=== PATIENT | male | born 1940 | race Caucasian/White ===

== ENCOUNTER 2018-06-21 14:30 | Emergency (ER) | payer MEDICARE, BC ==
[2018-06-21 14:39] VITALS: RESP 18; TEMP 97.9
[2018-06-21] MEDS ORDERED: SODIUM CHLORIDE 0.9% 500 ML 500 ML IV STA (15:27)
[2018-06-21 16:20] LABS: Basophils # (A) 0.1 k/uL (0-0.2); Basophils % (A) 1 %; Eosinophils # (A) 0.2 k/uL (0-0.7); Eosinophils % (A) 3 %; HCT 44.1 % (39.0-53.0); HGB 14.2 gm/dL (13.0-17.5); Lymphocytes # (A) 1.6 k/uL (1.0-4.8); Lymphocytes % (A) 22 %; MCHC 32.1 g/dL (31.0-37.0); MCV 96.6 fL (80.0-100.0); Mean Platelet Volume 7.8; Monocytes # (A) 0.5 k/uL (0-1.0); Monocytes % (A) 7 %; Neutrophils # (A) 4.8 k/uL (1.3-7.7); Neutrophils % (A) 66 %; Platelet Count 182 k/uL (150-450); RBC 4.57 m/uL (4.30-5.90); RDW 13.3 % (11.5-15.5); WBC 7.3 k/uL (3.8-10.6)
[2018-06-21 16:30] LABS: INR 2.1 (<1.2); Partial Thromboplastin Time 27.5 sec (22.0-30.0); Prothrombin Time 18.9 sec (9.0-12.0)
[2018-06-21 16:31] LABS: ALT 22 U/L (21-72); AST 28 U/L (17-59); Albumin 3.7 g/dL (3.5-5.0); Alkaline Phosphatase 66 U/L (38-126); Amylase 41 U/L (30-110); Anion Gap 10 mmol/L; Blood Urea Nitrogen 16 mg/dL (9-20); Calcium 9.1 mg/dL (8.4-10.2); Carbon Dioxide 26 mmol/L (22-30); Chloride 104 mmol/L (98-107); Glucose 130 mg/dL (74-99); Lipase 45 U/L (23-300); Potassium 4.6 mmol/L (3.5-5.1); Sodium 140 mmol/L (137-145); Total Bilirubin 0.7 mg/dL (0.2-1.3); Total Protein 6.2 g/dL (6.3-8.2)
--- NOTE | 2018-06-21 16:35 | ED ---
General Adult HPI - General Chief complaint: Urogenital Stated complaint: Hematuria Time Seen by Provider: 06/21/18 15:08 Source: patient, RN notes reviewed Mode of arrival: ambulatory Limitations: no limitations - History of Present Illness Initial comments: This an 78-year-old male presents emergency Department chief complaint of hematuria. Patient states started last night and continues today. Patient states is painless. Patient denies any abdominal pain, flank pain. Patient does admit that he does take Coumadin for A. fib. Patient states he Had hematuria in the past. Patient has had prior TURP procedure. Patient states she's also had colon resection secondary to colon cancer, cholecystectomy. Patient denies any history of C a. Patient states he was a former smoker. - Related Data Home Medications Medication Instructions Recorded Confirmed Acetaminophen-Codeine 300-30mg 1 tab PO Q6H PRN 06/21/18 06/21/18 [Tylenol w/codeine #3] Atenolol [Tenormin] 25 mg PO BID 06/21/18 06/21/18 Cephalexin [Keflex] 500 mg PO TID 06/21/18 06/21/18 Enalapril [Vasotec] 5 mg PO BID 06/21/18 06/21/18 Fluticasone Nasal Felt [Flonase 1 spray EA NOSTRIL DAILY PRN 06/21/18 06/21/18 Nasal Felt] Furosemide [Lasix] 20 mg PO DAILY 06/21/18 06/21/18 Montelukast [Singulair] 10 mg PO HS 06/21/18 06/21/18 Potassium Chloride ER [K-Dur 20] 20 meq PO DAILY 06/21/18 06/21/18 Simvastatin [Zocor] 20 mg PO HS 06/21/18 06/21/18 Tamsulosin HCl [Flomax] 0.4 mg PO BID 06/21/18 06/21/18 Warfarin [Coumadin] 5 mg PO HS 06/21/18 06/21/18 Allergies Allergy/AdvReac Type Severity Reaction Status Date / Time morphine AdvReac Nausea & Verified 06/21/18 15:16 Vomiting Review of Systems ROS Statement: Those systems with pertinent positive or pertinent negative responses have been documented in the HPI. ROS Other: All systems not noted in ROS Statement are negative. Past Medical History Past Medical History: Atrial Fibrillation, Asthma, CVA/TIA, Hyperlipidemia, Hypertension, Prostate Disorder Additional Past Medical History / Comment(s): Colon Cancer History of Any Multi-Drug Resistant Organisms: None Reported Past Surgical History: Cholecystectomy, Hernia Repair, Pacemaker Additional Past Surgical History / Comment(s): 8" of colon removed 2004, sinus operation, Cardiac Ablation x 2 Past Psychological History: No Psychological Hx Reported Smoking Status: Never smoker Past Alcohol Use History: None Reported Past Drug Use History: None Reported General Exam Limitations: no limitations General appearance: alert, in no apparent distress Neck exam: Present: normal inspection, full ROM. Absent: tenderness, meningismus, lymphadenopathy Respiratory exam: Present: normal lung sounds bilaterally. Absent: respiratory distress, wheezes, rales, rhonchi, stridor Cardiovascular Exam: Present: regular rate, normal rhythm, normal heart sounds. Absent: systolic murmur, diastolic murmur, rubs, gallop, clicks GI/Abdominal exam: Present: soft, normal bowel sounds. Absent: distended, tenderness, guarding, rebound, rigid Back exam: Absent: CVA tenderness (R), CVA tenderness (L) Skin exam: Present: warm, dry, intact, normal color. Absent: rash Course Vital Signs 06/21/18 14:34 Temperature 97.9 F Pulse Rate 66 Respiratory 18 Rate Blood Pressure 132/51 O2 Sat by Pulse 97 Oximetry Medical Decision Making - Medical Decision Making 78-year-old male present emergency Department for hematuria. Patient had lab work, ultrasound and urinalysis. Patient does have gross hematuria though he's had no difficulty urinating no retention. Ultram obtained no abnormal findings no mass. Patient's hemoglobin is stable at 14.2. We discussed that he is on Coumadin he is to hold his Coumadin for 2 nights, and is follow-up urologist on Saturday and return for any worsening symptoms. We discussed return parameters. - Lab Data Result diagrams: 06/21/18 16:08 06/21/18 16:08 Lab Results 06/21/18 06/21/18 06/21/18 Range/Units 16:08 16:08 16:08 WBC 7.3 (3.8-10.6) k/uL RBC 4.57 (4.30-5.90) m/uL Hgb 14.2 (13.0-17.5) gm/dL Hct 44.1 (39.0-53.0) % MCV 96.6 (80.0-100.0) fL MCH 31.0 (25.0-35.0) pg MCHC 32.1 (31.0-37.0) g/dL RDW 13.3 (11.5-15.5) % Plt Count 182 (150-450) k/uL Neutrophils % 66 % Lymphocytes % 22 % Monocytes % 7 % Eosinophils % 3 % Basophils % 1 % Neutrophils # 4.8 (1.3-7.7) k/uL Lymphocytes # 1.6 (1.0-4.8) k/uL Monocytes # 0.5 (0-1.0) k/uL Eosinophils # 0.2 (0-0.7) k/uL Basophils # 0.1 (0-0.2) k/uL PT 18.9 H (9.0-12.0) sec INR 2.1 H (<1.2) APTT 27.5 (22.0-30.0) sec Sodium 140 (137-145) mmol/L Potassium 4.6 (3.5-5.1) mmol/L Chloride 104 (98-107) mmol/L Carbon Dioxide 26 (22-30) mmol/L Anion Gap 10 mmol/L BUN 16 (9-20) mg/dL Creatinine 0.76 (0.66-1.25) mg/dL Est GFR (CKD-EPI)AfAm >90 (>60 ml/min/1.73 sqM) Est GFR (CKD-EPI)NonAf 86 (>60 ml/min/1.73 sqM) Glucose 130 H (74-99) mg/dL Calcium 9.1 (8.4-10.2) mg/dL Total Bilirubin 0.7 (0.2-1.3) mg/dL AST 28 (17-59) U/L ALT 22 (21-72) U/L Alkaline Phosphatase 66 (38-126) U/L Total Protein 6.2 L (6.3-8.2) g/dL Albumin 3.7 (3.5-5.0) g/dL Amylase 41 (30-110) U/L Lipase 45 (23-300) U/L Urine Color Urine Appearance (Clear) Urine pH (5.0-8.0) Ur Specific Trinity (1.001-1.035) Urine Protein (Negative) Urine Glucose (UA) (Negative) Urine Ketones (Negative) Urine Blood (Negative) Urine Nitrite (Negative) Urine Bilirubin (Negative) Urine Urobilinogen (<2.0) mg/dL Ur Leukocyte Esterase (Negative) Urine RBC (0-5) /hpf Urine WBC (0-5) /hpf Ur Squamous Epith Cells (0-4) /hpf Amorphous Sediment (None) /hpf Urine Mucus (None) /hpf 06/21/18 Range/Units 16:18 WBC (3.8-10.6) k/uL RBC (4.30-5.90) m/uL Hgb (13.0-17.5) gm/dL Hct (39.0-53.0) % MCV (80.0-100.0) fL MCH (25.0-35.0) pg MCHC (31.0-37.0) g/dL RDW (11.5-15.5) % Plt Count (150-450) k/uL Neutrophils % % Lymphocytes % % Monocytes % % Eosinophils % % Basophils % % Neutrophils # (1.3-7.7) k/uL Lymphocytes # (1.0-4.8) k/uL Monocytes # (0-1.0) k/uL Eosinophils # (0-0.7) k/uL Basophils # (0-0.2) k/uL PT (9.0-12.0) sec INR (<1.2) APTT (22.0-30.0) sec Sodium (137-145) mmol/L Potassium (3.5-5.1) mmol/L Chloride (98-107) mmol/L Carbon Dioxide (22-30) mmol/L Anion Gap mmol/L BUN (9-20) mg/dL Creatinine (0.66-1.25) mg/dL Est GFR (CKD-EPI)AfAm (>60 ml/min/1.73 sqM) Est GFR (CKD-EPI)NonAf (>60 ml/min/1.73 sqM) Glucose (74-99) mg/dL Calcium (8.4-10.2) mg/dL Total Bilirubin (0.2-1.3) mg/dL AST (17-59) U/L ALT (21-72) U/L Alkaline Phosphatase (38-126) U/L Total Protein (6.3-8.2) g/dL Albumin (3.5-5.0) g/dL Amylase (30-110) U/L Lipase (23-300) U/L Urine Color Red Urine Appearance Turbid (Clear) Urine pH 6.0 (5.0-8.0) Ur Specific Trinity 1.010 (1.001-1.035) Urine Protein 2+ H (Negative) Urine Glucose (UA) Negative (Negative) Urine Ketones Negative (Negative) Urine Blood Large H (Negative) Urine Nitrite Negative (Negative) Urine Bilirubin Negative (Negative) Urine Urobilinogen <2.0 (<2.0) mg/dL Ur Leukocyte Esterase Trace H (Negative) Urine RBC >182 H (0-5) /hpf Urine WBC 35 H (0-5) /hpf Ur Squamous Epith Cells 2 (0-4) /hpf Amorphous Sediment Rare H (None) /hpf Urine Mucus Occasional H (None) /hpf Disposition Clinical Impression: Hematuria Disposition: HOME SELF-CARE Condition: Stable Instructions: Hematuria (ED) Additional Instructions: Please return to the Emergency Department if symptoms worsen or any other concerns. Is patient prescribed a controlled substance at d/c from ED?: No Referrals: Jean Carlos Ferreira DO [Primary Care Provider] - 1-2 days Jameson Bejarano MD [STAFF PHYSICIAN] - 1-2 days Time of Disposition: 18:13
[2018-06-21 16:50] LABS: Amorphous Sediment,Urine Rare /hpf; Appearance,Urine Turbid (Clear); Bilirubin,Urine Negative (Negative); Blood,Urine Large (Negative); Color,Urine Red; Glucose,Urine (UA) Negative (Negative); Ketones,Urine Negative (Negative); Leukocyte Esterase,Urine Trace (Negative); Mucus,Urine Occasional /hpf; Nitrite,Urine Negative (Negative); Protein,Urine 2+ (Negative); RBC,Urine >182 /hpf (0-5); Squamous Epithelial Cell,Urine 2 /hpf (0-4); Urobilinogen,Urine <2.0 mg/dL (<2.0); WBC,Urine 35 /hpf (0-5)
--- NOTE | 2018-06-21 17:57 | US ---
EXAMINATION TYPE: US kidneys/renal and bladder DATE OF EXAM: 06/21/2018 COMPARISON: CT from 2011. CLINICAL HISTORY: Hematuria. Pain over bladder. Hx multiple UTI's. EXAM MEASUREMENTS: Right Kidney: 12.6 x 6.1 x 5.1 cm Left Kidney: 12.4 x 4.8 x 5.0 cm Limited due to bowel gas, SOB, and body habitus. Right Kidney: Hypoechoic area medially measuring 9.8 x 6.3 x 8.4 cm likely a simple renal cyst Left Kidney: Appears wnl Bladder: Limited, parts visualized wnl Bilateral Jets seen: No Exam noted suboptimal due to patient's large body habitus and overlying bowel gas with inability to h old breath per patient. There is exophytic hypoechoic anechoic lesion right kidney redemonstrated low er pole level corresponds to large but simple appearing cyst on [address] CT. Cortical thinning is present in right kidney. Visualized portion of bladder shows no suspicious wall thickening or intraluminal mass. There is prom inent in contour making it difficult to assess in entirety. Some cortical thinning left kidney is seen. No hydronephrosis evident bilaterally. IMPRESSION: No significant findings seen to account for patient's symptoms of hematuria. Large exophytic but simp le appearing cyst lower pole level right kidney is redemonstrated. Suboptimal study noted.
[2018-06-21 18:37] VITALS: BP 126/54; PULSE 61
== END 2018-06-21 18:36 | disposition home or self-care (01) ==
LOC: EC 14:30
DX: R31.9 Hematuria, unspecified (principal); I48.91 Unspecified atrial fibrillation; J45.909 Unspecified asthma, uncomplicated; E78.5 Hyperlipidemia, unspecified; I10 Essential (primary) hypertension; N42.9 Disorder of prostate, unspecified; Z85.038 Personal history of other malignant neoplasm of large intestine; Z86.73 Personal history of transient ischemic attack (TIA), and cerebral infarction without residual deficits; Z87.891 Personal history of nicotine dependence; Z79.01 Long term (current) use of anticoagulants; Z79.899 Other long term (current) drug therapy; Z88.5 Allergy status to narcotic agent; Z95.0 Presence of cardiac pacemaker; Z90.49 Acquired absence of other specified parts of digestive tract
CPT/HCPCS: 36415; 76770; 80053; 81001; 82150; 83690; 85025; 85610; 85730; 87086; 96360; 96361; 99284

== ENCOUNTER → 2020-05-23 | Outpatient (CLI) | payer MEDICARE, BC ==
--- NOTE | 2020-05-23 14:41 | XR ---
EXAMINATION TYPE: XR Hip Complete LT DATE OF EXAM: 05/23/2020 CLINICAL HISTORY: Left hip pain. Frequent falls. TECHNIQUE: AP and frogleg views of the left hip are obtained. COMPARISON: None. FINDINGS: There is no acute fracture or dislocation of the left hip. The hip joint space appears mi ldly narrowed superiorly. The overlying soft tissue demonstrate dystrophic calcification off of the left inferior pubic ramus. IMPRESSION: There is no acute fracture or dislocation of the left hip.
== END | disposition home or self-care (01) ==
LOC: RADXRMAIN 11:46
PROVIDERS: ATTEND Family Medicine
DX: M16.12 Unilateral primary osteoarthritis, left hip (principal)
CPT/HCPCS: 73502

== ENCOUNTER → 2022-12-07 | Outpatient (CLI) | payer MEDICARE ==
[2022-12-07 18:52] LABS: HCT 45.5 % (39.6-50.0); HGB 14.1 g/dL (13.0-17.0); MCH 30.8 pg (27.0-32.0); MCV 99.3 fL (80.0-97.0); Mean Platelet Volume 12.4 fL (9.5-12.2); NRBC Per 100 WBC 0 /100 WBCS (0.0-0.0); Platelet Count 195 X 10*3/uL (140-440); RBC 4.58 X 10*6/uL (4.40-5.60); WBC 8.98 X 10*3/uL (4.50-10.00)
[2022-12-07 20:01] LABS: African American GFR (CKD) 88.9 (60.0-200.0); Anion Gap 9.7 mmol/L (10.00-18.00); Blood Urea Nitrogen 16.6 mg/dL (9.0-27.0); Carbon Dioxide 27.5 mmol/L (20.0-27.5); Non-African American GFR(CKD) 76.7 (60.0-200.0); Potassium 5.2 mmol/L (3.5-5.5)
== END | disposition home or self-care (01) ==
LOC: LABWHC1 10:52
PROVIDERS: ATTEND Internal Medicine
DX: Z01.812 Encounter for preprocedural laboratory examination (principal); T82.111A Breakdown (mechanical) of cardiac pulse generator (battery), initial encounter; Y82.9 Unspecified medical devices associated with adverse incidents
CPT/HCPCS: 36415; 80051; 82565; 84520; 85027

== ENCOUNTER 2022-12-11 05:57 | Day surgery (SDC) | payer MEDICARE ==
[2022-12-11] MEDS ORDERED: SODIUM CHLORIDE 0.9% 1,000 ML IV SCH (05:58)
[2022-12-11] MEDS ORDERED: ceFAZolin 1 GM in SODIUM CHLORIDE 0.9% IRRIG BTL 250 ML IRRIGATION PRN (06:00)
[2022-12-11] MEDS ORDERED: SODIUM CHLORIDE 0.9% 1,000 ML IV ONE (06:07)
[2022-12-11 06:49] VITALS: RESP 16; TEMP 97.8
[2022-12-11 07:08] LABS: Basophils % (A) 0 %; Eosinophils # (A) 0.2 k/uL (0-0.7); Eosinophils % (A) 3 %; HCT 41.8 % (39.0-53.0); HGB 14.1 gm/dL (13.0-17.5); Lymphocytes # (A) 1.3 k/uL (1.0-4.8); Lymphocytes % (A) 16 %; MCH 31.8 pg (25.0-35.0); MCHC 33.6 g/dL (31.0-37.0); MCV 94.5 fL (80.0-100.0); Mean Platelet Volume 9.9; Monocytes # (A) 0.6 k/uL (0-1.0); Monocytes % (A) 8 %; Neutrophils # (A) 5.9 k/uL (1.3-7.7); Neutrophils % (A) 72 %; Platelet Count 179 k/uL (150-450); RBC 4.42 m/uL (4.30-5.90); RDW 13.9 % (11.5-15.5); WBC 8.2 k/uL (3.8-10.6)
[2022-12-11 07:17] LABS: INR 1.2 (<1.2); Prothrombin Time 12.2 sec (9.0-12.0)
[2022-12-11 07:20] LABS: African American GFR (CKD) >90 (>60 ml/min/1.73 sqM); Anion Gap 6 mmol/L; Blood Urea Nitrogen 21 mg/dL (9-20); Calcium 8.6 mg/dL (8.4-10.2); Carbon Dioxide 26 mmol/L (22-30); Chloride 106 mmol/L (98-107); Glucose 119 mg/dL (74-99); Non-African American GFR(CKD) 84 (>60 ml/min/1.73 sqM); Sodium 138 mmol/L (137-145)
[2022-12-11 07:30] LABS: Potassium 5.3 mmol/L (3.5-5.1)
[2022-12-11] MEDS ORDERED: fentaNYL (PF) 50 MCG/ML 2 ML AMP ONE (07:38)
[2022-12-11] MEDS ORDERED: LIDOCAINE 1% INJ 10MG/ML (20 ML MDV) ONE (07:38)
[2022-12-11] MEDS ORDERED: fentaNYL (PF) 50 MCG/ML 2 ML AMP IV ONE (07:45)
[2022-12-11] MEDS ORDERED: MIDAZOLAM 2 MG/2 ML VIAL IV ONE (07:49)
[2022-12-11] MEDS ORDERED: LIDOCAINE 1% INJ 10MG/ML (20 ML MDV) SQ ONE ×2 (07:54→08:04)
--- NOTE | 2022-12-11 08:42 | P.PCN ---
Description of Procedure: CARDIOLOGY PROCEDURE NOTE Maintenance Worker Swimming Pool: Dr. Adam Bourgeois Procedure performed: Dual chamber permanent pacemaker generator change Site: Left subclavian Indications: Sick Sinus Syndrome Complications: None Blood Loss: Minimal Description of Procedure: After the risks, benefits, and alternatives of the above-mentioned procedure was explained in detail with the patient, informed consent was obtained. The patient was taken to the cardiac catheterization suite where the left subclavian area was sterily prepped and draped in the usual fashion. Patient was given IV Versed and fentanyl for sedation. The skin over the existing pulse generator was infiltrated with lidocaine. An incision was made in the skin and was deepe shirley until the pectoral fascia was exposed. Hemostasis was obtained. The existing pulse generator was pulled out of the pocket. The leads were disconnected and were checked for thresholds. The existing leads were then inserted into the appropriate position into the new generator. They were then secured with the setscrew provided. The leads and generator were inserted into the pocket with the leads posterior. The subcutaneous tissue was approximated utilizing #2.0 and 3.0 vicryl in an interrupted stitch fashion. The dermal layer was approximated utilizing #4.0 vicryl. The area was cleansed with sterile saline and dried. A sterile 4x4 dressing was applied and the patient was transferred to the post catheterization holding area in stable and satisfactory condition. The patient tolerated the procedure well. Generator Data Hydrogen Plant Operations Manager: [employer] Brand: [id number] Holley ANDINO Model #: [id number] Serial#: [id number] Right Atrial Bipolar Lead Data: Type: Active fixation lead Hydrogen Plant Operations Manager: [employer] Model#: 5076-45 Serial Number: [id number] Right Ventricular Bipolar Lead Data: Type: Active fixation lead Hydrogen Plant Operations Manager: [employer] Model #: 5076-58 Serial #: [id number] Stimulation Thresholds: Right atrial bipolar lead pacing and sensing thresholds Voltage: 0.5 Impedance: 361 ohms P-wave sensin.9 mV Right Ventricular bipolar lead pacing and sensing thresholds Pulse Width: 0.4ms Voltage: 0.75 volts Impedance: 456 ohms R-wave sensin.8 mV Parameter Setting: Pacing mode is AAIR<=>DDDR Lower rate 60 bpm Upper rate 130 bpm Impressions: 1. Successful generator change of a dual chamber permanent pacemaker in the left pectoral site. Plan: 1. Routine post procedure care will be instituted as well as outpatient follow- up surveillance.
[2022-12-11] MEDS ORDERED: ACETAMINOPHEN TAB 325 MG TAB PO PRN (10:54)
[2022-12-11 16:00] VITALS: BP 118/70; PULSE 68
== END 2022-12-11 12:37 | disposition home or self-care (01) ==
LOC: CATHEP 05:57
PROVIDERS: ATTEND Internal Medicine
DX: I49.5 Sick sinus syndrome (principal); E78.5 Hyperlipidemia, unspecified; I10 Essential (primary) hypertension; Z82.49 Family history of ischemic heart disease and other diseases of the circulatory system; Z45.010 Encounter for checking and testing of cardiac pacemaker pulse generator [battery]; Z79.899 Other long term (current) drug therapy
CPT/HCPCS: 33228; 80048; 85025; 85610; C1785; J2250; J0690; J2001; J3010

== ENCOUNTER 2023-04-17 12:14 | Inpatient (IN) | payer MEDICARE ==
--- NOTE | 2023-04-17 12:52 | ED ---
General Adult HPI - General Chief complaint: GI Bleed Stated complaint: poss GI bleed Time Seen by Provider: 04/17/23 12:20 Source: patient, family, RN notes reviewed, old records reviewed Mode of arrival: wheelchair Limitations: no limitations - History of Present Illness Initial comments: Is an 83-year-old male who presents emergency Department with a past medical history of having a pacemaker and on Coumadin. Patient states the last couple of weeks he's had some diarrhea and the last 2 days he's having bright red blood per rectum. Patient states she's been a little more tired low but short of breath. Patient denies any chest pain or palpitations. Patient denies any fever chills or cough. Patient states about 3 weeks ago he had a urinary tract infection with some blood in the urine and he was treated with an antibiotic for one week he believes it was Bactrim. Patient denies lightheadedness dizziness or near syncopal episode - Related Data Home Medications Medication Instructions Recorded Confirmed Enalapril [Vasotec] 5 mg PO BID 06/21/18 04/17/23 Furosemide [Lasix] 20 mg PO DAILY PRN 06/21/18 04/17/23 Montelukast [Singulair] 10 mg PO HS 06/21/18 04/17/23 Simvastatin [Zocor] 20 mg PO HS 06/21/18 04/17/23 Tamsulosin HCl [Flomax] 0.4 mg PO BID 06/21/18 04/17/23 Warfarin [Coumadin] 5 mg PO HS 06/21/18 04/17/23 Triamcinolone Acetonide [Nasacort] 1 spray EA NOSTRIL DAILY PRN 12/10/22 04/17/23 atenoloL [Tenormin] 25 mg PO BID 04/17/23 04/17/23 Allergies Allergy/AdvReac Type Severity Reaction Status Date / Time morphine AdvReac Nausea & Verified 04/17/23 12:48 Vomiting Review of Systems ROS Statement: Those systems with pertinent positive or pertinent negative responses have been documented in the HPI. ROS Other: All systems not noted in ROS Statement are negative. Past Medical History Past Medical History: Atrial Fibrillation, Asthma, CVA/TIA, Hyperlipidemia, Hypertension, Prostate Disorder Additional Past Medical History / Comment(s): Colon Cancer History of Any Multi-Drug Resistant Organisms: None Reported Past Surgical History: Cholecystectomy, Hernia Repair, Pacemaker Additional Past Surgical History / Comment(s): 8" of colon removed 2004, sinus operation, Cardiac Ablation x 2 Past Psychological History: No Psychological Hx Reported Smoking Status: Former smoker Past Alcohol Use History: None Reported Past Drug Use History: None Reported General Exam - General Exam Comments Initial Comments: GENERAL: Patient is well-developed and well-nourished. Patient is nontoxic and well- hydrated and is in mild distress. ENT: Neck is soft and supple. No significant lymphadenopathy is noted. Oropharynx is clear. Moist mucous membranes. Neck has full range of motion without eliciting any pain. EYES: The sclera were anicteric and conjunctiva were pink and moist. Extraocular movements were intact and pupils were equal round and reactive to light. Eyelids were unremarkable. PULMONARY: Unlabored respirations. Good breath sounds bilaterally. No audible rales rhonchi or wheezing was noted. CARDIOVASCULAR: There is a regular rate and rhythm without any murmurs gallops or rubs. ABDOMEN: Soft and nontender with normal bowel sounds. SKIN: Skin is clear with no lesions or rashes and otherwise unremarkable. NEUROLOGIC: Patient is alert and oriented x3. Cranial nerves II through XII are grossly intact. Motor and sensory are also intact. Normal speech, volume and content. Symmetrical smile. MUSCULOSKELETAL: Normal extremities with adequate strength and full range of motion. 2+ edema LYMPHATICS: No significant lymphadenopathy is noted PSYCHIATRIC: Normal psychiatric evaluation. Limitations: no limitations Course Vital Signs 04/17/23 04/17/23 04/17/23 12:20 12:59 14:15 Temperature 99 F 97.7 F 97.6 F Pulse Rate 80 68 64 Respiratory 18 18 18 Rate Blood Pressure 113/70 118/54 98/47 O2 Sat by Pulse 96 98 Oximetry Medical Decision Making - Medical Decision Making Was pt. sent in by a medical professional or institution (, PA, ADVERTISING MANAGER, urgent care, hospital, or [facility]...) When possible be specific @ -[No] Did you speak to anyone other than the patient for history (EMS, parent, family, police, friend...)? What history was obtained from this source @ -[No] Did you review nursing and triage notes (agree or disagree)? Why? @ -[I reviewed and agree with nursing and triage notes] Were old charts reviewed (outside hosp., previous admission, EMS record, old EKG, old radiological studies, urgent care reports/EKG's, [facility] records)? Report findings @ -[place] prior charts prior lab work on this patient Differential Diagnosis (chest pain, altered mental status, abdominal pain women, abdominal pain men, vaginal bleeding, weakness, fever, dyspnea, syncope, headache, dizziness, GI bleed, back pain, seizure, CVA, palpatations, mental health, musculoskeletal)? @ -Differential GI Bleed: Esophageal varices, aortoenteric fistula, Maria Esther-Gamble, gastritis, peptic ulcer disease, diverticulosis, inflammatory bowel disease, hemorrhoids, fissure, colitis, malignancy, Meckels diverticulum, this is not meant to be an all- inclusive list. EKG interpreted by me (3pts min.). @ -[As above] X-rays interpreted by me (1pt min.). @ -[None done] CT interpreted by me (1pt min.). @ -[None done] U/S interpreted by me (1pt. min.). @ -[None done] What testing was considered but not performed or refused? (CT, X-rays, U/S, labs)? Why? @ -[None] What meds were considered but not given or refused? Why? @ -[None] Did you discuss the management of the patient with other professionals (professionals i.e. , PA, ADVERTISING MANAGER, lab, RT, psych nurse, hospice social worker, systems lead, teacher, reserve officer, nurse case management)? Give summary @ -Discussed the case with Dr. Ferreira Was smoking cessation discussed for >3mins.? @ -[No] Was critical care preformed (if so, how long)? @ -[No] Were there social determinants of health that impacted care today? How? (Homelessness, low income, unemployed, alcoholism, drug addiction, transportati on, low edu. Level, literacy, decrease access to med. care, fci, rehab)? @ -[No] Was there de-escalation of care discussed even if they declined (Discuss DNR or withdrawal of care, Hospice)? DNR status @ -[No] What co-morbidities impacted this encounter? (DM, HTN, Smoking, COPD, CAD, Cancer, CVA, ARF, Chemo, Hep., AIDS, mental health diagnosis, sleep apnea, morbid obesity)? @ -[None] Was patient admitted / discharged? Hospital course, mention meds given and route, prescriptions, significant lab abnormalities, going to OR and other pertinent info. @ -Patient's lab work came back and I discussed the case with Dr. Ferreira he agreed to admit the patient admitted the patient I consulted Dr. Carlisle and I held the Coumadin Undiagnosed new problem with uncertain prognosis? @ -[No] Drug Therapy requiring intensive monitoring for toxicity (Heparin, Nitro, Insulin, Cardizem)? @ -[No] Were any procedures done? @ -[No] Diagnosis/symptom? @ -GI bleed Acute, or Chronic, or Acute on Chronic? @ -Acute Uncomplicated (without systemic symptoms) or Complicated (systemic symptoms)? @ -Complicated Side effects of treatment? @ -[No] Exacerbation, Progression, or Severe Exacerbation? @ -[No] Poses a threat to life or bodily function? How? (Chest pain, USA, VT, pneumonia, PE, COPD, DKA, ARF, appy, cholecystitis, CVA, Diverticulitis, Homicidal, S uicidal, threat to staff... and all critical care pts) @ -Yes this could lead to anemia and hypoxia and end organ dysfunction - Lab Data Result diagrams: 04/17/23 12:51 04/17/23 12:51 Lab Results 04/17/23 04/17/23 04/17/23 Range/Units 12:51 12:51 12:51 WBC 11.1 H (3.8-10.6) k/uL RBC 3.52 L (4.30-5.90) m/uL Hgb 10.9 L (13.0-17.5) gm/dL Hct 32.8 L (39.0-53.0) % MCV 93.2 (80.0-100.0) fL MCH 30.9 (25.0-35.0) pg MCHC 33.2 (31.0-37.0) g/dL RDW 13.4 (11.5-15.5) % Plt Count 277 (150-450) k/uL MPV 9.0 Neutrophils % 79 % Lymphocytes % 13 % Monocytes % 5 % Eosinophils % 2 % Basophils % 0 % Neutrophils # 8.7 H (1.3-7.7) k/uL Lymphocytes # 1.4 (1.0-4.8) k/uL Monocytes # 0.6 (0-1.0) k/uL Eosinophils # 0.3 (0-0.7) k/uL Basophils # 0.0 (0-0.2) k/uL PT 22.9 H (9.0-12.0) sec INR 2.3 H (<1.2) APTT 32.8 H (22.0-30.0) sec Sodium 135 L (137-145) mmol/L Potassium 4.5 (3.5-5.1) mmol/L Chloride 101 (98-107) mmol/L Carbon Dioxide 26 (22-30) mmol/L Anion Gap 8 mmol/L BUN 24 H (9-20) mg/dL Creatinine 0.85 (0.66-1.25) mg/dL Est GFR (CKD-EPI)AfAm >90 (>60 ml/min/1.73 sqM) Est GFR (CKD-EPI)NonAf 80 (>60 ml/min/1.73 sqM) Glucose 102 H (74-99) mg/dL Calcium 8.7 (8.4-10.2) mg/dL Magnesium 2.0 (1.6-2.3) mg/dL Total Bilirubin 0.9 (0.2-1.3) mg/dL AST 37 (17-59) U/L ALT 24 (4-49) U/L Alkaline Phosphatase 73 (38-126) U/L Troponin I (0.000-0.034) ng/mL Total Protein 5.8 L (6.3-8.2) g/dL Albumin 3.3 L (3.5-5.0) g/dL Blood Type Blood Type Recheck Bld Type Recheck Status Antibody Screen Spec Expiration Date 04/17/23 04/17/23 Range/Units 12:51 12:51 WBC (3.8-10.6) k/uL RBC (4.30-5.90) m/uL Hgb (13.0-17.5) gm/dL Hct (39.0-53.0) % MCV (80.0-100.0) fL MCH (25.0-35.0) pg MCHC (31.0-37.0) g/dL RDW (11.5-15.5) % Plt Count (150-450) k/uL MPV Neutrophils % % Lymphocytes % % Monocytes % % Eosinophils % % Basophils % % Neutrophils # (1.3-7.7) k/uL Lymphocytes # (1.0-4.8) k/uL Monocytes # (0-1.0) k/uL Eosinophils # (0-0.7) k/uL Basophils # (0-0.2) k/uL PT (9.0-12.0) sec INR (<1.2) APTT (22.0-30.0) sec Sodium (137-145) mmol/L Potassium (3.5-5.1) mmol/L Chloride (98-107) mmol/L Carbon Dioxide (22-30) mmol/L Anion Gap mmol/L BUN (9-20) mg/dL Creatinine (0.66-1.25) mg/dL Est GFR (CKD-EPI)AfAm (>60 ml/min/1.73 sqM) Est GFR (CKD-EPI)NonAf (>60 ml/min/1.73 sqM) Glucose (74-99) mg/dL Calcium (8.4-10.2) mg/dL Magnesium (1.6-2.3) mg/dL Total Bilirubin (0.2-1.3) mg/dL AST (17-59) U/L ALT (4-49) U/L Alkaline Phosphatase (38-126) U/L Troponin I <0.012 (0.000-0.034) ng/mL Total Protein (6.3-8.2) g/dL Albumin (3.5-5.0) g/dL Blood Type AB Positive Blood Type Recheck AB Pos Bld Type Recheck Status No Antibody Screen NEGATIVE Spec Expiration Date 04/20/20232350 Disposition Clinical Impression: Gastrointestinal bleeding Disposition: ADMITTED IP TO THIS [facility] Referrals: Jean Carlos Ferreira DO [Primary Care Provider] - 1-2 days Time of Disposition: 15:04
[2023-04-17 13:13] LABS: Basophils % (A) 0 %; Eosinophils # (A) 0.3 k/uL (0-0.7); Eosinophils % (A) 2 %; HCT 32.8 % (39.0-53.0); HGB 10.9 gm/dL (13.0-17.5); Lymphocytes # (A) 1.4 k/uL (1.0-4.8); Lymphocytes % (A) 13 %; MCH 30.9 pg (25.0-35.0); MCHC 33.2 g/dL (31.0-37.0); MCV 93.2 fL (80.0-100.0); Monocytes # (A) 0.6 k/uL (0-1.0); Monocytes % (A) 5 %; Neutrophils # (A) 8.7 k/uL (1.3-7.7); Neutrophils % (A) 79 %; Platelet Count 277 k/uL (150-450); RBC 3.52 m/uL (4.30-5.90); RDW 13.4 % (11.5-15.5); WBC 11.1 k/uL (3.8-10.6)
[2023-04-17 13:18] LABS: INR 2.3 (<1.2); Partial Thromboplastin Time 32.8 sec (22.0-30.0); Prothrombin Time 22.9 sec (9.0-12.0)
[2023-04-17 13:25] LABS: ALT 24 U/L (4-49); AST 37 U/L (17-59); African American GFR (CKD) >90 (>60 ml/min/1.73 sqM); Albumin 3.3 g/dL (3.5-5.0); Alkaline Phosphatase 73 U/L (38-126); Anion Gap 8 mmol/L; Blood Urea Nitrogen 24 mg/dL (9-20); Calcium 8.7 mg/dL (8.4-10.2); Carbon Dioxide 26 mmol/L (22-30); Chloride 101 mmol/L (98-107); Glucose 102 mg/dL (74-99); Non-African American GFR(CKD) 80 (>60 ml/min/1.73 sqM); Potassium 4.5 mmol/L (3.5-5.1); Sodium 135 mmol/L (137-145); Total Bilirubin 0.9 mg/dL (0.2-1.3); Total Protein 5.8 g/dL (6.3-8.2)
[2023-04-17] MEDS ORDERED: SODIUM CHLORIDE 0.9% 500 ML 500 ML IV ONE (14:58)
[2023-04-17] MEDS ORDERED: SODIUM CHLORIDE 0.9% 1,000 ML IV ONE (15:16)
[2023-04-17 15:51] LABS: Basophils % (A) 0 %; Eosinophils # (A) 0.1 k/uL (0-0.7); Eosinophils % (A) 1 %; HCT 29.2 % (39.0-53.0); HGB 9.6 gm/dL (13.0-17.5); Lymphocytes # (A) 0.8 k/uL (1.0-4.8); Lymphocytes % (A) 7 %; MCH 30.7 pg (25.0-35.0); Monocytes # (A) 0.5 k/uL (0-1.0); Monocytes % (A) 5 %; Neutrophils # (A) 9.5 k/uL (1.3-7.7); Neutrophils % (A) 87 %; Platelet Count 244 k/uL (150-450); RBC 3.14 m/uL (4.30-5.90); RDW 13.6 % (11.5-15.5); WBC 10.9 k/uL (3.8-10.6)
[2023-04-17] MEDS: ATORVASTATIN 10 MG TAB PO SCH (21:11)
[2023-04-17] MEDS: MONTELUKAST 10 MG TAB PO SCH (21:11)
[2023-04-17] MEDS: atenoloL 25 MG TAB PO SCH (21:11)
[2023-04-17] MEDS: TAMSULOSIN 0.4 MG CAP.ER.24H PO SCH (21:11)
[2023-04-17 21:40] LABS: Basophils % (A) 0 %; Eosinophils # (A) 0.2 k/uL (0-0.7); Eosinophils % (A) 2 %; HGB 9.3 gm/dL (13.0-17.5); Hypochromasia Slight; Lymphocytes # (A) 1.5 k/uL (1.0-4.8); Lymphocytes % (A) 15 %; MCH 31.1 pg (25.0-35.0); MCHC 33.3 g/dL (31.0-37.0); MCV 93.4 fL (80.0-100.0); Mean Platelet Volume 8.6; Monocytes # (A) 0.6 k/uL (0-1.0); Monocytes % (A) 6 %; Neutrophils # (A) 7.7 k/uL (1.3-7.7); Neutrophils % (A) 77 %; Platelet Count 236 k/uL (150-450); RDW 13.5 % (11.5-15.5)
[2023-04-18] MEDS: TAMSULOSIN 0.4 MG CAP.ER.24H PO SCH ×2 (08:14→20:21)
[2023-04-18] MEDS: atenoloL 25 MG TAB PO SCH ×2 (08:14→20:21)
[2023-04-18] MEDS: lisinopriL 20 MG TAB PO SCH (08:14)
[2023-04-18 08:34] LABS: Basophils % (A) 0 %; Eosinophils # (A) 0.3 k/uL (0-0.7); Eosinophils % (A) 3 %; HCT 29.1 % (39.0-53.0); HGB 9.4 gm/dL (13.0-17.5); Hypochromasia Slight; Lymphocytes % (A) 11 %; MCH 30.7 pg (25.0-35.0); MCHC 32.3 g/dL (31.0-37.0); Mean Platelet Volume 8.3; Monocytes # (A) 0.6 k/uL (0-1.0); Monocytes % (A) 6 %; Neutrophils # (A) 7.5 k/uL (1.3-7.7); Neutrophils % (A) 78 %; Platelet Count 238 k/uL (150-450); RBC 3.07 m/uL (4.30-5.90); RDW 13.6 % (11.5-15.5); WBC 9.6 k/uL (3.8-10.6)
[2023-04-18] MEDS ORDERED: LACTULOSE 20 GM/30 ML CUP PO ONE (10:20)
[2023-04-18] MEDS ORDERED: PEG 3350 (420 GM/BTL) + LYTES 4,000 ML BOTTLE PO ONE (10:20)
[2023-04-18] MEDS ORDERED: MAGNESIUM HYDROXIDE 2,400 MG/30 ML CUP PO SCH (10:30)
[2023-04-18] MEDS: IOPAMIDOL CONTRAST (ORAL USE) VIAL PO PRN ×2 (10:56→11:45)
--- NOTE | 2023-04-18 11:03 | P.GSCN ---
History of Present Illness Consult date: 04/18/23 History of present illness: CHIEF COMPLAINT: GI bleed HISTORY OF PRESENT ILLNESS: This is a 83-year-old male who presented to the hospital with complaints of GI bleed. He has had bright red blood per rectum for about 2 days. He reports the diarrhea started on Saturday and then over the last 2 days the stool now has blood present. He reports since being up on the floor he's had no further bleeding except when he wipes. He does report some right-sided discomfort in the abdomen. Denies any nausea or vomiting. Patient does have a known history of colon cancer and had bowel resection in 2004. Last colonoscopy was about 10 years ago and reports that as negative. Patient is on Coumadin for atrial fibrillation. Patient had a hemoglobin of 14 and December on on admission hemoglobin was 10.9 and has dropped to 9.3. Patient denies any prior history of GI bleed. Patient has been on antibiotics recently for a UTI. PAST MEDICAL HISTORY: See list. PAST SURGICAL HISTORY: See list. Pacemaker, cholecystectomy, hernia repair, colon resection 2004, cardiac ablation MEDICATIONS: See list. ALLERGIES: See list. SOCIAL HISTORY: No illicit drug use. REVIEW OF SYSTEMS: CONSTITUTIONAL: Denies fever or chills. HEENT: Denies blurred vision, vision changes, or eye pain. Denies hemoptysis ENDOCRINE: Denies heat or cold intolerance. CARDIOVASCULAR: Denies chest pain or pressure. RESPIRATORY: No shortness of breath. GASTROINTESTINAL: Please refer to HPI NEURO: Denies history of seizures. PSYCH: No depression or suicidal ideation HEMATOLOGIC: Denies bleeding disorders. LYMPHATIC: The patient denies any lumps and bumps around the neck. GENITOURINARY: Denies any blood in urine or increased urinary frequency. MUSCULOSKELETAL: Denies myalgias. Denies joint swelling. Denies decreased range of motion beyond patients baseline. SKIN: Denies pruitis. Denies rash. PHYSICAL EXAM: VITAL SIGNS: Reviewed GENERAL: Well-developed in no acute distress. HEENT: No sclera icterus. Extraocular movements grossly intact. Moist buccal mucosa. Head is atraumatic, normocephalic. Hears conversational speech. No nasal drainage. NECK: Supple without lymphadenopathy. CHEST: Non-labored respirations and equal bilateral excursions. CARDIOVASCULAR: Palpable 2+ radial pulses. ABDOMEN: Soft. Nondistended. mild right sided tenderness with palpation MUSCULOSKELETAL: No clubbing or cyanosis. NEUROLOGIC: No focal or lateralizing signs. Cranial nerves II through XII grossly intact. PSYCH: Appropriate affect. Alert and oriented to person, place and time. SKIN: Well perfused. Good skin turgor. LABORATORY DATA: WBC 11.1 down to 9.6 Hgb 10.9 down to 9.4 platelets 238 INR 2.3 Sodium 135 potassium 4.5 creatinine 0.85 Glucose 102 magnesium 2.0 IMAGING: ASSESSMENT: 1. Acute GI bleed with bright red blood per rectum 2. Anemia 3. History of colon cancer requiring bowel resection in 2004 5. History of atrial fibrillation on Coumadin at home 6. History of pacemaker PLAN: -Patient scheduled for EGD and colonoscopy tomorrow, 04/19/[address] Carlisle -Check computed tomography scan abdomen and pelvis with oral and IV contrast due to history of colon cancer and abdominal pain -Clear liquid diet today -Start bowel prep with lactulose and milk of magnesia -NPO after midnight -Continue to monitor hemoglobin -Continue to monitor for any signs or symptoms of bleeding -Hold Coumadin Physician Senior Process Engineer note has been reviewed by physician. Signing provider agrees with the documented findings, assessment, and plan of care. Past Medical History Past Medical History: Atrial Fibrillation, Asthma, Hyperlipidemia, Hypertension, Prostate Disorder Additional Past Medical History / Comment(s): colon cancer History of Any Multi-Drug Resistant Organisms: None Reported Past Surgical History: Cholecystectomy, Hernia Repair, Pacemaker Additional Past Surgical History / Comment(s): 8" of colon removed 2004, sinus operation, cardiac ablation x 2 Past Anesthesia/Blood Transfusion Reactions: No Reported Reaction Type of Cardiac Device: Permanent Pacemaker Device Placement Date:: Unknown Past Psychological History: No Psychological Hx Reported Smoking Status: Former smoker Past Alcohol Use History: None Reported Past Drug Use History: None Reported Medications and Allergies Home Medications Medication Instructions Recorded Confirmed Type Enalapril [Vasotec] 5 mg PO BID 06/21/18 04/17/23 History Furosemide [Lasix] 20 mg PO DAILY PRN 06/21/18 04/17/23 History Montelukast [Singulair] 10 mg PO HS 06/21/18 04/17/23 History Simvastatin [Zocor] 20 mg PO HS 06/21/18 04/17/23 History Tamsulosin HCl [Flomax] 0.4 mg PO BID 06/21/18 04/17/23 History Warfarin [Coumadin] 5 mg PO HS 06/21/18 04/17/23 History Triamcinolone Acetonide [Nasacort] 1 spray EA NOSTRIL DAILY PRN 12/10/22 04/17/23 History atenoloL [Tenormin] 25 mg PO BID 04/17/23 04/17/23 History Allergies Allergy/AdvReac Type Severity Reaction Status Date / Time morphine AdvReac Nausea & Verified 04/17/23 12:48 Vomiting Surgical - Exam Vital Signs Temp Pulse Resp BP Pulse Ox 99 F 80 18 113/70 96 04/17/23 12:20 04/17/23 12:20 04/17/23 12:20 04/17/23 12:20 04/17/23 12:20 Results - Labs 04/18/23 07:48 04/17/23 12:51 Abnormal Lab Results - Last 24 Hours (Table) 04/17/23 04/17/23 04/17/23 Range/Units 12:51 12:51 12:51 WBC 11.1 H (3.8-10.6) k/uL RBC 3.52 L (4.30-5.90) m/uL Hgb 10.9 L (13.0-17.5) gm/dL Hct 32.8 L (39.0-53.0) % Neutrophils # 8.7 H (1.3-7.7) k/uL Lymphocytes # (1.0-4.8) k/uL PT 22.9 H (9.0-12.0) sec INR 2.3 H (<1.2) APTT 32.8 H (22.0-30.0) sec Sodium 135 L (137-145) mmol/L BUN 24 H (9-20) mg/dL Glucose 102 H (74-99) mg/dL Total Protein 5.8 L (6.3-8.2) g/dL Albumin 3.3 L (3.5-5.0) g/dL 04/17/23 04/17/23 04/18/23 Range/Units 15:34 21:18 07:48 WBC 10.9 H (3.8-10.6) k/uL RBC 3.14 L 3.00 L 3.07 L (4.30-5.90) m/uL Hgb 9.6 L 9.3 L 9.4 L (13.0-17.5) gm/dL Hct 29.2 L 28.0 L 29.1 L (39.0-53.0) % Neutrophils # 9.5 H (1.3-7.7) k/uL Lymphocytes # 0.8 L (1.0-4.8) k/uL PT (9.0-12.0) sec INR (<1.2) APTT (22.0-30.0) sec Sodium (137-145) mmol/L BUN (9-20) mg/dL Glucose (74-99) mg/dL Total Protein (6.3-8.2) g/dL Albumin (3.5-5.0) g/dL Diabetes panel 04/17/23 Range/Units 12:51 Sodium 135 L (137-145) mmol/L Potassium 4.5 (3.5-5.1) mmol/L Chloride 101 (98-107) mmol/L Carbon Dioxide 26 (22-30) mmol/L BUN 24 H (9-20) mg/dL Creatinine 0.85 (0.66-1.25) mg/dL Glucose 102 H (74-99) mg/dL Calcium 8.7 (8.4-10.2) mg/dL AST 37 (17-59) U/L ALT 24 (4-49) U/L Alkaline Phosphatase 73 (38-126) U/L Total Protein 5.8 L (6.3-8.2) g/dL Albumin 3.3 L (3.5-5.0) g/dL Calcium panel 04/17/23 Range/Units 12:51 Calcium 8.7 (8.4-10.2) mg/dL Albumin 3.3 L (3.5-5.0) g/dL Pituitary panel 04/17/23 Range/Units 12:51 Sodium 135 L (137-145) mmol/L Potassium 4.5 (3.5-5.1) mmol/L Chloride 101 (98-107) mmol/L Carbon Dioxide 26 (22-30) mmol/L BUN 24 H (9-20) mg/dL Creatinine 0.85 (0.66-1.25) mg/dL Glucose 102 H (74-99) mg/dL Calcium 8.7 (8.4-10.2) mg/dL Adrenal panel 04/17/23 Range/Units 12:51 Sodium 135 L (137-145) mmol/L Potassium 4.5 (3.5-5.1) mmol/L Chloride 101 (98-107) mmol/L Carbon Dioxide 26 (22-30) mmol/L BUN 24 H (9-20) mg/dL Creatinine 0.85 (0.66-1.25) mg/dL Glucose 102 H (74-99) mg/dL Calcium 8.7 (8.4-10.2) mg/dL Total Bilirubin 0.9 (0.2-1.3) mg/dL AST 37 (17-59) U/L ALT 24 (4-49) U/L Alkaline Phosphatase 73 (38-126) U/L Total Protein 5.8 L (6.3-8.2) g/dL Albumin 3.3 L (3.5-5.0) g/dL
--- NOTE | 2023-04-18 12:52 | CT ---
EXAMINATION TYPE: CT abdomen pelvis w con DATE OF EXAM: 04/18/2023 COMPARISON: 01/19/2011 INDICATION: abdominal pain, r/o GI bleed, history of colon cancer DLP: 2523.4 mGycm, Automated exposure control for dose reduction was used. CONTRAST: 100 mL of Isovue 300. Study performed with Oral Contrast TECHNIQUE: Axial images were obtained from above the diaphragm to the pubic rami in the axial plane a t 5 mm thick sections. Reconstructed images are reviewed on the computer in the coronal plane. FINDINGS: Limited CT sections are obtained the lung bases. The lung bases are clear. CT ABDOMEN: Liver: Hepatic cysts are scattered within the liver. Spleen: Normal Pancreas: There is diffuse fatty infiltration to the liver. Adrenal glands: The adrenal glands are normal. Gallbladder: Normal Kidneys: No masses are evident. No hydronephrosis is present. There is a 7 cm cyst on the inferior pole right kidney. Small cortical renal cysts are on the left kidney. Delayed images were obtained t hrough the kidneys, which remain unremarkable. Aorta: Vascular calcification is within the aorta. Inferior vena cava: Normal. CT PELVIS: There is a large mass within the cecum. A small amount of contrast passes through this area into the more normal-appearing hepatic flexure. Findings are very suggestive for underlying neoplasm. Addition al workup is recommended. Small bowel loops are nondilated. Contrast filled loops of bowel appear unr emarkable. Terminal ileum appears normal. Appendix: Normal as visualized. Urinary bladder: Normal. Genitourinary structures: Prostate appears somewhat prominent. Correlate for prior TURP. Osseous structures: Degenerative disc changes are present L5-S1. Some degenerative disc changes are a lso present within the thoracolumbar spine. A lytic lesion may be within the posterior superior T10 l evel. IMPRESSIONS: 1. 14.2 x 12.1 x 12.1 cm mass centered at the level of the cecum. Workup for neoplasm is recommended . Report was called to the patient's nurse by Dr. Mckeon by telephone at the time of interpretation. 2. 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
--- NOTE | 2023-04-18 14:15 | P.HPIM ---
History of Present Illness H&P Date: 04/18/23 Chief Complaint: Rectal bleeding This is a pleasant 83-year-old gentleman with past medical history of atrial fibrillation anticoagulated on Coumadin, cardiac ablations X 2 ,asthma, hypertension, hyperlipidemia, prostate disorder, colon cancer-bowel resection 2004, sick sinus syndrome with permanent pacemaker implantation, former nicotine dependence, last colonoscopy approximately [address] Astorga,which patient reports as negative presented to the ER with complaints of rectal bleeding. Approximately 2 weeks ago, evaluated by PCP, discovered UTI, placed on antibiotics of Cipro. Completed antibiotic therapy. Developed diarrhea- reports subsided approximately 4 days ago. Over the last 2 days, developed dizziness accompanied by rectal bleeding, bright red and black loose stool in mild right sided abdominal discomfort. Denies nausea or vomiting. Denies chest pain, palpitations or shortness of breath. Patient's hemoglobin normally around 14, on admission 10.9, currently down to 9.4. No further rectal bleeding. INR 2.3. Sodium 135, potassium 4.5, bicarb 26, BUN 24, creatinine 0.85, magnesium 2. Albumin 2.3, total protein 5.8. Review of Systems ROS Statement: Those systems with pertinent positive or pertinent negative responses have been documented in the HPI. ROS Other: All systems not noted in ROS Statement are negative. Past Medical History Past Medical History: Atrial Fibrillation, Asthma, Hyperlipidemia, Hypertension, Prostate Disorder Additional Past Medical History / Comment(s): colon cancer History of Any Multi-Drug Resistant Organisms: None Reported Past Surgical History: Cholecystectomy, Hernia Repair, Pacemaker Additional Past Surgical History / Comment(s): 8" of colon removed 2004, sinus operation, cardiac ablation x 2 Past Anesthesia/Blood Transfusion Reactions: No Reported Reaction Type of Cardiac Device: Permanent Pacemaker Device Placement Date:: Unknown Past Psychological History: No Psychological Hx Reported Smoking Status: Former smoker Past Alcohol Use History: None Reported Past Drug Use History: None Reported Medications and Allergies Home Medications Medication Instructions Recorded Confirmed Type Enalapril [Vasotec] 5 mg PO BID 06/21/18 04/17/23 History Furosemide [Lasix] 20 mg PO DAILY PRN 06/21/18 04/17/23 History Montelukast [Singulair] 10 mg PO HS 06/21/18 04/17/23 History Simvastatin [Zocor] 20 mg PO HS 06/21/18 04/17/23 History Tamsulosin HCl [Flomax] 0.4 mg PO BID 06/21/18 04/17/23 History Warfarin [Coumadin] 5 mg PO HS 06/21/18 04/17/23 History Triamcinolone Acetonide [Nasacort] 1 spray EA NOSTRIL DAILY PRN 12/10/22 04/17/23 History atenoloL [Tenormin] 25 mg PO BID 04/17/23 04/17/23 History Allergies Allergy/AdvReac Type Severity Reaction Status Date / Time morphine AdvReac Nausea & Verified 04/17/23 12:48 Vomiting Physical Exam Vitals: Vital Signs Temp Pulse Pulse Pulse Resp BP BP 04/18/23 08:00 98.5 F 61 16 129/61 04/18/23 04:00 97.8 F 87 18 137/67 04/17/23 23:38 97.7 F 83 16 160/79 04/17/23 20:00 97.9 F 60 16 121/61 04/17/23 18:57 78 14 04/17/23 18:45 98.0 F 04/17/23 17:53 64 18 108/55 04/17/23 16:37 98.3 F 60 18 126/71 04/17/23 15:31 97.9 F 69 18 106/60 04/17/23 14:15 97.6 F 64 18 98/47 04/17/23 12:59 97.7 F 68 18 118/54 04/17/23 12:20 99 F 80 18 113/70 BP Pulse Ox 04/18/23 08:00 95 04/18/23 04:00 96 04/17/23 23:38 96 04/17/23 20:00 96 04/17/23 18:57 159/62 98 04/17/23 18:45 04/17/23 17:53 96 04/17/23 16:37 96 04/17/23 15:31 96 04/17/23 14:15 98 04/17/23 12:59 04/17/23 12:20 96 Intake and Output 04/17/23 04/18/23 04/18/23 22:59 06:59 14:59 Intake Total 10 Balance 10 Intake: IV 10 Invasive Line 1 10 Other: Voiding Method Toilet Toilet Bedside Commode Bedside Commode # Voids 1 Weight 108.862 kg PHYSICAL EXAM: VITAL SIGNS: [As above] GENERAL: Sitting up in a chair, no acute distress HEENT: Normocephalic, Conjunctivae normal. eyes normal. NECK: Supple, No JVD. No thyroid enlargement. No LNs CARDIOVASCULAR: S1, S2 regular.. No murmur RESPIRATION: Unlabored, Breath sounds diminished in the bases. No rhonchi or crackles. No bronchial breathing. ABDOMEN: Soft, nondistended, minimal right-sided tenderness. No guarding. no masses palpable. No ascites, No hepatosplenomegaly.Bowel sounds heard. LEGS: No edema. no swelling PSYCHIATRY: Alert and oriented X3, mood and affect normal. NERVOUS SYSTEM: Cranial N 2-12 grossly normal. Moves all 4 limbs. Diffuse weakness No focal deficits. Strength and sensation grossly intact. Skin: Warm and dry, no rash Results CBC & Chem 7: 04/18/23 07:48 04/17/23 12:51 Labs: Abnormal Lab Results - Last 24 Hours (Table) 04/17/23 04/17/23 04/17/23 Range/Units 12:51 12:51 12:51 WBC 11.1 H (3.8-10.6) k/uL RBC 3.52 L (4.30-5.90) m/uL Hgb 10.9 L (13.0-17.5) gm/dL Hct 32.8 L (39.0-53.0) % Neutrophils # 8.7 H (1.3-7.7) k/uL Lymphocytes # (1.0-4.8) k/uL PT 22.9 H (9.0-12.0) sec INR 2.3 H (<1.2) APTT 32.8 H (22.0-30.0) sec Sodium 135 L (137-145) mmol/L BUN 24 H (9-20) mg/dL Glucose 102 H (74-99) mg/dL Total Protein 5.8 L (6.3-8.2) g/dL Albumin 3.3 L (3.5-5.0) g/dL 04/17/23 04/17/23 04/18/23 Range/Units 15:34 21:18 07:48 WBC 10.9 H (3.8-10.6) k/uL RBC 3.14 L 3.00 L 3.07 L (4.30-5.90) m/uL Hgb 9.6 L 9.3 L 9.4 L (13.0-17.5) gm/dL Hct 29.2 L 28.0 L 29.1 L (39.0-53.0) % Neutrophils # 9.5 H (1.3-7.7) k/uL Lymphocytes # 0.8 L (1.0-4.8) k/uL PT (9.0-12.0) sec INR (<1.2) APTT (22.0-30.0) sec Sodium (137-145) mmol/L BUN (9-20) mg/dL Glucose (74-99) mg/dL Total Protein (6.3-8.2) g/dL Albumin (3.5-5.0) g/dL Thrombosis Risk Factor Assmnt - Choose All That Apply Any of the Below Risk Factors Present?: Yes Each Factor Represents 1 point: Obesity (BMI >25), Swollen legs (current) Other Risk Factors: Yes Each Risk Factor Represents 3 Points: Age 75 years or older Other congenital or acquired thrombophilia - If yes, enter type in comment: No Thrombosis Risk Factor Assessment Total Risk Factor Score: 5 Thrombosis Risk Factor Assessment Level: High Risk Assessment and Plan Assessment: Acute GI bleed with acute blood loss anemia, workup in progress Chronic atrial fibrillation, anticoagulated on Coumadin- currently on hold Recently completed antibiotic therapy for UTI History of colon cancer status post bowel resection in 2004 History of sick sinus syndrome, recent dual chamber permanent pacemaker generator change Former nicotine dependence Plan: Continue on current medication regime ,monitoring and symptomatic treatment. Maintain anticoagulation on hold. Evaluated by general surgery, abdomen/pelvis CT ordered, scheduled for EGD/colonoscopy tomorrow. Maintained ventilated fluid hydration. Close monitoring of hemoglobin with repeat labs ordered for a.m. Continue monitoring for bleeding. PPI for GI prophylaxis. The impression and plan of care has been dictated as directed. : I performed a history and examination of this patient, discussed the same with the dictator. I agree with the dictator's note ,documented as a scribe. Any additional findings or plans will be noted.
[2023-04-18] MEDS: PANTOPRAZOLE 40 MG/10 ML VIAL IVP SCH (15:09)
[2023-04-18 17:00] LABS: Glucose,Whole Blood 117 mg/dL (70-110)
[2023-04-18] MEDS: ATORVASTATIN 10 MG TAB PO SCH (20:21)
[2023-04-18] MEDS: MONTELUKAST 10 MG TAB PO SCH (20:21)
[2023-04-18 21:23] LABS: % Iron Saturation 20.25 (15.00-50.00)
--- NOTE | 2023-04-18 21:47 | XR ---
EXAMINATION: XR chest 2V: 04/18/2023 5:22 PM CLINICAL INDICATION: pre-op clearance TECHNIQUE: AP and lateral views COMPARISON: 02/18/2013 FINDINGS: EKG leads and cardiac pacemaker noted. The lungs are clear. The pleural spaces are negative. The cardiac silhouette appears mildly enlarged, stable. The remainder of the mediastinal silhouette i s unremarkable. The skeletal structures and soft tissues are negative for acute findings. IMPRESSION: No acute radiographic process.
[2023-04-19 06:17] LABS: African American GFR (CKD) >90 (>60 ml/min/1.73 sqM); Anion Gap 6 mmol/L; Blood Urea Nitrogen 15 mg/dL (9-20); Calcium 8.2 mg/dL (8.4-10.2); Carbon Dioxide 26 mmol/L (22-30); Chloride 105 mmol/L (98-107); Glucose 102 mg/dL (74-99); HCT 28.7 % (39.0-53.0); HGB 9.3 gm/dL (13.0-17.5); Hypochromasia Slight; MCH 30.3 pg (25.0-35.0); MCHC 32.3 g/dL (31.0-37.0); Non-African American GFR(CKD) 84 (>60 ml/min/1.73 sqM); Platelet Count 245 k/uL (150-450); Potassium 4.3 mmol/L (3.5-5.1); RBC 3.05 m/uL (4.30-5.90); RDW 13.5 % (11.5-15.5); Sodium 137 mmol/L (137-145)
[2023-04-19 06:22] LABS: INR 3.3 (<1.2); Prothrombin Time 32.5 sec (9.0-12.0)
[2023-04-19] MEDS: atenoloL 25 MG TAB PO SCH ×2 (08:50→19:50)
[2023-04-19] MEDS: TAMSULOSIN 0.4 MG CAP.ER.24H PO SCH ×2 (08:50→22:43)
[2023-04-19] MEDS: SODIUM FERRIC GLUCONAT-SUCROSE 125 MG in SODIUM CHLORIDE 0.9% 100 ML IVPB SCH (08:50)
[2023-04-19] MEDS: PANTOPRAZOLE 40 MG/10 ML VIAL IVP SCH (08:51)
[2023-04-19] MEDS: lisinopriL 20 MG TAB PO SCH (08:51)
--- NOTE | 2023-04-19 09:05 | P.CRDCN ---
History of Present Illness History of present illness: HISTORY OF PRESENT ILLNESS: This is a 83-year-old female with a past medical history significant for paroxysmal atrial fibrillation, valvular heart disease, permanent pacemaker implantation, hypertension, and hyperlipidemia. Patient follows in the office with Dr. Velasquez. We have been asked to see the patient in consultation for cardiac risk assessment. Patient examined at the bedside. Patient presented to the hospital with a chief complaint of bright red blood per rectum. Patient is scheduled to undergo EGD today with general surgery. Patient was also found to have a 14.2 12.112.1 cm mass centered at the level of the cecum. Patient is prescribed Coumadin on an outpatient basis secondary to atrial fibrillation. His Coumadin is currently on hold. INR today is 3.3. The patient currently denies chest pain or pressure. He denies shortness of breath. Vital signs are stable. It is noted that the patient underwent chamber permanent pacemaker generator change on 12/11/[address] Bourgeois. * Telemetry reveals sinus mechanism * Chest xray negative for acute process * Laboratory data: WBC 9.0. Hemoglobin 9.3. Platelet count 245. Sodium 137. Potassium 4.3. BUN 15. Creatinine 0.75. * Current home cardiac medications include Coumadin 5 mg at night, atenolol 25 mg twice a day, simvastatin 20 mg at night, Lasix 20 mg daily as needed, and enalapril 5 mg twice a day * Most recent echocardiogram obtained in October 2022 in the office revealed n ormal EF, mild to moderate MR, mild TR * Patient underwent Lexiscan stress test in February 2018 which was negative for ischemia REVIEW OF SYSTEMS: At the time of my exam: CONSTITUTIONAL: Denies fever or chills. HEENT: Denies blurred vision, vision changes, or eye pain. Denies hemoptysis CARDIOVASCULAR: Denies chest pain. Denies orthopnea. Denies PND. Denies palpitations RESPIRATORY: Denies shortness of breath. GASTROINTESTINAL: Denies abdominal pain. Denies nausea or vomiting. HEMATOLOGIC: Denies bleeding disorders. GENITOURINARY: Denies any blood in urine. SKIN: Denies pruitis. Denies rash. PHYSICAL EXAM: VITAL SIGNS: Reviewed. GENERAL: Well-developed in no acute distress. HEENT: Head is normocephalic. Pupils are equal, round. Sclerae anicteric. Mucous membranes of the mouth are moist. Neck supple. No JVD or thyromegaly LUNGS: Respirations even and unlabored. Lungs essentially clear to auscultation bilaterally. HEART: Regular rate and rhythm. S1 and S2 heard. Systolic murmur noted. ABDOMEN: Soft. Nondistended. Nontender. EXTREMITIES: Normal range of motion. No clubbing or cyanosis. Peripheral pulses intact. No lower extremity edema NEUROLOGIC: Awake and alert. Oriented x 3. ASSESSMENT: Bright red blood per rectum 14.2 12.112.1 cm mass centered at the level of the cecum Possible metastatic lesion posterior T10 Supratherapeutic INR Paroxysmal atrial fibrillation Permanent pacemaker implantation with generator change, December 2022 Hypertension Hyperlipidemia Valvular heart disease PLAN: No need to repeat echocardiogram as this was performed in October 2022 Continue to hold Coumadin. Monitor INR. May give Vitamin K from a cardiac standpoint. Will defer decision to general surgery pending timing of endoscopy. Continue additional cardiac medications Obtain EKG No absolute contraindications for patient to undergo endoscopy from a cardiac standpoint Further recommendations pending patient's course Nurse practitioner note has been reviewed by physician. Signing provider agrees with the documented findings, assessment, and plan of care. Past Medical History Past Medical History: Atrial Fibrillation, Asthma, Hyperlipidemia, Hypertension, Prostate Disorder Additional Past Medical History / Comment(s): colon cancer History of Any Multi-Drug Resistant Organisms: None Reported Past Surgical History: Cholecystectomy, Hernia Repair, Pacemaker Additional Past Surgical History / Comment(s): 8" of colon removed 2004, sinus operation, cardiac ablation x 2 Past Anesthesia/Blood Transfusion Reactions: No Reported Reaction Type of Cardiac Device: Permanent Pacemaker Device Placement Date:: Unknown Past Psychological History: No Psychological Hx Reported Smoking Status: Former smoker Past Alcohol Use History: None Reported Past Drug Use History: None Reported Medications and Allergies Home Medications Medication Instructions Recorded Confirmed Type Enalapril [Vasotec] 5 mg PO BID 06/21/18 04/17/23 History Furosemide [Lasix] 20 mg PO DAILY PRN 06/21/18 04/17/23 History Montelukast [Singulair] 10 mg PO HS 06/21/18 04/17/23 History Simvastatin [Zocor] 20 mg PO HS 06/21/18 04/17/23 History Tamsulosin HCl [Flomax] 0.4 mg PO BID 06/21/18 04/17/23 History Warfarin [Coumadin] 5 mg PO HS 06/21/18 04/17/23 History Triamcinolone Acetonide [Nasacort] 1 spray EA NOSTRIL DAILY PRN 12/10/22 04/17/23 History atenoloL [Tenormin] 25 mg PO BID 04/17/23 04/17/23 History Allergies Allergy/AdvReac Type Severity Reaction Status Date / Time morphine AdvReac Nausea & Verified 04/17/23 12:48 Vomiting Physical Exam Vitals: Vital Signs Temp Pulse Resp BP Pulse Ox 04/19/23 04:00 61 16 102/59 95 04/19/23 00:00 66 16 105/54 98 04/18/23 20:00 98.1 F 70 16 120/68 98 04/18/23 15:14 98.0 F 61 14 129/64 96 04/18/23 10:57 98.1 F 64 16 130/70 95 Intake and Output 04/18/23 04/19/23 04/19/23 22:59 06:59 14:59 Intake Total 540 Balance 540 Intake: Oral 540 Other: Voiding Method Toilet Toilet Bedside Commode Bedside Commode # Bowel Movements 1 2 2 Results 04/19/23 06:00 04/19/23 06:00 Coagulation 04/19/23 Range/Units 06:00 PT 32.5 H (9.0-12.0) sec CBC 04/19/23 Range/Units 06:00 WBC 9.0 (3.8-10.6) k/uL RBC 3.05 L (4.30-5.90) m/uL Hgb 9.3 L (13.0-17.5) gm/dL Hct 28.7 L (39.0-53.0) % Plt Count 245 (150-450) k/uL Comprehensive Metabolic Panel 04/19/23 Range/Units 06:00 Sodium 137 (137-145) mmol/L Potassium 4.3 (3.5-5.1) mmol/L Chloride 105 (98-107) mmol/L Carbon Dioxide 26 (22-30) mmol/L BUN 15 (9-20) mg/dL Creatinine 0.75 (0.66-1.25) mg/dL Glucose 102 H (74-99) mg/dL Calcium 8.2 L (8.4-10.2) mg/dL Current Medications Generic Name Dose Route Start Last Admin Trade Name Manoj PRN Reason Stop Dose Admin Atenolol 25 mg 04/17/23 21:00 04/19/23 08:50 Atenolol 25 Mg Tab PO 25 mg BID RODGER Administration Atorvastatin Calcium 10 mg 04/17/23 21:00 04/18/23 20:21 Atorvastatin 10 Mg Tab PO 10 mg HS RODGER Administration Ferric Sodium Gluconate 125 mg 110 mls @ 100 mls/hr 04/19/23 09:00 04/19/23 08:50 / Sodium Chloride IVPB 04/21/23 10:05 100 mls/hr DAILY RODGER Administration Lisinopril 20 mg 04/18/23 09:00 04/19/23 08:51 Lisinopril 20 Mg Tab PO 20 mg DAILY RODGER Administration Montelukast Sodium 10 mg 04/17/23 21:00 04/18/23 20:21 Montelukast 10 Mg Tab PO 10 mg HS RODGER Administration Pantoprazole Sodium 40 mg 04/18/23 10:30 04/19/23 08:51 Pantoprazole 40 Mg/10 Ml Vial IVP 40 mg DAILY RODGER Administration Tamsulosin HCl 0.4 mg 04/17/23 21:00 04/19/23 08:50 Tamsulosin 0.4 Mg Cap.Er.24h PO 0.4 mg BID RODGER Administration Intake and Output 04/18/23 04/19/23 04/19/23 22:59 06:59 14:59 Intake Total 540 Balance 540 Intake: Oral 540 Other: Voiding Method Toilet Toilet Bedside Commode Bedside Commode # Bowel Movements 1 2 2 04/19/23 06:00 04/19/23 06:00
[2023-04-19 11:15] LABS: INR 3.9 (<1.2); Prothrombin Time 38.3 sec (9.0-12.0)
[2023-04-19] MEDS ORDERED: PHYTONADIONE ORAL 5 MG/5 ML ORAL.SYRG PO STA (11:59)
[2023-04-19 13:03] LABS: HCT 28.1 % (39.0-53.0); HGB 8.9 gm/dL (13.0-17.5); Hypochromasia Moderate; MCH 30.3 pg (25.0-35.0); MCHC 31.7 g/dL (31.0-37.0); MCV 95.8 fL (80.0-100.0); Mean Platelet Volume 8.1; Platelet Count 251 k/uL (150-450); RBC 2.94 m/uL (4.30-5.90); RDW 13.6 % (11.5-15.5); WBC 9.4 k/uL (3.8-10.6)
[2023-04-19] MEDS ORDERED: LIDOCAINE 1% (10MG/ML) FOR IV START INTRADERMA PRN (13:09)
--- NOTE | 2023-04-19 13:32 | P.PN ---
Subjective Progress Note Date: 04/19/23 CHIEF COMPLAINT: Cecum mass HISTORY OF PRESENT ILLNESS: Patient presented with bright red blood per rectum. History of colon cancer with prior bowel resection in 2004. Patient's computed tomography scan that showed evidence of a large mass in the cecum. Patient was initially scheduled for EGD and colonoscopy today. However he did not complete the bowel prep. Plus of the INR was elevated at 3.3 and continued to increase to 3.9. Medicine service has ordered vitamin K and FFP. Patient continues to have bleeding. We'll then has dropped to 8.9. Patient iron level is low and he is being started on IV iron. And consults for oncology service has been placed. Patient reports no abdominal pain at this time. He denies any nausea or vomiting. Afebrile. BP 90/43. Patient seen by cardiology for cardiac risk assessment. PHYSICAL EXAM: VITAL SIGNS: Reviewed GENERAL: Well-developed in no acute distress. HEENT: No sclera icterus. Extraocular movements grossly intact. Moist buccal mucosa. Head is atraumatic, normocephalic. Hears conversational speech. No nasal drainage. NECK: Supple without lymphadenopathy. CHEST: Non-labored respirations and equal bilateral excursions. CARDIOVASCULAR: Palpable 2+ radial pulses. ABDOMEN: Soft. Nondistended. Nontender. MUSCULOSKELETAL: No clubbing or cyanosis. NEUROLOGIC: No focal or lateralizing signs. Cranial nerves II through XII grossly intact. PSYCH: Appropriate affect. Alert and oriented to person, place and time. SKIN: Well perfused. Good skin turgor. ASSESSMENT: 1. Large Cecum mass 2. Acute GI bleed with bright red blood per rectum 3. Acute anemia 4. Iron deficiency anemia 5. History of colon cancer with bowel resection 6. History of atrial fibrillation on Coumadin 7. History of pacemaker 8. Coagulopathy 9. 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 Carlisle -Patient can have a high-protein diet for dinner and then clear liquid diet for Saturday and Saturday -Start lactulose tomorrow as part of the bowel preparation for colonoscopy -Start GoLYTELY bowel prep on Saturday morning -IV iron added daily 3 doses for iron deficiency -Continue to hold Coumadin -INR reversal per medicine service -Continue to monitor hemoglobin -Continue to monitor for any signs or symptoms of bleeding Physician Director Of [facility] Systems note has been reviewed by physician. Signing provider agrees with the documented findings, assessment, and plan of care. Objective - Vital Signs Vital signs: Vital Signs Temp 98.3 F 04/19/23 11:14 Pulse 61 04/19/23 11:14 Resp 16 04/19/23 11:14 BP 90/43 04/19/23 11:14 Pulse Ox 96 04/19/23 11:14 FiO2 Intake & Output 04/18/23 04/19/23 04/19/23 18:59 06:59 18:59 Intake Total 1860 540 120 Output Total 400 Balance 1460 540 120 Intake: Oral 1860 540 120 Output: Stool 400 Other: Voiding Method Toilet Toilet Toilet Bedside Commode Bedside Commode Bedside Commode # Bowel Movements 2 2 1 - Labs CBC & Chem 7: 04/19/23 12:46 04/19/23 06:00 Labs: Abnormal Lab Results - Last 24 Hours (Table) 04/18/23 04/18/23 04/19/23 Range/Units 07:48 16:54 06:00 RBC 3.05 L (4.30-5.90) m/uL Hgb 9.3 L (13.0-17.5) gm/dL Hct 28.7 L (39.0-53.0) % PT (9.0-12.0) sec INR (<1.2) Glucose (74-99) mg/dL POC Glucose (mg/dL) 117 H (70-110) mg/dL Calcium (8.4-10.2) mg/dL Iron 48 L (65-175) UG/DL Transferrin 169.0 L (204.0-354.0) mg/dL 04/19/23 04/19/23 04/19/23 Range/Units 06:00 06:00 10:41 RBC (4.30-5.90) m/uL Hgb (13.0-17.5) gm/dL Hct (39.0-53.0) % PT 32.5 H 38.3 H (9.0-12.0) sec INR 3.3 H 3.9 H (<1.2) Glucose 102 H (74-99) mg/dL POC Glucose (mg/dL) (70-110) mg/dL Calcium 8.2 L (8.4-10.2) mg/dL Iron (65-175) UG/DL Transferrin (204.0-354.0) mg/dL 04/19/23 Range/Units 12:46 RBC 2.94 L (4.30-5.90) m/uL Hgb 8.9 L (13.0-17.5) gm/dL Hct 28.1 L (39.0-53.0) % PT (9.0-12.0) sec INR (<1.2) Glucose (74-99) mg/dL POC Glucose (mg/dL) (70-110) mg/dL Calcium (8.4-10.2) mg/dL Iron (65-175) UG/DL Transferrin (204.0-354.0) mg/dL
[2023-04-19] MEDS ORDERED: RX INFO: IV CONTRAST WAS GIVEN 1 EACH MISC MISCELLANE PRN (13:57)
--- NOTE | 2023-04-19 15:16 | P.PN ---
Subjective Progress Note Date: 04/19/23 This is a pleasant 83-year-old gentleman with past medical history of atrial fibrillation anticoagulated on Coumadin, cardiac ablations X 2 ,asthma, hypertension, hyperlipidemia, prostate disorder, colon cancer-bowel resection 2004, sick sinus syndrome with permanent pacemaker implantation, former nicotine dependence, last colonoscopy approximately [address] Astorga,which patient reports as negative presented to the ER with complaints of rectal bleeding. Approximately 2 weeks ago, evaluated by PCP, discovered UTI, placed on antibiotics of Cipro. Completed antibiotic therapy. Developed diarrhea- reports subsided approximately 4 days ago. Over the last 2 days, developed dizziness accompanied by rectal bleeding, bright red and black loose stool in mild right sided abdominal discomfort. Denies nausea or vomiting. Denies chest pain, palpitations or shortness of breath. Patient's hemoglobin normally around 14, on admission 10.9, currently down to 9.4. No further rectal bleeding. INR 2.3. Sodium 135, potassium 4.5, bicarb 26, BUN 24, creatinine 0.85, magnesium 2. Albumin 2.3, total protein 5.8. 04/19. Patient seen and examined. CT abdominal and pelvis done showed 14.2 x 12.1 x 12.1 cm mass level of cecum. Hemoglobin this morning is 9.3. Patient still having blood in the stools. INR was elevated at 3.9, will give vitamin K and 2 units of FFP's REVIEW OF SYSTEMS: CONSTITUTIONAL: No fever, no malaise,. CARDIOVASCULAR: No chest pain, no palpitations, no syncope. PULMONARY: No shortness of breath, no cough, GASTROINTESTINAL: No diarrhea, no nausea, NEUROLOGICAL: No headaches, no weakness, PHYSICAL EXAMINATION: GENERAL: The patient is alert and oriented x3, not in any acute distress. Well developed, well nourished. HEENT: Pupils are round and equally reacting to light. EOMI. No scleral icterus. No conjunctival pallor. Normocephalic, atraumatic. No pharyngeal erythema. No thyromegaly. CARDIOVASCULAR: S1 and S2 present. No murmurs, rubs, or gallops. PULMONARY: Chest is clear to auscultation, no wheezing or crackles. ABDOMEN: Soft, nontender, nondistended, normoactive bowel sounds. No palpable organomegaly. MUSCULOSKELETAL: No joint swelling or deformity. EXTREMITIES: No cyanosis, clubbing, or pedal edema. NEUROLOGICAL: Gross neurological examination did not reveal any focal deficits. SKIN: No rashes. Assessment and plan Acute GI bleed with acute blood loss anemia Cecal mass Chronic atrial fibrillation, anticoagulated on Coumadin- currently on hold Recently completed antibiotic therapy for UTI History of colon cancer status post bowel resection in 2004 History of sick sinus syndrome, recent dual chamber permanent pacemaker generator change Former nicotine dependence Monitor vital signs Monitor CBC Monitor CMP Monitor H&H Hold Coumadin INR was elevated at 3.9, will give vitamin K and 2 units of FFP's EGD and colonoscopy per surgery on Saturday. Follow-up on surgery recommendations follow-up on cardiology recommendations Labs and medication were reviewed.. Continue same treatment. Continue with symptomatic treatment. Resume home medication. Monitor labs and vitals. DVT and GI prophylaxis. Further recommendations as per clinical course of the patient Dictation was produced using [employer] dictation software. please excuse any grammatical, word or spelling errors. Objective - Vital Signs Vital signs: Vital Signs Temp 98.1 F 04/19/23 08:00 Pulse 60 04/19/23 08:00 Resp 18 04/19/23 08:00 BP 108/58 04/19/23 08:00 Pulse Ox 96 04/19/23 08:00 FiO2 Intake & Output 04/18/23 04/19/23 04/19/23 18:59 06:59 18:59 Intake Total 1860 540 Output Total 400 Balance 1460 540 Intake: Oral 1860 540 Output: Stool 400 Other: Voiding Method Toilet Toilet Toilet Bedside Commode Bedside Commode Bedside Commode # Bowel Movements 2 2 2 - Labs CBC & Chem 7: 04/19/23 12:46 04/19/23 06:00 Labs: Abnormal Lab Results - Last 24 Hours (Table) 04/18/23 04/18/23 04/19/23 Range/Units 07:48 16:54 06:00 RBC 3.05 L (4.30-5.90) m/uL Hgb 9.3 L (13.0-17.5) gm/dL Hct 28.7 L (39.0-53.0) % PT (9.0-12.0) sec INR (<1.2) Glucose (74-99) mg/dL POC Glucose (mg/dL) 117 H (70-110) mg/dL Calcium (8.4-10.2) mg/dL Iron 48 L (65-175) UG/DL Transferrin 169.0 L (204.0-354.0) mg/dL 04/19/23 04/19/23 Range/Units 06:00 06:00 RBC (4.30-5.90) m/uL Hgb (13.0-17.5) gm/dL Hct (39.0-53.0) % PT 32.5 H (9.0-12.0) sec INR 3.3 H (<1.2) Glucose 102 H (74-99) mg/dL POC Glucose (mg/dL) (70-110) mg/dL Calcium 8.2 L (8.4-10.2) mg/dL Iron (65-175) UG/DL Transferrin (204.0-354.0) mg/dL
[2023-04-19 16:10] LABS: Basophils % (A) 0 %; Eosinophils # (A) 0.2 k/uL (0-0.7); Eosinophils % (A) 2 %; HCT 23.8 % (39.0-53.0); HGB 7.8 gm/dL (13.0-17.5); Hypochromasia Slight; Lymphocytes # (A) 0.7 k/uL (1.0-4.8); Lymphocytes % (A) 8 %; MCH 30.8 pg (25.0-35.0); MCHC 32.6 g/dL (31.0-37.0); MCV 94.7 fL (80.0-100.0); Monocytes # (A) 0.6 k/uL (0-1.0); Monocytes % (A) 6 %; Neutrophils # (A) 7.3 k/uL (1.3-7.7); Neutrophils % (A) 83 %; Platelet Count 230 k/uL (150-450); RBC 2.52 m/uL (4.30-5.90); RDW 13.6 % (11.5-15.5); WBC 8.8 k/uL (3.8-10.6)
[2023-04-19 16:18] LABS: INR 2.3 (<1.2); Prothrombin Time 22.8 sec (9.0-12.0)
--- NOTE | 2023-04-19 16:23 | P.CONS ---
History of Present Illness - Reason for Consult Consult date: 04/19/23 cecum mass Requesting physician: Aby Contreras - Chief Complaint rectal bleeding - History of Present Illness Patient is an 83-year-old male with a significant history of colon cancer and atrial fibrillation anticoagulated with Coumadin. We were consulted for cecum mass noted on CT scan. Patient reports a history of colon cancer approx 10-20 years ago but is unable to recall when he was treated for it. Patient presented to the emergency room for rectal bleeding over the last 1 week. He also reports diarrhea and loose stools over the last 2 weeks. He denies abdominal pain and nausea and vomiting. Denies weight loss and night sweats. upon admission CT abdomen and pelvis revealed 14.2 x 12.1 x 12.1 cm mass centered at the level of the cecum. And probable metastatic lesion to posterior T10. General surgery was consulted with plan for EDG/colonoscopy today however it has been postponed to Saturday as patient still having bowel movements. CBC revealed WBC 9.0, hemoglobin 9.3, platelets 245,000. Iron studies revealed iron 48 and iron saturation 20%. IV iron ordered. INR elevated at 3.9. Vitamin K and 2 units of FFP have been ordered. Review of Systems 10 point ROS is negative except as stated in the HPI Past Medical History Past Medical History: Atrial Fibrillation, Asthma, Hyperlipidemia, Hypertension, Prostate Disorder Additional Past Medical History / Comment(s): colon cancer History of Any Multi-Drug Resistant Organisms: None Reported Past Surgical History: Cholecystectomy, Hernia Repair, Pacemaker Additional Past Surgical History / Comment(s): 8" of colon removed 2004, sinus operation, cardiac ablation x 2 Past Anesthesia/Blood Transfusion Reactions: No Reported Reaction Type of Cardiac Device: Permanent Pacemaker Device Placement Date:: Unknown Past Psychological History: No Psychological Hx Reported Smoking Status: Former smoker Past Alcohol Use History: None Reported Past Drug Use History: None Reported Medications and Allergies Home Medications Medication Instructions Recorded Confirmed Type Enalapril [Vasotec] 5 mg PO BID 06/21/18 04/17/23 History Furosemide [Lasix] 20 mg PO DAILY PRN 06/21/18 04/17/23 History Montelukast [Singulair] 10 mg PO HS 06/21/18 04/17/23 History Simvastatin [Zocor] 20 mg PO HS 06/21/18 04/17/23 History Tamsulosin HCl [Flomax] 0.4 mg PO BID 06/21/18 04/17/23 History Warfarin [Coumadin] 5 mg PO HS 06/21/18 04/17/23 History Triamcinolone Acetonide [Nasacort] 1 spray EA NOSTRIL DAILY PRN 12/10/22 04/17/23 History atenoloL [Tenormin] 25 mg PO BID 04/17/23 04/17/23 History Allergies Allergy/AdvReac Type Severity Reaction Status Date / Time morphine AdvReac Nausea & Verified 04/17/23 12:48 Vomiting Physical Exam Vitals: Vital Signs Temp Pulse Pulse Pulse Pulse Resp BP 04/19/23 14:47 97.9 F 65 16 103/56 04/19/23 14:42 97.7 F 67 16 115/52 04/19/23 14:20 97.7 F 16 119/65 04/19/23 13:50 97.5 F L 63 16 119/71 04/19/23 13:30 98.2 F 63 16 86/45 04/19/23 11:14 98.3 F 61 16 04/19/23 11:12 98.3 F 61 16 04/19/23 08:00 98.1 F 60 18 04/19/23 04:00 61 16 04/19/23 00:00 66 16 04/18/23 20:00 98.1 F 70 16 BP Pulse Ox 04/19/23 14:47 95 04/19/23 14:42 04/19/23 14:20 97 04/19/23 13:50 97 04/19/23 13:30 94 L 04/19/23 11:14 90/43 96 04/19/23 11:12 85/46 96 04/19/23 08:00 108/58 96 04/19/23 04:00 102/59 95 04/19/23 00:00 105/54 98 04/18/23 20:00 120/68 98 Intake and Output 04/19/23 04/19/23 04/19/23 06:59 14:59 22:59 Intake Total 540 337 Balance 540 337 Intake: Oral 540 120 Blood Product 217 Ffp 24 Pher Acda Cnt1 217 Unit [id number] Ffp 24 Pher Acda Cnt1 0 Unit [id number] Other: Voiding Method Toilet Toilet Bedside Commode Bedside Commode # Bowel Movements 2 1 - Constitutional General appearance: no acute distress, obese - EENT Eyes: anicteric sclerae, EOMI ENT: hearing grossly normal - Respiratory breathing even and unlabored - Cardiovascular skin warm and dry - Gastrointestinal General gastrointestinal: soft, no tenderness - Integumentary Integumentary: no cyanotic, no jaundiced - Neurologic Neurologic: CNII-XII intact - Musculoskeletal Musculoskeletal: strength equal bilaterally - Psychiatric Psychiatric: A&O x's 3, appropriate affect, intact judgment & insight Results CBC & Chem 7: 04/19/23 12:46 04/19/23 06:00 Labs: Abnormal Lab Results - Last 24 Hours (Table) 04/18/23 04/18/23 04/19/23 Range/Units 07:48 16:54 06:00 RBC 3.05 L (4.30-5.90) m/uL Hgb 9.3 L (13.0-17.5) gm/dL Hct 28.7 L (39.0-53.0) % PT (9.0-12.0) sec INR (<1.2) Glucose (74-99) mg/dL POC Glucose (mg/dL) 117 H (70-110) mg/dL Calcium (8.4-10.2) mg/dL Iron 48 L (65-175) UG/DL Transferrin 169.0 L (204.0-354.0) mg/dL 04/19/23 04/19/23 04/19/23 Range/Units 06:00 06:00 10:41 RBC (4.30-5.90) m/uL Hgb (13.0-17.5) gm/dL Hct (39.0-53.0) % PT 32.5 H 38.3 H (9.0-12.0) sec INR 3.3 H 3.9 H (<1.2) Glucose 102 H (74-99) mg/dL POC Glucose (mg/dL) (70-110) mg/dL Calcium 8.2 L (8.4-10.2) mg/dL Iron (65-175) UG/DL Transferrin (204.0-354.0) mg/dL 04/19/23 Range/Units 12:46 RBC 2.94 L (4.30-5.90) m/uL Hgb 8.9 L (13.0-17.5) gm/dL Hct 28.1 L (39.0-53.0) % PT (9.0-12.0) sec INR (<1.2) Glucose (74-99) mg/dL POC Glucose (mg/dL) (70-110) mg/dL Calcium (8.4-10.2) mg/dL Iron (65-175) UG/DL Transferrin (204.0-354.0) mg/dL CT scan - abdomen: report reviewed CT scan - pelvis: report reviewed Assessment and Plan (1) Mass of cecum Current Visit: Yes Status: Acute Priority: High Code(s): K63.89 - OTHER SPECIFIED DISEASES OF INTESTINE SNOMED Code(s): 7622514531 (2) Anemia Current Visit: Yes Status: Acute Priority: High Code(s): D64.9 - ANEMIA, UNSPECIFIED SNOMED Code(s): 922308030 (3) Gastrointestinal bleeding Current Visit: Yes Status: Acute Priority: High Code(s): K92.2 - GASTROINTESTINAL HEMORRHAGE, UNSPECIFIED SNOMED Code(s): 90622141 Plan: Cecum mass/GI bleed: -Hx of colon cancer. Rectal bleeding x [address] abdomen and pelvis revealed 14.2 x 12.1 x 12.1 cm mass centered at the level of the cecum. And probable metastatic lesion to posterior T10. -INR elevated at 3.9. Vitamin K and 2 units of FFP ordered. Coumadin has been held -General Surgery consulted. Plan for egd/colonscopy Saturday -Will obtain CT chest and bone scan for staging -Tumor markers ordered Anemia: -normocytic normochromic anemia noted. Hemoglobin 9.3. R/t GI bleed secondary to cecum mass Iron panel revealed iron 48 and iron saturation 20%. IV iron has been ordered. Will order remainder of anemia workup. -Will continue to monitor. Please transfuse for hemoglobin less than 7
[2023-04-19] MEDS: LACTATED RINGERS 1,000 ML IV SCH (16:45)
[2023-04-19 20:22] LABS: Cancer Antigen 19-9 4.1 U/mL (0.0-34.9)
[2023-04-19 20:28] LABS: Carcinoembryonic Antigen <2.0 ng/mL (0.0-4.9)
[2023-04-19] MEDS: MONTELUKAST 10 MG TAB PO SCH (22:43)
[2023-04-19] MEDS: ATORVASTATIN 10 MG TAB PO SCH (22:44)
--- NOTE | 2023-04-19 23:21 | CT ---
EXAMINATION TYPE: CT chest w con DATE OF EXAM: 04/19/2023 COMPARISON: 01/19/2011 HISTORY: 83-year-old male colon mass staging TECHNIQUE: Contiguous axial scanning of the chest after the administration of 100 mL of Isovue 300. Coronal/sagittal reconstructions performed. CT DLP: 581.5mGycm. Automatic exposure control utilized for a dose reduction. FINDINGS: There is a left anterior chest wall pacemaker generator with right atrial right ventricular leads. Heart is borderline enlarged without pericardial effusion. 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 Bovine configuration to the aortic arch. Large caliber to the main right and left pulmonary arteries measuring up to 3.3 cm suggesting underly ing pulmonary hypertension. No thoracic lymphadenopathy by CT size criteria. Scattered hepatic cysts measuring up to 2.4 cm. Trace right pleural effusion noted. Some dependent atelectasis in the lower lungs. Mild septal lines upper lungs. There is breathing motion artifact. No consolidation or pleural effusion. No suspicious pulmonary nodule is seen. Bones: DISH throughout the visualized spine. There is a focal round 1.2 cm area of erosion extending into the posterior superior T10 vertebral body. This appears to have been present but much smaller 8 mm on 01/19/2011 arguing against osseous metastasis. Possibly some type of atypical Schmorl's node or dural ectasia. Consider further MRI evaluation. IMPRESSION: 1. Focal round 1.2 cm area of erosion extending into the posterior superior T10 vertebral body. This appears to have been present but much smaller at 8 mm on 01/19/2011 arguing against osseous metastasis . Possibly some type of atypical Schmorl's node or dural ectasia. Consider further MRI evaluation wit hout and with contrast. 2. Borderline cardiomegaly with pulmonary arterial hypertension. There is a trace right pleural effus ion. Correlate with patient's fluid status. There may be early septal lines/pulmonary vascular conges tion developing. 3. 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
[2023-04-20 01:00] LABS: Anisocytosis Slight; Hypochromasia Slight; MCH 29.7 pg (25.0-35.0); MCHC 32.2 g/dL (31.0-37.0); MCV 92.1 fL (80.0-100.0); Mean Platelet Volume 9.8; Platelet Count 223 k/uL (150-450); RBC 3.04 m/uL (4.30-5.90); RDW 16.2 % (11.5-15.5); WBC 10.9 k/uL (3.8-10.6)
[2023-04-20] MEDS: PANTOPRAZOLE 40 MG/10 ML VIAL IVP SCH (08:12)
[2023-04-20] MEDS: SODIUM FERRIC GLUCONAT-SUCROSE 125 MG in SODIUM CHLORIDE 0.9% 100 ML IVPB SCH (08:12)
[2023-04-20] MEDS: TAMSULOSIN 0.4 MG CAP.ER.24H PO SCH ×2 (08:12→21:27)
[2023-04-20] MEDS: atenoloL 25 MG TAB PO SCH ×2 (08:12→21:28)
[2023-04-20] MEDS ORDERED: lisinopriL 10 MG TAB PO SCH (09:00)
[2023-04-20] MEDS: LACTATED RINGERS 1,000 ML IV SCH (09:14)
[2023-04-20] MEDS: LACTULOSE 20 GM/30 ML CUP PO SCH ×2 (09:14→21:26)
--- NOTE | 2023-04-20 09:37 | P.PN ---
Subjective Progress Note Date: 04/20/23 Principal diagnosis: Rectal bleeding Patient has done well overnight. Apparently up until late last night he was having bloody stools however. Systolic blood pressure in the 100s. Morning labs are pending. Patient was given 2 units of FFP and 2 units of PRBC yesterday. Denies abdominal pain. Objective - Vital Signs Vital signs: Vital Signs Temp 98.3 F 04/20/23 08:08 Pulse 73 04/20/23 08:08 Resp 18 04/20/23 08:08 BP 143/66 04/20/23 08:08 Pulse Ox 93 L 04/20/23 08:08 FiO2 Intake & Output 04/19/23 04/20/23 04/20/23 18:59 06:59 18:59 Intake Total 559 620 Balance 559 620 Intake: Oral 120 Blood Product 439 620 Ffp 24 Pher Acda Cnt1 217 Unit [id number] Ffp 24 Pher Acda Cnt1 222 Unit [id number] Rc As-1 Unit 0 310 [id number] Rc As-1 Unit 310 [id number] Other: Voiding Method Toilet Bedside Commode Bedside Commode Bedside Commode # Voids 1 # Bowel Movements 1 1 - Exam Abdomen: Soft, nontender, nondistended - Labs CBC & Chem 7: 04/19/23 23:44 04/19/23 06:00 Labs: Abnormal Lab Results - Last 24 Hours (Table) 04/17/23 04/19/23 04/19/23 Range/Units 12:51 10:41 12:46 WBC (3.8-10.6) k/uL RBC 2.94 L (4.30-5.90) m/uL Hgb 8.9 L (13.0-17.5) gm/dL Hct 28.1 L (39.0-53.0) % RDW (11.5-15.5) % Lymphocytes # (1.0-4.8) k/uL PT 38.3 H (9.0-12.0) sec INR 3.9 H (<1.2) Crossmatch See Detail 04/19/23 04/19/23 04/19/23 Range/Units 15:58 15:58 23:44 WBC 10.9 H (3.8-10.6) k/uL RBC 2.52 L 3.04 L (4.30-5.90) m/uL Hgb 7.8 L 9.0 L (13.0-17.5) gm/dL Hct 23.8 L 28.0 L (39.0-53.0) % RDW 16.2 H (11.5-15.5) % Lymphocytes # 0.7 L (1.0-4.8) k/uL PT 22.8 H (9.0-12.0) sec INR 2.3 H (<1.2) Crossmatch Assessment and Plan (1) Gastrointestinal bleeding Narrative/Plan: 83-year-old male with rectal bleeding and recent findings of colon mass on CAT scan. Continue to correct coags. Continue clear liquids. Colonoscopy on Saturday. Current Visit: Yes Status: Acute Priority: High Code(s): K92.2 - GASTROINTESTINAL HEMORRHAGE, UNSPECIFIED SNOMED Code(s): 00599824
[2023-04-20 09:48] LABS: Anisocytosis Slight; Basophils % (A) 0 %; Eosinophils # (A) 0.2 k/uL (0-0.7); Eosinophils % (A) 2 %; HCT 26.7 % (39.0-53.0); HGB 8.8 gm/dL (13.0-17.5); Hypochromasia Slight; Lymphocytes % (A) 10 %; MCH 29.9 pg (25.0-35.0); MCV 90.5 fL (80.0-100.0); Mean Platelet Volume 9.2; Monocytes # (A) 0.7 k/uL (0-1.0); Monocytes % (A) 7 %; Neutrophils # (A) 8.5 k/uL (1.3-7.7); Neutrophils % (A) 81 %; Platelet Count 197 k/uL (150-450); RBC 2.95 m/uL (4.30-5.90); RDW 16.5 % (11.5-15.5); WBC 10.5 k/uL (3.8-10.6)
[2023-04-20 09:56] LABS: African American GFR (CKD) >90 (>60 ml/min/1.73 sqM); Anion Gap 4 mmol/L; Blood Urea Nitrogen 20 mg/dL (9-20); Calcium 7.8 mg/dL (8.4-10.2); Carbon Dioxide 24 mmol/L (22-30); Chloride 107 mmol/L (98-107); Glucose 111 mg/dL (74-99); Non-African American GFR(CKD) 85 (>60 ml/min/1.73 sqM); Potassium 4.3 mmol/L (3.5-5.1); Sodium 135 mmol/L (137-145)
[2023-04-20 10:02] LABS: INR 1.1 (<1.2); Prothrombin Time 11.5 sec (9.0-12.0)
--- NOTE | 2023-04-20 11:18 | P.PN ---
Subjective Progress Note Date: 04/20/23 This is Braulio Quinn NP, I'm dictating on behalf of Dr. Molina's H&P and A&P. Patient was interviewed and examined. Patient is a pleasant 83-year-old male who was admitted to the hospital with complaints of bright red blood being passed during stooling. Patient was subsequent found to have a large mass centered at the level of the cecum. Patient had previously been on Coumadin therapy, and was supratherapeutic at admission. Since been held. Patient is awaiting to undergo an EGD and colonoscopy, however his INR will need to come down. Patient reports that he is feeling fine today. He is denying chest pain, shortness of breath, heart palpitations. INR is subtherapeutic at this time at 1.1. Nursing reports he continues to have taran bleeding from his rectum. GENERAL: Well-appearing, well-nourished and in no acute distress. NECK: Supple without JVD or thyromegaly. LUNGS: Breath sounds demonstrate mild crackles to auscultation bilaterally. Respiration equal and unlabored. No wheezes, rales or rhonchi. HEART: Regular rate and rhythm without murmurs, rubs or gallops. S1 and S2 hea rd. EXTREMITIES: Normal range of motion, no edema. No clubbing or cyanosis. Peripheral pulses intact and strong. VITALS: Temp 98.3, pulse 73, respirations 18, blood pressure 143/66, O2 saturation 93% on room air TELEMETRY: Normal sinus rhythm LABS: White count 10.5, hemoglobin 8.8, platelets 197, INR 1.1, sodium 135, potassium 4.3, B1 20, creatinine 0.7 to, calcium 7.8 IMPRESSION: 1. Acute GI bleed 2. 14.2 x 12.1 x 12.1 cm mass centered at the level of the cecum. 3. Paroxysmal atrial fibrillation 4. Permanent pacemaker implantation with generator change, December 2022 5. Hypertension 6. Hyperlipidemia 7. Valvular heart disease 8. Supratherapeutic INR PLAN: Discontinue lisinopril. Patient is still clear for EGD and colonoscopy from a cardiology standpoint. Continue to hold Coumadin. Further recommendations based on patient's clinical course. Objective - Vital Signs Vital signs: Vital Signs Temp 98.3 F 04/20/23 08:08 Pulse 73 08/12/23 08:08 Resp 18 04/20/23 08:08 BP 143/66 04/20/23 08:08 Pulse Ox 93 L 04/20/23 08:08 FiO2 Intake & Output 04/19/23 04/20/23 04/20/23 18:59 06:59 18:59 Intake Total 559 620 Balance 559 620 Intake: Oral 120 Blood Product 439 620 Ffp 24 Pher Acda Cnt1 217 Unit [id number] Ffp 24 Pher Acda Cnt1 222 Unit [id number] Rc As-1 Unit 0 310 [id number] Rc As-1 Unit 310 [id number] Other: Voiding Method Toilet Bedside Commode Bedside Commode Bedside Commode # Voids 1 # Bowel Movements 1 1 - Labs CBC & Chem 7: 04/20/23 08:56 04/20/23 08:56 Labs: Abnormal Lab Results - Last 24 Hours (Table) 04/17/23 04/19/23 04/19/23 Range/Units 12:51 10:41 12:46 WBC (3.8-10.6) k/uL RBC 2.94 L (4.30-5.90) m/uL Hgb 8.9 L (13.0-17.5) gm/dL Hct 28.1 L (39.0-53.0) % RDW (11.5-15.5) % Neutrophils # (1.3-7.7) k/uL Lymphocytes # (1.0-4.8) k/uL PT 38.3 H (9.0-12.0) sec INR 3.9 H (<1.2) Sodium (137-145) mmol/L Glucose (74-99) mg/dL Calcium (8.4-10.2) mg/dL Crossmatch See Detail 04/19/23 04/19/23 04/19/23 Range/Units 15:58 15:58 23:44 WBC 10.9 H (3.8-10.6) k/uL RBC 2.52 L 3.04 L (4.30-5.90) m/uL Hgb 7.8 L 9.0 L (13.0-17.5) gm/dL Hct 23.8 L 28.0 L (39.0-53.0) % RDW 16.2 H (11.5-15.5) % Neutrophils # (1.3-7.7) k/uL Lymphocytes # 0.7 L (1.0-4.8) k/uL PT 22.8 H (9.0-12.0) sec INR 2.3 H (<1.2) Sodium (137-145) mmol/L Glucose (74-99) mg/dL Calcium (8.4-10.2) mg/dL Crossmatch 04/20/23 04/20/23 Range/Units 08:56 08:56 WBC (3.8-10.6) k/uL RBC 2.95 L (4.30-5.90) m/uL Hgb 8.8 L (13.0-17.5) gm/dL Hct 26.7 L (39.0-53.0) % RDW 16.5 H (11.5-15.5) % Neutrophils # 8.5 H (1.3-7.7) k/uL Lymphocytes # (1.0-4.8) k/uL PT (9.0-12.0) sec INR (<1.2) Sodium 135 L (137-145) mmol/L Glucose 111 H (74-99) mg/dL Calcium 7.8 L (8.4-10.2) mg/dL Crossmatch
--- NOTE | 2023-04-20 13:31 | P.PN ---
Subjective Progress Note Date: 04/20/23 This is a pleasant 83-year-old gentleman with past medical history of atrial fibrillation anticoagulated on Coumadin, cardiac ablations X 2 ,asthma, hypertension, hyperlipidemia, prostate disorder, colon cancer-bowel resection 2004, sick sinus syndrome with permanent pacemaker implantation, former nicotine dependence, last colonoscopy approximately [address] Astorga,which patient reports as negative presented to the ER with complaints of rectal bleeding. Approximately 2 weeks ago, evaluated by PCP, discovered UTI, placed on antibiotics of Cipro. Completed antibiotic therapy. Developed diarrhea- reports subsided approximately 4 days ago. Over the last 2 days, developed dizziness accompanied by rectal bleeding, bright red and black loose stool in mild right sided abdominal discomfort. Denies nausea or vomiting. Denies chest pain, palpitations or shortness of breath. Patient's hemoglobin normally around 14, on admission 10.9, currently down to 9.4. No further rectal bleeding. INR 2.3. Sodium 135, potassium 4.5, bicarb 26, BUN 24, creatinine 0.85, magnesium 2. Albumin 2.3, total protein 5.8. 04/19. Patient seen and examined. CT abdominal and pelvis done showed 14.2 x 12.1 x 12.1 cm mass level of cecum. Hemoglobin this morning is 9.3. Patient still having blood in the stools. INR was elevated at 3.9, will give vitamin K and 2 units of FFP's 04/20. Patient seen and examined. Patient received 2 units of plasma and 2 units of packed red blood cells yesterday. INR this morning is 1.1, hemoglobin is 8.8 REVIEW OF SYSTEMS: CONSTITUTIONAL: No fever, no malaise,. CARDIOVASCULAR: No chest pain, no palpitations, no syncope. PULMONARY: No shortness of breath, no cough, GASTROINTESTINAL: No diarrhea, no nausea, NEUROLOGICAL: No headaches, no weakness, PHYSICAL EXAMINATION: GENERAL: The patient is alert and oriented x3, not in any acute distress. Well developed, well nourished. HEENT: Pupils are round and equally reacting to light. EOMI. No scleral icterus. No conjunctival pallor. Normocephalic, atraumatic. No pharyngeal erythema. No thyromegaly. CARDIOVASCULAR: S1 and S2 present. No murmurs, rubs, or gallops. PULMONARY: Chest is clear to auscultation, no wheezing or crackles. ABDOMEN: Soft, nontender, nondistended, normoactive bowel sounds. No palpable organomegaly. MUSCULOSKELETAL: No joint swelling or deformity. EXTREMITIES: No cyanosis, clubbing, or pedal edema. NEUROLOGICAL: Gross neurological examination did not reveal any focal deficits. SKIN: No rashes. Assessment and plan Acute GI bleed with acute blood loss anemia Cecal mass Chronic atrial fibrillation, anticoagulated on Coumadin- currently on hold Recently completed antibiotic therapy for UTI History of colon cancer status post bowel resection in 2004 History of sick sinus syndrome, recent dual chamber permanent pacemaker generator change Former nicotine dependence Monitor vital signs Monitor CBC Monitor CMP Monitor H&H Hold Coumadin DC lisinopril Patient received 2 units of plasma and 2 units of packed red blood cells on 04/19. EGD and colonoscopy per surgery on Saturday. Follow-up on surgery recommendations follow-up on cardiology recommendations Labs and medication were reviewed.. Continue same treatment. Continue with symptomatic treatment. Resume home medication. Monitor labs and vitals. DVT and GI prophylaxis. Further recommendations as per clinical course of the patient Dictation was produced using [employer] dictation software. please excuse any gram matical, word or spelling errors. Objective - Vital Signs Vital signs: Vital Signs Temp 98.3 F 04/20/23 08:08 Pulse 73 04/20/23 08:08 Resp 18 04/20/23 08:08 BP 143/66 04/20/23 08:08 Pulse Ox 93 L 04/20/23 08:08 FiO2 Intake & Output 04/19/23 04/20/23 04/20/23 18:59 06:59 18:59 Intake Total 559 620 Balance 559 620 Intake: Oral 120 Blood Product 439 620 Ffp 24 Pher Acda Cnt1 217 Unit [id number] Ffp 24 Pher Acda Cnt1 222 Unit [id number] Rc As-1 Unit 0 310 [id number] Rc As-1 Unit 310 [id number] Other: Voiding Method Toilet Bedside Commode Bedside Commode Bedside Commode # Voids 1 # Bowel Movements 1 1 - Labs CBC & Chem 7: 04/20/23 08:56 04/20/23 08:56 Labs: Abnormal Lab Results - Last 24 Hours (Table) 04/17/23 04/19/23 04/19/23 Range/Units 12:51 10:41 12:46 WBC (3.8-10.6) k/uL RBC 2.94 L (4.30-5.90) m/uL Hgb 8.9 L (13.0-17.5) gm/dL Hct 28.1 L (39.0-53.0) % RDW (11.5-15.5) % Neutrophils # (1.3-7.7) k/uL Lymphocytes # (1.0-4.8) k/uL PT 38.3 H (9.0-12.0) sec INR 3.9 H (<1.2) Sodium (137-145) mmol/L Glucose (74-99) mg/dL Calcium (8.4-10.2) mg/dL Crossmatch See Detail 04/19/23 04/19/23 04/19/23 Range/Units 15:58 15:58 23:44 WBC 10.9 H (3.8-10.6) k/uL RBC 2.52 L 3.04 L (4.30-5.90) m/uL Hgb 7.8 L 9.0 L (13.0-17.5) gm/dL Hct 23.8 L 28.0 L (39.0-53.0) % RDW 16.2 H (11.5-15.5) % Neutrophils # (1.3-7.7) k/uL Lymphocytes # 0.7 L (1.0-4.8) k/uL PT 22.8 H (9.0-12.0) sec INR 2.3 H (<1.2) Sodium (137-145) mmol/L Glucose (74-99) mg/dL Calcium (8.4-10.2) mg/dL Crossmatch 04/20/23 04/20/23 Range/Units 08:56 08:56 WBC (3.8-10.6) k/uL RBC 2.95 L (4.30-5.90) m/uL Hgb 8.8 L (13.0-17.5) gm/dL Hct 26.7 L (39.0-53.0) % RDW 16.5 H (11.5-15.5) % Neutrophils # 8.5 H (1.3-7.7) k/uL Lymphocytes # (1.0-4.8) k/uL PT (9.0-12.0) sec INR (<1.2) Sodium 135 L (137-145) mmol/L Glucose 111 H (74-99) mg/dL Calcium 7.8 L (8.4-10.2) mg/dL Crossmatch
[2023-04-20 15:59] LABS: Anisocytosis Slight; HCT 30.1 % (39.0-53.0); HGB 9.7 gm/dL (13.0-17.5); Hypochromasia Slight; MCH 29.5 pg (25.0-35.0); MCHC 32.2 g/dL (31.0-37.0); MCV 91.6 fL (80.0-100.0); Mean Platelet Volume 8.1; Platelet Count 227 k/uL (150-450); RBC 3.28 m/uL (4.30-5.90); RDW 16.8 % (11.5-15.5); WBC 12.4 k/uL (3.8-10.6)
[2023-04-20] MEDS: MONTELUKAST 10 MG TAB PO SCH (21:27)
[2023-04-20] MEDS: ATORVASTATIN 10 MG TAB PO SCH (21:28)
[2023-04-21 00:07] LABS: Anisocytosis Slight; HCT 23.7 % (39.0-53.0); Hypochromasia Slight; MCH 30.4 pg (25.0-35.0); MCHC 33.9 g/dL (31.0-37.0); MCV 89.9 fL (80.0-100.0); Mean Platelet Volume 8.1; Platelet Count 201 k/uL (150-450); RBC 2.64 m/uL (4.30-5.90); RDW 16.6 % (11.5-15.5); WBC 10.4 k/uL (3.8-10.6)
[2023-04-21 07:59] LABS: Anisocytosis Slight; HCT 24.5 % (39.0-53.0); HGB 7.9 gm/dL (13.0-17.5); Hypochromasia Slight; MCH 29.7 pg (25.0-35.0); MCHC 32.4 g/dL (31.0-37.0); MCV 91.5 fL (80.0-100.0); Mean Platelet Volume 8.6; Platelet Count 205 k/uL (150-450); RBC 2.68 m/uL (4.30-5.90); RDW 16.7 % (11.5-15.5); WBC 9.3 k/uL (3.8-10.6)
[2023-04-21] MEDS ORDERED: PEG 3350 (236 GM/BTL) + LYTES 4,000 ML BOTTLE PO ONE (08:00)
[2023-04-21] MEDS: TAMSULOSIN 0.4 MG CAP.ER.24H PO SCH ×2 (09:03→20:45)
[2023-04-21] MEDS: atenoloL 25 MG TAB PO SCH ×2 (09:03→20:45)
[2023-04-21] MEDS: PANTOPRAZOLE 40 MG/10 ML VIAL IVP SCH (09:03)
[2023-04-21] MEDS: SODIUM FERRIC GLUCONAT-SUCROSE 125 MG in SODIUM CHLORIDE 0.9% 100 ML IVPB SCH (09:18)
--- NOTE | 2023-04-21 11:11 | P.PN ---
Subjective Progress Note Date: 04/21/23 This is Braulio Quinn NP, I'm dictating on behalf of Dr. Molina's H&P and A&P. Patient was interviewed and examined. Patient is a pleasant 83-year-old male presented to the hospital with a GI bleed. Patient reports that he is not feeling well today. His hemoglobin is noted to be lower than it was yesterday. Patient is scheduled for an EGD and colonoscopy for tomorrow. He continues to maintain adequate blood pressure and heart rate. He complains of no chest pain, shortness of breath, or heart pa lpitations. GENERAL: Well-appearing, well-nourished and in no acute distress. NECK: Supple without JVD or thyromegaly. LUNGS: Breath sounds clear to auscultation bilaterally. Respiration equal and unlabored. No wheezes, rales or rhonchi. HEART: Regular rate and rhythm without murmurs, rubs or gallops. S1 and S2 heard. EXTREMITIES: Normal range of motion, no edema. No clubbing or cyanosis. P eripheral pulses intact and strong. VITALS: Temp 99.1, pulse 76, respirations 16, blood pressure 133/73, O2 saturation 100% on room air TELEMETRY: Normal sinus rhythm LABS: White count 9.3, hemoglobin 7.9, platelets 205 IMPRESSION: 1. Acute GI bleed 2. 14.2 x 12.1 x 12.1 cm mass centered at the level of the cecum. 3. Paroxysmal atrial fibrillation 4. Permanent pacemaker implantation with generator change, December 2022 5. Hypertension 6. Hyperlipidemia 7. Valvular heart disease 8. Supratherapeutic INR PLAN: Patient remains cleared for EGD and colonoscopy, appears this will be done to eleuterio. May resume lisinopril if needed. No further recommendations from a cardiac standpoint. Continue to hold Coumadin, Gen. surgery to give recommendations as to when to restart. Objective - Vital Signs Vital signs: Vital Signs Temp 99.1 F 04/21/23 08:00 Pulse 76 04/21/23 08:00 Resp 16 04/21/23 08:00 BP 133/73 04/21/23 08:00 Pulse Ox 100 04/21/23 08:00 FiO2 Intake & Output 04/20/23 04/21/23 04/21/23 18:59 06:59 18:59 Intake Total 1046 Balance 1046 Intake: Oral 1046 Other: Voiding Method Bedside Commode Bedside Commode Bedside Commode # Voids 1 # Bowel Movements 1 1 - Labs CBC & Chem 7: 04/21/23 07:22 04/20/23 08:56 Labs: Abnormal Lab Results - Last 24 Hours (Table) 04/20/23 04/20/23 04/21/23 Range/Units 15:47 23:34 07:22 WBC 12.4 H (3.8-10.6) k/uL RBC 3.28 L 2.64 L 2.68 L (4.30-5.90) m/uL Hgb 9.7 L 8.0 L D 7.9 L (13.0-17.5) gm/dL Hct 30.1 L 23.7 L 24.5 L (39.0-53.0) % RDW 16.8 H 16.6 H 16.7 H (11.5-15.5) %
--- NOTE | 2023-04-21 11:24 | P.PN ---
Subjective Progress Note Date: 04/21/23 Principal diagnosis: Rectal bleeding Patient had 3 bloody stools since yesterday. Hemoglobin today 7.9. No lightheadedness. Vital signs are stable. INR is now normalized at 1.1. Objective - Vital Signs Vital signs: Vital Signs Temp 99.1 F 04/21/23 08:00 Pulse 76 04/21/23 08:00 Resp 16 04/21/23 08:00 BP 133/73 04/21/23 08:00 Pulse Ox 100 04/21/23 08:00 FiO2 Intake & Output 04/20/23 04/21/23 04/21/23 18:59 06:59 18:59 Intake Total 1046 Balance 1046 Intake: Oral 1046 Other: Voiding Method Bedside Commode Bedside Commode Bedside Commode # Voids 1 # Bowel Movements 1 1 - Exam Abdomen: Soft, nontender, nondistended - Labs CBC & Chem 7: 04/21/23 07:22 04/20/23 08:56 Labs: Abnormal Lab Results - Last 24 Hours (Table) 04/20/23 04/20/23 04/21/23 Range/Units 15:47 23:34 07:22 WBC 12.4 H (3.8-10.6) k/uL RBC 3.28 L 2.64 L 2.68 L (4.30-5.90) m/uL Hgb 9.7 L 8.0 L D 7.9 L (13.0-17.5) gm/dL Hct 30.1 L 23.7 L 24.5 L (39.0-53.0) % RDW 16.8 H 16.6 H 16.7 H (11.5-15.5) % Assessment and Plan (1) Gastrointestinal bleeding Narrative/Plan: Patient with ongoing oozing from suspected cecal mass. Transfuse 1 unit today. Plan endoscopy tomorrow. Current Visit: Yes Status: Acute Priority: High Code(s): K92.2 - GASTROINTESTINAL HEMORRHAGE, UNSPECIFIED SNOMED Code(s): 47822545
--- NOTE | 2023-04-21 12:35 | P.PN ---
Subjective Progress Note Date: 04/21/23 This is a pleasant 83-year-old gentleman with past medical history of atrial fibrillation anticoagulated on Coumadin, cardiac ablations X 2 ,asthma, hypertension, hyperlipidemia, prostate disorder, colon cancer-bowel resection 2004, sick sinus syndrome with permanent pacemaker implantation, former nicotine dependence, last colonoscopy approximately [address] Astorga,which patient reports as negative presented to the ER with complaints of rectal bleeding. Approximately 2 weeks ago, evaluated by PCP, discovered UTI, placed on antibiotics of Cipro. Completed antibiotic therapy. Developed diarrhea- reports subsided approximately 4 days ago. Over the last 2 days, developed dizziness accompanied by rectal bleeding, bright red and black loose stool in mild right sided abdominal discomfort. Denies nausea or vomiting. Denies chest pain, palpitations or shortness of breath. Patient's hemoglobin normally around 14, on admission 10.9, currently down to 9.4. No further rectal bleeding. INR 2.3. Sodium 135, potassium 4.5, bicarb 26, BUN 24, creatinine 0.85, magnesium 2. Albumin 2.3, total protein 5.8. 04/19. Patient seen and examined. CT abdominal and pelvis done showed 14.2 x 12.1 x 12.1 cm mass level of cecum. Hemoglobin this morning is 9.3. Patient still having blood in the stools. INR was elevated at 3.9, will give vitamin K and 2 units of FFP's 04/20. Patient seen and examined. Patient received 2 units of plasma and 2 units of packed red blood cells yesterday. INR this morning is 1.1, hemoglobin is 8.8 04/21. Patient seen and examined . hemoglobin this morning is 7.9. Patient had 2 bowel movements overnight which were bloody. Surgery recommended doing one mo re unit of packed red blood cells today. Patient to start bowel prep today REVIEW OF SYSTEMS: CONSTITUTIONAL: No fever, no malaise,. CARDIOVASCULAR: No chest pain, no palpitations, no syncope. PULMONARY: No shortness of breath, no cough, GASTROINTESTINAL: No diarrhea, no nausea, NEUROLOGICAL: No headaches, no weakness, PHYSICAL EXAMINATION: GENERAL: The patient is alert and oriented x3, not in any acute distress. Well developed, well nourished. HEENT: Pupils are round and equally reacting to light. EOMI. No scleral icterus. No conjunctival pallor. Normocephalic, atraumatic. No pharyngeal erythema. No thyromegaly. CARDIOVASCULAR: S1 and S2 present. No murmurs, rubs, or gallops. PULMONARY: Chest is clear to auscultation, no wheezing or crackles. ABDOMEN: Soft, nontender, nondistended, normoactive bowel sounds. No palpable organomegaly. MUSCULOSKELETAL: No joint swelling or deformity. EXTREMITIES: No cyanosis, clubbing, or pedal edema. NEUROLOGICAL: Gross neurological examination did not reveal any focal deficits. SKIN: No rashes. Assessment and plan Acute GI bleed with acute blood loss anemia Cecal mass Chronic atrial fibrillation, anticoagulated on Coumadin- currently on hold Recently completed antibiotic therapy for UTI History of colon cancer status post bowel resection in 2004 History of sick sinus syndrome, recent dual chamber permanent pacemaker generator change Former nicotine dependence Monitor vital signs Monitor CBC Monitor CMP Monitor H&H Hold Coumadin Patient received 2 units of plasma and 2 units of packed red blood cells on 04/19. One unit of packed red blood cells on 04/21 EGD and colonoscopy per surgery on Saturday. Follow-up on surgery recommendations follow-up on cardiology recommendations Labs and medication were reviewed.. Continue same treatment. Continue with symptomatic treatment. Resume home medication. Monitor labs and vitals. DVT and GI prophylaxis. Further recommendations as per clinical course of the patient Dictation was produced using [employer] dictation software. please excuse any grammatical, word or spelling errors. Objective - Vital Signs Vital signs: Vital Signs Temp 98.7 F 04/21/23 03:37 Pulse 79 04/21/23 03:37 Resp 16 04/21/23 03:37 BP 108/58 04/21/23 03:37 Pulse Ox 97 04/21/23 03:37 FiO2 Intake & Output 04/20/23 04/21/23 04/21/23 18:59 06:59 18:59 Intake Total 1046 Balance 1046 Intake: Oral 1046 Other: Voiding Method Bedside Commode Bedside Commode # Voids 1 # Bowel Movements 1 1 - Labs CBC & Chem 7: 04/21/23 07:22 04/20/23 08:56 Labs: Abnormal Lab Results - Last 24 Hours (Table) 04/20/23 04/20/23 04/20/23 Range/Units 08:56 08:56 15:47 WBC 12.4 H (3.8-10.6) k/uL RBC 2.95 L 3.28 L (4.30-5.90) m/uL Hgb 8.8 L 9.7 L (13.0-17.5) gm/dL Hct 26.7 L 30.1 L (39.0-53.0) % RDW 16.5 H 16.8 H (11.5-15.5) % Neutrophils # 8.5 H (1.3-7.7) k/uL Sodium 135 L (137-145) mmol/L Glucose 111 H (74-99) mg/dL Calcium 7.8 L (8.4-10.2) mg/dL 04/20/23 04/21/23 Range/Units 23:34 07:22 WBC (3.8-10.6) k/uL RBC 2.64 L 2.68 L (4.30-5.90) m/uL Hgb 8.0 L D 7.9 L (13.0-17.5) gm/dL Hct 23.7 L 24.5 L (39.0-53.0) % RDW 16.6 H 16.7 H (11.5-15.5) % Neutrophils # (1.3-7.7) k/uL Sodium (137-145) mmol/L Glucose (74-99) mg/dL Calcium (8.4-10.2) mg/dL
[2023-04-21] MEDS: LACTULOSE 20 GM/30 ML CUP PO SCH (19:01)
[2023-04-21] MEDS: LACTATED RINGERS 1,000 ML IV SCH (20:44)
[2023-04-21] MEDS: MONTELUKAST 10 MG TAB PO SCH (20:45)
[2023-04-21] MEDS: ATORVASTATIN 10 MG TAB PO SCH (20:46)
[2023-04-21 21:39] LABS: Anisocytosis Slight; HCT 29.3 % (39.0-53.0); MCH 30.3 pg (25.0-35.0); MCHC 33.2 g/dL (31.0-37.0); MCV 91.4 fL (80.0-100.0); Mean Platelet Volume 9.1; Platelet Count 250 k/uL (150-450); RBC 3.21 m/uL (4.30-5.90); RDW 16.5 % (11.5-15.5); WBC 12.2 k/uL (3.8-10.6)
[2023-04-21 21:59] LABS: HGB 9.7 gm/dL (13.0-17.5)
[2023-04-22 04:40] LABS: Anisocytosis Slight; Basophils % (A) 1 %; Eosinophils # (A) 0.2 k/uL (0-0.7); Eosinophils % (A) 3 %; HCT 27.3 % (39.0-53.0); HGB 8.7 gm/dL (13.0-17.5); Hypochromasia Slight; Lymphocytes # (A) 1.4 k/uL (1.0-4.8); Lymphocytes % (A) 16 %; MCH 29.6 pg (25.0-35.0); MCV 92.5 fL (80.0-100.0); Mean Platelet Volume 8.7; Monocytes # (A) 0.7 k/uL (0-1.0); Monocytes % (A) 8 %; Neutrophils # (A) 5.8 k/uL (1.3-7.7); Neutrophils % (A) 71 %; Platelet Count 201 k/uL (150-450); RBC 2.95 m/uL (4.30-5.90); RDW 16.6 % (11.5-15.5); WBC 8.3 k/uL (3.8-10.6)
[2023-04-22 05:01] LABS: ALT 20 U/L (4-49); AST 34 U/L (17-59); African American GFR (CKD) >90 (>60 ml/min/1.73 sqM); Albumin 2.3 g/dL (3.5-5.0); Alkaline Phosphatase 55 U/L (38-126); Anion Gap 6 mmol/L; Blood Urea Nitrogen 14 mg/dL (9-20); Calcium 7.8 mg/dL (8.4-10.2); Carbon Dioxide 25 mmol/L (22-30); Chloride 104 mmol/L (98-107); Glucose 99 mg/dL (74-99); Non-African American GFR(CKD) 85 (>60 ml/min/1.73 sqM); Potassium 3.9 mmol/L (3.5-5.1); Sodium 135 mmol/L (137-145); Total Bilirubin 0.9 mg/dL (0.2-1.3); Total Protein 4.3 g/dL (6.3-8.2)
[2023-04-22] MEDS: PANTOPRAZOLE 40 MG/10 ML VIAL IVP SCH (08:22)
[2023-04-22] MEDS: atenoloL 25 MG TAB PO SCH (08:22)
[2023-04-22] MEDS: TAMSULOSIN 0.4 MG CAP.ER.24H PO SCH (08:22)
[2023-04-22] MEDS: LACTATED RINGERS 1,000 ML IV SCH (08:23)
[2023-04-22] MEDS ORDERED: PHENYLEPHRINE-0.9% NACL SYG 1,000 MCG/10 ML SYRINGE ONE (11:25)
[2023-04-22] MEDS ORDERED: ePHEDrine 50 MG/ML 1 ML VIAL ONE ×2 (11:25→19:24)
[2023-04-22] MEDS ORDERED: LIDOCAINE 2% INJ 20 MG/ML (2 ML VIAL) ONE ×2 (11:25→19:24)
[2023-04-22] MEDS ORDERED: PROPOFOL 10 MG/ML 20 ML VIAL IV ONE ×2 (11:25→19:24)
[2023-04-22] MEDS ORDERED: IV FLUID CONTINUATION 900 ML IV ONE (11:31)
--- NOTE | 2023-04-22 12:07 | P.PN ---
Subjective Progress Note Date: 04/22/23 H&P Date: 04/18/23 Chief Complaint: Rectal bleeding This is a pleasant 83-year-old gentleman with past medical history of atrial fibrillation anticoagulated on Coumadin, cardiac ablations X 2 ,asthma, hypertension, hyperlipidemia, prostate disorder, colon cancer-bowel resection 2004, sick sinus syndrome with permanent pacemaker implantation, former nicotine dependence, last colonoscopy approximately [address] Astorga,which patient reports as negative presented to the ER with complaints of rectal bleeding. Approximately 2 weeks ago, evaluated by PCP, discovered UTI, placed on antibiotics of Cipro. Completed antibiotic therapy. Developed diarrhea- reports subsided approximately 4 days ago. Over the last 2 days, developed dizziness accompanied by rectal bleeding, bright red and black loose stool in mild right sided abdominal discomfort. Denies nausea or vomiting. Denies chest pain, palpitations or shortness of breath. Patient's hemoglobin normally around 14, on admission 10.9, currently down to 9.4. No further rectal bleeding. INR 2.3. Sodium 135, potassium 4.5, bicarb 26, BUN 24, creatinine 0.85, magnesium 2. Albumin 2.3, total protein 5.8. 04/22/2023 reports bloody stools yesterday. Denies abdominal pain. Completed colonoscopy prep. NPO, Coumadin remains on hold, scheduled for EGD,colonoscopy,biopsy today. Bone scan pending.Hemoglobin 8.7, platelets 201. Denies any chest pain, palpitations or shortness of breath. Objective - Vital Signs Vital signs: Vital Signs Temp 98.9 F 04/22/23 00:00 Pulse 69 04/22/23 04:00 Resp 16 04/22/23 04:00 BP 106/50 04/22/23 04:00 Pulse Ox 93 L 04/22/23 04:00 FiO2 Intake & Output 04/21/23 04/22/23 04/22/23 18:59 06:59 18:59 Intake Total 1360 600 Output Total 200 Balance 1360 400 Intake: Oral 1050 600 Blood Product 310 Rc As-1 Unit 310 [id number] Output: Stool 200 Other: Voiding Method Bedside Commode Bedside Commode # Voids 2 # Bowel Movements 3 5 - Exam PHYSICAL EXAM: VITAL SIGNS: [As above] GENERAL: Alert and oriented 3, Sitting up in bed, no acute distress HEENT: Normocephalic, Conjunctivae normal. eyes normal. NECK: Supple, No JVD. CARDIOVASCULAR: S1, S2 regular. No murmur RESPIRATION: Unlabored, bilateral air entry .Breath sounds diminished in the bases. ABDOMEN: Soft, nondistended, minimal right-sided tenderness. No guarding. +Bowel sounds. LEGS: Minimal edema. no clubbing, no cyanosis. Positive DP pulses. NERVOUS SYSTEM: Cranial N 2-12 grossly normal. No focal deficits. Strength and sensation grossly intact. Skin: Warm and dry, no rash. - Labs CBC & Chem 7: 04/22/23 04:04 04/22/23 04:04 Labs: Abnormal Lab Results - Last 24 Hours (Table) 04/21/23 04/21/23 04/22/23 Range/Units 11:07 20:50 04:04 WBC 12.2 H (3.8-10.6) k/uL RBC 3.21 L 2.95 L (4.30-5.90) m/uL Hgb 9.7 L D 8.7 L (13.0-17.5) gm/dL Hct 29.3 L 27.3 L (39.0-53.0) % RDW 16.5 H 16.6 H (11.5-15.5) % Sodium (137-145) mmol/L Calcium (8.4-10.2) mg/dL Total Protein (6.3-8.2) g/dL Albumin (3.5-5.0) g/dL Crossmatch See Detail 04/22/23 Range/Units 04:04 WBC (3.8-10.6) k/uL RBC (4.30-5.90) m/uL Hgb (13.0-17.5) gm/dL Hct (39.0-53.0) % RDW (11.5-15.5) % Sodium 135 L (137-145) mmol/L Calcium 7.8 L (8.4-10.2) mg/dL Total Protein 4.3 L (6.3-8.2) g/dL Albumin 2.3 L (3.5-5.0) g/dL Crossmatch Assessment and Plan Assessment: Acute GI bleed with acute blood loss anemia, workup in progress. CT reported 14.2 x 12.1 x 12.1 cm cecal mass, possible metastatic lesion to posterior superior T10 INR elevated on admission, status post 2 units of FFP. Chronic paroxysmal atrial fibrillation, anticoagulated on Coumadin- currently on hold. Recently completed antibiotic therapy for UTI History of colon cancer status post bowel resection in 2004 History of sick sinus syndrome, recent dual chamber permanent pacemaker generato r change Former nicotine dependence Plan: Continue on current medication regime ,monitoring and symptomatic treatment. Maintain anticoagulation on hold. EGD/colonoscopy/bone scan pending. Gentle fluid hydration, PPI. Close monitoring of hemoglobin with repeat labs ordered for a.m. patient and family updated at bedside on plan of care. Questions addressed. Support given. The impression and plan of care has been dictated as directed. : I performed a history and examination of this patient, discussed the same with the dictator. I agree with the dictator's note ,documented as a scribe. Any additional findings or plans will be noted.
--- NOTE | 2023-04-22 12:27 | P.PCN ---
Date of Procedure: 04/22/23 Description of Procedure: PREOPERATIVE DIAGNOSIS: Acute gastrointestinal bleeding Positive stool occult blood Status post blood transfusions Anticoagulant use POSTOPERATIVE DIAGNOSIS: Acute gastrointestinal bleeding Positive stool occult blood Status post blood transfusions Anticoagulant use Diaphragmatic hiatal hernia OPERATION: Esophagogastroduodenoscopy SURGEON: Cindy Carlisle MD ANESTHESIA: MAC. INDICATIONS: The patient is a 83-year-old male who presents with gastrointestinal bleeding. Benefits and risks of the procedure were described. Informed consent was obtained. DESCRIPTION: The patient was brought into the endoscopy suite and laid in the left lateral decubitus position. An Olympus gastroscope was passed along the posterior oropharynx down to the distal esophagus where the squamocolumnar junction was encountered at 38 cm from the incisors. The stomach was entered and no bile reflux was found. Additional findings are listed below. The first through third portion of the duodenum was examined and unremarkable. Retroflexion of the scope confirmed Hill grade 2 lower esophageal valve. The squamocolumnar junction demonstrated LA grade B erosive esophagitis. The stomach was desufflated. The patient tolerated the procedure well. FINDINGS: Squamocolumnar junction 38 cm from the incisors. Diaphragmatic hiatus at 40 cm. Hiatal hernia, 2 cm Hill grade 3 lower esophageal valve. LA grade B erosive esophagitis. No active duodenitis. No stigmata of bleeding RECOMMENDATIONS: Proceed with lower endoscopy Plan - Discharge Summary Discharge Rx Participant: No New Discharge Prescriptions: No Action Simvastatin [Zocor] 20 mg PO HS Montelukast [Singulair] 10 mg PO HS Tamsulosin HCl [Flomax] 0.4 mg PO BID Furosemide [Lasix] 20 mg PO DAILY PRN PRN Reason: Edema Enalapril [Vasotec] 5 mg PO BID Warfarin [Coumadin] 5 mg PO HS atenoloL [Tenormin] 25 mg PO BID Triamcinolone Acetonide [Nasacort] 1 spray EA NOSTRIL DAILY PRN PRN Reason: allergies Discharge Medication List Enalapril [Vasotec] 5 mg PO BID 06/21/18 [History] Furosemide [Lasix] 20 mg PO DAILY PRN 06/21/18 [History] Montelukast [Singulair] 10 mg PO HS 06/21/18 [History] Simvastatin [Zocor] 20 mg PO HS 06/21/18 [History] Tamsulosin HCl [Flomax] 0.4 mg PO BID 06/21/18 [History] Warfarin [Coumadin] 5 mg PO HS 06/21/18 [History] Triamcinolone Acetonide [Nasacort] 1 spray EA NOSTRIL DAILY PRN 12/10/22 [History] atenoloL [Tenormin] 25 mg PO BID 04/17/23 [History] Follow up Appointment(s)/Referral(s): Jean Carlos Ferreira DO [Primary Care Provider] - 1-2 days
[2023-04-22 12:30] LABS: Glucose,Whole Blood 112 mg/dL (70-110)
--- NOTE | 2023-04-22 12:31 | P.PCN ---
Date of Procedure: 04/22/23 Description of Procedure: PREOPERATIVE DIAGNOSIS: Acute blood loss anemia status post transfusion Positive occult stool Gastrointestinal bleeding with hematochezia Cecal mass POSTOPERATIVE DIAGNOSIS: Acute blood loss anemia status post transfusion Positive occult stool Gastrointestinal bleeding with melena Actively bleeding cecal mass OPERATION: Colonoscopy to the cecum, ileocecal valve and appendiceal orifice Colonoscopy with injection of Cherelle ink, 3 mL SURGEON: Cindy Carlisle MD. ANESTHESIA: MAC. INDICATIONS: The patient is a 83-year-old male who presents with gastrointestinal bleeding. Benefits and risks were described and informed consent was obtained. DESCRIPTION OF PROCEDURE: The patient had undergone attempted Golytely prep 4 L. The patient had been brought into the operating room and laid in the left lateral decubitus position. After adequate intravenous sedation, the rectum was examined with 2% lidocaine jelly. No external prolapsed hemorrhoids. The rectal tone was within normal with multiple blood clots. An Olympus colonoscope was gently advanced with moderate active bleeding throughout the colon and multiple clots. The prep was good. No severe sigmoid diverticulosis was encountered without active bleeding. Large intraluminal masses were identified within the cecum with moderate bleeding. Separate adenoma, 1 cm identified along the proximal transverse colon. No evidence of focal colitis was found. Retroflexion of the scope demonstrated grade 2 internal hemorrhoids with recent inflammation. The colon was desufflated. The patient had tolerated the procedure well. Withdrawal time was over 6 minutes. FINDINGS: Aronchick preparation quality scale 2 (1-5) Internal hemorrhoids, grade 2 No thrombosed hemorrhoid identified. No arteriovenous malformations. Large cecal mass with moderate active bleeding and multiple clots No focal colitis. RECOMMENDATIONS: 1. Immediate transfer to the intensive care unit due to moderate active bleeding or clot 2. Emergent colon resection advised due to moderate active bleeding from tumor
[2023-04-22 12:57] LABS: Anisocytosis Slight; HCT 26.8 % (39.0-53.0); HGB 8.5 gm/dL (13.0-17.5); Hypochromasia Moderate; MCHC 31.8 g/dL (31.0-37.0); MCV 94.1 fL (80.0-100.0); Mean Platelet Volume 8.1; Platelet Count 196 k/uL (150-450); RBC 2.85 m/uL (4.30-5.90); RDW 16.3 % (11.5-15.5); WBC 9.8 k/uL (3.8-10.6)
[2023-04-22] MEDS ORDERED: NALOXONE 0.4 MG/ML 1 ML VIAL IV PRN (13:11)
--- NOTE | 2023-04-22 13:11 | P.CNPUL ---
History of Present Illness Consult date: 04/22/23 Requesting physician: Jean Carlos Ferreira Reason for consult: other Chief complaint: GI bleed. History of present illness: Pulmonary consult dated 04/22/2023. 83-year-old male who was admitted back on April 17, through the emergency department, with a gastrointestinal bleed. We were finally consulted today, as the patient was having a colonoscopy, and EGD, the patient was found to have a large colonic mass, she was actively bleeding. I spoke to the surgeon, who would like to patient evaluated, and potentially housed in the intensive care unit. She is hoping to take the patient to surgery, although she did admit, that his overall prognosis is very guarded. He was seen in the endoscopy suite. He was on room air. He is getting lactated Ringer's, and had received about 400 mL. The patient was not having any distress. The patient will be transferred to the intensive care unit. The patient has a history of atrial fibrillation, asthma, CVA, hyperlipidemia, hypertension, and a history of colon cancer in the past. The patient also has had previous colonic surgery back in 2004, and was a smoker in the past. Currently labs include a white count of 9.8, hemoglobin 8.5, hematocrit 26.8, and a normal platelet count. Sodium 135, potassium 3.9, chlorides 104, CO2 25, BUN 14, with a creatinine of 0.73. Review of Systems REVIEW OF SYSTEMS: CONSTITUTIONAL: [Negative.] NEUROLOGIC: [ Negative.] HEENT: [ Negative.] CARDIAC: [Negative.] PULMONARY: [Negative.] GI: Lower gastrointestinal bleed, colonic mass. : [Negative.] RHEUMATOLOGIC: [ Negative.] IMMUNOLOGIC: [ Negative.] ENDOCRINE: [Negative. ] DERMATOLOGIC: [Negative.] Past Medical History Past Medical History: Atrial Fibrillation, Asthma, Hyperlipidemia, Hypertension, Prostate Disorder Additional Past Medical History / Comment(s): colon cancer History of Any Multi-Drug Resistant Organisms: None Reported Past Surgical History: Cholecystectomy, Hernia Repair, Pacemaker Additional Past Surgical History / Comment(s): 8" of colon removed 2004, sinus operation, cardiac ablation x 2 Past Anesthesia/Blood Transfusion Reactions: No Reported Reaction Type of Cardiac Device: Permanent Pacemaker Device Placement Date:: Unknown Past Psychological History: No Psychological Hx Reported Smoking Status: Former smoker Past Alcohol Use History: None Reported Past Drug Use History: None Reported Medications and Allergies Home Medications Medication Instructions Recorded Confirmed Type Enalapril [Vasotec] 5 mg PO BID 06/21/18 04/17/23 History Furosemide [Lasix] 20 mg PO DAILY PRN 06/21/18 04/17/23 History Montelukast [Singulair] 10 mg PO HS 06/21/18 04/17/23 History Simvastatin [Zocor] 20 mg PO HS 06/21/18 04/17/23 History Tamsulosin HCl [Flomax] 0.4 mg PO BID 06/21/18 04/17/23 History Warfarin [Coumadin] 5 mg PO HS 06/21/18 04/17/23 History Triamcinolone Acetonide [Nasacort] 1 spray EA NOSTRIL DAILY PRN 12/10/22 04/17/23 History atenoloL [Tenormin] 25 mg PO BID 04/17/23 04/17/23 History Allergies Allergy/AdvReac Type Severity Reaction Status Date / Time morphine AdvReac Nausea & Verified 04/17/23 12:48 Vomiting Physical Exam Osteopathic Statement: *. No significant issues noted on an osteopathic structural exam other than those noted in the History and Physical/Consult. Vitals: Vital Signs Temp Pulse Pulse Pulse Resp BP BP 04/22/23 08:20 98.5 F 65 16 127/69 04/22/23 04:00 69 16 106/50 04/22/23 02:00 64 16 04/22/23 00:00 98.9 F 64 16 92/55 04/21/23 20:00 99.0 F 63 16 122/63 04/21/23 18:00 98.3 F 60 18 108/58 04/21/23 16:00 98.7 F 60 16 112/54 04/21/23 14:04 98.8 F 66 18 107/56 04/21/23 13:44 98.6 F 60 16 116/56 04/21/23 13:34 97.3 F L 62 16 103/50 Pulse Ox 04/22/23 08:20 95 04/22/23 04:00 93 L 04/22/23 02:00 04/22/23 00:00 93 L 04/21/23 20:00 94 L 04/21/23 18:00 95 04/21/23 16:00 93 L 04/21/23 14:04 95 04/21/23 13:44 94 L 04/21/23 13:34 95 Intake and Output 04/21/23 04/22/23 04/22/23 22:59 06:59 14:59 Intake Total 1150 200 Output Total 200 Balance 1150 -200 200 Intake: IV 200 Oral 840 Blood Product 310 Rc As-1 Unit 310 [id number] Output: Stool 200 Other: Voiding Method Bedside Commode Bedside Commode Bedside Commode # Voids 2 2 # Bowel Movements 5 Weight 108.862 kg No acute distress, oriented 3. The patient is not on any supplemental oxygen. HEENT examination is grossly unremarkable. Mucous membranes are moist. No oral lesions. Neck supple. Full range of motion. No adenopathy thyromegaly or neck vein distention. Cardiovascular examination reveals regular rhythm rate. S1-S2 normal. No S3 or S4. No discernible murmur noted. Heart rate 65 bpm. Lungs reveal clear breath sounds. Breath sounds are equal bilaterally. No adventitious lung sounds including wheezes rhonchi or crackles. Room air saturation 95%. Abdomen soft, without bowel sounds. No masses or tenderness. Extremities are intact. No cyanosis clubbing or edema. Skin is without rash or lesion. Neurologic examination is brief but nonfocal. Results - Laboratory Findings CBC and BMP: 04/22/23 12:43 04/22/23 04:04 PT/INR, D-dimer PT 11.5 sec (9.0-12.0) 04/20/23 08:56 INR 1.1 (<1.2) 04/20/23 08:56 Abnormal lab findings: Abnormal Labs 04/17/23 04/17/23 04/17/23 12:51 12:51 12:51 WBC 11.1 H RBC 3.52 L Hgb 10.9 L Hct 32.8 L RDW Neutrophils # 8.7 H Lymphocytes # PT 22.9 H INR 2.3 H APTT 32.8 H Sodium 135 L BUN 24 H Glucose 102 H POC Glucose (mg/dL) Calcium Iron Transferrin Total Protein 5.8 L Albumin 3.3 L Crossmatch 04/17/23 04/17/23 04/17/23 12:51 15:34 21:18 WBC 10.9 H RBC 3.14 L 3.00 L Hgb 9.6 L 9.3 L Hct 29.2 L 28.0 L RDW Neutrophils # 9.5 H Lymphocytes # 0.8 L PT INR APTT Sodium BUN Glucose POC Glucose (mg/dL) Calcium Iron Transferrin Total Protein Albumin Crossmatch See Detail 04/18/23 04/18/23 04/18/23 07:48 07:48 16:54 WBC RBC 3.07 L Hgb 9.4 L Hct 29.1 L RDW Neutrophils # Lymphocytes # PT INR APTT Sodium BUN Glucose POC Glucose (mg/dL) 117 H Calcium Iron 48 L Transferrin 169.0 L Total Protein Albumin Crossmatch 04/19/23 04/19/23 04/19/23 06:00 06:00 06:00 WBC RBC 3.05 L Hgb 9.3 L Hct 28.7 L RDW Neutrophils # Lymphocytes # PT 32.5 H INR 3.3 H APTT Sodium BUN Glucose 102 H POC Glucose (mg/dL) Calcium 8.2 L Iron Transferrin Total Protein Albumin Crossmatch 04/19/23 04/19/23 04/19/23 10:41 12:46 15:58 WBC RBC 2.94 L 2.52 L Hgb 8.9 L 7.8 L Hct 28.1 L 23.8 L RDW Neutrophils # Lymphocytes # 0.7 L PT 38.3 H INR 3.9 H APTT Sodium BUN Glucose POC Glucose (mg/dL) Calcium Iron Transferrin Total Protein Albumin Crossmatch 04/19/23 04/19/23 04/20/23 15:58 23:44 08:56 WBC 10.9 H RBC 3.04 L 2.95 L Hgb 9.0 L 8.8 L Hct 28.0 L 26.7 L RDW 16.2 H 16.5 H Neutrophils # 8.5 H Lymphocytes # PT 22.8 H INR 2.3 H APTT Sodium BUN Glucose POC Glucose (mg/dL) Calcium Iron Transferrin Total Protein Albumin Crossmatch 04/20/23 04/20/23 04/20/23 08:56 15:47 23:34 WBC 12.4 H RBC 3.28 L 2.64 L Hgb 9.7 L 8.0 L D Hct 30.1 L 23.7 L RDW 16.8 H 16.6 H Neutrophils # Lymphocytes # PT INR APTT Sodium 135 L BUN Glucose 111 H POC Glucose (mg/dL) Calcium 7.8 L Iron Transferrin Total Protein Albumin Crossmatch 04/21/23 04/21/23 04/21/23 07:22 11:07 20:50 WBC 12.2 H RBC 2.68 L 3.21 L Hgb 7.9 L 9.7 L D Hct 24.5 L 29.3 L RDW 16.7 H 16.5 H Neutrophils # Lymphocytes # PT INR APTT Sodium BUN Glucose POC Glucose (mg/dL) Calcium Iron Transferrin Total Protein Albumin Crossmatch See Detail 04/22/23 04/22/23 04/22/23 04:04 04:04 12:28 WBC RBC 2.95 L Hgb 8.7 L Hct 27.3 L RDW 16.6 H Neutrophils # Lymphocytes # PT INR APTT Sodium 135 L BUN Glucose POC Glucose (mg/dL) 112 H Calcium 7.8 L Iron Transferrin Total Protein 4.3 L Albumin 2.3 L Crossmatch 04/22/23 12:43 WBC RBC 2.85 L Hgb 8.5 L Hct 26.8 L RDW 16.3 H Neutrophils # Lymphocytes # PT INR APTT Sodium BUN Glucose POC Glucose (mg/dL) Calcium Iron Transferrin Total Protein Albumin Crossmatch - Diagnostic Findings CT scan - chest: image reviewed Assessment and Plan Assessment: Acute lower gastrointestinal bleed, secondary to colonic mass. History of colon cancer, S/P colon resection, 2004. History of atrial fibrillation. History of asthma. History of CVA. History of dyslipidemia. History of hypertension. S/P pacemaker insertion. History of cardiac ablation 2. Plan: Plan dated 04/22/2023. The patient was seen in the endoscopy suite. The patient will probably need intensive care unit for further monitoring and management. The patient was actively bleeding. The patient's blood pressures were a little soft. The patient was getting lactated Ringer's, IV bolus. Labs, x-rays, medications will be reviewed. The patient may need to go to surgery. The surgeon was speaking to the patient's family. The overall prognosis remains very guarded. Additional recommendations and suggestions are forthcoming. Time with Patient: Greater than 30
--- NOTE | 2023-04-22 15:41 | P.PN ---
Subjective Progress Note Date: 04/22/23 Principal diagnosis: Anemia, GI bleed, diarrhea, cecal mass Patient seen this morning prior to endoscopy, he is received IV iron, no reported side effects, he has managed to consume most of the prep, all liquid stool, he reports it is clear, he denies seeing any taran blood. No fevers, no other complaints at this time. Objective - Vital Signs Vital signs: Vital Signs Temp 97.9 F 04/22/23 12:30 Pulse 61 04/22/23 13:15 Resp 20 04/22/23 13:15 BP 137/59 04/22/23 13:15 Pulse Ox 95 04/22/23 13:15 FiO2 Intake & Output 04/21/23 04/22/23 04/22/23 18:59 06:59 18:59 Intake Total 1360 600 300 Output Total 200 0 Balance 1360 400 300 Weight 109.3 kg Intake: IV 300 Lactated Ringers 1,000 ml 100 @ 20 mls/hr IV .Q24H RODGER Rx#:[id number] Oral 1050 600 Blood Product 310 Rc As-1 Unit 310 [id number] Output: Urine 0 Stool 200 Other: Voiding Method Bedside Commode Bedside Commode Bedside Commode # Voids 2 # Bowel Movements 3 5 - Constitutional General appearance: Present: cooperative, no acute distress, obese - EENT Eyes: Present: anicteric sclerae, EOMI ENT: Present: hearing grossly normal - Respiratory Details: Respirations even and unlabored at rest - Peripheral edema leg Peripheral Edema: bilateral: None - Integumentary Integumentary: Present: pale - Neurologic Neurologic: Present: CNII-XII intact - Musculoskeletal Musculoskeletal: Present: strength equal bilaterally - Psychiatric Psychiatric: Present: A&O x's 3, appropriate affect, intact judgment & insight - Labs CBC & Chem 7: 04/22/23 12:43 04/22/23 04:04 Labs: Abnormal Lab Results - Last 24 Hours (Table) 04/21/23 04/21/23 04/22/23 Range/Units 11:07 20:50 04:04 WBC 12.2 H (3.8-10.6) k/uL RBC 3.21 L 2.95 L (4.30-5.90) m/uL Hgb 9.7 L D 8.7 L (13.0-17.5) gm/dL Hct 29.3 L 27.3 L (39.0-53.0) % RDW 16.5 H 16.6 H (11.5-15.5) % Sodium (137-145) mmol/L POC Glucose (mg/dL) (70-110) mg/dL Calcium (8.4-10.2) mg/dL Total Protein (6.3-8.2) g/dL Albumin (3.5-5.0) g/dL Crossmatch See Detail 04/22/23 04/22/23 04/22/23 Range/Units 04:04 12:28 12:43 WBC (3.8-10.6) k/uL RBC 2.85 L (4.30-5.90) m/uL Hgb 8.5 L (13.0-17.5) gm/dL Hct 26.8 L (39.0-53.0) % RDW 16.3 H (11.5-15.5) % Sodium 135 L (137-145) mmol/L POC Glucose (mg/dL) 112 H (70-110) mg/dL Calcium 7.8 L (8.4-10.2) mg/dL Total Protein 4.3 L (6.3-8.2) g/dL Albumin 2.3 L (3.5-5.0) g/dL Crossmatch Assessment and Plan (1) Anemia Current Visit: Yes Status: Acute Priority: High Code(s): D64.9 - ANEMIA, UNSPECIFIED SNOMED Code(s): 043031374 (2) Gastrointestinal bleeding Current Visit: Yes Status: Acute Priority: High Code(s): K92.2 - GASTROINTESTINAL HEMORRHAGE, UNSPECIFIED SNOMED Code(s): 32227999 (3) Mass of cecum Current Visit: Yes Status: Acute Priority: High Code(s): K63.89 - OTHER SPECIFIED DISEASES OF INTESTINE SNOMED Code(s): 3858046297 Plan: Iron deficient anemia -Most likely secondary to cecal mass, GI blood losses -Status post parenteral iron -Pending endoscopy today, biopsies -Coumadin was held, INR is within normal limits 2 days ago GI bleed, cecal mass -Pending endoscopy today with biopsies Reported by Surgeon, active bleeding, recommendation was for emergent surgery. Patient was sent to the ICU postprocedure, pending more invasive surgery. Doctor attests: I performed a history and physical examination of this patient, developed impression and plan of care. Discussed with dictator. I agree with dictators note, documented as a scribe.
--- NOTE | 2023-04-22 16:31 | NM ---
EXAMINATION TYPE: NM bone scan whole body DATE OF EXAM: 04/22/2023 3:31 PM CLINICAL INDICATION:Male, 83 years old with history of T10 lesion, colon mass; COMPARISON: None TECHNIQUE: Intravenous administration 22.3 mCi Tc 99m MDP followed by multiple scintigraphic images o f the appendicular and axial skeleton. Small [id number] planar imaging of the thorax was performed . Images acquired 8 hours post injection. FINDINGS: No abnormal uptake is identified within the appendicular or axial skeleton to suggest metastatic dise ase. No definitive correlate for CT finding. There is increased uptake within the bilateral shoulder, sternoclavicular, and sacroiliac joints con sistent with degenerative changes. No other photopenic areas or areas of increased activity are ident ified. Abnormal uptake seen within the left medial left knee compatible with degeneration. Physiologic radiotracer activity is demonstrated in the kidneys and bladder. IMPRESSION: Nothing to suggest osteoblastic metastatic disease. No definitive correlate within the resolution of nuclear medicine scan. Finding on prior CT remains suspicious for metastatic disease.
--- NOTE | 2023-04-22 17:16 | P.PN ---
Subjective Progress Note Date: 04/22/23 CHIEF COMPLAINT: GI bleed HISTORY OF PRESENT ILLNESS: The patient is a 83-year-old male with past history of colon cancer who is status post upper and lower endoscopy. Patient has a bleeding cecal mass. He was transferred to the intensive care unit due to his active bleeding. Hemoglobin down 9.7-8.7. Patient has been seen by cardiology, oncology. He has had multiple blood transfusions, at least 3 units. ROS: No reports of nausea and vomiting. No fevers or chills. No new chest pain. No productive sputum PHYSICAL EXAM: VITAL SIGNS: Reviewed CONSTITUTIONAL: Well developed and in no acute distress. EYES: Conjuctivae without sclera icterus. Extraocular movements grossly intact. HEAD, EARS, NOSE, THROAT: Moist buccal mucosa. Head is atraumatic, normocephalic. Hears conversational speech. No nasal drainage. RESPIRATORY: Non-labored respirations and equal bilateral excursions. CARDIOVASCULAR: Palpable 2+ radial pulses. ABDOMEN: Soft, obese. Nontender. MUSCULOSKELETAL: No gross deformity of the lower extremities noted. No clubbing. No cyanosis. SKIN: Good skin turgor. Well perfused. NEUROLOGIC: Cranial nerves II through XII grossly intact. No focal or lateralizing signs. PSYCH: Appropriate affect. Alert and oriented to person, place and time. CLINICAL LABS: Reviewed. WBC normal 8.3. Hemoglobin 8.7. Tumor markers not elevated, CA-19-9, CEA. Iron low 48 REPORT: Cardiology consultation with report of ejection fraction over 50% from echo October 2022. Patient deemed acceptable risk for colectomy. ASSESSMENT: 1. Acute blood loss anemia 2. Large cecal mass, neoplasm 3. Acute gastrointestinal bleeding from cecal mass PLAN: 1. As his INR is normal 1.1 and with persistent bleeding with clots, urgent colectomy as described to patient and family. Patient has completed a bowel prep for colonoscopy from earlier. 2. Additional studies being performed for metastatic work up for colon cancer. Due to moderate bleeding, colectomy described. Objective - Vital Signs Vital signs: Vital Signs Temp 98.0 F 04/22/23 16:00 Pulse 61 04/22/23 16:00 Resp 24 04/22/23 16:00 BP 124/67 04/22/23 16:00 Pulse Ox 95 04/22/23 16:00 FiO2 Intake & Output 04/21/23 04/22/23 04/22/23 18:59 06:59 18:59 Intake Total 1360 600 400 Output Total 200 0 Balance 1360 400 400 Weight 109.3 kg Intake: IV 400 Lactated Ringers 1,000 ml 200 @ 20 mls/hr IV .Q24H [facility] Rx#:[id number] Oral 1050 600 Blood Product 310 Rc As-1 Unit 310 [id number] Output: Urine 0 Stool 200 Other: Voiding Method Bedside Commode Bedside Commode Bedside Commode # Voids 2 # Bowel Movements 3 5 - Labs CBC & Chem 7: 04/22/23 12:43 04/22/23 04:04 Labs: Abnormal Lab Results - Last 24 Hours (Table) 04/21/23 04/21/23 04/22/23 Range/Units 11:07 20:50 04:04 WBC 12.2 H (3.8-10.6) k/uL RBC 3.21 L 2.95 L (4.30-5.90) m/uL Hgb 9.7 L D 8.7 L (13.0-17.5) gm/dL Hct 29.3 L 27.3 L (39.0-53.0) % RDW 16.5 H 16.6 H (11.5-15.5) % Sodium (137-145) mmol/L POC Glucose (mg/dL) (70-110) mg/dL Calcium (8.4-10.2) mg/dL Total Protein (6.3-8.2) g/dL Albumin (3.5-5.0) g/dL Crossmatch See Detail 04/22/23 04/22/23 04/22/23 Range/Units 04:04 12:28 12:43 WBC (3.8-10.6) k/uL RBC 2.85 L (4.30-5.90) m/uL Hgb 8.5 L (13.0-17.5) gm/dL Hct 26.8 L (39.0-53.0) % RDW 16.3 H (11.5-15.5) % Sodium 135 L (137-145) mmol/L POC Glucose (mg/dL) 112 H (70-110) mg/dL Calcium 7.8 L (8.4-10.2) mg/dL Total Protein 4.3 L (6.3-8.2) g/dL Albumin 2.3 L (3.5-5.0) g/dL Crossmatch
[2023-04-22] MEDS ORDERED: HEPARIN SODIUM,PORCINE 5,000 UNIT/ML 1 ML VIAL ONE (19:24)
[2023-04-22] MEDS ORDERED: ROCURONIUM 10 MG/ML (5 ML VIAL) IV ONE (19:24)
[2023-04-22] MEDS ORDERED: DEXAMETHASONE SOD PHOSPHATE 4 MG/ML 1 ML VIAL ONE (19:24)
[2023-04-22] MEDS ORDERED: GLYCOPYRROLATE 0.2 MG/ML 2 ML VIAL ONE (19:24)
[2023-04-22] MEDS ORDERED: ONDANSETRON 4 MG/2 ML VIAL ONE (19:24)
[2023-04-22] MEDS ORDERED: fentaNYL (PF) 50 MCG/ML 2 ML AMP ONE (19:24)
[2023-04-22] MEDS ORDERED: ALBUMIN HUMAN 5% (25gm) 500 ML VIAL IVPB ONE (19:24)
[2023-04-22] MEDS ORDERED: FUROSEMIDE 10 MG/ML 2 ML VIAL ONE (19:24)
[2023-04-22] MEDS ORDERED: SUCCINYLCHOLINE CHLORIDE 200 MG/10 ML VIAL IV ONE (19:24)
[2023-04-22] MEDS ORDERED: NEOSTIGMINE 1 MG/ML 10 ML VIAL ONE (19:24)
[2023-04-22] MEDS ORDERED: ceFAZolin 1,000 MG VIAL IVPB ONE ×2 (19:29→23:54)
[2023-04-22] MEDS ORDERED: LACTATED RINGERS 1,000 ML IV ONE ×4 (19:29→23:12)
[2023-04-22] MEDS ORDERED: metroNIDAZOLE-NS PMX 500 MG in SALINE 1 100ML.BAG IVPB STA (19:50)
[2023-04-23] MEDS ORDERED: Magnesium Replacement Protocol 1 EACH MISC MISCELLANE PRN (01:33)
[2023-04-23] MEDS ORDERED: Phosphorus Replacement Protoco 1 EACH MISC MISCELLANE PRN (01:33)
[2023-04-23] MEDS ORDERED: LORazepam 2 MG/ML INJ IV PRN (01:33)
[2023-04-23] MEDS ORDERED: Potassium Replacement Protocol 1 EACH MISC MISCELLANE PRN (01:33)
[2023-04-23] MEDS: ATORVASTATIN 10 MG TAB PO SCH ×2 (01:48→20:54)
[2023-04-23] MEDS: MONTELUKAST 10 MG TAB PO SCH ×2 (01:48→20:54)
[2023-04-23] MEDS: TAMSULOSIN 0.4 MG CAP.ER.24H PO SCH ×3 (01:48→20:55)
[2023-04-23] MEDS: atenoloL 25 MG TAB PO SCH ×3 (01:48→20:55)
[2023-04-23 02:34] LABS: Anisocytosis Slight; Basophils % (A) 0 %; Eosinophils % (A) 0 %; HGB 8.1 gm/dL (13.0-17.5); Hypochromasia Slight; Lymphocytes # (A) 0.3 k/uL (1.0-4.8); Lymphocytes % (A) 2 %; MCH 30.5 pg (25.0-35.0); MCHC 32.5 g/dL (31.0-37.0); MCV 93.9 fL (80.0-100.0); Mean Platelet Volume 8.5; Monocytes # (A) 0.4 k/uL (0-1.0); Monocytes % (A) 3 %; Neutrophils # (A) 12.7 k/uL (1.3-7.7); Neutrophils % (A) 94 %; Platelet Count 189 k/uL (150-450); RBC 2.66 m/uL (4.30-5.90); RDW 16.6 % (11.5-15.5); WBC 13.5 k/uL (3.8-10.6)
[2023-04-23 02:41] LABS: ALT 19 U/L (4-49); AST 30 U/L (17-59); African American GFR (CKD) 87 (>60 ml/min/1.73 sqM); Albumin 2.6 g/dL (3.5-5.0); Alkaline Phosphatase 50 U/L (38-126); Anion Gap 11 mmol/L; Blood Urea Nitrogen 14 mg/dL (9-20); Calcium 7.6 mg/dL (8.4-10.2); Carbon Dioxide 22 mmol/L (22-30); Chloride 103 mmol/L (98-107); Glucose 149 mg/dL (74-99); Magnesium 1.7 mg/dL (1.6-2.3); Non-African American GFR(CKD) 75 (>60 ml/min/1.73 sqM); Potassium 4.1 mmol/L (3.5-5.1); Sodium 136 mmol/L (137-145); Total Bilirubin 0.9 mg/dL (0.2-1.3); Total Protein 4.4 g/dL (6.3-8.2)
[2023-04-23 02:47] LABS: INR 1.1 (<1.2); Prothrombin Time 11.2 sec (9.0-12.0)
[2023-04-23 04:19] LABS: Appearance,Urine Clear (Clear); Bilirubin,Urine Negative (Negative); Blood,Urine Small (Negative); Color,Urine Yellow; Glucose,Urine (UA) Negative (Negative); Hyaline Casts,Urine 13 /lpf (0-2); Ketones,Urine 2+ (Negative); Leukocyte Esterase,Urine Moderate (Negative); Mucus,Urine Rare /hpf; Nitrite,Urine Negative (Negative); Protein,Urine Trace (Negative); RBC,Urine 5 /hpf (0-5); Specific Gravity,Urine 1.017 (1.001-1.035); Squamous Epithelial Cell,Urine <1 /hpf (0-4); Urobilinogen,Urine <2.0 mg/dL (<2.0); WBC,Urine 8 /hpf (0-5)
[2023-04-23 04:25] LABS: Anisocytosis Slight; Basophils % (A) 0 %; Eosinophils % (A) 0 %; HGB 7.9 gm/dL (13.0-17.5); Hypochromasia Slight; Lymphocytes # (A) 0.3 k/uL (1.0-4.8); Lymphocytes % (A) 2 %; MCH 30.9 pg (25.0-35.0); MCV 93.8 fL (80.0-100.0); Monocytes # (A) 0.5 k/uL (0-1.0); Monocytes % (A) 3 %; Neutrophils # (A) 13.4 k/uL (1.3-7.7); Neutrophils % (A) 94 %; Platelet Count 187 k/uL (150-450); RBC 2.56 m/uL (4.30-5.90); RDW 16.8 % (11.5-15.5); WBC 14.3 k/uL (3.8-10.6)
--- NOTE | 2023-04-23 04:35 | P.OP ---
Date of Procedure: 04/23/23 Description of Procedure: PREOPERATIVE DIAGNOSES: 1. Acute GI bleed with hematochezia 2. Status post blood transfusion 3. 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 Morbid obesity due to excess calories, BMI 38.9 5. Personal history colon cancer status post resection 6. Personal history hematuria 7. Chronic anticoagulation 8. Atrial fibrillation 9. Pacemaker 10. History of cardiac ablation POSTOP DIAGNOSES: 1. Large over 20 cm cecal mass with active bleeding 2. Status post blood transfusion 3. 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 Morbid obesity due to excess calories, BMI 38.9 5. Personal history colon cancer status post resection 6. Personal history hematuria 7. Chronic anticoagulation 8. Atrial fibrillation 9. Pacemaker 10. History of cardiac ablation PROCEDURES PERFORMED: 1. Open lysis of adhesions over 4 hours 2. Abdominal lavage 2 L normal saline 3. Extended right hemicolectomy 4. Small bowel resection with primary anastomosis at ileum 5. Placement of incisional wound vac system, universal, 25 cm PREVENA SURGEON: Dr. Cindy Carlisle. ANESTHESIA: General ESTIMATED BLOOD LOSS: 500 mL. SPECIMENS: 1. Right hemicolectomy with small bowel in situ COMPLICATIONS: None. CONDITION: Guarded. FINDINGS: 1. Diffuse interloop and abdominal wall adhesions requiring over 4 hours extensive lysis of adhesions 2. Large over 20 cm mass incorporating small bowel, sigmoid colon, retroperitoneum with invasion. 3. Small bowel lysis of adhesions performed without enterotomy 4. Small bowel resection of distal ileum due to small bowel being engulfed by cecal mass 5. Highly redundant sigmoid colon with mid to proximal colon adherent to the cecal mass with desmoplastic reaction. 6. Bowel obstruction identified with small bowel adherent to the retroperitoneum and pelvis released 7. Case clean contaminated without enteric content spillage 8. Ileocolic anastomosis at proximal transverse colon 9. Bowel resection and anastomosis performed with powered Ethicon 60 mm staplers INDICATIONS: The patient is a 83-year-old gentleman with atrial fibrillation and on chronic anticoagulation presented to the hospital with GI bleed and anemia. He has personal history of colon cancer with prior colectomy. Diagnostic studies demonstrated a large cecal mass. Initial INR was supratherapeutic at 3.3. Patient underwent upper and lower endoscopy after INR normalized to 1.0. During endoscopy, moderate profuse bleeding from cecal mass was identified what multiple clots. Due to moderate bleeding, recent bowel prep and INR is acceptable, urgent surgical intervention was described. Patient had previous assessment from cardiology including oncology for further workup. He was taken to the ICU for optimization. After he had been optimized for surgery, surgical intervention were prepared. Benefits, risks of procedure including bleeding, infection, bowel resection and ostomy were described in detail. Informed consent was obtained. DESCRIPTION: The patient was brought to the operating room. The patient was brought on the operating table. After general induction, a Marroquin catheter was placed. The abdomen had been prepped and draped in standard sterile fashion including placement of Ioban draping. Prior to incision, a time-out protocol was confirmed with surgical team regarding the patient's name and procedures being performed. He was on scheduled IV antibiotics. Initial attention was brought to this previous cicatrix of the mid to lower abdomen. A #10 blade was used to enter the previous incision and deepened into the subcutaneous tissue. From and along the length of the incision, severe adhesions were found involving the small bowel. Carefully the abdomen was entered using a combination of blunt dissection with a Kitner as well as Metzenbaum scissors and a #10 blade. Extensive lysis of adhesions occurred well over an hour upon entry into the abdomen to avoid any enterotomies. Next once the abdomen was entered, the bowel was investigated from the ligament of Treitz distally. Multiple interloop adhesions were found involving the proximal mid and distal jejunum. Along the distal jejunum however, the small bowel was found to be tethered to the sacral promontory. He did have features of previous diverticulitis as intraabdominal nodules highly suspicious for fecal matter was found involving the left lower quadrant into the deep pelvis. Separately the cecum and ascending colon was completely decompressed. The entire ilium was also completely decompressed. Mesenteric adhesions were also similarly lysed using a combination of blunt dissection, including Metzenbaum scissors. At the left lower quadrant, the small bowel was also tethered and twisted very deep into the pelvis creating a 360 degree obstruction which is consistent with a complete bowel obstruction. Adhesiolysis was performed. The small bowel loop involved was narrowed and fibrotic consistent with chronic obstruction. The focal narrowing also created a functional obstruction despite removed the peritoneal adhesion. As a results of this finding a small bowel section was proposed. The point of resection was along the mid to distal jejunum. A 3-0 silk suture was placed along the antimesenteric border. Next the bowel was resected proximally and distally using a 60 mm Covidien matthews staple load. The small bowel loop was dissected along its mesenteric using LigaSure. Next enterotomies were made along the antimesenteric border and a stapler 60 mm matthews load was fired to create neolumen. The enterotomy was closed using similar stapler load. The mesenteric defect was oversewn and closed using 3-0 silk. This was also performed to prevent internal hernias along this mesenteric defect. Please note, prior to small bowel resection, the rest of the small bowel had been investigated for any other intramucosal obstruction. A soft spongy food bezoar was palpated. Per discussion with patient's , he had been eating steak which had brought him to the ER for a bowel obstruction. This food bezoar was then milked into the cecum. The decompressed distal small bowel had been resolved with enteric contents leading into the colon. Prior to irrigation of the abdomen, the nasogastric tube was repositioned and confirmed with Anesthesia. The abdomen was copiously irrigated with 3 L of warm normal saline solution. Hemostasis had been checked. Given the moderate amount of irrigation a round 19 drain was exited via the right lower quadrant with suction within the deep pelvis. The greater omentum was found tether along the upper abdomen and hence Interceed was placed along the closure of the abdomen as to minimize any future peritoneal adhesions along the midline. The abdomen had been closed using double-stranded 0-PDS. The subcutaneous tissue had been cleansed. Next, interrupted 3- 0 Vicryl along the dermis was placed. A Optifoam surgical dressing was placed lengthwise. Please note, a 2-0 nylon drain stitch was placed. The tubing was cut to size, and a MANOJ bulb was placed. Optifoam dressing was also placed over the MANOJ site as well. At the end of the procedure, the sponge and instrument count had been verified correct by the surgical clinical reviewer. The patient tolerated the procedure well and was brought to the anesthesia postanesthesia care unit in guarded condition. Intraabdominal findings were reviewed at length with the patient's family. Entry to the abdomen took at least 1 hour with over 2.5 hours of extensive lysis of adhesions to address all multiple areas of obstruction, at least 6 identified.
[2023-04-23 04:53] LABS: African American GFR (CKD) >90 (>60 ml/min/1.73 sqM); Anion Gap 10 mmol/L; Blood Urea Nitrogen 15 mg/dL (9-20); Calcium 7.6 mg/dL (8.4-10.2); Carbon Dioxide 21 mmol/L (22-30); Chloride 105 mmol/L (98-107); Glucose 157 mg/dL (74-99); Magnesium 1.7 mg/dL (1.6-2.3); Non-African American GFR(CKD) 78 (>60 ml/min/1.73 sqM); Potassium 4.2 mmol/L (3.5-5.1); Sodium 136 mmol/L (137-145)
[2023-04-23] MEDS: ACETAMINOPHEN IV (For NPO) 1,000 MG in EMPTY BAG 1 BAG IVPB SCH ×4 (05:11→23:45)
[2023-04-23] MEDS ORDERED: MAGNESIUM SULFATE-D5W PMX 1 GM in DEXTROSE/WATER 1 100ML.BAG IVPB ONE (05:33)
[2023-04-23 06:18] LABS: Methylmalonic Acid 0.34 umol/L (<0.40)
[2023-04-23] MEDS: PANTOPRAZOLE 40 MG/10 ML VIAL IVP SCH (08:57)
[2023-04-23] MEDS: HEPARIN SODIUM,PORCINE 5,000 UNIT/ML 1 ML VIAL SQ SCH ×2 (08:57→20:55)
--- NOTE | 2023-04-23 11:19 | P.PN ---
Subjective Progress Note Date: 04/23/23 Principal diagnosis: Colonic mass, GI bleed. Pulmonary consult dated 04/22/2023. 83-year-old male who was admitted back on April 17, through the emergency department, with a gastrointestinal bleed. We were finally consulted today, as the patient was having a colonoscopy, and EGD, the patient was found to have a large colonic mass, she was actively bleeding. I spoke to the surgeon, who would like to patient evaluated, and potentially housed in the intensive care unit. She is hoping to take the patient to surgery, although she did admit, that his overall prognosis is very guarded. He was seen in the endoscopy suite. He was on room air. He is getting lactated Ringer's, and had received about 400 mL. The patient was not having any distress. The patient will be tra nsferred to the intensive care unit. The patient has a history of atrial fibrillation, asthma, CVA, hyperlipidemia, hypertension, and a history of colon cancer in the past. The patient also has had previous colonic surgery back in 2004, and was a smoker in the past. Currently labs include a white count of 9.8, hemoglobin 8.5, hematocrit 26.8, and a normal platelet count. Sodium 135, potassium 3.9, chlorides 104, CO2 25, BUN 14, with a creatinine of 0.73. Progress note dated 04/23/2023. This is a 83-year-old male who was seen yesterday in the endoscopy suite. The patient was found to have a GI bleed, and a colonic mass. He is postop day #1, status post exploratory laparotomy, lysis of adhesions, abdominal washout, right hemicolectomy, wound VAC placement, and small bowel resection. The patient's currently on 2 L of oxygen. He is getting lactated Ringer's at 20 mL an hour. He continues on Flagyl. White count 14.3, hemoglobin 7.9, hematocrit 24, and platelet count 187,000. Sodium 136, potassium 4.2, chlorides 105, CO2 21, anion gap 10, BUN 15, creatinine 0.89. Urine is suggestive of a urinary tract infection. Objective - Vital Signs Vital signs: Vital Signs Temp 98.0 F 04/23/23 08:00 Pulse 66 04/23/23 10:00 Resp 13 04/23/23 10:00 BP 114/47 04/23/23 10:00 Pulse Ox 96 04/23/23 10:27 FiO2 Intake & Output 04/22/23 04/23/23 04/23/23 18:59 06:59 18:59 Intake Total 440 2720 80 Output Total 0 255 115 Balance 440 2465 -35 Weight 109.3 kg 113 kg Intake: IV 440 2520 80 Lactated Ringers 1,000 ml 240 120 80 @ 20 mls/hr IV .Q24H [facility] Rx#:[id number] Intake, IV Titration 200 Amount ACETAMINOPHEN IV (For NPO 100 ) 1,000 mg In Empty Bag 1 bag @ 400 mls/hr IVPB Q6HR [facility] Rx#:[id number] Magnesium Sulfate-D5w Pmx 100 1 gm In Dextrose/Water 1 100ml.bag @ 100 mls/hr IVPB ONCE ONE Rx#: [id number] Output: Urine 0 255 115 Other: Voiding Method Bedside Commode Indwelling Catheter Indwelling Catheter - Exam No acute distress, oriented 3. The patient is on 2 L by nasal cannula. HEENT examination is grossly unremarkable. Mucous membranes are moist. No oral lesions. Neck supple. Full range of motion. No adenopathy thyromegaly or neck vein distention. Cardiovascular examination reveals regular rhythm rate. S1-S2 normal. No S3 or S4. No discernible murmur noted. Heart rate 66 bpm. Lungs reveal clear breath sounds. Breath sounds are equal bilaterally. No adventitious lung sounds including wheezes rhonchi or crackles. 2 L saturation is 96%. Abdomen soft, without bowel sounds. No masses. Tenderness on palpation. Drains noted. Extremities are intact. No cyanosis clubbing or edema. Skin is without rash or lesion. Neurologic examination is brief but nonfocal. - Labs CBC & Chem 7: 04/23/23 03:59 04/23/23 03:59 Labs: Abnormal Lab Results - Last 24 Hours (Table) 04/22/23 04/22/23 04/23/23 Range/Units 12:28 12:43 01:53 WBC 13.5 H (3.8-10.6) k/uL RBC 2.85 L 2.66 L (4.30-5.90) m/uL Hgb 8.5 L 8.1 L (13.0-17.5) gm/dL Hct 26.8 L 25.0 L (39.0-53.0) % RDW 16.3 H 16.6 H (11.5-15.5) % Neutrophils # 12.7 H (1.3-7.7) k/uL Lymphocytes # 0.3 L (1.0-4.8) k/uL Sodium (137-145) mmol/L Carbon Dioxide (22-30) mmol/L Glucose (74-99) mg/dL POC Glucose (mg/dL) 112 H (70-110) mg/dL Calcium (8.4-10.2) mg/dL Phosphorus (2.5-4.5) mg/dL Total Protein (6.3-8.2) g/dL Albumin (3.5-5.0) g/dL Urine Protein (Negative) Urine Ketones (Negative) Urine Blood (Negative) Ur Leukocyte Esterase (Negative) Urine WBC (0-5) /hpf Hyaline Casts (0-2) /lpf Urine Mucus (None) /hpf 04/23/23 04/23/23 04/23/23 Range/Units 01:53 03:59 03:59 WBC 14.3 H (3.8-10.6) k/uL RBC 2.56 L (4.30-5.90) m/uL Hgb 7.9 L (13.0-17.5) gm/dL Hct 24.0 L (39.0-53.0) % RDW 16.8 H (11.5-15.5) % Neutrophils # 13.4 H (1.3-7.7) k/uL Lymphocytes # 0.3 L (1.0-4.8) k/uL Sodium 136 L 136 L (137-145) mmol/L Carbon Dioxide 21 L (22-30) mmol/L Glucose 149 H 157 H (74-99) mg/dL POC Glucose (mg/dL) (70-110) mg/dL Calcium 7.6 L 7.6 L (8.4-10.2) mg/dL Phosphorus 5.0 H (2.5-4.5) mg/dL Total Protein 4.4 L (6.3-8.2) g/dL Albumin 2.6 L (3.5-5.0) g/dL Urine Protein (Negative) Urine Ketones (Negative) Urine Blood (Negative) Ur Leukocyte Esterase (Negative) Urine WBC (0-5) /hpf Hyaline Casts (0-2) /lpf Urine Mucus (None) /hpf 04/23/23 Range/Units 04:00 WBC (3.8-10.6) k/uL RBC (4.30-5.90) m/uL Hgb (13.0-17.5) gm/dL Hct (39.0-53.0) % RDW (11.5-15.5) % Neutrophils # (1.3-7.7) k/uL Lymphocytes # (1.0-4.8) k/uL Sodium (137-145) mmol/L Carbon Dioxide (22-30) mmol/L Glucose (74-99) mg/dL POC Glucose (mg/dL) (70-110) mg/dL Calcium (8.4-10.2) mg/dL Phosphorus (2.5-4.5) mg/dL Total Protein (6.3-8.2) g/dL Albumin (3.5-5.0) g/dL Urine Protein Trace H (Negative) Urine Ketones 2+ H (Negative) Urine Blood Small H (Negative) Ur Leukocyte Esterase Moderate H (Negative) Urine WBC 8 H (0-5) /hpf Hyaline Casts 13 H (0-2) /lpf Urine Mucus Rare H (None) /hpf Assessment and Plan Assessment: Postop day #0, status post exploratory laparotomy, lysis of adhesions, abdominal washout, right hemicolectomy, small bowel resection, and placement of a wound VAC. Acute lower gastrointestinal bleed, secondary to colonic mass. History of colon cancer, S/P colon resection, 2004. History of atrial fibrillation. History of asthma. History of CVA. History of dyslipidemia. History of hypertension. S/P pacemaker insertion. History of cardiac ablation 2. Plan: Plan dated 04/22/2023. The patient was seen in the endoscopy suite. The patient will probably need intensive care unit for further monitoring and management. The patient was actively bleeding. The patient's blood pressures were a little soft. The patient was getting lactated Ringer's, IV bolus. Labs, x-rays, medications will be reviewed. The patient may need to go to surgery. The surgeon was speaking to the patient's family. The overall prognosis remains very guarded. Additional recommendations and suggestions are forthcoming. Plan dated 04/23/2023. The patient had surgery as detailed above. He is currently resting comfortably in the intensive care unit, room 260. He remains on Flagyl. He is getting oxygen by 2 L, nasal cannula. He is getting lactated Ringer's at 20 mL an hour. Labs, x-rays, and medications are all reviewed. The patient's overall prognosis remains guarded. We will continue to follow the patient make recommendations along the way. Time with Patient: Greater than 30
--- NOTE | 2023-04-23 14:21 | P.PN ---
Subjective Progress Note Date: 04/23/23 Principal diagnosis: cecum mass Patient was seen in the ICU today. Patient reports that he feels well. He reports passing gas. Denies abdominal pain nausea vomiting. Denies fever and chills. Objective - Vital Signs Vital signs: Vital Signs Temp 98.2 F 04/23/23 12:00 Pulse 60 04/23/23 13:00 Resp 19 04/23/23 13:00 BP 111/39 04/23/23 13:00 Pulse Ox 98 04/23/23 13:00 FiO2 Intake & Output 04/22/23 04/23/23 04/23/23 18:59 06:59 18:59 Intake Total 440 2720 140 Output Total 0 255 240 Balance 440 2465 -100 Weight 109.3 kg 113 kg Intake: IV 440 2520 140 Lactated Ringers 1,000 ml 240 120 140 @ 20 mls/hr IV .Q24H [facility] Rx#:[id number] Intake, IV Titration 200 Amount ACETAMINOPHEN IV (For NPO 100 ) 1,000 mg In Empty Bag 1 bag @ 400 mls/hr IVPB Q6HR [facility] Rx#:[id number] Magnesium Sulfate-D5w Pmx 100 1 gm In Dextrose/Water 1 100ml.bag @ 100 mls/hr IVPB ONCE ONE Rx#: [id number] Output: Urine 0 255 240 Other: Voiding Method Bedside Commode Indwelling Catheter Indwelling Catheter - Constitutional General appearance: Present: no acute distress, obese - EENT Eyes: Present: anicteric sclerae, EOMI - Respiratory Details: breathing is even and unlabored - Cardiovascular Details: skin warm and dry - Integumentary Integumentary: Present: pale. Absent: cyanotic - Neurologic Neurologic Comment(s): grossly intact - Musculoskeletal Musculoskeletal: Present: generalized weakness - Psychiatric Psychiatric: Present: A&O x's 3, appropriate affect, intact judgment & insight - Labs CBC & Chem 7: 04/23/23 03:59 04/23/23 03:59 Labs: Abnormal Lab Results - Last 24 Hours (Table) 04/23/23 04/23/23 04/23/23 Range/Units 01:53 01:53 03:59 WBC 13.5 H 14.3 H (3.8-10.6) k/uL RBC 2.66 L 2.56 L (4.30-5.90) m/uL Hgb 8.1 L 7.9 L (13.0-17.5) gm/dL Hct 25.0 L 24.0 L (39.0-53.0) % RDW 16.6 H 16.8 H (11.5-15.5) % Neutrophils # 12.7 H 13.4 H (1.3-7.7) k/uL Lymphocytes # 0.3 L 0.3 L (1.0-4.8) k/uL Sodium 136 L (137-145) mmol/L Carbon Dioxide (22-30) mmol/L Glucose 149 H (74-99) mg/dL Calcium 7.6 L (8.4-10.2) mg/dL Phosphorus 5.0 H (2.5-4.5) mg/dL Total Protein 4.4 L (6.3-8.2) g/dL Albumin 2.6 L (3.5-5.0) g/dL Urine Protein (Negative) Urine Ketones (Negative) Urine Blood (Negative) Ur Leukocyte Esterase (Negative) Urine WBC (0-5) /hpf Hyaline Casts (0-2) /lpf Urine Mucus (None) /hpf 04/23/23 04/23/23 Range/Units 03:59 04:00 WBC (3.8-10.6) k/uL RBC (4.30-5.90) m/uL Hgb (13.0-17.5) gm/dL Hct (39.0-53.0) % RDW (11.5-15.5) % Neutrophils # (1.3-7.7) k/uL Lymphocytes # (1.0-4.8) k/uL Sodium 136 L (137-145) mmol/L Carbon Dioxide 21 L (22-30) mmol/L Glucose 157 H (74-99) mg/dL Calcium 7.6 L (8.4-10.2) mg/dL Phosphorus (2.5-4.5) mg/dL Total Protein (6.3-8.2) g/dL Albumin (3.5-5.0) g/dL Urine Protein Trace H (Negative) Urine Ketones 2+ H (Negative) Urine Blood Small H (Negative) Ur Leukocyte Esterase Moderate H (Negative) Urine WBC 8 H (0-5) /hpf Hyaline Casts 13 H (0-2) /lpf Urine Mucus Rare H (None) /hpf - Imaging and Cardiology nuclear bone scan reviewed Assessment and Plan (1) Mass of cecum Current Visit: Yes Status: Acute Priority: High Code(s): K63.89 - OTHER SPECIFIED DISEASES OF INTESTINE SNOMED Code(s): 9572560496 (2) Anemia Current Visit: Yes Status: Acute Priority: High Code(s): D64.9 - ANEMIA, UNSPECIFIED SNOMED Code(s): 406167782 (3) Gastrointestinal bleeding Current Visit: Yes Status: Acute Priority: High Code(s): K92.2 - GASTROINTESTINAL HEMORRHAGE, UNSPECIFIED SNOMED Code(s): 16291901 Plan: Cecum mass/GI bleed: -Hx of colon cancer. CT abdomen and pelvis revealed 14.2 x 12.1 x 12.1 cm mass centered at the level of the cecum. And probable metastatic lesion to posterior T10. -INR elevated at 3.9 upon admission. S/p Vitamin K and FFP. Coumadin has been held. INR 1.1 today -S/p egd/colonscopy yesterday. Due to active bleeding and acute blood loss patient underwent open right hemicolectomy/small bowel resection. Biopsy of cecal mass pending. -CT chest and bone scan negative for metastatic disease -CA 19 9 and CEA WNL -Pending biopsy will schedule outpt f/u with Dr. Orlando to discuss pathology and treatment options. Will also send for NGS and PDL1 on pathology Iron deficiency anemia: Iron panel revealed iron 48, iron saturation 20%, and ferritin 209. S/p IV iron. MMA normal, vitamin B12 low end normal. Will start IM vit B12 weekly x 1 month, then oral daily -R/t GI bleed secondary to cecum mass. Hemoglobin 7.9 -Will continue to monitor. Please transfuse for hemoglobin less than 7 or if symptomatic .
[2023-04-23] MEDS: LACTATED RINGERS 1,000 ML IV SCH (17:09)
[2023-04-23] MEDS: metroNIDAZOLE-NS PMX 500 MG in SALINE 1 100ML.BAG IVPB SCH ×2 (17:10→23:46)
--- NOTE | 2023-04-23 21:55 | P.PN ---
Subjective Progress Note Date: 04/23/23 Patient is a pleasant 83-year-old white male who is admitted after acute GI bleed undergoing a colonoscopy started hemorrhaging because of a cecal mass and was taken to emergent surgery and had a right hemicolectomy he is currently in the intensive care in stable condition on 2 L of oxygen via nasal cannula patient pain is well tolerated and he is just extremely thirsty. He doesn't report any other significant problems today. Pathology for this cecal mass is pending currently. His Pulmonary as well as surgery on his case. Objective - Vital Signs Vital signs: Vital Signs Temp 98.8 F 04/23/23 16:00 Pulse 60 04/23/23 19:00 Resp 19 04/23/23 19:00 BP 110/45 04/23/23 19:00 Pulse Ox 97 04/23/23 19:00 FiO2 Intake & Output 04/23/23 04/23/23 04/24/23 06:59 18:59 06:59 Intake Total 2720 240 20 Output Total 255 375 30 Balance 2465 -135 -10 Weight 113 kg Intake: IV 2520 240 20 Lactated Ringers 1,000 ml 120 240 20 @ 20 mls/hr IV .Q24H [facility] Rx#:[id number] Intake, IV Titration 200 Amount ACETAMINOPHEN IV (For NPO 100 ) 1,000 mg In Empty Bag 1 bag @ 400 mls/hr IVPB Q6HR [facility] Rx#:[id number] Magnesium Sulfate-D5w Pmx 100 1 gm In Dextrose/Water 1 100ml.bag @ 100 mls/hr IVPB ONCE ONE Rx#: [id number] Output: Urine 255 375 30 Other: Voiding Method Indwelling Catheter Indwelling Catheter - Exam PHYSICAL EXAM: VITAL SIGNS: [As above] GENERAL: Alert and oriented 3, Sitting up in bed, no acute distress HEENT: Normocephalic, Conjunctivae normal. eyes normal. NECK: Supple, No JVD. CARDIOVASCULAR: S1, S2 regular. No murmur RESPIRATION: Unlabored, bilateral air entry .Breath sounds diminished in the bases. ABDOMEN: Soft, nondistended, minimal right-sided tenderness. No guarding. +Bowel sounds. LEGS: Minimal edema. no clubbing, no cyanosis. Positive DP pulses. NERVOUS SYSTEM: Cranial N 2-12 grossly normal. No focal deficits. Strength and sensation grossly intact. Skin: Warm and dry, no rash. - Labs CBC & Chem 7: 04/23/23 03:59 04/23/23 03:59 Labs: Abnormal Lab Results - Last 24 Hours (Table) 04/23/23 04/23/23 04/23/23 Range/Units 01:53 01:53 03:59 WBC 13.5 H 14.3 H (3.8-10.6) k/uL RBC 2.66 L 2.56 L (4.30-5.90) m/uL Hgb 8.1 L 7.9 L (13.0-17.5) gm/dL Hct 25.0 L 24.0 L (39.0-53.0) % RDW 16.6 H 16.8 H (11.5-15.5) % Neutrophils # 12.7 H 13.4 H (1.3-7.7) k/uL Lymphocytes # 0.3 L 0.3 L (1.0-4.8) k/uL Sodium 136 L (137-145) mmol/L Carbon Dioxide (22-30) mmol/L Glucose 149 H (74-99) mg/dL Calcium 7.6 L (8.4-10.2) mg/dL Phosphorus 5.0 H (2.5-4.5) mg/dL Total Protein 4.4 L (6.3-8.2) g/dL Albumin 2.6 L (3.5-5.0) g/dL Urine Protein (Negative) Urine Ketones (Negative) Urine Blood (Negative) Ur Leukocyte Esterase (Negative) Urine WBC (0-5) /hpf Hyaline Casts (0-2) /lpf Urine Mucus (None) /hpf 04/23/23 04/23/23 Range/Units 03:59 04:00 WBC (3.8-10.6) k/uL RBC (4.30-5.90) m/uL Hgb (13.0-17.5) gm/dL Hct (39.0-53.0) % RDW (11.5-15.5) % Neutrophils # (1.3-7.7) k/uL Lymphocytes # (1.0-4.8) k/uL Sodium 136 L (137-145) mmol/L Carbon Dioxide 21 L (22-30) mmol/L Glucose 157 H (74-99) mg/dL Calcium 7.6 L (8.4-10.2) mg/dL Phosphorus (2.5-4.5) mg/dL Total Protein (6.3-8.2) g/dL Albumin (3.5-5.0) g/dL Urine Protein Trace H (Negative) Urine Ketones 2+ H (Negative) Urine Blood Small H (Negative) Ur Leukocyte Esterase Moderate H (Negative) Urine WBC 8 H (0-5) /hpf Hyaline Casts 13 H (0-2) /lpf Urine Mucus Rare H (None) /hpf Assessment and Plan (1) Anemia Current Visit: Yes Status: Acute Priority: High Code(s): D64.9 - ANEMIA, UNSPECIFIED SNOMED Code(s): 785303446 (2) Gastrointestinal bleeding Current Visit: Yes Status: Acute Priority: High Code(s): K92.2 - GASTROINTESTINAL HEMORRHAGE, UNSPECIFIED SNOMED Code(s): 22381235 (3) Mass of cecum Current Visit: Yes Status: Acute Priority: High Code(s): K63.89 - OTHER SPECIFIED DISEASES OF INTESTINE SNOMED Code(s): 7015218425 (4) S/P right hemicolectomy Current Visit: Yes Status: Acute Code(s): Z90.49 - ACQUIRED ABSENCE OF OTHER SPECIFIED PARTS OF DIGESTIVE TRACT SNOMED Code(s): 225388860 Plan: Continue ICU support continue postoperative care pain control. We'll continue to follow patient's overall guarded prognosis. Current pathology is pending at this time further treatment will depend on pathology report.
[2023-04-24 05:13] LABS: African American GFR (CKD) 86 (>60 ml/min/1.73 sqM); Anion Gap 4 mmol/L; Blood Urea Nitrogen 20 mg/dL (9-20); Calcium 7.6 mg/dL (8.4-10.2); Carbon Dioxide 27 mmol/L (22-30); Chloride 103 mmol/L (98-107); Glucose 107 mg/dL (74-99); Magnesium 2.2 mg/dL (1.6-2.3); Non-African American GFR(CKD) 74 (>60 ml/min/1.73 sqM); Potassium 4.1 mmol/L (3.5-5.1); Sodium 134 mmol/L (137-145)
[2023-04-24] MEDS: ACETAMINOPHEN IV (For NPO) 1,000 MG in EMPTY BAG 1 BAG IVPB SCH ×2 (05:53→11:07)
[2023-04-24 06:28] LABS: Anisocytosis Slight; Basophils % (A) 0 %; Eosinophils # (A) 0.1 k/uL (0-0.7); Eosinophils % (A) 1 %; HCT 21.6 % (39.0-53.0); Hypochromasia Slight; Lymphocytes # (A) 0.9 k/uL (1.0-4.8); Lymphocytes % (A) 7 %; MCH 30.3 pg (25.0-35.0); MCHC 31.9 g/dL (31.0-37.0); MCV 94.9 fL (80.0-100.0); Macrocytosis Slight; Mean Platelet Volume 8.8; Monocytes # (A) 0.7 k/uL (0-1.0); Monocytes % (A) 5 %; Neutrophils # (A) 11.3 k/uL (1.3-7.7); Neutrophils % (A) 87 %; Platelet Count 206 k/uL (150-450); RBC 2.28 m/uL (4.30-5.90); RDW 17.6 % (11.5-15.5); WBC 13.1 k/uL (3.8-10.6)
[2023-04-24 06:54] LABS: HGB 6.9 gm/dL (13.0-17.5)
--- NOTE | 2023-04-24 08:03 | P.PN ---
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 He is doing next regular well after surgery. He is awake. His pain is well-controlled. He is tolerating ice chips popsicles. ROS: No reports of nausea and vomiting. No fevers or chills. No new chest pain. No productive sputum PHYSICAL EXAM: VITAL SIGNS: Reviewed CONSTITUTIONAL: Well developed and in no acute distress. EYES: Conjuctivae without sclera icterus. Extraocular movements grossly intact. HEAD, EARS, NOSE, THROAT: Moist buccal mucosa. Head is atraumatic, normocephalic. Hears conversational speech. No nasal drainage. RESPIRATORY: Non-labored respirations and equal bilateral excursions. CARDIOVASCULAR: Palpable 2+ radial pulses. ABDOMEN: Soft, obese. Nontender. Incisional wound VAC system intact. MUSCULOSKELETAL: No gross deformity of the lower extremities noted. No clubbing. No cyanosis. SKIN: Good skin turgor. Well perfused. NEUROLOGIC: Cranial nerves II through XII grossly intact. No focal or lateralizing signs. PSYCH: Appropriate affect. Alert and oriented to person, place and time. CLINICAL LABS: Reviewed. WBC appropriately elevated due to stress response. Hemoglobin down 7.9. ASSESSMENT: 1. Acute blood loss anemia 2. Large cecal mass, neoplasm, locally invasive 3. Acute gastrointestinal bleeding from cecal mass PLAN: 1. Do not restart Coumadin. May have Lovenox subcutaneous 40 mg daily 2. I expect his hemoglobin to trend downwards due to estimated blood loss over 500 mL. May need future blood transfusion. Monitor hemoglobin 3. Continue ICU care 4. Abdominal binder 5. May have full liquid diet Objective - Vital Signs Vital signs: Vital Signs Temp 98.4 F 04/24/23 07:46 Pulse 61 04/24/23 07:46 Resp 22 04/24/23 07:46 BP 95/46 04/24/23 07:46 Pulse Ox 97 04/24/23 07:46 FiO2 Intake & Output 04/23/23 04/24/23 04/24/23 18:59 06:59 18:59 Intake Total 240 1145 20 Output Total 375 415 40 Balance -135 730 -20 Weight 114 kg Intake: IV 240 1120 20 ACETAMINOPHEN IV (For NPO 800 ) 1,000 mg In Empty Bag 1 bag @ 400 mls/hr IVPB Q6HR [facility] Rx#:[id number] Lactated Ringers 1,000 ml 240 220 20 @ 20 mls/hr IV .Q24H [facility] Rx#:[id number] metroNIDAZOLE-NS PMX 500 100 mg In Saline 1 100ml.bag @ 100 mls/hr IVPB Q8HR [facility] Rx#:[id number] Oral 25 Blood Product 0 Unit 0 Output: Urine 375 415 40 Other: Voiding Method Indwelling Catheter Indwelling Catheter - Labs CBC & Chem 7: 04/24/23 04:20 04/24/23 04:20 Labs: Abnormal Lab Results - Last 24 Hours (Table) 04/21/23 04/24/23 04/24/23 Range/Units 11:07 04:20 04:20 WBC 13.1 H (3.8-10.6) k/uL RBC 2.28 L (4.30-5.90) m/uL Hgb 6.9 L* (13.0-17.5) gm/dL Hct 21.6 L (39.0-53.0) % RDW 17.6 H (11.5-15.5) % Neutrophils # 11.3 H (1.3-7.7) k/uL Lymphocytes # 0.9 L (1.0-4.8) k/uL Sodium 134 L (137-145) mmol/L Glucose 107 H (74-99) mg/dL Calcium 7.6 L (8.4-10.2) mg/dL Crossmatch See Detail
[2023-04-24] MEDS: CYANOCOBALAMIN 1,000 MCG/ML 1 ML VIAL IM SCH (08:34)
[2023-04-24] MEDS: HEPARIN SODIUM,PORCINE 5,000 UNIT/ML 1 ML VIAL SQ SCH ×2 (08:34→20:44)
[2023-04-24] MEDS: PANTOPRAZOLE 40 MG/10 ML VIAL IVP SCH (08:34)
[2023-04-24] MEDS: metroNIDAZOLE-NS PMX 500 MG in SALINE 1 100ML.BAG IVPB SCH ×3 (08:34→23:50)
[2023-04-24] MEDS: atenoloL 25 MG TAB PO SCH ×2 (08:34→20:44)
[2023-04-24] MEDS: TAMSULOSIN 0.4 MG CAP.ER.24H PO SCH ×2 (08:34→20:44)
--- NOTE | 2023-04-24 10:20 | P.PN ---
Subjective Progress Note Date: 04/24/23 Principal diagnosis: Colonic mass, GI bleed. Pulmonary consult dated 04/22/2023. 83-year-old male who was admitted back on April 17, through the emergency department, with a gastrointestinal bleed. We were finally consulted today, as the patient was having a colonoscopy, and EGD, the patient was found to have a large colonic mass, she was actively bleeding. I spoke to the surgeon, who would like to patient evaluated, and potentially housed in the intensive care unit. She is hoping to take the patient to surgery, although she did admit, that his overall prognosis is very guarded. He was seen in the endoscopy suite. He was on room air. He is getting lactated Ringer's, and had received about 400 mL. The patient was not having any distress. The patient will be tra nsferred to the intensive care unit. The patient has a history of atrial fibrillation, asthma, CVA, hyperlipidemia, hypertension, and a history of colon cancer in the past. The patient also has had previous colonic surgery back in 2004, and was a smoker in the past. Currently labs include a white count of 9.8, hemoglobin 8.5, hematocrit 26.8, and a normal platelet count. Sodium 135, potassium 3.9, chlorides 104, CO2 25, BUN 14, with a creatinine of 0.73. Progress note dated 04/23/2023. This is a 83-year-old male who was seen yesterday in the endoscopy suite. The patient was found to have a GI bleed, and a colonic mass. He is postop day #1, status post exploratory laparotomy, lysis of adhesions, abdominal washout, right hemicolectomy, wound VAC placement, and small bowel resection. The patient's currently on 2 L of oxygen. He is getting lactated Ringer's at 20 mL an hour. He continues on Flagyl. White count 14.3, hemoglobin 7.9, hematocrit 24, and platelet count 187,000. Sodium 136, potassium 4.2, chlorides 105, CO2 21, anion gap 10, BUN 15, creatinine 0.89. Urine is suggestive of a urinary tract infection. Progress note dated 04/24/2023. 83-year-old male postop day #2, status post exploratory laparotomy, lysis of adhesions, abdominal washout, right hemicolectomy, wound VAC placement, and small bowel resection. The patient is seen today in the ICU, room 260. Cu rrently, he is on 1 L of oxygen, and getting lactated Ringer's at 20 mL an hour. His hemoglobin was 6.9, so he is receiving 1 unit of packed red blood cells. Otherwise, he seems be doing relatively well. White count 13.1, hemoglobin 6.9, hematocrit 21.6, and platelet count 206,000. Sodium 134, potassium 4.1, chlorides 103, CO2 27, within normal BUN and creatinine. Objective - Vital Signs Vital signs: Vital Signs Temp 98.4 F 04/24/23 08:16 Pulse 60 04/24/23 08:16 Resp 25 H 04/24/23 08:16 BP 105/47 04/24/23 08:16 Pulse Ox 95 04/24/23 08:16 FiO2 Intake & Output 04/23/23 04/24/23 04/24/23 18:59 06:59 18:59 Intake Total 240 1145 20 Output Total 375 415 40 Balance -135 730 -20 Weight 114 kg Intake: IV 240 1120 20 ACETAMINOPHEN IV (For NPO 800 ) 1,000 mg In Empty Bag 1 bag @ 400 mls/hr IVPB Q6HR [facility] Rx#:[id number] Lactated Ringers 1,000 ml 240 220 20 @ 20 mls/hr IV .Q24H [facility] Rx#:[id number] metroNIDAZOLE-NS PMX 500 100 mg In Saline 1 100ml.bag @ 100 mls/hr IVPB Q8HR [facility] Rx#:[id number] Oral 25 Blood Product 0 Unit 0 Output: Urine 375 415 40 Other: Voiding Method Indwelling Catheter Indwelling Catheter Indwelling Catheter - Exam No acute distress, oriented 3. The patient is on 1 L by nasal cannula. HEENT examination is grossly unremarkable. Mucous membranes are moist. No oral lesions. Neck supple. Full range of motion. No adenopathy thyromegaly or neck vein distention. Cardiovascular examination reveals regular rhythm rate. S1-S2 normal. No S3 or S4. No discernible murmur noted. Heart rate 60 bpm. Lungs reveal clear breath sounds. Breath sounds are equal bilaterally. No adventitious lung sounds including wheezes rhonchi or crackles. 1 L saturation is 95%. Abdomen soft, without bowel sounds. No masses. Tenderness on palpation. Drains noted. Extremities are intact. No cyanosis clubbing or edema. Skin is without rash or lesion. Neurologic examination is brief but nonfocal. - Labs CBC & Chem 7: 04/24/23 04:20 04/24/23 04:20 Labs: Abnormal Lab Results - Last 24 Hours (Table) 04/21/23 04/24/23 04/24/23 Range/Units 11:07 04:20 04:20 WBC 13.1 H (3.8-10.6) k/uL RBC 2.28 L (4.30-5.90) m/uL Hgb 6.9 L* (13.0-17.5) gm/dL Hct 21.6 L (39.0-53.0) % RDW 17.6 H (11.5-15.5) % Neutrophils # 11.3 H (1.3-7.7) k/uL Lymphocytes # 0.9 L (1.0-4.8) k/uL Sodium 134 L (137-145) mmol/L Glucose 107 H (74-99) mg/dL Calcium 7.6 L (8.4-10.2) mg/dL Crossmatch See Detail Assessment and Plan Assessment: Postop day #1, status post exploratory laparotomy, lysis of adhesions, abdominal washout, right hemicolectomy, small bowel resection, and placement of a wound VAC. Acute lower gastrointestinal bleed, secondary to colonic mass. History of colon cancer, S/P colon resection, 2004. History of atrial fibrillation. History of asthma. History of CVA. History of dyslipidemia. History of hypertension. S/P pacemaker insertion. History of cardiac ablation 2. Plan: Plan dated 04/22/2023. The patient was seen in the endoscopy suite. The patient will probably need intensive care unit for further monitoring and management. The patient was actively bleeding. The patient's blood pressures were a little soft. The patient was getting lactated Ringer's, IV bolus. Labs, x-rays, medications will be reviewed. The patient may need to go to surgery. The surgeon was speaking to the patient's family. The overall prognosis remains very guarded. Additional recommendations and suggestions are forthcoming. Plan dated 04/23/2023. The patient had surgery as detailed above. He is currently resting comfortably in the intensive care unit, room 260. He remains on Flagyl. He is getting oxygen by 2 L, nasal cannula. He is getting lactated Ringer's at 20 mL an hour. Labs, x-rays, and medications are all reviewed. The patient's overall prognosis remains guarded. We will continue to follow the patient make recommendations along the way. Plan dated 04/24/2023. The patient has been weaned down to 1 L of oxygen. He is currently receiving lactated Ringer's at 20 mL an hour. His hemoglobin is a bit low at 6.9, so he is going to receive 1 unit of packed red blood cells. The patient is stable hemodynamically, and from the respiratory standpoint. From my perspective, the patient could be transferred out to the general medical floor. Additional recommendations and suggestions are forthcoming. Prognosis is certainly guarded. Time with Patient: Less than 30
[2023-04-24 12:34] LABS: Anisocytosis Slight; HGB 7.7 gm/dL (13.0-17.5); Hypochromasia Slight; MCH 30.4 pg (25.0-35.0); MCHC 32.2 g/dL (31.0-37.0); MCV 94.3 fL (80.0-100.0); Mean Platelet Volume 8.4; Platelet Count 207 k/uL (150-450); RBC 2.55 m/uL (4.30-5.90); RDW 17.2 % (11.5-15.5); WBC 14.6 k/uL (3.8-10.6)
[2023-04-24] MEDS: ACETAMINOPHEN TAB 325 MG TAB PO PRN ×2 (17:10→23:50)
[2023-04-24] MEDS: LACTATED RINGERS 1,000 ML IV SCH (17:11)
[2023-04-24] MEDS: ATORVASTATIN 10 MG TAB PO SCH (20:44)
[2023-04-24] MEDS: MONTELUKAST 10 MG TAB PO SCH (20:44)
--- NOTE | 2023-04-24 21:49 | P.PN ---
Subjective Progress Note Date: 04/24/23 CHIEF COMPLAINT: GI bleed HISTORY OF PRESENT ILLNESS: The patient is a 83-year-old male status post ex ploratory laparotomy, right hemicolectomy, small bowel resection for locally invasive cecal cancer, 04/23/23. He is in the intensive care unit. His is at bedside. Pain is well-controlled. He is tolerating full liquid diet. No bowel movements. He received 1 unit packed red blood cells for anemia 6.9. ROS: No reports of nausea and vomiting. No fevers or chills. No new chest pain. No productive sputum PHYSICAL EXAM: VITAL SIGNS: Reviewed CONSTITUTIONAL: Well developed and in no acute distress. EYES: Conjuctivae without sclera icterus. Extraocular movements grossly intact. HEAD, EARS, NOSE, THROAT: Moist buccal mucosa. Head is atraumatic, normocephalic. Hears conversational speech. No nasal drainage. RESPIRATORY: Non-labored respirations and equal bilateral excursions. CARDIOVASCULAR: Palpable 2+ radial pulses. ABDOMEN: Soft, obese. Incisional wound VAC intact. MUSCULOSKELETAL: No gross deformity of the lower extremities noted. No clubbing. No cyanosis. SKIN: Good skin turgor. Well perfused. NEUROLOGIC: Cranial nerves II through XII grossly intact. No focal or lateralizing signs. PSYCH: Appropriate affect. Alert and oriented to person, place and time. CLINICAL LABS: Reviewed. WBC appropriately elevated due to stress response. Hemoglobin down 7.9. ASSESSMENT: 1. Acute blood loss anemia 2. Large cecal mass, neoplasm, locally invasive 3. Acute gastrointestinal bleeding from cecal mass PLAN: 1. HOld Lovenox for acute blood loss anemia. 2. May advance to low fiber diet 3. PT OT for rehab versus home rehab assessment 4. Overall, patient is doing very well with anticipated discharge pending tolerating diet, WBC resolution, PT/OT assessment Objective - Vital Signs Vital signs: Vital Signs Temp 98.4 F 04/24/23 15:00 Pulse 60 04/24/23 15:00 Resp 22 04/24/23 15:00 BP 102/64 04/24/23 15:00 Pulse Ox 97 04/24/23 15:00 FiO2 Intake & Output 04/23/23 04/24/23 04/24/23 18:59 06:59 18:59 Intake Total 240 1145 1250 Output Total 375 415 550 Balance -135 730 700 Weight 114 kg Intake: IV 240 1120 240 ACETAMINOPHEN IV (For NPO 800 ) 1,000 mg In Empty Bag 1 bag @ 400 mls/hr IVPB Q6HR [facility] Rx#:[id number] Lactated Ringers 1,000 ml 240 220 240 @ 20 mls/hr IV .Q24H [facility] Rx#:[id number] metroNIDAZOLE-NS PMX 500 100 mg In Saline 1 100ml.bag @ 100 mls/hr IVPB Q8HR [facility] Rx#:[id number] Oral 25 500 Blood Product 310 Rc As-1 Unit 310 [id number] Other 200 Rc As-1 Unit 200 [id number] Output: Urine 375 415 550 Other: Voiding Method Indwelling Catheter Indwelling Catheter Indwelling Catheter - Labs CBC & Chem 7: 04/24/23 11:49 04/24/23 04:20 Labs: Abnormal Lab Results - Last 24 Hours (Table) 04/21/23 04/24/23 04/24/23 Range/Units 11:07 04:20 04:20 WBC 13.1 H (3.8-10.6) k/uL RBC 2.28 L (4.30-5.90) m/uL Hgb 6.9 L* (13.0-17.5) gm/dL Hct 21.6 L (39.0-53.0) % RDW 17.6 H (11.5-15.5) % Neutrophils # 11.3 H (1.3-7.7) k/uL Lymphocytes # 0.9 L (1.0-4.8) k/uL Sodium 134 L (137-145) mmol/L Glucose 107 H (74-99) mg/dL Calcium 7.6 L (8.4-10.2) mg/dL Crossmatch See Detail 04/24/23 Range/Units 11:49 WBC 14.6 H (3.8-10.6) k/uL RBC 2.55 L (4.30-5.90) m/uL Hgb 7.7 L (13.0-17.5) gm/dL Hct 24.0 L (39.0-53.0) % RDW 17.2 H (11.5-15.5) % Neutrophils # (1.3-7.7) k/uL Lymphocytes # (1.0-4.8) k/uL Sodium (137-145) mmol/L Glucose (74-99) mg/dL Calcium (8.4-10.2) mg/dL Crossmatch
--- NOTE | 2023-04-24 22:48 | P.PN ---
Subjective Progress Note Date: 04/24/23 Patient is a pleasant 83-year-old white male who is admitted after acute GI bleed undergoing a colonoscopy started hemorrhaging because of a cecal mass and was taken to emergent surgery and had a right hemicolectomy he is currently in the intensive care in stable condition on 2 L of oxygen via nasal cannula patient pain is well tolerated and he is just extremely thirsty. He doesn't report any other significant problems today. Pathology for this cecal mass is pending currently. patient on clear liquids and tolerating well. Objective - Vital Signs Vital signs: Vital Signs Temp 98.7 F 04/24/23 20:00 Pulse 61 04/24/23 20:00 Resp 22 04/24/23 20:00 BP 123/50 04/24/23 20:00 Pulse Ox 96 04/24/23 20:00 FiO2 Intake & Output 04/24/23 04/24/23 04/25/23 06:59 18:59 06:59 Intake Total 1145 1250 Output Total 415 550 Balance 730 700 Weight 114 kg Intake: IV 1120 240 ACETAMINOPHEN IV (For NPO 800 ) 1,000 mg In Empty Bag 1 bag @ 400 mls/hr IVPB Q6HR [facility] Rx#:[id number] Lactated Ringers 1,000 ml 220 240 @ 20 mls/hr IV .Q24H [facility] Rx#:[id number] metroNIDAZOLE-NS PMX 500 100 mg In Saline 1 100ml.bag @ 100 mls/hr IVPB Q8HR [facility] Rx#:[id number] Oral 25 500 Blood Product 310 Rc As-1 Unit 310 [id number] Other 200 Rc As-1 Unit 200 [id number] Output: Urine 415 550 Other: Voiding Method Indwelling Catheter Indwelling Catheter Indwelling Catheter - Exam PHYSICAL EXAM: VITAL SIGNS: [As above] GENERAL: Alert and oriented 3, Sitting up in bed, no acute distress HEENT: Normocephalic, Conjunctivae normal. eyes normal. NECK: Supple, No JVD. CARDIOVASCULAR: S1, S2 regular. No murmur RESPIRATION: Unlabored, bilateral air entry .Breath sounds diminished in the bases. ABDOMEN: Soft, nondistended, minimal right-sided tenderness. No guarding. +Bowel sounds. LEGS: Minimal edema. no clubbing, no cyanosis. Positive DP pulses. NERVOUS SYSTEM: Cranial N 2-12 grossly normal. No focal deficits. Strength and sensation grossly intact. Skin: Warm and dry, no rash. - Labs CBC & Chem 7: 04/24/23 11:49 04/24/23 04:20 Labs: Abnormal Lab Results - Last 24 Hours (Table) 04/21/23 04/24/23 04/24/23 Range/Units 11:07 04:20 04:20 WBC 13.1 H (3.8-10.6) k/uL RBC 2.28 L (4.30-5.90) m/uL Hgb 6.9 L* (13.0-17.5) gm/dL Hct 21.6 L (39.0-53.0) % RDW 17.6 H (11.5-15.5) % Neutrophils # 11.3 H (1.3-7.7) k/uL Lymphocytes # 0.9 L (1.0-4.8) k/uL Sodium 134 L (137-145) mmol/L Glucose 107 H (74-99) mg/dL Calcium 7.6 L (8.4-10.2) mg/dL Crossmatch See Detail 04/24/23 Range/Units 11:49 WBC 14.6 H (3.8-10.6) k/uL RBC 2.55 L (4.30-5.90) m/uL Hgb 7.7 L (13.0-17.5) gm/dL Hct 24.0 L (39.0-53.0) % RDW 17.2 H (11.5-15.5) % Neutrophils # (1.3-7.7) k/uL Lymphocytes # (1.0-4.8) k/uL Sodium (137-145) mmol/L Glucose (74-99) mg/dL Calcium (8.4-10.2) mg/dL Crossmatch Assessment and Plan (1) Anemia Current Visit: Yes Status: Acute Priority: High Code(s): D64.9 - ANEMIA, UNSPECIFIED SNOMED Code(s): 038463314 (2) Gastrointestinal bleeding Current Visit: Yes Status: Acute Priority: High Code(s): K92.2 - TONE ROINTESTINAL HEMORRHAGE, UNSPECIFIED SNOMED Code(s): 27334897 (3) Mass of cecum Current Visit: Yes Status: Acute Priority: High Code(s): K63.89 - OTHER SPECIFIED DISEASES OF INTESTINE SNOMED Code(s): 4707427190 (4) S/P right hemicolectomy Current Visit: Yes Status: Acute Code(s): Z90.49 - ACQUIRED ABSENCE OF OTHER SPECIFIED PARTS OF DIGESTIVE TRACT SNOMED Code(s): 057468756 Plan: Continue ICU support continue postoperative care pain control. We'll continue to follow patient's overall guarded prognosis. Current pathology is pending at this time further treatment will depend on pathology report. He can move to medical floor today. Time with Patient: Greater than 30
[2023-04-25 06:07] LABS: Anisocytosis Slight; Basophils % (A) 0 %; Eosinophils # (A) 0.4 k/uL (0-0.7); Eosinophils % (A) 2 %; HCT 25.5 % (39.0-53.0); HGB 8.5 gm/dL (13.0-17.5); Hypochromasia Slight; Lymphocytes % (A) 6 %; MCH 31.4 pg (25.0-35.0); MCHC 33.3 g/dL (31.0-37.0); MCV 94.4 fL (80.0-100.0); Macrocytosis Slight; Mean Platelet Volume 8.5; Monocytes % (A) 6 %; Neutrophils # (A) 13.9 k/uL (1.3-7.7); Neutrophils % (A) 85 %; Platelet Count 234 k/uL (150-450); WBC 16.5 k/uL (3.8-10.6)
[2023-04-25 06:33] LABS: African American GFR (CKD) >90 (>60 ml/min/1.73 sqM); Anion Gap 2 mmol/L; Blood Urea Nitrogen 17 mg/dL (9-20); Calcium 7.6 mg/dL (8.4-10.2); Carbon Dioxide 28 mmol/L (22-30); Chloride 103 mmol/L (98-107); Glucose 82 mg/dL (74-99); Non-African American GFR(CKD) 80 (>60 ml/min/1.73 sqM); Potassium 4.3 mmol/L (3.5-5.1); Sodium 133 mmol/L (137-145)
[2023-04-25] MEDS: metroNIDAZOLE-NS PMX 500 MG in SALINE 1 100ML.BAG IVPB SCH ×3 (09:56→23:58)
[2023-04-25] MEDS: PANTOPRAZOLE 40 MG/10 ML VIAL IVP SCH (09:56)
[2023-04-25] MEDS: PIPERACILLIN-TAZOBACTAM 3.375 GM in SODIUM CHLORIDE 0.9% 100 ML IVPB SCH ×3 (09:56→23:53)
[2023-04-25] MEDS: atenoloL 25 MG TAB PO SCH (09:56)
--- NOTE | 2023-04-25 11:08 | P.PN ---
Subjective Progress Note Date: 04/25/23 Principal diagnosis: Colonic mass, GI bleed. Pulmonary consult dated 04/22/2023. 83-year-old male who was admitted back on April 17, through the emergency department, with a gastrointestinal bleed. We were finally consulted today, as the patient was having a colonoscopy, and EGD, the patient was found to have a large colonic mass, she was actively bleeding. I spoke to the surgeon, who would like to patient evaluated, and potentially housed in the intensive care unit. She is hoping to take the patient to surgery, although she did admit, that his overall prognosis is very guarded. He was seen in the endoscopy suite. He was on room air. He is getting lactated Ringer's, and had received about 400 mL. The patient was not having any distress. The patient will be tra nsferred to the intensive care unit. The patient has a history of atrial fibrillation, asthma, CVA, hyperlipidemia, hypertension, and a history of colon cancer in the past. The patient also has had previous colonic surgery back in 2004, and was a smoker in the past. Currently labs include a white count of 9.8, hemoglobin 8.5, hematocrit 26.8, and a normal platelet count. Sodium 135, potassium 3.9, chlorides 104, CO2 25, BUN 14, with a creatinine of 0.73. Progress note dated 04/23/2023. This is a 83-year-old male who was seen yesterday in the endoscopy suite. The patient was found to have a GI bleed, and a colonic mass. He is postop day #1, status post exploratory laparotomy, lysis of adhesions, abdominal washout, right hemicolectomy, wound VAC placement, and small bowel resection. The patient's currently on 2 L of oxygen. He is getting lactated Ringer's at 20 mL an hour. He continues on Flagyl. White count 14.3, hemoglobin 7.9, hematocrit 24, and platelet count 187,000. Sodium 136, potassium 4.2, chlorides 105, CO2 21, anion gap 10, BUN 15, creatinine 0.89. Urine is suggestive of a urinary tract infection. Progress note dated 04/24/2023. 83-year-old male postop day #2, status post exploratory laparotomy, lysis of adhesions, abdominal washout, right hemicolectomy, wound VAC placement, and small bowel resection. The patient is seen today in the ICU, room 260. Cu rrently, he is on 1 L of oxygen, and getting lactated Ringer's at 20 mL an hour. His hemoglobin was 6.9, so he is receiving 1 unit of packed red blood cells. Otherwise, he seems be doing relatively well. White count 13.1, hemoglobin 6.9, hematocrit 21.6, and platelet count 206,000. Sodium 134, potassium 4.1, chlorides 103, CO2 27, within normal BUN and creatinine. Progress note dated 04/25/2023. 83-year-old male postop day #3, status post abdominal procedure, for GI bleeding, and colonic mass. Currently, the patient's resting comfortably in room 260. He is getting oxygen by nasal cannula 2 L. He is on lactated Ringer's at 20 mL an hour. White count of 16.5, hemoglobin 8.5, hematocrit 25.5, within normal platelet count. Sodium 133, potassium 4.3, chlorides 103, CO2 28, BUN 17, and a creatinine of 0.83. Objective - Vital Signs Vital signs: Vital Signs Temp 98.1 F 04/25/23 08:00 Pulse 60 04/25/23 08:00 Resp 18 04/25/23 08:00 BP 135/59 04/25/23 08:00 Pulse Ox 98 04/25/23 08:00 FiO2 Intake & Output 04/24/23 04/25/23 04/25/23 18:59 06:59 18:59 Intake Total 1250 Output Total 550 325 Balance 700 -325 Weight 114.5 kg Intake: IV 240 Lactated Ringers 1,000 ml 240 @ 20 mls/hr IV .Q24H [facility] Rx#:[id number] Oral 500 Blood Product 310 Rc As-1 Unit 310 [id number] Other 200 Rc As-1 Unit 200 [id number] Output: Urine 550 325 Other: Voiding Method Indwelling Catheter Indwelling Catheter - Exam No acute distress, oriented 3. The patient is on 2 L by nasal cannula. HEENT examination is grossly unremarkable. Mucous membranes are moist. No oral lesions. Neck supple. Full range of motion. No adenopathy thyromegaly or neck vein distention. Cardiovascular examination reveals regular rhythm rate. S1-S2 normal. No S3 or S4. No discernible murmur noted. Heart rate 60 bpm. Lungs reveal clear breath sounds. Breath sounds are equal bilaterally. No adventitious lung sounds including wheezes rhonchi or crackles. 2 L saturation is 98%. Abdomen soft, without bowel sounds. No masses. Tenderness on palpation. Drains noted. Extremities are intact. No cyanosis clubbing or edema. Skin is without rash or lesion. Neurologic examination is brief but nonfocal. - Labs CBC & Chem 7: 04/25/23 05:35 04/25/23 05:35 Labs: Abnormal Lab Results - Last 24 Hours (Table) 04/24/23 04/25/23 04/25/23 Range/Units 11:49 05:35 05:35 WBC 14.6 H 16.5 H (3.8-10.6) k/uL RBC 2.55 L 2.70 L (4.30-5.90) m/uL Hgb 7.7 L 8.5 L (13.0-17.5) gm/dL Hct 24.0 L 25.5 L (39.0-53.0) % RDW 17.2 H 17.0 H (11.5-15.5) % Neutrophils # 13.9 H (1.3-7.7) k/uL Sodium 133 L (137-145) mmol/L Calcium 7.6 L (8.4-10.2) mg/dL Assessment and Plan Assessment: Postop day #2, status post exploratory laparotomy, lysis of adhesions, abdominal washout, right hemicolectomy, small bowel resection, and placement of a wound VAC. Acute lower gastrointestinal bleed, secondary to colonic mass. History of colon cancer, S/P colon resection, 2004. History of atrial fibrillation. History of asthma. History of CVA. History of dyslipidemia. History of hypertension. S/P pacemaker insertion. History of cardiac ablation 2. Plan: Plan dated 04/22/2023. The patient was seen in the endoscopy suite. The patient will probably need intensive care unit for further monitoring and management. The patient was actively bleeding. The patient's blood pressures were a little soft. The patient was getting lactated Ringer's, IV bolus. Labs, x-rays, medications will be reviewed. The patient may need to go to surgery. The surgeon was speaking to the patient's family. The overall prognosis remains very guarded. Additional recommendations and suggestions are forthcoming. Plan dated 04/23/2023. The patient had surgery as detailed above. He is currently resting comfortably in the intensive care unit, room 260. He remains on Flagyl. He is getting oxygen by 2 L, nasal cannula. He is getting lactated Ringer's at 20 mL an hour. Labs, x-rays, and medications are all reviewed. The patient's overall progno sis remains guarded. We will continue to follow the patient make recommendations along the way. Plan dated 04/24/2023. The patient has been weaned down to 1 L of oxygen. He is currently receiving lactated Ringer's at 20 mL an hour. His hemoglobin is a bit low at 6.9, so he is going to receive 1 unit of packed red blood cells. The patient is stable hemodynamically, and from the respiratory standpoint. From my perspective, the patient could be transferred out to the general medical floor. Additional recommendations and suggestions are forthcoming. Prognosis is certainly guarded. Plan dated 04/25/2023. The patient appears to be doing reasonably well. He is resting comfortably in room 260. He is getting oxygen at 2 L by nasal cannula. He is on lactated Ringer's at 20 mL an hour. Today's postop day #2. Labs, x-rays, and medications are reviewed. If he is stable, later today, he can be transferred out to the general medical floor. We encourage deep breathing, coughing, roseanna ring her secretions. We also want the patient to use the incentive spirometer, every hour, while awake. Time with Patient: Less than 30
[2023-04-25] MEDS ORDERED: atenoloL 25 MG TAB PO STA (12:02)
[2023-04-25] MEDS: TAMSULOSIN 0.4 MG CAP.ER.24H PO SCH ×2 (12:09→20:10)
[2023-04-25] MEDS: MAG HYDROX/AL HYDROX/SIMETH 30 ML CUP PO PRN (12:27)
--- NOTE | 2023-04-25 12:57 | P.PN ---
Subjective Progress Note Date: 04/25/23 Principal diagnosis: cecum mass Patient was seen in the ICU today. Patient reports that he does not feel well today. Reports fatigue and n/v this morning when drinking water. Zofran prn ordered. He also reports blood from rectum. Denies clots. He reports passing gas. Denies abdominal pain. Patient afebrile Objective - Vital Signs Vital signs: Vital Signs Temp 98.1 F 04/25/23 08:00 Pulse 60 04/25/23 08:00 Resp 18 04/25/23 08:00 BP 135/59 04/25/23 08:00 Pulse Ox 96 04/25/23 12:26 FiO2 Intake & Output 04/24/23 04/25/23 04/25/23 18:59 06:59 18:59 Intake Total 1250 Output Total 550 325 Balance 700 -325 Weight 114.5 kg 114.5 kg Intake: IV 240 Lactated Ringers 1,000 ml 240 @ 20 mls/hr IV .Q24H [facility] Rx#:[id number] Oral 500 Blood Product 310 Rc As-1 Unit 310 [id number] Other 200 Rc As-1 Unit 200 [id number] Output: Urine 550 325 Other: Voiding Method Indwelling Catheter Indwelling Catheter Indwelling Catheter - Constitutional General appearance: Present: no acute distress, obese - EENT Eyes: Present: anicteric sclerae, EOMI ENT: Present: hearing grossly normal - Respiratory Details: breathing even and unlabored - Cardiovascular Details: skin warm and dry - Integumentary Integumentary: Present: pale - Neurologic Neurologic: Present: CNII-XII intact - Musculoskeletal Musculoskeletal: Present: generalized weakness - Psychiatric Psychiatric: Present: A&O x's 3, appropriate affect, intact judgment & insight - Labs CBC & Chem 7: 04/25/23 05:35 04/25/23 05:35 Labs: Abnormal Lab Results - Last 24 Hours (Table) 04/25/23 04/25/23 Range/Units 05:35 05:35 WBC 16.5 H (3.8-10.6) k/uL RBC 2.70 L (4.30-5.90) m/uL Hgb 8.5 L (13.0-17.5) gm/dL Hct 25.5 L (39.0-53.0) % RDW 17.0 H (11.5-15.5) % Neutrophils # 13.9 H (1.3-7.7) k/uL Sodium 133 L (137-145) mmol/L Calcium 7.6 L (8.4-10.2) mg/dL Assessment and Plan (1) Mass of cecum Current Visit: Yes Status: Acute Priority: High Code(s): K63.89 - OTHER SPECIFIED DISEASES OF INTESTINE SNOMED Code(s): 9400967240 (2) Anemia Current Visit: Yes Status: Acute Priority: High Code(s): D64.9 - ANEMIA, UNSPECIFIED SNOMED Code(s): 276282999 (3) Gastrointestinal bleeding Current Visit: Yes Status: Acute Priority: High Code(s): K92.2 - GASTROINTESTINAL HEMORRHAGE, UNSPECIFIED SNOMED Code(s): 07256006 Plan: Cecum mass/GI bleed: -Hx of colon cancer. CT abdomen and pelvis revealed 14.2 x 12.1 x 12.1 cm mass centered at the level of the cecum. And probable metastatic lesion to posterior T10. -S/p egd/colonscopy. Due to active bleeding and acute blood loss patient underwent open right hemicolectomy/small bowel resection. Biopsy of cecal mass pending. -CT chest and bone scan negative for metastatic disease -CA 19 9 and CEA WNL -Pending biopsy will schedule outpt f/u with Dr. Orlando to discuss pathology and treatment options. Will also obtain PET CT and request NGS and PDL1 on pathology Iron deficiency anemia: Iron panel revealed iron 48, iron saturation 20%, and ferritin 209. S/p IV iron. MMA normal, vitamin B12 low end normal. Will start IM vit B12 weekly x 1 month, then oral daily -R/t GI bleed secondary to cecum mass. S/p 1 unit PRBCs yesterday, Hemoglobin 8.5 today -Will continue to monitor. Please transfuse for hemoglobin less than 7 or if symptomatic Doctor attests: I performed a history and physical examination of this patient, developed impression and plan of care. Discussed with dictator. I agree with dictators note, documented as a scribe. .
[2023-04-25] MEDS ORDERED: DEXTROSE 5% IN WATER 100 ML with AMIODARONE 150 MG IV ONE (14:37)
[2023-04-25] MEDS ORDERED: AMIODARONE 360 MG in DEXTROSE 5% IN WATER 200 ML IV ONE ×2 (14:37)
--- NOTE | 2023-04-25 16:24 | P.PN ---
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 Family is at bedside. He has low appetite. He is in the ICU. Per discussion with nurse, patient had runs of heart arrhythmia. He has external pacer on chest. Pain is well-controlled. He reports mild gas bloat. Per discussion with nurse, patient had bowel movement with blood. ROS: No reports of vomiting. No fevers or chills. No new chest pain. PHYSICAL EXAM: VITAL SIGNS: Reviewed CONSTITUTIONAL: Well developed and in no acute distress. EYES: Conjuctivae without sclera icterus. Extraocular movements grossly intact. HEAD, EARS, NOSE, THROAT: Moist buccal mucosa. Head is atraumatic, normocephalic. Hears conversational speech. No nasal drainage. RESPIRATORY: Non-labored respirations and equal bilateral excursions. CARDIOVASCULAR: Palpable 2+ radial pulses. ABDOMEN: Soft, obese. Incisional wound VAC intact. MUSCULOSKELETAL: No gross deformity of the lower extremities noted. No clubbing. No cyanosis. SKIN: Good skin turgor. Well perfused. NEUROLOGIC: Cranial nerves II through XII grossly intact. No focal or lateralizing signs. PSYCH: Appropriate affect. Alert and oriented to person, place and time. CLINICAL LABS: Reviewed. WBC continued to elevate 14.6 to 16.5. Hemoglobin of 7.7-8.5. ASSESSMENT: 1. Acute blood loss anemia 2. Large cecal mass, neoplasm, locally invasive 3. Acute gastrointestinal bleeding from cecal mass PLAN: 1. Continue to hold all blood thinners due to acute blood loss anemia and rece nt bleeding 2. Simethicone scheduled for gas bloat 3. Zosyn antibiotic added for empiric coverage for peritonitis 4. He is a low fiber diet with low appetite. Protein shakes encouraged. Objective - Vital Signs Vital signs: Vital Signs Temp 98.2 F 04/25/23 16:00 Pulse 64 04/25/23 16:00 Resp 19 04/25/23 16:00 BP 126/52 04/25/23 16:00 Pulse Ox 96 04/25/23 16:00 FiO2 Intake & Output 04/24/23 04/25/2304/25/23 18:59 06:59 18:59 Intake Total 1250 Output Total 550 325 Balance 700 -325 Weight 114.5 kg 114.5 kg Intake: IV 240 Lactated Ringers 1,000 ml 240 @ 20 mls/hr IV .Q24H [facility] Rx#:[id number] Oral 500 Blood Product 310 Rc As-1 Unit 310 [id number] Other 200 Rc As-1 Unit 200 [id number] Output: Urine 550 325 Other: Voiding Method Indwelling Catheter Indwelling Catheter Indwelling Catheter - Labs CBC & Chem 7: 04/25/23 05:35 04/25/23 05:35 Labs: Abnormal Lab Results - Last 24 Hours (Table) 04/25/23 04/25/23 Range/Units 05:35 05:35 WBC 16.5 H (3.8-10.6) k/uL RBC 2.70 L (4.30-5.90) m/uL Hgb 8.5 L (13.0-17.5) gm/dL Hct 25.5 L (39.0-53.0) % RDW 17.0 H (11.5-15.5) % Neutrophils # 13.9 H (1.3-7.7) k/uL Sodium 133 L (137-145) mmol/L Calcium 7.6 L (8.4-10.2) mg/dL
[2023-04-25] MEDS: SIMETHICONE 80 MG CHEWABLE PO SCH ×2 (16:57→20:10)
[2023-04-25] MEDS: LACTATED RINGERS 1,000 ML IV SCH ×2 (18:53→23:50)
[2023-04-25] MEDS: ATORVASTATIN 10 MG TAB PO SCH (20:10)
[2023-04-25] MEDS: atenoloL 50 MG TAB PO SCH (20:10)
[2023-04-25] MEDS: MONTELUKAST 10 MG TAB PO SCH (20:10)
[2023-04-25] MEDS ORDERED: AMIODARONE 450 MG in DEXTROSE 5% IN WATER 250 ML IV SCH ×2 (20:45)
--- NOTE | 2023-04-25 21:15 | XR ---
EXAMINATION TYPE: XR chest 1V portable DATE OF EXAM: 04/25/2023 HISTORY: Shortness of breath. COMPARISON: 04/18/23 TECHNIQUE: Single view of the chest is submitted. FINDINGS: Demonstrated are scattered senescent parenchymal change. There is no evidence for focal infiltrate. The heart is stable. Hilar and mediastinal structures are within normal limits. Degenerative changes are seen of the dorsal spine. IMPRESSION: 1. Chronic changes without evidence for acute pulmonary disease.
--- NOTE | 2023-04-25 22:40 | P.PN ---
Subjective Progress Note Date: 04/25/23 Patient is a pleasant 83-year-old white male who is admitted after acute GI bleed undergoing a colonoscopy started hemorrhaging because of a cecal mass and was taken to emergent surgery and had a right hemicolectomy he is currently in the intensive care in stable condition on 2 L of oxygen via nasal cannula patient pain is well tolerated and he is just extremely thirsty. He doesn't report any other significant problems today. Pathology for this cecal mass is pending currently. patient on clear liquids and tolerating well.Paulette suffered suffered a bout of tachycardia and was feeling sluggish. So cardiology was reconsult to see him today. He also was suffering from some gas and indigestion and was placed on some Maalox he denies any upper chest pain or jaw pain Objective - Vital Signs Vital signs: Vital Signs Temp 99.3 F 04/25/23 20:00 Pulse 60 04/25/23 22:00 Resp 18 04/25/23 22:00 BP 138/48 04/25/23 22:00 Pulse Ox 91 L 04/25/23 22:00 FiO2 Intake & Output 04/25/23 04/25/23 04/26/23 06:59 18:59 06:59 Intake Total 560 480 Output Total 325 570 135 Balance -325 -10 345 Weight 114.5 kg 114.5 kg Intake: IV 160 280 Lactated Ringers 1,000 ml 160 80 @ 20 mls/hr IV .Q24H [facility] Rx#:[id number] Piperacillin-Tazobactam 3 100 .375 gm In Sodium Chloride 0.9% 100 ml @ 25 mls/hr IVPB Q8HR [facility] Rx# :[id number] metroNIDAZOLE-NS PMX 500 100 mg In Saline 1 100ml.bag @ 100 mls/hr IVPB Q8HR [facility] Rx#:[id number] Oral 400 200 Output: Urine 325 570 135 Other: Voiding Method Indwelling Catheter Indwelling Catheter - Exam PHYSICAL EXAM: VITAL SIGNS: [As above] GENERAL: Alert and oriented 3, Sitting up in bed, no acute distress HEENT: Normocephalic, Conjunctivae normal. eyes normal. NECK: Supple, No JVD. CARDIOVASCULAR: S1, S2 regular. No murmur RESPIRATION: Unlabored, bilateral air entry .Breath sounds diminished in the bases. ABDOMEN: Soft, nondistended, minimal right-sided tenderness. No guarding. +Bowel sounds. LEGS: Minimal edema. no clubbing, no cyanosis. Positive DP pulses. NERVOUS SYSTEM: Cranial N 2-12 grossly normal. No focal deficits. Strength and sensation grossly intact. Skin: Warm and dry, no rash. - Labs CBC & Chem 7: 04/25/23 05:35 04/25/23 05:35 Labs: Abnormal Lab Results - Last 24 Hours (Table) 04/25/23 04/25/23 Range/Units 05:35 05:35 WBC 16.5 H (3.8-10.6) k/uL RBC 2.70 L (4.30-5.90) m/uL Hgb 8.5 L (13.0-17.5) gm/dL Hct 25.5 L (39.0-53.0) % RDW 17.0 H (11.5-15.5) % Neutrophils # 13.9 H (1.3-7.7) k/uL Sodium 133 L (137-145) mmol/L Calcium 7.6 L (8.4-10.2) mg/dL Assessment and Plan (1) Anemia Current Visit: Yes Status: Acute Priority: High Code(s): D64.9 - ANEMIA, UNSPECIFIED SNOMED Code(s): 137105660 (2) Gastrointestinal bleeding Current Visit: Yes Status: Acute Priority: High Code(s): K92.2 - GASTROINTESTINAL HEMORRHAGE, UNSPECIFIED SNOMED Code(s): 11578655 (3) Mass of cecum Current Visit: Yes Status: Acute Priority: High Code(s): K63.89 - OTHER SPECIFIED DISEASES OF INTESTINE SNOMED Code(s): 5706367013 (4) S/P right hemicolectomy Current Visit: Yes Status: Acute Code(s): Z90.49 - ACQUIRED ABSENCE OF OTHER SPECIFIED PARTS OF DIGESTIVE TRACT SNOMED Code(s): 726759409 Plan: 2 new postoperative care postsurgical care will assess cardiology to reconsult regarding regarding today's events patient is stable but guarded condition. Time with Patient: Greater than 30
[2023-04-26] MEDS ORDERED: guaiFENesin-DM 100-10MG/5ML 10 ML CUP PO PRN
[2023-04-26 05:03] LABS: Anisocytosis Slight; Basophils % (A) 0 %; Eosinophils # (A) 0.2 k/uL (0-0.7); Eosinophils % (A) 1 %; HCT 27.2 % (39.0-53.0); HGB 8.7 gm/dL (13.0-17.5); Hypochromasia Slight; Lymphocytes % (A) 6 %; MCH 30.1 pg (25.0-35.0); Mean Platelet Volume 8.1; Monocytes # (A) 0.7 k/uL (0-1.0); Monocytes % (A) 4 %; Neutrophils # (A) 15.1 k/uL (1.3-7.7); Neutrophils % (A) 88 %; Platelet Count 283 k/uL (150-450); RDW 16.7 % (11.5-15.5); WBC 17.1 k/uL (3.8-10.6)
[2023-04-26 05:18] LABS: African American GFR (CKD) >90 (>60 ml/min/1.73 sqM); Anion Gap 12 mmol/L; Blood Urea Nitrogen 21 mg/dL (9-20); Calcium 7.4 mg/dL (8.4-10.2); Carbon Dioxide 21 mmol/L (22-30); Chloride 100 mmol/L (98-107); Glucose 95 mg/dL (74-99); Non-African American GFR(CKD) 85 (>60 ml/min/1.73 sqM); Potassium 4.3 mmol/L (3.5-5.1); Sodium 133 mmol/L (137-145)
[2023-04-26] MEDS: SIMETHICONE 80 MG CHEWABLE PO SCH ×4 (06:33→20:02)
[2023-04-26] MEDS: ONDANSETRON 4 MG/2 ML VIAL IVP PRN ×2 (06:48→20:30)
--- NOTE | 2023-04-26 08:19 | P.PN ---
Subjective Progress Note Date: 04/26/23 Principal diagnosis: Ventricular tachycardia The patient is an 83-year-old gentleman with a past medical history significant for permanent pacemaker and paroxysmal atrial fibrillation as well as hypertension and dyslipidemia and preserved LV systolic function on the last echocardiogram from October was admitted to the hospital with abdominal discomfort and he underwent surgery including lysis of adhesions and washout and a mass resection from the cecum. The patient was supposed to be transferred out of the ICU yesterday when he did have an episode of wide complex rhythm consistent of ventricular tachycardia. It was somewhat sustained. I started the patient on amiodarone IV. His magnesium was replaced. Since then he did not have any more episodes of ventricular tachycardia April [id number] He is asymptomatic and hemodynamically stable. I'm going to DC and no IV and start the patient on nothing by mouth orally. To be started on oral anticoagulation once is safe from the surgical standpoint overview. Beside that continue the current dose of beta jacob with atenolol which has increased yesterday. The patient eventually Transferred out of the intensive care unit. The examination is remarkable for regular rhythm with distant heart sounds and diminished breathing sounds bilaterally and bilateral lower extremity edema Assessment Status post abdominal surgery as described above Ventricular tachycardia which has resolved Paroxysmal atrial fibrillation Permanent pacemaker Hypertension Dyslipidemia Plan Continue the current medical regimen DC and the IV and start the patient on annual be on Consider starting the patient on oral anticoagulation The patient potentially can be transferred out of the intensive care unit Objective - Vital Signs Vital signs: Vital Signs Temp 98.3 F 04/26/23 08:00 Pulse 60 04/26/23 08:00 Resp 18 04/26/23 08:00 BP 133/65 04/26/23 08:00 Pulse Ox 96 04/26/23 08:00 FiO2 Intake & Output 04/25/23 04/26/23 04/26/23 18:59 06:59 18:59 Intake Total 560 820 40 Output Total 570 421 65 Balance -10 399 -25 Weight 114.5 kg 115.4 kg Intake: IV 160 620 40 Lactated Ringers 1,000 ml 160 220 40 @ 20 mls/hr IV .Q24H [facility] Rx#:[id number] Piperacillin-Tazobactam 3 200 .375 gm In Sodium Chloride 0.9% 100 ml @ 25 mls/hr IVPB Q8HR [facility] Rx# :[id number] metroNIDAZOLE-NS PMX 500 200 mg In Saline 1 100ml.bag @ 100 mls/hr IVPB Q8HR [facility] Rx#:[id number] Oral 400 200 Output: Urine 570 421 65 Other: Voiding Method Indwelling Catheter Indwelling Catheter - Labs CBC & Chem 7: 04/26/23 04:24 04/26/23 04:24 Labs: Abnormal Lab Results - Last 24 Hours (Table) 04/26/23 04/26/23 Range/Units 04:24 04:24 WBC 17.1 H (3.8-10.6) k/uL RBC 2.90 L (4.30-5.90) m/uL Hgb 8.7 L (13.0-17.5) gm/dL Hct 27.2 L (39.0-53.0) % RDW 16.7 H (11.5-15.5) % Neutrophils # 15.1 H (1.3-7.7) k/uL Sodium 133 L (137-145) mmol/L Carbon Dioxide 21 L (22-30) mmol/L BUN 21 H (9-20) mg/dL Calcium 7.4 L (8.4-10.2) mg/dL
[2023-04-26] MEDS: PIPERACILLIN-TAZOBACTAM 3.375 GM in SODIUM CHLORIDE 0.9% 100 ML IVPB SCH ×2 (09:25→16:38)
[2023-04-26] MEDS: metroNIDAZOLE-NS PMX 500 MG in SALINE 1 100ML.BAG IVPB SCH ×2 (09:25→16:38)
[2023-04-26] MEDS: TAMSULOSIN 0.4 MG CAP.ER.24H PO SCH ×2 (09:26→20:01)
[2023-04-26] MEDS: atenoloL 50 MG TAB PO SCH ×2 (09:26→20:00)
[2023-04-26] MEDS: PANTOPRAZOLE 40 MG/10 ML VIAL IVP SCH (09:26)
[2023-04-26] MEDS: AMIODARONE 200 MG TAB PO SCH ×2 (09:27→20:01)
--- NOTE | 2023-04-26 10:05 | P.PN ---
Subjective Progress Note Date: 04/26/23 Principal diagnosis: Colonic mass, GI bleed. Pulmonary consult dated 04/22/2023. 83-year-old male who was admitted back on April 17, through the emergency department, with a gastrointestinal bleed. We were finally consulted today, as the patient was having a colonoscopy, and EGD, the patient was found to have a large colonic mass, she was actively bleeding. I spoke to the surgeon, who would like to patient evaluated, and potentially housed in the intensive care unit. She is hoping to take the patient to surgery, although she did admit, that his overall prognosis is very guarded. He was seen in the endoscopy suite. He was on room air. He is getting lactated Ringer's, and had received about 400 mL. The patient was not having any distress. The patient will be tra nsferred to the intensive care unit. The patient has a history of atrial fibrillation, asthma, CVA, hyperlipidemia, hypertension, and a history of colon cancer in the past. The patient also has had previous colonic surgery back in 2004, and was a smoker in the past. Currently labs include a white count of 9.8, hemoglobin 8.5, hematocrit 26.8, and a normal platelet count. Sodium 135, potassium 3.9, chlorides 104, CO2 25, BUN 14, with a creatinine of 0.73. Progress note dated 04/23/2023. This is a 83-year-old male who was seen yesterday in the endoscopy suite. The patient was found to have a GI bleed, and a colonic mass. He is postop day #1, status post exploratory laparotomy, lysis of adhesions, abdominal washout, right hemicolectomy, wound VAC placement, and small bowel resection. The patient's currently on 2 L of oxygen. He is getting lactated Ringer's at 20 mL an hour. He continues on Flagyl. White count 14.3, hemoglobin 7.9, hematocrit 24, and platelet count 187,000. Sodium 136, potassium 4.2, chlorides 105, CO2 21, anion gap 10, BUN 15, creatinine 0.89. Urine is suggestive of a urinary tract infection. Progress note dated 04/24/2023. 83-year-old male postop day #1, status post exploratory laparotomy, lysis of adhesions, abdominal washout, right hemicolectomy, wound VAC placement, and small bowel resection. The patient is seen today in the ICU, room 260. Cu rrently, he is on 1 L of oxygen, and getting lactated Ringer's at 20 mL an hour. His hemoglobin was 6.9, so he is receiving 1 unit of packed red blood cells. Otherwise, he seems be doing relatively well. White count 13.1, hemoglobin 6.9, hematocrit 21.6, and platelet count 206,000. Sodium 134, potassium 4.1, chlorides 103, CO2 27, within normal BUN and creatinine. Progress note dated 04/25/2023. 83-year-old male postop day #2, status post abdominal procedure, for GI bleeding, and colonic mass. Currently, the patient's resting comfortably in room 260. He is getting oxygen by nasal cannula 2 L. He is on lactated Ringer's at 20 mL an hour. White count of 16.5, hemoglobin 8.5, hematocrit 25.5, within normal platelet count. Sodium 133, potassium 4.3, chlorides 103, CO2 28, BUN 17, and a creatinine of 0.83. Progress note dated 04/26/2023. 83-year-old male who is postop day #3, status post abdominal procedure, for GI bleeding and colonic mass. The patient is seen today in room 260. Currently, the patient is on 1 L of oxygen. The patient's getting amiodarone at 0.5 mg/m, which was admitted converted to oral amiodarone. He is getting lactated Ringer's at 20 mL an hour. Last night, the patient had a short run of ventricular tachycardia. White count 17.1, hemoglobin 8.7, hematocrit 27.2, within normal platelet count. Sodium 133, potassium 4.3, chlorides 100, CO2 21, BUN 21, and creatinine 0.72. Objective - Vital Signs Vital signs: Vital Signs Temp 98.3 F 04/26/23 08:00 Pulse 60 04/26/23 09:00 Resp 25 H 04/26/23 09:00 BP 110/54 04/26/23 09:00 Pulse Ox 99 04/26/23 09:00 FiO2 Intake & Output 04/25/23 04/26/23 04/26/23 18:59 06:59 18:59 Intake Total 560 820 240 Output Total 570 421 340 Balance -10 399 -100 Weight 114.5 kg 115.4 kg Intake: IV 160 620 240 Lactated Ringers 1,000 ml 160 220 40 @ 20 mls/hr IV .Q24H [facility] Rx#:[id number] Piperacillin-Tazobactam 3 200 100 .375 gm In Sodium Chloride 0.9% 100 ml @ 25 mls/hr IVPB Q8HR R[facility] Rx# :[id number] metroNIDAZOLE-NS PMX 500 200 100 mg In Saline 1 100ml.bag @ 100 mls/hr IVPB Q8HR R[facility] Rx#:[id number] Oral 400 200 Output: Urine 570 421 140 Stool 200 Other: Voiding Method Indwelling Catheter Indwelling Catheter Indwelling Catheter - Exam No acute distress, oriented 3. The patient is on 1 L by nasal cannula. HEENT examination is grossly unremarkable. Mucous membranes are moist. No oral lesions. Neck supple. Full range of motion. No adenopathy thyromegaly or neck vein distention. Cardiovascular examination reveals regular rhythm rate. S1-S2 normal. No S3 or S4. No discernible murmur noted. Heart rate 60 bpm. Lungs reveal clear breath sounds. Breath sounds are equal bilaterally. No adventitious lung sounds including wheezes rhonchi or crackles. 1 L saturation is 99%. Abdomen soft, without bowel sounds. No masses. Tenderness on palpation. Drains noted. Extremities are intact. No cyanosis clubbing or edema. Skin is without rash or lesion. Neurologic examination is brief but nonfocal. - Labs CBC & Chem 7: 04/26/23 04:24 04/26/23 04:24 Labs: Abnormal Lab Results - Last 24 Hours (Table) 04/26/23 04/26/23 Range/Units 04:24 04:24 WBC 17.1 H (3.8-10.6) k/uL RBC 2.90 L (4.30-5.90) m/uL Hgb 8.7 L (13.0-17.5) gm/dL Hct 27.2 L (39.0-53.0) % RDW 16.7 H (11.5-15.5) % Neutrophils # 15.1 H (1.3-7.7) k/uL Sodium 133 L (137-145) mmol/L Carbon Dioxide 21 L (22-30) mmol/L BUN 21 H (9-20) mg/dL Calcium 7.4 L (8.4-10.2) mg/dL Assessment and Plan Assessment: Postop day #3, status post exploratory laparotomy, lysis of adhesions, abdominal washout, right hemicolectomy, small bowel resection, and placement of a wound VAC. Acute lower gastrointestinal bleed, secondary to colonic mass. History of colon cancer, S/P colon resection, 2004. History of atrial fibrillation. History of asthma. History of CVA. History of dyslipidemia. History of hypertension. S/P pacemaker insertion. History of cardiac ablation 2. Plan: Plan dated 04/22/2023. The patient was seen in the endoscopy suite. The patient will probably need intensive care unit for further monitoring and management. The patient was actively bleeding. The patient's blood pressures were a little soft. The patient was getting lactated Ringer's, IV bolus. Labs, x-rays, medications will be reviewed. The patient may need to go to surgery. The surgeon was speaking to the patient's family. The overall prognosis remains very guarded. Additional recommendations and suggestions are forthcoming. Plan dated 04/23/2023. The patient had surgery as detailed above. He is currently resting comfortably in the intensive care unit, room 260. He remains on Flagyl. He is getting oxygen by 2 L, nasal cannula. He is getting lactated Ringer's at 20 mL an hour. Labs, x-rays, and medications are all reviewed. The patient's overall prognosis remains guarded. We will continue to follow the patient make recommendations along the way. Plan dated 04/24/2023. The patient has been weaned down to 1 L of oxygen. He is currently receiving lactated Ringer's at 20 mL an hour. His hemoglobin is a bit low at 6.9, so he is going to receive 1 unit of packed red blood cells. The patient is stable hemodynamically, and from the respiratory standpoint. From my perspective, the patient could be transferred out to the general medical floor. Additional recommendations and suggestions are forthcoming. Prognosis is certainly guarded. Plan dated 04/25/2023. The patient appears to be doing reasonably well. He is resting comfortably in room 260. He is getting oxygen at 2 L by nasal cannula. He is on lactated Ringer's at 20 mL an hour. Today's postop day #2. Labs, x-rays, and medications are reviewed. If he is stable, later today, he can be transferred out to the general medical floor. We encourage deep breathing, coughing, clearing her secretions. We also want the patient to use the incentive spirometer, every hour, while awake. Plan dated 04/26/2023. The patient is postop day #3. The patient's doing relatively well. He is on 1 L of oxygen. He did have an episode of ventricular tachycardia, and was started on amiodarone, IV, which will be changed to oral amiodarone. The patient's getting lactated Ringer's at 20 mL an hour. Labs, x-rays, medications are reviewed. We encourage deep breathing, coughing, clearing of secretions. We also encouraged hourly use of the incentive spirometer. The patient is stable enough to be transferred out to cardiology floor, or general medical floor with telemetry. We will continue to follow. Time with Patient: Less than 30
--- NOTE | 2023-04-26 13:56 | P.PN ---
Subjective Progress Note Date: 04/26/23 Principal diagnosis: cecum mass Patient has episode of ventricular tachycardia, was given amiodarone. Reports dry heaving this morning, but drank an ensure and water after without difficulties. Zofran prn ordered. Passing gas. Denies abdominal pain. Patient afebrile Objective - Vital Signs Vital signs: Vital Signs Temp 98.3 F 04/26/23 08:00 Pulse 60 04/26/23 09:00 Resp 25 H 04/26/23 09:00 BP 110/54 04/26/23 09:00 Pulse Ox 99 04/26/23 09:00 FiO2 Intake & Output 04/25/23 04/26/23 04/26/23 18:59 06:59 18:59 Intake Total 560 820 240 Output Total 570 421 340 Balance -10 399 -100 Weight 114.5 kg 115.4 kg 115.4 kg Intake: IV 160 620 240 Lactated Ringers 1,000 ml 160 220 40 @ 20 mls/hr IV .Q24H [facility] Rx#:[id number] Piperacillin-Tazobactam 3 200 100 .375 gm In Sodium Chloride 0.9% 100 ml @ 25 mls/hr IVPB Q8HR [facility] Rx# :[id number] metroNIDAZOLE-NS PMX 500 200 100 mg In Saline 1 100ml.bag @ 100 mls/hr IVPB Q8HR [facility] Rx#:[id number] Oral 400 200 Output: Urine 570 421 140 Stool 200 Other: Voiding Method Indwelling Catheter Indwelling Catheter Indwelling Catheter - Constitutional General appearance: Present: no acute distress, obese - EENT Eyes: Present: anicteric sclerae, EOMI ENT: Present: hearing grossly normal - Respiratory Details: breathing is even and unlabored - Cardiovascular Details: skin warm and dry - Integumentary Integumentary: Present: pale. Absent: cyanotic - Musculoskeletal Musculoskeletal: Present: generalized weakness - Psychiatric Psychiatric: Present: A&O x's 3, appropriate affect, intact judgment & insight - Labs CBC & Chem 7: 04/26/23 04:24 04/26/23 04:24 Labs: Abnormal Lab Results - Last 24 Hours (Table) 04/26/23 04/26/23 Range/Units 04:24 04:24 WBC 17.1 H (3.8-10.6) k/uL RBC 2.90 L (4.30-5.90) m/uL Hgb 8.7 L (13.0-17.5) gm/dL Hct 27.2 L (39.0-53.0) % RDW 16.7 H (11.5-15.5) % Neutrophils # 15.1 H (1.3-7.7) k/uL Sodium 133 L (137-145) mmol/L Carbon Dioxide 21 L (22-30) mmol/L BUN 21 H (9-20) mg/dL Calcium 7.4 L (8.4-10.2) mg/dL Assessment and Plan (1) Mass of cecum Current Visit: Yes Status: Acute Priority: High Code(s): K63.89 - OTHER SPECIFIED DISEASES OF INTESTINE SNOMED Code(s): 9346652133 (2) Anemia Current Visit: Yes Status: Acute Priority: High Code(s): D64.9 - ANEMIA, UNSPECIFIED SNOMED Code(s): 499621338 (3) Gastrointestinal bleeding Current Visit: Yes Status: Acute Priority: High Code(s): K92.2 - GASTROINTESTINAL HEMORRHAGE, UNSPECIFIED SNOMED Code(s): 73582556 Plan: Cecum mass/GI bleed: -Hx of colon cancer. CT abdomen and pelvis revealed 14.2 x 12.1 x 12.1 cm mass centered at the level of the cecum. And probable metastatic lesion to posterior T10. -S/p egd/colonscopy. Due to active bleeding and acute blood loss patient unde rwent open right hemicolectomy/small bowel resection. Biopsy of cecal mass non- diagnostic, resection biopsy still pending. -CT chest and bone scan negative for metastatic disease -CA 19 9 and CEA WNL -Pending biopsy will schedule outpt f/u with Dr. Orlando to discuss pathology and treatment options. Will also obtain PET CT and request NGS and PDL1 on pathology Iron deficiency anemia: Iron panel revealed iron 48, iron saturation 20%, and ferritin 209. S/p IV iron. MMA normal, vitamin B12 low end normal. Will start IM vit B12 weekly x 1 month, then oral daily -R/t GI bleed secondary to cecum mass. Has received 4 units PRBCs and 2 units FFP since admission. Hemoglobin stable, 8.7 -Will continue to monitor. Please transfuse for hemoglobin less than 7 or if symptomatic .
--- NOTE | 2023-04-26 17:43 | CA ---
Transthoracic Echo Report Name: Chaitanya Suarez Age: 83 Gender: M : 1940 Exam Date: 04/26/2023 11:14 Exam Location: [facility] Ht (in): 66 Wt (lb): 254 Ordering Physician: Stanford Archibald MD ([id number]) Attending/Referring Phys: Knot Bumper Sudhir Shepherd Procedure CPT: Indications: VTach Cardiac Hx: Technical Quality: Fair Contrast 1: Total Dose (mL): Contrast 2: Total Dose (mL): MEASUREMENTS (Male / Female) Normal Values 2D ECHO LV Diastolic Diameter PLAX 4.2 cm 4.2 - 5.9 / 3.9 - 5.3 cm LV Systolic Diameter PLAX 2.6 cm IVS Diastolic Thickness 1.2 cm 0.6 - 1.0 / 0.6 - 0.9 cm LVPW Diastolic Thickness 1.3 cm 0.6 - 1.0 / 0.6 - 0.9 cm LV Relative Wall Thickness 0.6 RV Internal Dim ED PLAX 3.0 cm LVOT Diameter 2.2 cm Aortic Root Diameter 3.3 cm LA Systolic Diameter LX 2.7 cm 3.0 - 4.0 / 2.7 - 3.8 cm LV Diastolic Volume MOD BP 49.5 cm??? 67 - 155 / 56 - 104 cm??? LV Systolic Volume MOD BP 26.2 cm??? - 58 / 19 - 49 cm??? LV Ejection Fraction MOD BP 46.9 % >= 55 % LV Cardiac Index MOD BP 616.6 cm???/min???m??? LV Diastolic Volume MOD 4C 49.5 cm??? LV Systolic Volume MOD 4C 18.9 cm??? LV Ejection Fraction MOD 4C 61.8 % LV Cardiac Index MOD 4C 812.2 cm???/min???m??? LV Diastolic Length 4C 7.9 cm LV Systolic Length 4C 6.6 cm LV Diastolic Volume MOD 2C 44.0 cm??? LV Systolic Volume MOD 2C 36.7 cm??? LV Ejection Fraction MOD 2C 16.6 % LV Cardiac Index MOD 2C 194.3 cm???/min???m??? LV Diastolic Length 2C 7.0 cm LV Systolic Length 2C 6.6 cm LA Volume 56.9 cm??? 18 - 58 / 22 - 52 cm??? DOPPLER AV Peak Velocity 150.2 cm/s AV Peak Gradient 9.0 mmHg LVOT Peak Velocity 126.1 cm/s LVOT Peak Gradient 6.4 mmHg AV Area Cont Eq pk 3.3 cm??? MV Peak Velocity 110.1 cm/s MV Peak Gradient 4.9 mmHg MV Mean Velocity 60.2 cm/s MV Mean Gradient 1.8 mmHg MV Velocity Time Integral 50.2 cm Mitral E Point Velocity 82.2 cm/s Mitral A Point Velocity 86.2 cm/s Mitral E to A Ratio 1.0 MV Deceleration Time 257.9 ms MV E' Velocity 8.0 cm/s Mitral E to MV E' Ratio 10.2 TR Peak Velocity 254.3 cm/s TR Peak Gradient 25.9 mmHg Right Ventricular Systolic Press 31.4 mmHg PV Peak Velocity 114.0 cm/s PV Peak Gradient 5.2 mmHg FINDINGS Left Ventricle Normal LV size and wall thickness. Left ventricular ejection fraction is estimated at 50-55 %. Right Ventricle Normal right ventricular size. RVSP= 39mmhg. Right Atrium Normal right atrial size. Left Atrium Normal left atrial size. Mitral Valve Structurally normal mitral valve. No mitral regurgitation. Aortic Valve Trileaflet aortic valve. No aortic valve stenosis or regurgitation. Tricuspid Valve Structurally normal tricuspid valve. Mild TR. Pulmonic Valve Pulmonic valve not well visualized. No pulmonic regurgitation. Pericardium Normal pericardium. Aorta Normal size aortic root and proximal ascending aorta. CONCLUSIONS Normal LV systolic function Previewed by: Dr. Willi Art MD (Electronically Signed) Final Date: 26 April 2023 17:42
[2023-04-26] MEDS: MONTELUKAST 10 MG TAB PO SCH (20:01)
[2023-04-26] MEDS: ATORVASTATIN 10 MG TAB PO SCH (20:01)
[2023-04-26] MEDS: IOPAMIDOL CONTRAST (ORAL USE) VIAL PO PRN ×2 (20:20→22:04)
[2023-04-26] MEDS ORDERED: DEXTROSE 5% IN WATER 100 ML with AMIODARONE 150 MG IV ONE (23:30)
--- NOTE | 2023-04-26 23:32 | CT ---
EXAMINATION TYPE: CT abdomen pelvis w con CT DLP: 474.4 mGycm, Automated exposure control for dose reduction was used. DATE OF EXAM: 04/26/2023 10:53 PM COMPARISON: CT abdomen pelvis most recent from 04/18/2023 CLINICAL INDICATION:Male, 83 years old with history of peritonitis; Acute abdominal pain. TECHNIQUE: Axial CT of the abdomen and pelvis. Sagittal and coronal reformats were created on a [employer] workstation. Contrast used:100 ml mL of Isovue 300 with IV Contrast, (none if empty) Oral contrast used: without Oral Contrast (none if empty) FINDINGS: LOWER CHEST: Trace bilateral pleural effusions.r Leads partially visualized upper abdomen. The heart is mildly enlarged for size. Pulmonary hypertensi on. The largest measuring up to 41 mm. ABDOMEN LIVER: Few scattered probable cysts throughout the liver. GALLBLADDER AND BILE DUCTS: Unremarkable. PANCREAS: Lipomatous pseudohypertrophy changes. SPLEEN: Unremarkable. ADRENAL GLANDS: Unremarkable. KIDNEYS AND URETERS: No evidence of hydronephrosis or renal calculus. The ureters are unremarkable. PELVIS BLADDER: Unremarkable REPRODUCTIVE: Prostate is enlarged in size measuring 6.5 cm in transverse dimension. ABDOMEN & PELVIS STOMACH AND BOWEL: No evidence of bowel obstruction. Postsurgical changes to the colon. Multiple prom inent loops of small bowel. PERITONEUM/RETROPERITONEUM: There is free fluid, along the right aspect of the abdomen. No definitive evidence for evidence for peripherally enhancing abscess. VASCULATURE: No evidence of aortic aneurysm. MUSCULOSKELETAL: No acute osseous abnormalities LYMPH NODES: No gross evidence for lymphadenopathy. SOFT TISSUE/ABDOMINAL WALL: There is subjacent seen along the anterior abdominal wall and within the peritoneal cavity. Surgical clips along the anterior abdominal wall. Bilateral fat-containing umbilic al hernia is. No organizing fluid collections in the anterior abdominal wall. IMPRESSION: 1. Predominantly right-sided abdominal ascites with fat stranding changes along the anterior abdomen with few foci of pneumoperitoneum. Findings could represent peritonitis given history. Correlate wit h recent surgical intervention. 2. Prostatomegaly correlate with serum PSA. 3. Cardiomegaly with trace bilateral pleural effusions correlate for congestive heart failure. 4. Prominent loops of small bowel throughout the abdomen correlate for ileus.
[2023-04-26] MEDS ORDERED: AMIODARONE 360 MG in DEXTROSE 5% IN WATER 200 ML IV ONE ×2 (23:45)
--- NOTE | 2023-04-27 00:21 | P.PN ---
Progress Note - Text Progress Note Date: 04/27/23 CT of the abdomen and pelvis independently reviewed demonstrate expected fluid collection along the right side of the abdomen from moderate abdominal irrigation including area of previous bleeding. Patient denies any moderate abdominal pain. Postsurgical changes noted of the abdomen. Otherwise, no signs of bowel obstruction. Patient evaluated at bedside with hematuria transient. Monitor hemoglobin and CBC. Results of computed tomography scan reviewed with patient as well.
[2023-04-27] MEDS: PIPERACILLIN-TAZOBACTAM 3.375 GM in SODIUM CHLORIDE 0.9% 100 ML IVPB SCH ×3 (00:36→15:34)
[2023-04-27] MEDS: metroNIDAZOLE-NS PMX 500 MG in SALINE 1 100ML.BAG IVPB SCH ×3 (00:39→15:33)
[2023-04-27] MEDS: MAG HYDROX/AL HYDROX/SIMETH 30 ML CUP PO PRN (03:27)
[2023-04-27 04:28] LABS: Anisocytosis Slight; Basophils % (A) 0 %; Eosinophils # (A) 0.3 k/uL (0-0.7); Eosinophils % (A) 2 %; HCT 27.5 % (39.0-53.0); HGB 8.7 gm/dL (13.0-17.5); Hypochromasia Moderate; Lymphocytes # (A) 1.1 k/uL (1.0-4.8); Lymphocytes % (A) 7 %; MCH 30.3 pg (25.0-35.0); MCHC 31.7 g/dL (31.0-37.0); MCV 95.7 fL (80.0-100.0); Macrocytosis Slight; Monocytes # (A) 0.8 k/uL (0-1.0); Monocytes % (A) 5 %; Neutrophils # (A) 12.4 k/uL (1.3-7.7); Neutrophils % (A) 84 %; Platelet Count 305 k/uL (150-450); RBC 2.87 m/uL (4.30-5.90); RDW 16.9 % (11.5-15.5); WBC 14.9 k/uL (3.8-10.6)
[2023-04-27 05:00] LABS: African American GFR (CKD) >90 (>60 ml/min/1.73 sqM); Anion Gap 3 mmol/L; Blood Urea Nitrogen 23 mg/dL (9-20); Calcium 7.7 mg/dL (8.4-10.2); Carbon Dioxide 28 mmol/L (22-30); Chloride 100 mmol/L (98-107); Glucose 122 mg/dL (74-99); Magnesium 2.1 mg/dL (1.6-2.3); Non-African American GFR(CKD) 80 (>60 ml/min/1.73 sqM); Potassium 4.4 mmol/L (3.5-5.1); Sodium 131 mmol/L (137-145)
[2023-04-27] MEDS: LACTATED RINGERS 1,000 ML IV SCH (05:20)
[2023-04-27] MEDS: AMIODARONE 450 MG in DEXTROSE 5% IN WATER 250 ML IV SCH ×4 (05:22→21:22)
[2023-04-27] MEDS: SIMETHICONE 80 MG CHEWABLE PO SCH ×4 (06:45→20:29)
--- NOTE | 2023-04-27 08:07 | P.PN ---
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 He reports increased appetite. He is tolerating low fiber diet. He did have bowel movement with small amounts of old blood per discussion with his nurse. Pain is well-controlled. No fevers. Does report increased cough. He also reports increased gastroesophageal reflux disease. Reflux disease has improved with simethicone gas drops and antacids. His is at bedside. ROS: No reports of vomiting. No fevers or chills. No new chest pain. PHYSICAL EXAM: VITAL SIGNS: Reviewed CONSTITUTIONAL: Well developed and in no acute distress. EYES: Conjuctivae without sclera icterus. Extraocular movements grossly intact. HEAD, EARS, NOSE, THROAT: Moist buccal mucosa. Head is atraumatic, normocephalic. Hears conversational speech. No nasal drainage. RESPIRATORY: Non-labored respirations and equal bilateral excursions. CARDIOVASCULAR: Palpable 2+ radial pulses. ABDOMEN: Soft, obese. Incisional wound VAC intact. MUSCULOSKELETAL: No gross deformity of the lower extremities noted. No clubbing. No cyanosis. SKIN: Good skin turgor. Well perfused. NEUROLOGIC: Cranial nerves II through XII grossly intact. No focal or lateralizing signs. PSYCH: Appropriate affect. Alert and oriented to person, place and time. CLINICAL LABS: Reviewed. WBC elevated at 16.5-17.1. Hemoglobin was stable at 8.5-8.7. ASSESSMENT: 1. Acute blood loss anemia 2. Large cecal mass, neoplasm, locally invasive 3. Acute gastrointestinal bleeding from cecal mass 4. Leukocytosis. PLAN: 1. WBC continues to trend upward. Recommend CT of the abdomen and pelvis for leukocytosis including history of GI bleed. He has increased risk of intra- abdominal hematoma due to recent exposure to blood thinners. 2. Continue ICU care 3. Additional recommendations pending CT abdomen and pelvis 4. Continue antibiotics Objective - Vital Signs Vital signs: Vital Signs Temp 98.6 F 04/27/23 04:00 Pulse 64 04/27/23 04:00 Resp 17 04/27/23 04:00 BP 126/64 04/27/23 04:00 Pulse Ox 95 04/27/23 04:00 FiO2 Intake & Output 04/26/23 04/27/23 04/27/23 18:59 06:59 18:59 Intake Total 880 955 Output Total 315 310 Balance 565 645 Weight 115.4 kg 112.7 kg Intake: IV 580 280 Lactated Ringers 1,000 ml 180 80 @ 20 mls/hr IV .Q24H [facility] Rx#:[id number] Piperacillin-Tazobactam 3 200 100 .375 gm In Sodium Chloride 0.9% 100 ml @ 25 mls/hr IVPB Q8HR [facility] Rx# :[id number] metroNIDAZOLE-NS PMX 500 200 100 mg In Saline 1 100ml.bag @ 100 mls/hr IVPB Q8HR [facility] Rx#:[id number] Oral 300 675 Output: Urine 315 310 Other: Voiding Method Indwelling Catheter Indwelling Catheter # Bowel Movements 1 - Labs CBC & Chem 7: 04/27/23 03:55 04/27/23 03:55 Labs: Abnormal Lab Results - Last 24 Hours (Table) 04/27/23 04/27/23 Range/Units 03:55 03:55 WBC 14.9 H (3.8-10.6) k/uL RBC 2.87 L (4.30-5.90) m/uL Hgb 8.7 L (13.0-17.5) gm/dL Hct 27.5 L (39.0-53.0) % RDW 16.9 H (11.5-15.5) % Neutrophils # 12.4 H (1.3-7.7) k/uL Sodium 131 L (137-145) mmol/L BUN 23 H (9-20) mg/dL Glucose 122 H (74-99) mg/dL Calcium 7.7 L (8.4-10.2) mg/dL
--- NOTE | 2023-04-27 09:09 | P.PN ---
Subjective Progress Note Date: 04/27/23 Principal diagnosis: Ventricular tachycardia The patient is an 83-year-old gentleman with a past medical history significant for permanent pacemaker and paroxysmal atrial fibrillation as well as hypertension and dyslipidemia and preserved LV systolic function on the last echocardiogram from October was admitted to the hospital with abdominal discomfort and he underwent surgery including lysis of adhesions and washout and a mass resection from the cecum. The patient was supposed to be transferred out of the ICU yesterday when he did have an episode of wide complex rhythm consistent of ventricular tachycardia. It was somewhat sustained. I started the patient on amiodarone IV. His magnesium was replaced. Since then he did not have any more episodes of ventricular tachycardia April [id number] He is asymptomatic and hemodynamically stable. I'm going to DC and no IV and start the patient on nothing by mouth orally. To be started on oral anticoagulation once is safe from the surgical standpoint overview. Beside that continue the current dose of beta jacob with atenolol which has increased yesterday. The patient eventually Transferred out of the intensive care unit. The examination is remarkable for regular rhythm with distant heart sounds and diminished breathing sounds bilaterally and bilateral lower extremity edema 04/27/2023 The patient was seen and evaluated this morning. Apparently he has been experiencing abdominal discomfort and abdominal distention. Computed tomography scan of the abdomen and pelvis was performed yesterday and showed ileus with evidence of possible pneumoperitoneum. Surgery is on the case. He went into ventricular tachycardia yesterday I did start the patient back on amiodarone IV. When he was seen this morning he seems to be an issue affiliations/atrial flutter with overall controlled heart rate. Anticoagulation is on hold at this point. The examination is remarkable for extremely distended abdomen. Assessment Severely distended abdomen. CT evidence of ileus and possible pneumoperitoneum Status post abdominal surgery as described above Ventricular tachycardia which has resolved Paroxysmal atrial fibrillation Permanent pacemaker Hypertension Dyslipidemia Plan Restart the patient back and continue amiodarone IV Hold on any anticoagulation at this point orally or IV Follow-up on the workup regarding the abdominal distention and possible need to go to the OR Follow-up with the patient Objective - Vital Signs Vital signs: Vital Signs Temp 98.7 F 04/27/23 08:00 Pulse 64 04/27/23 08:00 Resp 16 04/27/23 08:00 BP 120/59 04/27/23 08:00 Pulse Ox 96 04/27/23 08:00 FiO2 Intake & Output 04/26/23 04/27/23 04/27/23 18:59 06:59 18:59 Intake Total 880 955 220 Output Total 315 310 60 Balance 565 645 160 Weight 115.4 kg 112.7 kg Intake: IV 580 280 220 Lactated Ringers 1,000 ml 180 80 20 @ 20 mls/hr IV .Q24H [facility] Rx#:[id number] Piperacillin-Tazobactam 3 200 100 100 .375 gm In Sodium Chloride 0.9% 100 ml @ 25 mls/hr IVPB Q8HR [facility] Rx# :[id number] metroNIDAZOLE-NS PMX 500 200 100 100 mg In Saline 1 100ml.bag @ 100 mls/hr IVPB Q8HR R[facility] Rx#:[id number] Oral 300 675 Output: Urine 315 310 60 Other: Voiding Method Indwelling Catheter Indwelling Catheter # Bowel Movements 1 - Labs CBC & Chem 7: 04/27/23 03:55 04/27/23 03:55 Labs: Abnormal Lab Results - Last 24 Hours (Table) 04/27/23 04/27/23 Range/Units 03:55 03:55 WBC 14.9 H (3.8-10.6) k/uL RBC 2.87 L (4.30-5.90) m/uL Hgb 8.7 L (13.0-17.5) gm/dL Hct 27.5 L (39.0-53.0) % RDW 16.9 H (11.5-15.5) % Neutrophils # 12.4 H (1.3-7.7) k/uL Sodium 131 L (137-145) mmol/L BUN 23 H (9-20) mg/dL Glucose 122 H (74-99) mg/dL Calcium 7.7 L (8.4-10.2) mg/dL
--- NOTE | 2023-04-27 09:35 | P.PN ---
Subjective Progress Note Date: 04/27/23 Principal diagnosis: Colonic mass, GI bleed. Pulmonary consult dated 04/22/2023. 83-year-old male who was admitted back on April 17, through the emergency department, with a gastrointestinal bleed. We were finally consulted today, as the patient was having a colonoscopy, and EGD, the patient was found to have a large colonic mass, she was actively bleeding. I spoke to the surgeon, who would like to patient evaluated, and potentially housed in the intensive care unit. She is hoping to take the patient to surgery, although she did admit, that his overall prognosis is very guarded. He was seen in the endoscopy suite. He was on room air. He is getting lactated Ringer's, and had received about 400 mL. The patient was not having any distress. The patient will be tra nsferred to the intensive care unit. The patient has a history of atrial fibrillation, asthma, CVA, hyperlipidemia, hypertension, and a history of colon cancer in the past. The patient also has had previous colonic surgery back in 2004, and was a smoker in the past. Currently labs include a white count of 9.8, hemoglobin 8.5, hematocrit 26.8, and a normal platelet count. Sodium 135, potassium 3.9, chlorides 104, CO2 25, BUN 14, with a creatinine of 0.73. Progress note dated 04/23/2023. This is a 83-year-old male who was seen yesterday in the endoscopy suite. The patient was found to have a GI bleed, and a colonic mass. He is postop day #1, status post exploratory laparotomy, lysis of adhesions, abdominal washout, right hemicolectomy, wound VAC placement, and small bowel resection. The patient's currently on 2 L of oxygen. He is getting lactated Ringer's at 20 mL an hour. He continues on Flagyl. White count 14.3, hemoglobin 7.9, hematocrit 24, and platelet count 187,000. Sodium 136, potassium 4.2, chlorides 105, CO2 21, anion gap 10, BUN 15, creatinine 0.89. Urine is suggestive of a urinary tract infection. Progress note dated 04/24/2023. 83-year-old male postop day #1, status post exploratory laparotomy, lysis of adhesions, abdominal washout, right hemicolectomy, wound VAC placement, and small bowel resection. The patient is seen today in the ICU, room 260. Cu rrently, he is on 1 L of oxygen, and getting lactated Ringer's at 20 mL an hour. His hemoglobin was 6.9, so he is receiving 1 unit of packed red blood cells. Otherwise, he seems be doing relatively well. White count 13.1, hemoglobin 6.9, hematocrit 21.6, and platelet count 206,000. Sodium 134, potassium 4.1, chlorides 103, CO2 27, within normal BUN and creatinine. Progress note dated 04/25/2023. 83-year-old male postop day #2, status post abdominal procedure, for GI bleeding, and colonic mass. Currently, the patient's resting comfortably in room 260. He is getting oxygen by nasal cannula 2 L. He is on lactated Ringer's at 20 mL an hour. White count of 16.5, hemoglobin 8.5, hematocrit 25.5, within normal platelet count. Sodium 133, potassium 4.3, chlorides 103, CO2 28, BUN 17, and a creatinine of 0.83. Progress note dated 04/26/2023. 83-year-old male who is postop day #3, status post abdominal procedure, for GI bleeding and colonic mass. The patient is seen today in room 260. Currently, the patient is on 1 L of oxygen. The patient's getting amiodarone at 0.5 mg/m, which was admitted converted to oral amiodarone. He is getting lactated Ringer's at 20 mL an hour. Last night, the patient had a short run of ventricular tachycardia. White count 17.1, hemoglobin 8.7, hematocrit 27.2, within normal platelet count. Sodium 133, potassium 4.3, chlorides 100, CO2 21, BUN 21, and creatinine 0.72. Progress note dated 04/27/2023. 83-year-old male, postop day #4, status post abdominal surgery. He presented with a GI bleed, colonic mass on the endoscopy. He seen today in room 260. The patient is back on amiodarone 0.5 mg/m, getting lactated Ringer's at 20 mL an ho ur, and also getting oxygen by nasal cannula at 2 L. The patient has significant abdominal distention, and I reached out to the surgeon, who wanted a repeat abdominal x-ray. White count 14.9, hemoglobin 8.7, hematocrit 27.5, and platelet count 305,000. Sodium 131, potassium 4.4, chlorides 100, CO2 28, BUN 23, and creatinine 0.84. CT of the abdomen and pelvis done yesterday shows evidence of ileus. This also pneumoperitoneum. Objective - Vital Signs Vital signs: Vital Signs Temp 98.7 F 04/27/23 08:00 Pulse 64 04/27/23 08:00 Resp 16 04/27/23 08:00 BP 120/59 04/27/23 08:00 Pulse Ox 96 04/27/23 08:00 FiO2 Intake & Output 04/26/23 04/27/23 04/27/23 18:59 06:59 18:59 Intake Total 880 955 220 Output Total 315 310 60 Balance 565 645 160 Weight 115.4 kg 112.7 kg Intake: IV 580 280 220 Lactated Ringers 1,000 ml 180 80 20 @ 20 mls/hr IV .Q24H [facility] Rx#:[id number] Piperacillin-Tazobactam 3 200 100 100 .375 gm In Sodium Chloride 0.9% 100 ml @ 25 mls/hr IVPB Q8HR [facility] Rx# :[id number] metroNIDAZOLE-NS PMX 500 200 100 100 mg In Saline 1 100ml.bag @ 100 mls/hr IVPB Q8HR [facility] Rx#:[id number] Oral 300 675 Output: Urine 315 310 60 Other: Voiding Method Indwelling Catheter Indwelling Catheter # Bowel Movements 1 - Exam No acute distress, oriented 3. The patient is on 2 L by nasal cannula. HEENT examination is grossly unremarkable. Mucous membranes are moist. No oral lesions. Neck supple. Full range of motion. No adenopathy thyromegaly or neck vein distention. Cardiovascular examination reveals regular rhythm rate. S1-S2 normal. No S3 or S4. No discernible murmur noted. Heart rate 64 bpm. Lungs reveal clear breath sounds. Breath sounds are equal bilaterally. No adventitious lung sounds including wheezes rhonchi or crackles. 2 L saturation is 96%. Abdomen soft, without bowel sounds. No masses. Tenderness on palpation. Extremities are intact. No cyanosis clubbing or edema. Skin is without rash or lesion. Neurologic examination is brief but nonfocal. - Labs CBC & Chem 7: 08/19/23 03:55 04/27/23 03:55 Labs: Abnormal Lab Results - Last 24 Hours (Table) 04/27/23 04/27/23 Range/Units 03:55 03:55 WBC 14.9 H (3.8-10.6) k/uL RBC 2.87 L (4.30-5.90) m/uL Hgb 8.7 L (13.0-17.5) gm/dL Hct 27.5 L (39.0-53.0) % RDW 16.9 H (11.5-15.5) % Neutrophils # 12.4 H (1.3-7.7) k/uL Sodium 131 L (137-145) mmol/L BUN 23 H (9-20) mg/dL Glucose 122 H (74-99) mg/dL Calcium 7.7 L (8.4-10.2) mg/dL Assessment and Plan Assessment: Postop day #4, status post exploratory laparotomy, lysis of adhesions, abdominal washout, right hemicolectomy, small bowel resection, and placement of a wound VAC. Acute lower gastrointestinal bleed, secondary to colonic mass. History of colon cancer, S/P colon resection, 2004. History of paroxysmal atrial fibrillation. History of asthma. History of CVA. History of dyslipidemia. History of hypertension. S/P pacemaker insertion. History of cardiac ablation 2. Plan: Plan dated 04/22/2023. The patient was seen in the endoscopy suite. The patient will probably need intensive care unit for further monitoring and management. The patient was actively bleeding. The patient's blood pressures were a little soft. The patient was getting lactated Ringer's, IV bolus. Labs, x-rays, medications will be reviewed. The patient may need to go to surgery. The surgeon was speaking to the patient's family. The overall prognosis remains very guarded. Additional recommendations and suggestions are forthcoming. Plan dated 04/23/2023. The patient had surgery as detailed above. He is currently resting comfortably in the intensive care unit, room 260. He remains on Flagyl. He is getting oxygen by 2 L, nasal cannula. He is getting lactated Ringer's at 20 mL an hour. Labs, x-rays, and medications are all reviewed. The patient's overall prognosis remains guarded. We will continue to follow the patient make recommendations along the way. Plan dated 04/24/2023. The patient has been weaned down to 1 L of oxygen. He is currently receiving lactated Ringer's at 20 mL an hour. His hemoglobin is a bit low at 6.9, so he is going to receive 1 unit of packed red blood cells. The patient is stable hemodynamically, and from the respiratory standpoint. From my perspective, the patient could be transferred out to the general medical floor. Additional recommendations and suggestions are forthcoming. Prognosis is certainly guarded. Plan dated 04/25/2023. The patient appears to be doing reasonably well. He is resting comfortably in room 260. He is getting oxygen at 2 L by nasal cannula. He is on lactated Rin lee's at 20 mL an hour. Today's postop day #2. Labs, x-rays, and medications are reviewed. If he is stable, later today, he can be transferred out to the general medical floor. We encourage deep breathing, coughing, clearing her secretions. We also want the patient to use the incentive spirometer, every hour, while awake. Plan dated 04/26/2023. The patient is postop day #3. The patient's doing relatively well. He is on 1 L of oxygen. He did have an episode of ventricular tachycardia, and was started on amiodarone, IV, which will be changed to oral amiodarone. The patient's getting lactated Ringer's at 20 mL an hour. Labs, x-rays, medications are reviewed. We encourage deep breathing, coughing, clearing of secretions. We also encouraged hourly use of the incentive spirometer. The patient is stable enough to be transferred out to cardiology floor, or general medical floor with telemetry. We will continue to follow. Plan dated 04/27/2023. The patient is postop day #4. He is back on 2 L of oxygen, having been on 1 L yesterday. In addition, the amiodarone was weaned off yesterday, but restarted, for some additional ectopy. In addition, the patient has significant abdominal distention. He reached out to the surgeon, who wanted to repeat abdominal x- ray. A different surgeon is going to be rounding on this patient today. Labs, x-rays, and medications are reviewed. Prognosis is guarded. The patient does remain on lactated Ringer's, at 20 mL an hour Time with Patient: Greater than 30
--- NOTE | 2023-04-27 09:45 | P.PN ---
Progress Note - Text Progress Note Date: 04/27/23 Patient's resting in the ICU. Per the nursing staff patient has been nauseated is unable tolerate any food. Patient's complaints of On exam vital signs are stable. Abdomen is soft distended. There is minimal tenderness throughout. Status post right colectomy. Patient has a postoperative ileus. We will place nasogastric tube to low intermittent wall suction. abdominal distention.
--- NOTE | 2023-04-27 09:50 | XR ---
EXAMINATION TYPE: XR abdomen 1V DATE OF EXAM: 04/27/2023 COMPARISON: CT abdomen pelvis 04/26/2023 HISTORY: Abdominal distention TECHNIQUE: Supine view of the abdomen was obtained with 3 radiographs. FINDINGS: Marroquin catheter is identified in the region of the urinary bladder. Hyperdense material within the inn er bladder from prior contrast CT. Post surgical changes with cortical oriented skin is[place]. Contras t is demonstrated within the transverse colon from prior CT. Diffuse gaseous no acute osseous adenopa thy. Dilatation of the small and large bowel IMPRESSION: Findings suggestive of postoperative ileus. Continued follow-up is recommended.
[2023-04-27] MEDS: TAMSULOSIN 0.4 MG CAP.ER.24H PO SCH ×2 (10:35→21:22)
[2023-04-27] MEDS: atenoloL 50 MG TAB PO SCH ×3 (10:36→21:22)
[2023-04-27] MEDS: PANTOPRAZOLE 40 MG/10 ML VIAL IVP SCH (10:39)
--- NOTE | 2023-04-27 16:38 | P.PN ---
Subjective Progress Note Date: 04/27/23 83-year-old male patient admitted with GI bleed and was found to have a colonic mass; patient underwent repeat laparotomy, lysis of adhesions, abdominal washout, right hemicolectomy, small bowel resection and wound VAC placement; patient is postop day #4 Vital signs are reviewed and remained stable Patient does have abdominal distention and abdominal x-rays -- White count 14.9, hemoglobin 8.7, hematocrit 27.5, and platelet count 305,000. Sodium 131, potassium 4.4, chlorides 100, CO2 28, BUN 23, and c reatinine 0.84. CT of the abdomen and pelvis done yesterday shows evidence of ileus and pneumoperitoneum; surgery is of fair and await repeat abdominal x-ray. Patient has been restarted on amiodarone for recurrent ventricular tachycardia; patient remains on IV fluids on form of lactated Ringer at 20 mL an hour Objective - Vital Signs Vital signs: Vital Signs Temp 98.7 F 04/27/23 08:00 Pulse 64 04/27/23 08:00 Resp 16 04/27/23 08:00 BP 120/59 04/27/23 08:00 Pulse Ox 96 04/27/23 08:00 FiO2 Intake & Output 04/26/23 04/27/23 04/27/23 18:59 06:59 18:59 Intake Total 880 955 220 Output Total 315 310 60 Balance 565 645 160 Weight 115.4 kg 112.7 kg Intake: IV 580 280 220 Lactated Ringers 1,000 ml 180 80 20 @ 20 mls/hr IV .Q24H [facility] Rx#:[id number] Piperacillin-Tazobactam 3 200 100 100 .375 gm In Sodium Chloride 0.9% 100 ml @ 25 mls/hr IVPB Q8HR [facility] Rx# :[id number] metroNIDAZOLE-NS PMX 500 200 100 100 mg In Saline 1 100ml.bag @ 100 mls/hr IVPB Q8HR [facility] Rx#:[id number] Oral 300 675 Output: Urine 315 310 60 Other: Voiding Method Indwelling Catheter Indwelling Catheter # Bowel Movements 1 - Exam No acute distress, oriented 3. The patient is on 2 L by nasal cannula. HEENT examination is grossly unremarkable. Mucous membranes are moist. No oral lesions. Neck supple. Full range of motion. No adenopathy thyromegaly or neck vein distention. Cardiovascular examination reveals regular rhythm rate. S1-S2 normal. No S3 or S4. No discernible murmur noted. Heart rate 64 bpm. Lungs reveal clear breath sounds. Breath sounds are equal bilaterally. No adventitious lung sounds including wheezes rhonchi or crackles. 2 L saturation is 96%. Abdomen soft, without bowel sounds. No masses. Tenderness on palpation. Extremities are intact. No cyanosis clubbing or edema. Skin is without rash or lesion. Neurologic examination is brief but nonfocal. - Labs CBC & Chem 7: 04/27/23 03:55 04/27/23 03:55 Labs: Abnormal Lab Results - Last 24 Hours (Table) 04/27/23 04/27/23 Range/Units 03:55 03:55 WBC 14.9 H (3.8-10.6) k/uL RBC 2.87 L (4.30-5.90) m/uL Hgb 8.7 L (13.0-17.5) gm/dL Hct 27.5 L (39.0-53.0) % RDW 16.9 H (11.5-15.5) % Neutrophils # 12.4 H (1.3-7.7) k/uL Sodium 131 L (137-145) mmol/L BUN 23 H (9-20) mg/dL Glucose 122 H (74-99) mg/dL Calcium 7.7 L (8.4-10.2) mg/dL Assessment and Plan Assessment: Severely distended abdomen. CT evidence of ileus and possible pneumoperitoneum Postop day #4, status post exploratory laparotomy, lysis of adhesions, abdominal washout, right hemicolectomy, small bowel resection, and placement of a wound VAC. Acute lower gastrointestinal bleed, secondary to colonic mass. History of colon cancer, S/P colon resection, 2004. Ventricular tachycardia which has resolved Paroxysmal atrial fibrillation Permanent pacemaker Hypertension Dyslipidemia History of asthma. History of CVA.
[2023-04-27] MEDS: MONTELUKAST 10 MG TAB PO SCH (21:21)
[2023-04-27] MEDS: ATORVASTATIN 10 MG TAB PO SCH (21:22)
[2023-04-28] MEDS: metroNIDAZOLE-NS PMX 500 MG in SALINE 1 100ML.BAG IVPB SCH ×3 (00:24→16:50)
[2023-04-28] MEDS: PIPERACILLIN-TAZOBACTAM 3.375 GM in SODIUM CHLORIDE 0.9% 100 ML IVPB SCH ×3 (00:25→16:50)
[2023-04-28] MEDS: LACTATED RINGERS 1,000 ML IV SCH ×2 (06:40→16:52)
[2023-04-28] MEDS: SIMETHICONE 80 MG CHEWABLE PO SCH ×4 (09:00→21:15)
[2023-04-28] MEDS: TAMSULOSIN 0.4 MG CAP.ER.24H PO SCH ×2 (09:13→21:15)
[2023-04-28] MEDS: PANTOPRAZOLE 40 MG/10 ML VIAL IVP SCH (09:13)
--- NOTE | 2023-04-28 09:42 | P.PN ---
Subjective Progress Note Date: 04/28/23 Principal diagnosis: Colonic mass, GI bleed. Pulmonary consult dated 04/22/2023. 83-year-old male who was admitted back on April 17, through the emergency department, with a gastrointestinal bleed. We were finally consulted today, as the patient was having a colonoscopy, and EGD, the patient was found to have a large colonic mass, she was actively bleeding. I spoke to the surgeon, who would like to patient evaluated, and potentially housed in the intensive care unit. She is hoping to take the patient to surgery, although she did admit, that his overall prognosis is very guarded. He was seen in the endoscopy suite. He was on room air. He is getting lactated Ringer's, and had received about 400 mL. The patient was not having any distress. The patient will be tra nsferred to the intensive care unit. The patient has a history of atrial fibrillation, asthma, CVA, hyperlipidemia, hypertension, and a history of colon cancer in the past. The patient also has had previous colonic surgery back in 2004, and was a smoker in the past. Currently labs include a white count of 9.8, hemoglobin 8.5, hematocrit 26.8, and a normal platelet count. Sodium 135, potassium 3.9, chlorides 104, CO2 25, BUN 14, with a creatinine of 0.73. Progress note dated 04/23/2023. This is a 83-year-old male who was seen yesterday in the endoscopy suite. The patient was found to have a GI bleed, and a colonic mass. He is postop day #1, status post exploratory laparotomy, lysis of adhesions, abdominal washout, right hemicolectomy, wound VAC placement, and small bowel resection. The patient's currently on 2 L of oxygen. He is getting lactated Ringer's at 20 mL an hour. He continues on Flagyl. White count 14.3, hemoglobin 7.9, hematocrit 24, and platelet count 187,000. Sodium 136, potassium 4.2, chlorides 105, CO2 21, anion gap 10, BUN 15, creatinine 0.89. Urine is suggestive of a urinary tract infection. Progress note dated 04/24/2023. 83-year-old male postop day #1, status post exploratory laparotomy, lysis of adhesions, abdominal washout, right hemicolectomy, wound VAC placement, and small bowel resection. The patient is seen today in the ICU, room 260. Cu rrently, he is on 1 L of oxygen, and getting lactated Ringer's at 20 mL an hour. His hemoglobin was 6.9, so he is receiving 1 unit of packed red blood cells. Otherwise, he seems be doing relatively well. White count 13.1, hemoglobin 6.9, hematocrit 21.6, and platelet count 206,000. Sodium 134, potassium 4.1, chlorides 103, CO2 27, within normal BUN and creatinine. Progress note dated 04/25/2023. 83-year-old male postop day #2, status post abdominal procedure, for GI bleeding, and colonic mass. Currently, the patient's resting comfortably in room 260. He is getting oxygen by nasal cannula 2 L. He is on lactated Ringer's at 20 mL an hour. White count of 16.5, hemoglobin 8.5, hematocrit 25.5, within normal platelet count. Sodium 133, potassium 4.3, chlorides 103, CO2 28, BUN 17, and a creatinine of 0.83. Progress note dated 04/26/2023. 83-year-old male who is postop day #3, status post abdominal procedure, for GI bleeding and colonic mass. The patient is seen today in room 260. Currently, the patient is on 1 L of oxygen. The patient's getting amiodarone at 0.5 mg/m, which was admitted converted to oral amiodarone. He is getting lactated Ringer's at 20 mL an hour. Last night, the patient had a short run of ventricular tachycardia. White count 17.1, hemoglobin 8.7, hematocrit 27.2, within normal platelet count. Sodium 133, potassium 4.3, chlorides 100, CO2 21, BUN 21, and creatinine 0.72. Progress note dated 04/27/2023. 83-year-old male, postop day #4, status post abdominal surgery. He presented with a GI bleed, colonic mass on the endoscopy. He seen today in room 260. The patient is back on amiodarone 0.5 mg/m, getting lactated Ringer's at 20 mL an ho ur, and also getting oxygen by nasal cannula at 2 L. The patient has significant abdominal distention, and I reached out to the surgeon, who wanted a repeat abdominal x-ray. White count 14.9, hemoglobin 8.7, hematocrit 27.5, and platelet count 305,000. Sodium 131, potassium 4.4, chlorides 100, CO2 28, BUN 23, and creatinine 0.84. CT of the abdomen and pelvis done yesterday shows evidence of ileus. This also pneumoperitoneum. Progress note dated 04/28/2023. 83-year-old male, seen again in room 260. The patient is postoperative day #5, status post abdominal surgery. The patient was found to have a colonic mass and GI bleeding, during endoscopy, prior to surgery. Currently, the patient's on oxygen at 2 L by nasal cannula, lactated Ringer's at 75 mL an hour. An NG tube was placed yesterday, April 27. Amiodarone drip is off. No labs noted today. Labs from April 27 have been reviewed. X-ray of the abdomen done yesterday, shows postoperative ileus. Objective - Vital Signs Vital signs: Vital Signs Temp 98.5 F 04/28/23 08:00 Pulse 63 04/28/23 08:00 Resp 17 04/28/23 08:00 BP 106/58 04/28/23 08:00 Pulse Ox 97 04/27/23 16:00 FiO2 Intake & Output 04/27/23 04/28/23 04/28/23 18:59 06:59 18:59 Intake Total 1040 400 Output Total 559 930 Balance 481 -530 Weight 116.8 kg Intake: IV 940 150 Lactated Ringers 1,000 ml 640 150 @ 75 mls/hr IV .[id number] [facility] Rx#:[id number] Piperacillin-Tazobactam 3 100 .375 gm In Sodium Chloride 0.9% 100 ml @ 25 mls/hr IVPB Q8HR [facility] Rx# :[id number] metroNIDAZOLE-NS PMX 500 200 mg In Saline 1 100ml.bag @ 100 mls/hr IVPB Q8HR [facility] Rx#:[id number] Intake, IV Titration 100 250 Amount Amiodarone 450 mg In 250 Dextrose 5% in Water 250 ml @ 0.5 MG/MIN 16.667 mls/hr IV .Q15H [facility] Rx#: [id number] Piperacillin-Tazobactam 3 100 .375 gm In Sodium Chloride 0.9% 100 ml @ 25 mls/hr IVPB Q8HR [facility] Rx# :[id number] Output: Gastric Drainage 200 600 Urine 359 330 Other: Voiding Method Indwelling Catheter Indwelling Catheter Indwelling Catheter # Bowel Movements 1 - Exam No acute distress, oriented 3. The patient is on 2 L by nasal cannula. HEENT examination is grossly unremarkable. Mucous membranes are moist. No oral lesions. NG tube in place. Neck supple. Full range of motion. No adenopathy thyromegaly or neck vein distention. Cardiovascular examination reveals regular rhythm rate. S1-S2 normal. No S3 or S4. No discernible murmur noted. Heart rate 60 bpm. Lungs reveal clear breath sounds. Breath sounds are equal bilaterally. No adventitious lung sounds including wheezes rhonchi or crackles. 2 L saturation is 97%. Abdomen soft, without bowel sounds. No masses. Tenderness on palpation. Extremities are intact. No cyanosis clubbing or edema. Skin is without rash or lesion. Neurologic examination is brief but nonfocal. - Labs CBC & Chem 7: 04/27/23 03:55 04/27/23 03:55 Assessment and Plan Assessment: Postop day #5, status post exploratory laparotomy, lysis of adhesions, abdominal washout, right hemicolectomy, small bowel resection, and placement of a wound VAC. Postoperative ventricular tachycardia, resolved. Acute lower gastrointestinal bleed, secondary to colonic mass. History of colon cancer, S/P colon resection, 2004. History of paroxysmal atrial fibrillation. History of asthma. History of CVA. History of dyslipidemia. History of hypertension. S/P pacemaker insertion. History of cardiac ablation 2. Plan: Plan dated 04/22/2023. The patient was seen in the endoscopy suite. The patient will probably need intensive care unit for further monitoring and management. The patient was actively bleeding. The patient's blood pressures were a little soft. The patient was getting lactated Ringer's, IV bolus. Labs, x-rays, medications will be reviewed. The patient may need to go to surgery. The surgeon was speaking to the patient's family. The overall prognosis remains very guarded. Additional recommendations and suggestions are forthcoming. Plan dated 04/23/2023. The patient had surgery as detailed above. He is currently resting comfortably in the intensive care unit, room 260. He remains on Flagyl. He is getting oxygen by 2 L, nasal cannula. He is getting lactated Ringer's at 20 mL an hour. Labs, x-rays, and medications are all reviewed. The patient's overall prognosis remains guarded. We will continue to follow the patient make recommendations along the way. Plan dated 04/24/2023. The patient has been weaned down to 1 L of oxygen. He is currently receiving lactated Ringer's at 20 mL an hour. His hemoglobin is a bit low at 6.9, so he is going to receive 1 unit of packed red blood cells. The patient is stable hemodynamically, and from the respiratory standpoint. From my perspective, the patient could be transferred out to the general medical floor. Additional recommendations and suggestions are forthcoming. Prognosis is certainly guarded. Plan dated 04/25/2023. The patient appears to be doing reasonably well. He is resting comfortably in room 260. He is getting oxygen at 2 L by nasal cannula. He is on lactated Ringer's at 20 mL an hour. Today's postop day #2. Labs, x-rays, and medications are reviewed. If he is stable, later today, he can be transferred out to the general medical floor. We encourage deep breathing, coughing, clearing her secretions. We also want the patient to use the incentive spirometer, every hour, while awake. Plan dated 04/26/2023. The patient is postop day #3. The patient's doing relatively well. He is on 1 L of oxygen. He did have an episode of ventricular tachycardia, and was started on amiodarone, IV, which will be changed to oral amiodarone. The patient's getting lactated Ringer's at 20 mL an hour. Labs, x-rays, medications are reviewed. We encourage deep breathing, coughing, clearing of secretions. We also encouraged hourly use of the incentive spirometer. The patient is stable enough to be transferred out to cardiology floor, or general medical floor with telemetry. We will continue to follow. Plan dated 04/27/2023. The patient is postop day #4. He is back on 2 L of oxygen, having been on 1 L yesterday. In addition, the amiodarone was weaned off yesterday, but restarted, for some additional ectopy. In addition, the patient has significant abdominal distention. He reached out to the surgeon, who wanted to repeat abdominal x- ray. A different surgeon is going to be rounding on this patient today. Labs, x-rays, and medications are reviewed. Prognosis is guarded. The patient does remain on lactated Ringer's, at 20 mL an hour Plan dated 04/28/2023. The patient is postop day #5. He's currently on 2 L of oxygen. Amiodarone has been turned off. He is getting LR at 75 mL an hour. NG tube is in place. Labs, x-rays, medications are reviewed. The patient could be transferred to the general medical floor, with telemetry. We will continue to follow, and make recommendations along the way. Prognosis is guarded. Time with Patient: Less than 30
[2023-04-28 11:28] LABS: Anisocytosis Slight; HCT 28.9 % (39.0-53.0); HGB 9.1 gm/dL (13.0-17.5); Hypochromasia Moderate; MCH 30.4 pg (25.0-35.0); MCHC 31.5 g/dL (31.0-37.0); MCV 96.4 fL (80.0-100.0); Macrocytosis Slight; Mean Platelet Volume 8.3; Platelet Count 298 k/uL (150-450); RDW 16.9 % (11.5-15.5)
[2023-04-28 11:57] LABS: African American GFR (CKD) >90 (>60 ml/min/1.73 sqM); Anion Gap 2 mmol/L; Blood Urea Nitrogen 21 mg/dL (9-20); Calcium 7.5 mg/dL (8.4-10.2); Carbon Dioxide 29 mmol/L (22-30); Chloride 102 mmol/L (98-107); Glucose 83 mg/dL (74-99); Non-African American GFR(CKD) 87 (>60 ml/min/1.73 sqM); Potassium 4.3 mmol/L (3.5-5.1); Sodium 133 mmol/L (137-145)
--- NOTE | 2023-04-28 12:51 | P.PN ---
Subjective Progress Note Date: 04/28/23 Principal diagnosis: Ventricular tachycardia The patient is an 83-year-old gentleman with a past medical history significant for permanent pacemaker and paroxysmal atrial fibrillation as well as hypertension and dyslipidemia and preserved LV systolic function on the last echocardiogram from October was admitted to the hospital with abdominal discomfort and he underwent surgery including lysis of adhesions and washout and a mass resection from the cecum. The patient was supposed to be transferred out of the ICU yesterday when he did have an episode of wide complex rhythm consistent of ventricular tachycardia. It was somewhat sustained. I started the patient on amiodarone IV. His magnesium was replaced. Since then he did not have any more episodes of ventricular tachycardia April [id number] He is asymptomatic and hemodynamically stable. I'm going to DC and no IV and start the patient on nothing by mouth orally. To be started on oral anticoagulation once is safe from the surgical standpoint overview. Beside that continue the current dose of beta jacob with atenolol which has increased yesterday. The patient eventually Transferred out of the intensive care unit. The examination is remarkable for regular rhythm with distant heart sounds and diminished breathing sounds bilaterally and bilateral lower extremity edema 04/27/2023 The patient was seen and evaluated this morning. Apparently he has been experiencing abdominal discomfort and abdominal distention. Computed tomography scan of the abdomen and pelvis was performed yesterday and showed ileus with evidence of possible pneumoperitoneum. Surgery is on the case. He went into ventricular tachycardia yesterday I did start the patient back on amiodarone IV. When he was seen this morning he seems to be an issue affiliations/atrial flutter with overall controlled heart rate. Anticoagulation is on hold at this point. The examination is remarkable for extremely distended abdomen. 04/28/2020. The patient was seen and evaluated this morning. He underwent a workup for abdominal distention and that came in to be remarkable for ileus. An NG tube was placed and the abdominal distention as well as the patient's symptoms improved significantly. Hemodynamically he is in atrial fibrillation/flutter with overall controlled heart rate. He is not on any oral anticoagulation but we are going to check with the surgical team safety of starting him on small dose of oral anticoagulation. Beside that on examination he seems to be having upper and lower extremity edema and without being seen point. The patient 20 mg of Lasix IV. We'll continue following up with the patient. No more episodes of ventricular tachycardia. Assessment Severely distended abdomen. CT evidence of ileus and possible pneumoperitoneum Status post abdominal surgery as described above Ventricular tachycardia which has resolved Paroxysmal atrial fibrillation. The patient is in atrial fibrillation at this point Permanent pacemaker Hypertension Dyslipidemia Ileus Plan Continue the current medical regimen Assess the safety of starting the patient back on oral anticoagulation Give the patient 20 mg of Lasix IV once Follow-up with the patient Objective - Vital Signs Vital signs: Vital Signs Temp 98.5 F 04/28/23 08:00 Pulse 63 04/28/23 08:00 Resp 17 04/28/23 08:00 BP 106/58 04/28/23 08:00 Pulse Ox 97 04/27/23 16:00 FiO2 Intake & Output 04/27/23 04/28/23 04/28/23 18:59 06:59 18:59 Intake Total 1040 400 200 Output Total 559 930 75 Balance 481 -530 125 Weight 116.8 kg Intake: IV 940 150 200 Lactated Ringers 1,000 ml 640 150 @ 75 mls/hr IV .[id number] [facility] Rx#:[id number] Piperacillin-Tazobactam 3 100 100 .375 gm In Sodium Chloride 0.9% 100 ml @ 25 mls/hr IVPB Q8HR [facility] Rx# :[id number] metroNIDAZOLE-NS PMX 500 200 100 mg In Saline 1 100ml.bag @ 100 mls/hr IVPB Q8HR [facility] Rx#:[id number] Intake, IV Titration 100 250 Amount Amiodarone 450 mg In 250 Dextrose 5% in Water 250 ml @ 0.5 MG/MIN 16.667 mls/hr IV .Q15H [facility] Rx#: [id number] Piperacillin-Tazobactam 3 100 .375 gm In Sodium Chloride 0.9% 100 ml @ 25 mls/hr IVPB Q8HR [facility] Rx# :[id number] Output: Gastric Drainage 200 600 Urine 359 330 75 Other: Voiding Method Indwelling Catheter Indwelling Catheter Indwelling Catheter # Bowel Movements 1 - Labs CBC & Chem 7: 04/28/23 11:03 04/28/23 11:03 Labs: Abnormal Lab Results - Last 24 Hours (Table) 04/28/23 04/28/23 Range/Units 11:03 11:03 WBC 15.0 H (3.8-10.6) k/uL RBC 3.00 L (4.30-5.90) m/uL Hgb 9.1 L (13.0-17.5) gm/dL Hct 28.9 L (39.0-53.0) % RDW 16.9 H (11.5-15.5) % Sodium 133 L (137-145) mmol/L BUN 21 H (9-20) mg/dL Calcium 7.5 L (8.4-10.2) mg/dL
[2023-04-28] MEDS ORDERED: FUROSEMIDE 10 MG/ML 2 ML VIAL IV ONE (12:56)
--- NOTE | 2023-04-28 13:51 | P.PN ---
Progress Note - Text Progress Note Date: 04/28/23 The patient appears to be much more comfortable today. He had a nasogastric tube placed yesterday. He'll large volume aspirated through the NG tube. His abdomen is less distended today. On exam vital signs appear stable. Abdomen is soft with less distention. Status post right colectomy with resolving postoperative ileus. Patient continue receive supportive care.
--- NOTE | 2023-04-28 19:54 | P.PN ---
Subjective Progress Note Date: 04/28/23 83-year-old male patient admitted with GI bleed and was found to have a colonic mass; patient underwent repeat laparotomy, lysis of adhesions, abdominal washout, right hemicolectomy, small bowel resection and wound VAC placement; patient is postop day #4 Vital signs are reviewed and remained stable Patient does have abdominal distention and abdominal x-rays -- White count 14.9, hemoglobin 8.7, hematocrit 27.5, and platelet count 305,000. Sodium 131, potassium 4.4, chlorides 100, CO2 28, BUN 23, and c reatinine 0.84. CT of the abdomen and pelvis done yesterday shows evidence of ileus and pneumoperitoneum; surgery is of fair and await repeat abdominal x-ray. Patient has been restarted on amiodarone for recurrent ventricular tachycardia; patient remains on IV fluids on form of lactated Ringer at 20 mL an hour 04/28/2023 The patient is seen and evaluated in ICU; patient is postoperative day #5, status post abdominal surgery. The patient was found to have a colonic mass and GI bleeding, during endoscopy, prior to surgery. Currently, the patient's on oxygen at 2 L by nasal cannula, lactated Ringer's at 75 mL an hour. An NG tube was placed yesterday, April 27. Amiodarone drip is off. No labs noted today. Labs from April 27 have been reviewed. X-ray of the abdomen done yesterday, shows postoperative ileus. NGT remains in place to sucction; abdomen is softer; surgery on board Objective - Vital Signs Vital signs: Vital Signs Temp 98.5 F 04/28/23 08:00 Pulse 63 04/28/23 08:00 Resp 17 04/28/23 08:00 BP 106/58 04/28/23 08:00 Pulse Ox 97 04/27/23 16:00 FiO2 Intake & Output 04/27/23 04/28/23 04/28/23 18:59 06:59 18:59 Intake Total 1040 400 Output Total 559 930 Balance 481 -530 Weight 116.8 kg Intake: IV 940 150 Lactated Ringers 1,000 ml 640 150 @ 75 mls/hr IV .[id number] [facility] Rx#:[id number] Piperacillin-Tazobactam 3 100 .375 gm In Sodium Chloride 0.9% 100 ml @ 25 mls/hr IVPB Q8HR [facility] Rx# :[id number] metroNIDAZOLE-NS PMX 500 200 mg In Saline 1 100ml.bag @ 100 mls/hr IVPB Q8HR [facility] Rx#:[id number] Intake, IV Titration 100 250 Amount Amiodarone 450 mg In 250 Dextrose 5% in Water 250 ml @ 0.5 MG/MIN 16.667 mls/hr IV .Q15H [facility] Rx#: [id number] Piperacillin-Tazobactam 3 100 .375 gm In Sodium Chloride 0.9% 100 ml @ 25 mls/hr IVPB Q8HR [facility] Rx# :[id number] Output: Gastric Drainage 200 600 Urine 359 330 Other: Voiding Method Indwelling Catheter Indwelling Catheter Indwelling Catheter # Bowel Movements 1 - Exam No acute distress, oriented 3. The patient is on 2 L by nasal cannula. HEENT examination is grossly unremarkable. Mucous membranes are moist. No oral lesions. Neck supple. Full range of motion. No adenopathy thyromegaly or neck vein distention. Cardiovascular examination reveals regular rhythm rate. S1-S2 normal. No S3 or S4. No discernible murmur noted. Heart rate 64 bpm. Lungs reveal clear breath sounds. Breath sounds are equal bilaterally. No adventitious lung sounds including wheezes rhonchi or crackles. 2 L saturation is 96%. Abdomen soft, without bowel sounds. No masses. Tenderness on palpation. Extremities are intact. No cyanosis clubbing or edema. Skin is without rash or lesion. Neurologic examination is brief but nonfocal. - Labs CBC & Chem 7: 04/28/23 11:03 04/28/23 11:03 Assessment and Plan Assessment: Severely distended abdomen. CT evidence of ileus and possible pneumoperitoneum Postop day #4, status post exploratory laparotomy, lysis of adhesions, abdominal washout, right hemicolectomy, small bowel resection, and placement of a wound VAC. Acute lower gastrointestinal bleed, secondary to colonic mass. History of colon cancer, S/P colon resection, 2004. Ventricular tachycardia which has resolved Paroxysmal atrial fibrillation Permanent pacemaker Hypertension Dyslipidemia History of asthma. History of CVA.
[2023-04-28] MEDS: ATORVASTATIN 10 MG TAB PO SCH (21:15)
[2023-04-28] MEDS: atenoloL 50 MG TAB PO SCH (21:15)
[2023-04-28] MEDS: MONTELUKAST 10 MG TAB PO SCH (21:15)
[2023-04-29] MEDS: metroNIDAZOLE-NS PMX 500 MG in SALINE 1 100ML.BAG IVPB SCH ×3 (00:07→16:05)
[2023-04-29] MEDS: PIPERACILLIN-TAZOBACTAM 3.375 GM in SODIUM CHLORIDE 0.9% 100 ML IVPB SCH ×3 (00:08→16:03)
[2023-04-29] MEDS: LACTATED RINGERS 1,000 ML IV SCH ×2 (06:54→13:49)
[2023-04-29] MEDS: SIMETHICONE 80 MG CHEWABLE PO SCH ×4 (06:54→22:17)
[2023-04-29] MEDS: PANTOPRAZOLE 40 MG/10 ML VIAL IVP SCH (07:53)
[2023-04-29] MEDS: TAMSULOSIN 0.4 MG CAP.ER.24H PO SCH ×2 (07:54→22:16)
--- NOTE | 2023-04-29 08:50 | P.PN ---
Subjective Progress Note Date: 04/29/23 On 2022, the patient is postop day #6. He presented to us with GI bleed and the large cecal mass and bowel obstruction. The patient was taken to the operating room and the patient underwent exploratory laparotomy, abdominal washout, right hemicolectomy and small bowel resection. An external wound VAC is currently present. Postop, the patient developed an ileus and an NG tube was inserted on 04/27/2023. The NG tube is still active and output is still active. The patient's bowel sounds are very much hypoactive at this point in time. He states that he was able to pass flatus today. Surgical wound is dry clean and intact. Abdomen is less distended on today's evaluation and is resting comfortably in bed and he remains nothing by mouth at this point in time. Cardiac rhythm is paced. He is currently on oxygen at 2 L with a pulse ox of 96%. In terms of his lab work, the patient has a white cell count of 15 and a hemoglobin of 9.1 and a platelet count of 298. This blood work is from yesterday. Electrolytes all normal. Creatinine is at 0.6. As stated, the patient is nothing by mouth. He is on IV fluids in the form of lactated Ringer running at 75 mL an hour. No issues with pain. He remains on broad-spectrum antibiotic coverage with IV Zosyn. He was taking warfarin on outpatient basis and currently is not receiving any form of anticoagulants. He has history of paroxysmal A. fib and current rhythm is a. His echocardiogram that was done on 04/26/2023 showed a normal LV function, no significant valvular abnormalities in his right ventricular systolic pressures around 39. Objective - Vital Signs Vital signs: Vital Signs Temp 97.9 F 04/29/23 08:00 Pulse 66 04/29/23 08:00 Resp 18 04/29/23 08:00 BP 104/46 04/29/23 08:00 Pulse Ox 97 04/29/23 08:00 FiO2 Intake & Output 04/28/23 04/29/23 04/29/23 18:59 06:59 18:59 Intake Total 800 75 525 Output Total 775 250 150 Balance 25 -175 375 Weight 110.5 kg Intake: IV 800 75 525 Lactated Ringers 1,000 ml 600 75 525 @ 75 mls/hr IV .[id number] [facility] Rx#:[id number] Piperacillin-Tazobactam 3 100 .375 gm In Sodium Chloride 0.9% 100 ml @ 25 mls/hr IVPB Q8HR [facility] Rx# :[id number] metroNIDAZOLE-NS PMX 500 100 mg In Saline 1 100ml.bag @ 100 mls/hr IVPB Q8HR [facility] Rx#:[id number] Output: Urine 775 250 150 Other: Voiding Method Indwelling Catheter Indwelling Catheter - Exam No acute distress, oriented 3. The patient is on 2 L by nasal cannula. Head exam was generally normal. There was no scleral icterus or corneal arcus. Mucous membranes were moist. HEENT examination is grossly unremarkable. Mucous membranes are moist. No oral lesions. NG tube in place. Neck supple. Full range of motion. No adenopathy thyromegaly or neck vein distention. Cardiovascular examination reveals regular rhythm rate. S1-S2 normal. No S3 or S4. No discernible murmur noted. Patient has a pacemaker in place and his current rhythm is atrial flutter with occasional pacing. Lungs reveal clear breath sounds. Breath sounds are equal bilaterally. No adventitious lung sounds including wheezes rhonchi or crackles. 2 L saturation is 97%. Abdomen soft, without bowel sounds. The abdomen is nontender at this point in time. Abdomen is less distended. Bowel sounds are absent. The surgical wound is dry clean and intact and there is a external wound VAC in place. Extremities are intact. No cyanosis clubbing or edema. Skin is without rash or lesion. Neurologic examination is brief but nonfocal. - Labs CBC & Chem 7: 04/28/23 11:03 04/28/23 11:03 Labs: Abnormal Lab Results - Last 24 Hours (Table) 04/28/23 04/28/23 Range/Units 11:03 11:03 WBC 15.0 H (3.8-10.6) k/uL RBC 3.00 L (4.30-5.90) m/uL Hgb 9.1 L (13.0-17.5) gm/dL Hct 28.9 L (39.0-53.0) % RDW 16.9 H (11.5-15.5) % Sodium 133 L (137-145) mmol/L BUN 21 H (9-20) mg/dL Calcium 7.5 L (8.4-10.2) mg/dL Assessment and Plan Plan: Acute lower gastrointestinal bleed, secondary to colonic mass.Postop day #6, status post exploratory laparotomy, lysis of adhesions, abdominal washout, right hemicolectomy, small bowel resection, and placement of a wound VAC. Patient is hemodynamically stable. The patient is on broad-spectrum antibiotic coverage with IV Zosyn. Awaiting final pathology from the cecal mass that was surgically resected. Postoperative ileus, NG tube was inserted on 04/27/2024 gastric decompression the patient is currently nothing by mouth. Postoperative ventricular tachycardia, resolved. History of colon cancer, S/P colon resection, 2004. History of paroxysmal atrial fibrillation/atrial flutter post-ablation and the patient is a preserved LV function, the patient has a permanent pacemaker in place History of asthma. History of CVA. History of dyslipidemia. History of hypertension. History of A. fib/flutter, History of cardiac ablation 2. The patient is demented on long-term anticoagulants with warfarin on outpatient basis Post surgical anemia, expected outcome of surgery and GI bleeding. Hemoglobin from yesterday was 8.7 Focal 1.2 cm area of erosion in the posterior superior to 10 vertebral body, consider possibility of metastases. Bone scan was done and there was no significant abnormalities to suggest O2 blastic metastatic disease. Plan: Keep the patient nothing by mouth Consider the possibility of a TPN if there is no immediate recovery in his ileus Monitor NG tube output Monitor bowel sounds and bowel movements and activities Continue lactated Ringer Monitor hemoglobin pending from today Increase mobility and ask the patient is up on a chair Keep the patient ICU for further monitoring. Requested PICC line insertion for possible subsequent TPN administration.
--- NOTE | 2023-04-29 10:12 | P.PN ---
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 Over the weekend, patient had ileus. Nasogastric tube was placed. Reports epigastric fullness is now resolved. Reports passage of moderate flatus and bowel movements. ROS: No reports of vomiting. No fevers or chills. No new chest pain. PHYSICAL EXAM: VITAL SIGNS: Reviewed CONSTITUTIONAL: Well developed and in no acute distress. EYES: Conjuctivae without sclera icterus. Extraocular movements grossly intact. HEAD, EARS, NOSE, THROAT: Moist buccal mucosa. Head is atraumatic, normocephalic. Hears conversational speech. No nasal drainage. Nasogastric tube yellow effluent RESPIRATORY: Non-labored respirations and equal bilateral excursions. CARDIOVASCULAR: Palpable 2+ radial pulses. ABDOMEN: Soft, obese. Incisional wound VAC intact. MUSCULOSKELETAL: No gross deformity of the lower extremities noted. No clubbing. No cyanosis. SKIN: Good skin turgor. Well perfused. NEUROLOGIC: Cranial nerves II through XII grossly intact. No focal or lateralizing signs. PSYCH: Appropriate affect. Alert and oriented to person, place and time. CLINICAL LABS: Reviewed. WBC trending down 17,000 and 15,000 STUDIES: Abdominal x-ray in the pedal review demonstrates ileus. No bowel obstruction. This is my independent interpretation. ASSESSMENT: 1. Acute blood loss anemia 2. Large cecal mass, neoplasm, locally invasive 3. Acute gastrointestinal bleeding from cecal mass 4. Leukocytosis. 5. Ileus PLAN: 1. Will repeat abdominal films for today. 2. Likely restart clears pending results of abdominal films and resolution of ileus Objective - Vital Signs Vital signs: Vital Signs Temp 97.9 F 04/29/23 08:00 Pulse 66 04/29/23 08:00 Resp 18 04/29/23 08:00 BP 104/46 04/29/23 08:00 Pulse Ox 96 04/29/23 08:35 FiO2 Intake & Output 04/28/23 04/29/23 04/29/23 18:59 06:59 18:59 Intake Total 800 75 525 Output Total 775 250 150 Balance 25 -175 375 Weight 110.5 kg Intake: IV 800 75 525 Lactated Ringers 1,000 ml 600 75 525 @ 75 mls/hr IV .[id number] [facility] Rx#:[id number] Piperacillin-Tazobactam 3 100 .375 gm In Sodium Chloride 0.9% 100 ml @ 25 mls/hr IVPB Q8HR [facility] Rx# :[id number] metroNIDAZOLE-NS PMX 500 100 mg In Saline 1 100ml.bag @ 100 mls/hr IVPB Q8HR [facility] Rx#:[id number] Output: Urine 775 250 150 Other: Voiding Method Indwelling Catheter Indwelling Catheter - Labs CBC & Chem 7: 04/28/23 11:03 04/28/23 11:03 Labs: Abnormal Lab Results - Last 24 Hours (Table) 04/28/23 04/28/23 Range/Units 11:03 11:03 WBC 15.0 H (3.8-10.6) k/uL RBC 3.00 L (4.30-5.90) m/uL Hgb 9.1 L (13.0-17.5) gm/dL Hct 28.9 L (39.0-53.0) % RDW 16.9 H (11.5-15.5) % Sodium 133 L (137-145) mmol/L BUN 21 H (9-20) mg/dL Calcium 7.5 L (8.4-10.2) mg/dL
[2023-04-29 10:32] LABS: Anisocytosis Slight; Basophils % (A) 0 %; Eosinophils # (A) 0.2 k/uL (0-0.7); Eosinophils % (A) 2 %; HCT 29.2 % (39.0-53.0); HGB 9.1 gm/dL (13.0-17.5); Hypochromasia Marked; Lymphocytes % (A) 9 %; MCH 29.8 pg (25.0-35.0); MCV 96.2 fL (80.0-100.0); Macrocytosis Slight; Mean Platelet Volume 7.9; Monocytes # (A) 0.9 k/uL (0-1.0); Monocytes % (A) 8 %; Neutrophils # (A) 8.7 k/uL (1.3-7.7); Neutrophils % (A) 80 %; Platelet Count 275 k/uL (150-450); RBC 3.04 m/uL (4.30-5.90); RDW 17.1 % (11.5-15.5); WBC 10.8 k/uL (3.8-10.6)
[2023-04-29 11:21] LABS: ALT 26 U/L (4-49); AST 46 U/L (17-59); African American GFR (CKD) >90 (>60 ml/min/1.73 sqM); Albumin 2.1 g/dL (3.5-5.0); Alkaline Phosphatase 43 U/L (38-126); Anion Gap 6 mmol/L; Blood Urea Nitrogen 21 mg/dL (9-20); Calcium 7.7 mg/dL (8.4-10.2); Carbon Dioxide 29 mmol/L (22-30); Chloride 100 mmol/L (98-107); Glucose 70 mg/dL (74-99); Non-African American GFR(CKD) 82 (>60 ml/min/1.73 sqM); Potassium 4.2 mmol/L (3.5-5.1); Sodium 135 mmol/L (137-145); Total Bilirubin 0.5 mg/dL (0.2-1.3); Total Protein 4.3 g/dL (6.3-8.2)
--- NOTE | 2023-04-29 11:45 | P.PN ---
Subjective Progress Note Date: 04/29/23 Ventricular tachycardia The patient is an 83-year-old gentleman with a past medical history significant for permanent pacemaker and paroxysmal atrial fibrillation as well as hypertension and dyslipidemia and preserved LV systolic function on the last echocardiogram from October was admitted to the hospital with abdominal discomfort and he underwent surgery including lysis of adhesions and washout and a mass resection from the cecum. The patient was supposed to be transferred out of the ICU yesterday when he did have an episode of wide complex rhythm consistent of ventricular tachycardia. It was somewhat sustained. I started the patient on amiodarone IV. His magnesium was replaced. Since then he did not have any more episodes of ventricular tachycardia April [id number] He is asymptomatic and hemodynamically stable. I'm going to DC and no IV and start the patient on nothing by mouth orally. To be started on oral anticoagulation once is safe from the surgical standpoint overview. Beside that continue the current dose of beta jacob with atenolol which has increased yesterday. The patient eventually Transferred out of the intensive care unit. The examination is remarkable for regular rhythm with distant heart sounds and diminished breathing sounds bilaterally and bilateral lower extremity edema 04/27/2023 The patient was seen and evaluated this morning. Apparently he has been experiencing abdominal discomfort and abdominal distention. Computed tomography scan of the abdomen and pelvis was performed yesterday and showed ileus with evidence of possible pneumoperitoneum. Surgery is on the case. He went into ventricular tachycardia yesterday I did start the patient back on amiodarone IV. When he was seen this morning he seems to be an issue affiliations/atrial fl utter with overall controlled heart rate. Anticoagulation is on hold at this point. The examination is remarkable for extremely distended abdomen. 04/28/2023. The patient was seen and evaluated this morning. He underwent a workup for abdominal distention and that came in to be remarkable for ileus. An NG tube was placed and the abdominal distention as well as the patient's symptoms improved significantly. Hemodynamically he is in atrial fibrillation/flutter with overall controlled heart rate. He is not on any oral anticoagulation but we are going to check with the surgical team safety of starting him on small dose of oral anticoagulation. Beside that on examination he seems to be having upper and lower extremity edema and without being seen point. The patient 20 mg of Lasix IV. We'll continue following up with the patient. No more episodes of ventricular tachycardia. 04/29/2023 Patient was seen and examined this morning. Patient is getting NG tube feeds and is tolerating them well. He is hemodynamically stable. He has atrial flutter with controlled ventricular rate. His last echo from this admission showed an LVEF of 50-55%. Assessment Severely distended abdomen. CT evidence of ileus and possible pneumoperitoneum Status post abdominal surgery as described above Ventricular tachycardia which has resolved Paroxysmal atrial fibrillation. The patient is in atrial fibrillation at this point Permanent pacemaker Hypertension Dyslipidemia Ileus Plan Discontinue atenolol and start metoprolol 50 mg twice a day instead. Patient got 2 boluses of IV amiodarone for nonsustained ventricular tachycardia. He has not had any recurrence on his telemetry. Patient is not on systemic anticoagulation due to GI bleeding on this admission. Once stable to discharge, we will reassess his safety for being on systemic anticoagulation, this time with Eliquis (previously on warfarin). He will be a good candidate for Watchman device placement. Objective - Vital Signs Vital signs: Vital Signs Temp 97.9 F 04/29/23 08:00 Pulse 66 04/29/23 08:00 Resp 18 04/29/23 08:00 BP 104/46 04/29/23 08:00 Pulse Ox 96 04/29/23 08:35 FiO2 Intake & Output 04/28/23 04/29/23 04/29/23 18:59 06:59 18:59 Intake Total 800 75 525 Output Total 775 250 150 Balance 25 -175 375 Weight 110.5 kg Intake: IV 800 75 525 Lactated Ringers 1,000 ml 600 75 525 @ 75 mls/hr IV .[id number] [facility] Rx#:[id number] Piperacillin-Tazobactam 3 100 .375 gm In Sodium Chloride 0.9% 100 ml @ 25 mls/hr IVPB Q8HR [facility] Rx# :[id number] metroNIDAZOLE-NS PMX 500 100 mg In Saline 1 100ml.bag @ 100 mls/hr IVPB Q8HR [facility] Rx#:[id number] Output: Urine 775 250 150 Other: Voiding Method Indwelling Catheter Indwelling Catheter - Labs CBC & Chem 7: 04/29/23 10:09 04/29/23 10:09 Labs: Abnormal Lab Results - Last 24 Hours (Table) 04/28/23 04/29/2304/29/23 Range/Units 11:03 10:09 10:09 WBC 10.8 H (3.8-10.6) k/uL RBC 3.04 L (4.30-5.90) m/uL Hgb 9.1 L (13.0-17.5) gm/dL Hct 29.2 L (39.0-53.0) % RDW 17.1 H (11.5-15.5) % Neutrophils # 8.7 H (1.3-7.7) k/uL Sodium 133 L 135 L (137-145) mmol/L BUN 21 H 21 H (9-20) mg/dL Glucose 70 L (74-99) mg/dL Calcium 7.5 L 7.7 L (8.4-10.2) mg/dL Total Protein 4.3 L (6.3-8.2) g/dL Albumin 2.1 L (3.5-5.0) g/dL
[2023-04-29] MEDS: atenoloL 50 MG TAB PO SCH (12:20)
--- NOTE | 2023-04-29 12:30 | XR ---
EXAMINATION TYPE: XR abdomen 2V DATE OF EXAM: 04/29/2023 COMPARISON: 04/27/2023 HISTORY: Ileus TECHNIQUE: One view abdominal series FINDINGS: The osseous structures are intact. The bowel gas pattern is nonspecific. NG tube stable in position at the level gastric fundus. Hypertrophic and degenerative changes spine. Surgical israel noted cont rast seen within what appears to be colon. Interval reduction in the degree of small bowel dilation. Bilateral hip arthropathy. IMPRESSION: 1. Interval reduction in the dilation of the small bowel relative to the prior exam with contrast now seen in the left colon extending to the rectum. Ileus or partial obstruction remains in the differen tial diagnosis.
[2023-04-29] MEDS ORDERED: LIDOCAINE 1% INJ 10MG/ML (5 ML VIAL-PF) SQ ONE (12:51)
--- NOTE | 2023-04-29 13:11 | XR ---
EXAMINATION TYPE: XR chest 1V confirm line plcvt DATE OF EXAM: 04/29/2023 COMPARISON: 04/25/2023 INDICATION: Line placement TECHNIQUE: Single frontal view of the chest is obtained. FINDINGS: The heart size is normal. The pulmonary vasculature is normal. The lungs are clear. There is placement of a right-sided PICC line with the tip in the proximal right atrium. Nasogastric tube transverses the thorax tip in the left upper quadrant of the abdomen. Pacemaker overlies left ch est. IMPRESSION: 1. No acute pulmonary process. 2. Placement of a PICC line with the tip in the proximal right atrium. 3. Placement of a nasogastric tube with the tip in the left upper quadrant abdomen
--- NOTE | 2023-04-29 13:25 | IR ---
PICC LINE PLACEMENT: HISTORY: TPN therapy PROCEDURE: Ultrasound guidance of PICC line placement. OVERHEAD CRANE OPERATOR: COMPLICATIONS: None ANESTHESIA: 1. 1% Lidocaine locally. FINDINGS/TECHNIQUE: The procedure was explained to the patient. The risks, complications, benefits and alternatives were discussed and any questions were answered. Informed consent was obtained. The patient was placed supine on the fluoroscopic table and prepped and draped in the usual sterile fash ion. Utilizing a 21 gauge needle and sonographic guidance, access in the right basilic vein was ach ieved and there is placement of a 0.018 guidewire. The vein is patent. A 5-F. sheath was placed ove r the guidewire. The guidewire and dilator were removed and a 5-F. Double lumen PICC line was placed through the sheath with the chest x-ray confirming the tip at the level of the SVC. The sheath was removed, the catheter was flushed and sutured into position. The patient was stable throughout the p rocedure and remained stable upon discharge from the Department of Radiology. The vein puncture was patent under ultrasound. A ocampo scale image was obtained to document patency of the vein punctured. All elements of the maximal barrier technique were utilized. IMPRESSION: 1. Successful PICC line placement under ultrasound performed bedside within the ICU.
[2023-04-29] MEDS: METOPROLOL TARTRATE 50 MG TAB PO SCH ×2 (13:49→22:20)
[2023-04-29 14:02] LABS: Magnesium 2.1 mg/dL (1.6-2.3); Phosphorus 3.5 mg/dL (2.5-4.5)
--- NOTE | 2023-04-29 14:43 | P.PN ---
Subjective Progress Note Date: 04/29/23 Principal diagnosis: Anemia, GI bleed, diarrhea, cecal mass Patient seen in ICU. He feels he is doing okay postop. NG tube placed. Patient denies any feelings of nausea at this time, the NG tube is uncomfortable but not making him want to throw up at this time. No cough or shortness of breath. Denies any pain in the abdomen. He is passing large amounts of flatus. No fevers Objective - Vital Signs Vital signs: Vital Signs Temp 97.9 F 04/29/23 08:00 Pulse 66 04/29/23 08:00 Resp 18 04/29/23 08:00 BP 104/46 04/29/23 08:00 Pulse Ox 96 04/29/23 08:35 FiO2 Intake & Output 04/28/23 04/29/23 04/29/23 18:59 06:59 18:59 Intake Total 800 75 525 Output Total 775 250 150 Balance 25 -175 375 Weight 110.5 kg Intake: IV 800 75 525 Lactated Ringers 1,000 ml 600 75 525 @ 75 mls/hr IV .[id number] [facility] Rx#:[id number] Piperacillin-Tazobactam 3 100 .375 gm In Sodium Chloride 0.9% 100 ml @ 25 mls/hr IVPB Q8HR [facility] Rx# :[id number] metroNIDAZOLE-NS PMX 500 100 mg In Saline 1 100ml.bag @ 100 mls/hr IVPB Q8HR [facility] Rx#:[id number] Output: Urine 775 250 150 Other: Voiding Method Indwelling Catheter Indwelling Catheter - Constitutional General appearance: Present: cooperative, no acute distress, obese - EENT Eyes: Present: anicteric sclerae, EOMI ENT: Present: hearing grossly normal - Respiratory Respiratory: bilateral: CTA - Cardiovascular Rhythm: regular - Peripheral edema leg Peripheral Edema: bilateral: Trace - Gastrointestinal General gastrointestinal: Present: distended, soft - Neurologic Neurologic: Present: CNII-XII intact - Musculoskeletal Musculoskeletal: Present: generalized weakness - Psychiatric Psychiatric: Present: A&O x's 3, appropriate affect, intact judgment & insight - Labs CBC & Chem 7: 04/29/23 10:09 04/29/23 10:09 Labs: Abnormal Lab Results - Last 24 Hours (Table) 04/29/23 04/29/23 Range/Units 10:09 10:09 WBC 10.8 H (3.8-10.6) k/uL RBC 3.04 L (4.30-5.90) m/uL Hgb 9.1 L (13.0-17.5) gm/dL Hct 29.2 L (39.0-53.0) % RDW 17.1 H (11.5-15.5) % Neutrophils # 8.7 H (1.3-7.7) k/uL Sodium 135 L (137-145) mmol/L BUN 21 H (9-20) mg/dL Glucose 70 L (74-99) mg/dL Calcium 7.7 L (8.4-10.2) mg/dL Total Protein 4.3 L (6.3-8.2) g/dL Albumin 2.1 L (3.5-5.0) g/dL Assessment and Plan (1) Anemia Current Visit: Yes Status: Acute Priority: High Code(s): D64.9 - ANEMIA, UNSPECIFIED SNOMED Code(s): 512541302 (2) Gastrointestinal bleeding Current Visit: Yes Status: Acute Priority: High Code(s): K92.2 - GASTROINTESTINAL HEMORRHAGE, UNSPECIFIED SNOMED Code(s): 93834368 (3) Mass of cecum Current Visit: Yes Status: Acute Priority: High Code(s): K63.89 - OTHER SPECIFIED DISEASES OF INTESTINE SNOMED Code(s): 0423342603 Plan: Iron deficient anemia -Hgb stable today at 9.1 -Most likely secondary to cecal mass, GI blood losses -Status post parenteral iron. Pt will likely need additional doses of iron. Pending recovery of his current condition. We'll continue parenteral iron outpatient -Coumadin has been held. Pt was on for a-fib. Cardiology is following closely GI bleed, cecal mass resection -Biopsy neg, pending surgical pathology. -We will cont to follow, final recommendations to follow once final path is available -Post op ileus. NG tube. Improving. Surgery following closely. Abdominal x- ray impression-interval reduction of the dilation of the small bowel relative to the prior exam. Contrast is now seen in the left colon extending to the rectum. Ileus or partial obstruction remains in the differential. -
[2023-04-29] MEDS ORDERED: MVI, ADULT NO.4 WITH VIT K 10 ML, TRACE (CONC-1ML/DOSE) 1 ML in AMINO ACID 5%-D20W+LYTE... IV SCH ×3 (15:00)
--- NOTE | 2023-04-29 16:28 | CDI ---
Documentation Clarification Form Date: 04/29/2023 04:03:30 PM From: Edwina Galvan RN CCDS Phone: [phone] Admit Date: 04/22/2023 01:11:00 PM Patient Name: Chaitanya Suarez Visit Number: [id number] Discharge Date: ATTENTION: The Clinical Documentation Specialists (CDI) and [facility] Coding Staff appreciate your assistance in clarifying documentation. Please respond to the clarification below the line at the bottom and electronically sign. The CDI & [facility] Coding staff will review the response and follow-up if needed. Please note: Queries are made part of the Legal Health Record. If you have any questions, please contact the author of this message via ITS. Dr. Cindy Carlisle Postoperative ileus is documented 04/27, Surgical progress note, and patient had right hemicolectomy, 04/23. Additional clarification is requested regarding the relationship, if any, that exists between the diagnosis and the procedure. Patients Admitting Diagnosis: Acute GI bleed with hematochezia, Large cecal neoplasm with active moderate bleeding. Post-Operative Diagnosis: Large over 20cm cecal mass with active bleeding. Procedure performed: Open lysis of adhesions, Abdominal lavage, Extended right hemicolectomy, Small bowel resection with primary anastomosis at the ileum. History/Risk Factors: 83 year old male presents to the ED with rectal bleeding, bright red and black loose stool with right sided abdominal discomfort. Medical history: Atrial fibrillation anticoagulated on Coumadin and colon cancer with bowel resection in 2004. 04/18, H&P. Clinical Indicators: CT abdomen pelvis 04/26: Prominent loops of small bowel throughout the abdomen correlate for ileus. Abdominal xray 04/29: Interval reduction in the dilation of the small bowel relative to the prior exam with contrast now seen in the left colon extending to the rectum.Ileus or partial obstruction remains in the differential diagnosis. Treatment: NG tube low intermittent wall suction, monitoring of output, Abdominal xrays What relationship, if any, exists between the diagnosis of Postoperative Ileus and the procedure: [ ] Postoperative Ileus is a complication of surgical procedure [ X ] Postoperative Ieus is an expected outcome of the surgical procedure [ X ] Postoperative Ileus is related to patients co-morbid condition(s) of [insert co-morbid dxs] & not a complication of the procedure [ ] [insert dx] has been ruled out [ ] Other please specify ____ [ ] Unable to determine (Template Last Revised: November 2020) [ X ] Postoperative Ieus is an expected outcome of the surgical procedure -- for emergency colectomy...not a complication of the procedure [ X ] Postoperative Ileus is related to patients co-morbid condition(s) of [insert co-morbid dxs] & not a complication of the procedure -- 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 HOLA 05/10/23 @ 0803 [id number]
[2023-04-29] MEDS ORDERED: METOPROLOL TARTRATE 25 MG TAB PO SCH (21:00)
[2023-04-29] MEDS: MONTELUKAST 10 MG TAB PO SCH (22:16)
[2023-04-29] MEDS: ATORVASTATIN 10 MG TAB PO SCH (22:16)
--- NOTE | 2023-04-29 22:38 | P.PN ---
Subjective Progress Note Date: 04/26/23 Patient is a pleasant 83-year-old white male who is admitted after acute GI bleed undergoing a colonoscopy started hemorrhaging because of a cecal mass and was taken to emergent surgery and had a right hemicolectomy he is currently in the intensive care. patient pain is well tolerated and he is just extremely thirsty. He doesn't report any other significant problems today. Pathology for this cecal mass is pending currently. patient on clear liquids and tolerating well. He suffered a bout of tachycardia and was feeling sluggish.Now on new meds for Vtach. Objective - Vital Signs Vital signs: Vital Signs Temp 98.4 F 04/29/23 12:00 Pulse 66 04/29/23 12:00 Resp 17 04/29/23 12:00 BP 120/63 04/29/23 12:00 Pulse Ox 96 04/29/23 12:00 FiO2 Intake & Output 04/29/23 04/29/23 04/30/23 06:59 18:59 06:59 Intake Total 75 1325 Output Total 250 575 Balance -175 750 Weight 110.5 kg 110.5 kg Intake: IV 75 1325 Lactated Ringers 1,000 ml 75 1125 @ 75 mls/hr IV .[id number] R[facility] Rx#:[id number] Piperacillin-Tazobactam 3 100 .375 gm In Sodium Chloride 0.9% 100 ml @ 25 mls/hr IVPB Q8HR R[facility] Rx# :[id number] metroNIDAZOLE-NS PMX 500 100 mg In Saline 1 100ml.bag @ 100 mls/hr IVPB Q8HR R[facility] Rx#:[id number] Output: Gastric Drainage 200 Urine 250 375 Other: Voiding Method Indwelling Catheter Indwelling Catheter - Exam PHYSICAL EXAM: VITAL SIGNS: [As above] GENERAL: Alert and oriented 3, Sitting up in bed, no acute distress HEENT: Normocephalic, Conjunctivae normal. eyes normal. NECK: Supple, No JVD. CARDIOVASCULAR: S1, S2 regular. No murmur RESPIRATION: Unlabored, bilateral air entry .Breath sounds diminished in the bases. ABDOMEN: Soft, nondistended, minimal right-sided tenderness. No guarding. +Bowel sounds. LEGS: Minimal edema. no clubbing, no cyanosis. Positive DP pulses. NERVOUS SYSTEM: Cranial N 2-12 grossly normal. No focal deficits. Strength and sensation grossly intact. Skin: Warm and dry, no rash. - Labs CBC & Chem 7: 04/29/23 10:09 04/29/23 10:09 Labs: Abnormal Lab Results - Last 24 Hours (Table) 04/29/23 04/29/23 Range/Units 10:09 10:09 WBC 10.8 H (3.8-10.6) k/uL RBC 3.04 L (4.30-5.90) m/uL Hgb 9.1 L (13.0-17.5) gm/dL Hct 29.2 L (39.0-53.0) % RDW 17.1 H (11.5-15.5) % Neutrophils # 8.7 H (1.3-7.7) k/uL Sodium 135 L (137-145) mmol/L BUN 21 H (9-20) mg/dL Glucose 70 L (74-99) mg/dL Calcium 7.7 L (8.4-10.2) mg/dL Total Protein 4.3 L (6.3-8.2) g/dL Albumin 2.1 L (3.5-5.0) g/dL Assessment and Plan (1) Anemia Current Visit: Yes Status: Acute Priority: High Code(s): D64.9 - ANEMIA, UNSPECIFIED SNOMED Code(s): 365460072 (2) Gastrointestinal bleeding Current Visit: Yes Status: Acute Priority: High Code(s): K92.2 - GASTROINTESTINAL HEMORRHAGE, UNSPECIFIED SNOMED Code(s): 16155753 (3) Mass of cecum Current Visit: Yes Status: Acute Priority: High Code(s): K63.89 - OTHER SPECIFIED DISEASES OF INTESTINE SNOMED Code(s): 6489465005 (4) S/P right hemicolectomy Current Visit: Yes Status: Acute Code(s): Z90.49 - ACQUIRED ABSENCE OF OTHER SPECIFIED PARTS OF DIGESTIVE TRACT SNOMED Code(s): 901579037 (5) Ventricular tachycardia (paroxysmal) Current Visit: Yes Status: Acute Code(s): I47.29 - OTHER VENTRICULAR TACHYCARDIA SNOMED Code(s): 71684715 Plan: Continue postoperative care postsurgical care. Was placed on new cardiac medication seems to be doing better at this point we'll continue to monitor situation encourage early ambulation DVT prophylaxis up in chair upright hallways today Time with Patient: Greater than 30
--- NOTE | 2023-04-29 22:49 | P.PN ---
Subjective Progress Note Date: 04/29/23 Patient is a pleasant 83-year-old white male who is admitted after acute GI bleed undergoing a colonoscopy started hemorrhaging because of a cecal mass and was taken to emergent surgery and had a right hemicolectomy he is currently in the intensive care.Patient has suffered a partial small bowel obstruction postoperatively and an NG tube was inserted he's left nothing by mouth he is currently not had any bowel movements or passed any gas today are overnight he remains in the intensive care. He does admit to being quite thirsty and hungry. Objective - Vital Signs Vital signs: Vital Signs Temp 98.4 F 04/29/23 12:00 Pulse 66 04/29/23 12:00 Resp 17 04/29/23 12:00 BP 120/63 04/29/23 12:00 Pulse Ox 96 04/29/23 12:00 FiO2 Intake & Output 04/29/23 04/29/23 04/30/23 06:59 18:59 06:59 Intake Total 75 1325 Output Total 250 575 Balance -175 750 Weight 110.5 kg 110.5 kg Intake: IV 75 1325 Lactated Ringers 1,000 ml 75 1125 @ 75 mls/hr IV .[id number] R[facility] Rx#:[id number] Piperacillin-Tazobactam 3 100 .375 gm In Sodium Chloride 0.9% 100 ml @ 25 mls/hr IVPB Q8HR [facility] Rx# :[id number] metroNIDAZOLE-NS PMX 500 100 mg In Saline 1 100ml.bag @ 100 mls/hr IVPB Q8HR R[facility] Rx#:[id number] Output: Gastric Drainage 200 Urine 250 375 Other: Voiding Method Indwelling Catheter Indwelling Catheter - Exam PHYSICAL EXAM: VITAL SIGNS: [As above] GENERAL: Alert and oriented 3, Sitting up in bed, no acute distress HEENT: Normocephalic, Conjunctivae normal. eyes normal. NECK: Supple, No JVD. CARDIOVASCULAR: S1, S2 regular. No murmur RESPIRATION: Unlabored, bilateral air entry .Breath sounds diminished in the bases. ABDOMEN: Soft, nondistended, minimal right-sided tenderness. No guarding. +Bowel sounds. LEGS: Minimal edema. no clubbing, no cyanosis. Positive DP pulses. NERVOUS SYSTEM: Cranial N 2-12 grossly normal. No focal deficits. Strength and sensation grossly intact. Skin: Warm and dry, no rash. - Labs CBC & Chem 7: 04/29/23 10:09 04/29/23 10:09 Labs: Abnormal Lab Results - Last 24 Hours (Table) 04/29/23 04/29/23 Range/Units 10:09 10:09 WBC 10.8 H (3.8-10.6) k/uL RBC 3.04 L (4.30-5.90) m/uL Hgb 9.1 L (13.0-17.5) gm/dL Hct 29.2 L (39.0-53.0) % RDW 17.1 H (11.5-15.5) % Neutrophils # 8.7 H (1.3-7.7) k/uL Sodium 135 L (137-145) mmol/L BUN 21 H (9-20) mg/dL Glucose 70 L (74-99) mg/dL Calcium 7.7 L (8.4-10.2) mg/dL Total Protein 4.3 L (6.3-8.2) g/dL Albumin 2.1 L (3.5-5.0) g/dL Assessment and Plan (1) Anemia Current Visit: Yes Status: Acute Priority: High Code(s): D64.9 - ANEMIA, UNSPECIFIED SNOMED Code(s): 323746084 (2) Gastrointestinal bleeding Current Visit: Yes Status: Acute Priority: High Code(s): K92.2 - GASTROINTESTINAL HEMORRHAGE, UNSPECIFIED SNOMED Code(s): 19118991 (3) Mass of cecum Current Visit: Yes Status: Acute Priority: High Code(s): K63.89 - OTHER SPECIFIED DISEASES OF INTESTINE SNOMED Code(s): 1987799879 (4) S/P right hemicolectomy Current Visit: Yes Status: Acute Code(s): Z90.49 - ACQUIRED ABSENCE OF OTHER SPECIFIED PARTS OF DIGESTIVE TRACT SNOMED Code(s): 272457937 (5) Ventricular tachycardia (paroxysmal) Current Visit: Yes Status: Acute Code(s): I47.29 - OTHER VENTRICULAR TACHYCARDIA SNOMED Code(s): 56880574 Plan: Continue postoperative care postsurgical care. DVT prophylaxis and control continue NG tube to suction and await resolution of the abdominal ileus Time with Patient: Greater than 30
[2023-04-30] MEDS: metroNIDAZOLE-NS PMX 500 MG in SALINE 1 100ML.BAG IVPB SCH ×3 (01:17→15:33)
[2023-04-30] MEDS: PIPERACILLIN-TAZOBACTAM 3.375 GM in SODIUM CHLORIDE 0.9% 100 ML IVPB SCH ×3 (01:18→16:31)
[2023-04-30] MEDS: SIMETHICONE 80 MG CHEWABLE PO SCH ×4 (07:05→21:19)
[2023-04-30 07:07] LABS: ALT 22 U/L (4-49); AST 31 U/L (17-59); African American GFR (CKD) >90 (>60 ml/min/1.73 sqM); Albumin 2.2 g/dL (3.5-5.0); Alkaline Phosphatase 42 U/L (38-126); Anion Gap 5 mmol/L; Blood Urea Nitrogen 18 mg/dL (9-20); Calcium 7.6 mg/dL (8.4-10.2); Carbon Dioxide 29 mmol/L (22-30); Chloride 99 mmol/L (98-107); Glucose 168 mg/dL (74-99); Non-African American GFR(CKD) 89 (>60 ml/min/1.73 sqM); Phosphorus 2.9 mg/dL (2.5-4.5); Potassium 3.8 mmol/L (3.5-5.1); Sodium 133 mmol/L (137-145); Total Bilirubin 0.5 mg/dL (0.2-1.3); Total Protein 4.3 g/dL (6.3-8.2)
[2023-04-30] MEDS: TAMSULOSIN 0.4 MG CAP.ER.24H PO SCH ×2 (08:23→21:19)
[2023-04-30] MEDS: LACTATED RINGERS 1,000 ML IV SCH ×2 (08:24→21:27)
[2023-04-30] MEDS: PANTOPRAZOLE 40 MG/10 ML VIAL IVP SCH (08:34)
[2023-04-30] MEDS: FAT EMULSION 20% 250 ML in EMPTY BAG 1 BAG IV SCH (08:35)
[2023-04-30] MEDS ORDERED: FUROSEMIDE 10 MG/ML 4 ML VIAL IV STA (08:41)
[2023-04-30] MEDS ORDERED: Potassium Replacement Protocol 1 EACH MISC MISCELLANE PRN ×2 (08:57→17:26)
--- NOTE | 2023-04-30 09:04 | P.PN ---
Subjective Progress Note Date: 04/30/23 Ventricular tachycardia The patient is an 83-year-old gentleman with a past medical history significant for permanent pacemaker and paroxysmal atrial fibrillation as well as hypertension and dyslipidemia and preserved LV systolic function on the last echocardiogram from October was admitted to the hospital with abdominal discomfort and he underwent surgery including lysis of adhesions and washout and a mass resection from the cecum. The patient was supposed to be transferred out of the ICU yesterday when he did have an episode of wide complex rhythm consistent of ventricular tachycardia. It was somewhat sustained. I started the patient on amiodarone IV. His magnesium was replaced. Since then he did not have any more episodes of ventricular tachycardia April [id number] He is asymptomatic and hemodynamically stable. I'm going to DC and no IV and start the patient on nothing by mouth orally. To be started on oral anticoagulation once is safe from the surgical standpoint overview. Beside that continue the current dose of beta jacob with atenolol which has increased yesterday. The patient eventually Transferred out of the intensive care unit. The examination is remarkable for regular rhythm with distant heart sounds and diminished breathing sounds bilaterally and bilateral lower extremity edema 04/27/2023 The patient was seen and evaluated this morning. Apparently he has been experiencing abdominal discomfort and abdominal distention. Computed tomography scan of the abdomen and pelvis was performed yesterday and showed ileus with evidence of possible pneumoperitoneum. Surgery is on the case. He went into ventricular tachycardia yesterday I did start the patient back on amiodarone IV. When he was seen this morning he seems to be an issue affiliations/atrial fl utter with overall controlled heart rate. Anticoagulation is on hold at this point. The examination is remarkable for extremely distended abdomen. 04/28/2023. The patient was seen and evaluated this morning. He underwent a workup for abdominal distention and that came in to be remarkable for ileus. An NG tube was placed and the abdominal distention as well as the patient's symptoms improved significantly. Hemodynamically he is in atrial fibrillation/flutter with overall controlled heart rate. He is not on any oral anticoagulation but we are going to check with the surgical team safety of starting him on small dose of oral anticoagulation. Beside that on examination he seems to be having upper and lower extremity edema and without being seen point. The patient 20 mg of Lasix IV. We'll continue following up with the patient. No more episodes of ventricular tachycardia. 04/29/2023 Patient was seen and examined this morning. Patient is getting NG tube feeds and is tolerating them well. He is hemodynamically stable. He has atrial flutter with controlled ventricular rate. His last echo from this admission showed an LVEF of 50-55%. 04/30/23 Patient is doing well. He is on clear liquid diet started taking it. His telemetry shows typical atrial flutter, Which is rate controlled. he has not had any further episodes of ventricular tachycardia and last 48 hours. He a ppears mildly volume overloaded today. We will give him 1 time dose of Lasix 40 mg IV Assessment Atrial flutter, rate controlled 2:1 Ventricular tachycardia which has resolved Paroxysmal atrial fibrillation. The patient is in atrial fibrillation at this point Status post right hemicolectomy for cecal mass GI Bleed while on coumadin due to above Permanent pacemaker Hypertension Dyslipidemia Ileus Plan Give one time Lasix 40 mg IV Discontinue atenolol and continue metoprolol 50 mg twice daily. He was not on anticoagulation at this time due to recent GI bleeding and surgery. Once cleared by surgery I would like to place him on systemic anticoagulation. I will like to also offer rhythm controlled by either medications or electrical cardioversion once it is safe to start him on antico agulation. Would appreciate feedback from surgery team about there thoughts on systemic and evaluation at this time. He will be a good candidate for Watchman device placement. Objective - Vital Signs Vital signs: Vital Signs Temp 98.6 F 04/30/23 08:00 Pulse 86 04/30/23 08:00 Resp 18 04/30/23 08:00 BP 110/59 04/30/23 08:00 Pulse Ox 93 L 04/30/23 08:00 FiO2 Intake & Output 04/29/23 04/30/23 04/30/23 18:59 06:59 18:59 Intake Total 1325 800 800 Output Total 575 320 780 Balance 750 480 20 Weight 110.5 kg 113.6 kg Intake: IV 1325 800 800 Lactated Ringers 1,000 ml 1125 600 600 @ 75 mls/hr IV .[id number] [facility] Rx#:[id number] Piperacillin-Tazobactam 3 100 100 100 .375 gm In Sodium Chloride 0.9% 100 ml @ 25 mls/hr IVPB Q8HR [facility] Rx# :[id number] metroNIDAZOLE-NS PMX 500 100 100 100 mg In Saline 1 100ml.bag @ 100 mls/hr IVPB Q8HR [facility] Rx#:[id number] Output: Gastric Drainage 200 650 Urine 375 320 130 Other: Voiding Method Indwelling Catheter Indwelling Catheter - Labs CBC & Chem 7: 04/29/23 10:09 04/30/23 06:10 Labs: Abnormal Lab Results - Last 24 Hours (Table) 04/29/23 04/29/23 04/30/23 Range/Units 10:09 10:09 06:10 WBC 10.8 H (3.8-10.6) k/uL RBC 3.04 L (4.30-5.90) m/uL Hgb 9.1 L (13.0-17.5) gm/dL Hct 29.2 L (39.0-53.0) % RDW 17.1 H (11.5-15.5) % Neutrophils # 8.7 H (1.3-7.7) k/uL Sodium 135 L 133 L (137-145) mmol/L BUN 21 H (9-20) mg/dL Creatinine 0.64 L (0.66-1.25) mg/dL Glucose 70 L 168 H (74-99) mg/dL Calcium 7.7 L 7.6 L (8.4-10.2) mg/dL Total Protein 4.3 L 4.3 L (6.3-8.2) g/dL Albumin 2.1 L 2.2 L (3.5-5.0) g/dL
--- NOTE | 2023-04-30 09:26 | P.PN ---
Subjective Progress Note Date: 04/30/23 On 2022, the patient is postop day #6. He presented to us with GI bleed and the large cecal mass and bowel obstruction. The patient was taken to the operating room and the patient underwent exploratory laparotomy, abdominal washout, right hemicolectomy and small bowel resection. An external wound VAC is currently present. Postop, the patient developed an ileus and an NG tube was inserted on 04/27/2023. The NG tube is still active and output is still active. The patient's bowel sounds are very much hypoactive at this point in time. He states that he was able to pass flatus today. Surgical wound is dry clean and intact. Abdomen is less distended on today's evaluation and is resting comfortably in bed and he remains nothing by mouth at this point in time. Cardiac rhythm is paced. He is currently on oxygen at 2 L with a pulse ox of 96%. In terms of his lab work, the patient has a white cell count of 15 and a hemoglobin of 9.1 and a platelet count of 298. This blood work is from yesterday. Electrolytes all normal. Creatinine is at 0.6. As stated, the patient is nothing by mouth. He is on IV fluids in the form of lactated Ringer running at 75 mL an hour. No issues with pain. He remains on broad-spectrum antibiotic coverage with IV Zosyn. He was taking warfarin on outpatient basis and currently is not receiving any form of anticoagulants. He has history of paroxysmal A. fib and current rhythm is a. His echocardiogram that was done on 04/26/2023 showed a normal LV function, no significant valvular abnormalities in his right ventricular systolic pressures around 39. 04/30/2023, the patient is postop day #7. The patient feels that he is passing flatus. No active bowel movements yet. NG tube is in place. The patient is status post resection of a cecal mass, extraocular laparotomy and right hemicolectomy and small bowel resection. The patient continues to have some degree of abdominal distention. Surgical wound is dry clean and intact. The patient remains nothing by mouth and the patient was started on TPN yesterday for nutritional support. The patient remains on IV Zosyn. His cardiac rhythm is paced with some background/flutter.Blood work from today shows a sodium level of 133, potassium level of 3.8, chloride is 99 with a bicarb of 25 and the patient is a BUN of 18 with a creatinine of 0.6. Triglyceride level is at 136. Serum albumin is at 2.2 with a total protein of 4.3. The next fluid balance over the past 24 hours has been +1.2 L. He has developed some edema in his upper and lower extremities bilaterally. Marroquin catheter still in place. Remains on IV Zosyn. Remains on Flagyl. He was able to sit up on a chair yesterday. He is using the incentive spirometer. Objective - Vital Signs Vital signs: Vital Signs Temp 98.6 F 04/30/23 08:00 Pulse 86 04/30/23 08:00 Resp 18 04/30/23 08:00 BP 110/59 04/30/23 08:00 Pulse Ox 93 L 04/30/23 08:00 FiO2 Intake & Output 04/29/23 04/30/23 04/30/23 18:59 06:59 18:59 Intake Total 1325 800 800 Output Total 575 320 780 Balance 750 480 20 Weight 110.5 kg 113.6 kg Intake: IV 1325 800 800 Lactated Ringers 1,000 ml 1125 600 600 @ 75 mls/hr IV .[id number] [facility] Rx#:[id number] Piperacillin-Tazobactam 3 100 100 100 .375 gm In Sodium Chloride 0.9% 100 ml @ 25 mls/hr IVPB Q8HR [facility] Rx# :[id number] metroNIDAZOLE-NS PMX 500 100 100 100 mg In Saline 1 100ml.bag @ 100 mls/hr IVPB Q8HR [facility] Rx#:[id number] Output: Gastric Drainage 200 650 Urine 375 320 130 Other: Voiding Method Indwelling Catheter Indwelling Catheter - Exam No acute distress, oriented 3. The patient is on 2 L by nasal cannula. Head exam was generally normal. There was no scleral icterus or corneal arcus. Mucous membranes were moist. HEENT examination is grossly unremarkable. Mucous membranes are moist. No oral lesions. NG tube in place. Neck supple. Full range of motion. No adenopathy thyromegaly or neck vein distention. Cardiovascular examination reveals regular rhythm rate. S1-S2 normal. No S3 or S4. No discernible murmur noted. Patient has a pacemaker in place and his current rhythm is atrial flutter with occasional pacing. Lungs reveal clear breath sounds. Breath sounds are equal bilaterally. No adventitious lung sounds including wheezes rhonchi or crackles. 2 L saturation is 97%. Abdomen soft, without bowel sounds. The abdomen is nontender at this point in time. Abdomen is less distended. Bowel sounds are absent. The surgical wound is dry clean and intact and there is a external wound VAC in place. Extremities are intact. No cyanosis clubbing or edema. Skin is without rash or lesion. Neurologic examination is brief but nonfocal. - Labs CBC & Chem 7: 04/29/23 10:09 04/30/23 06:10 Labs: Abnormal Lab Results - Last 24 Hours (Table) 04/29/23 04/29/23 04/30/23 Range/Units 10:09 10:09 06:10 WBC 10.8 H (3.8-10.6) k/uL RBC 3.04 L (4.30-5.90) m/uL Hgb 9.1 L (13.0-17.5) gm/dL Hct 29.2 L (39.0-53.0) % RDW 17.1 H (11.5-15.5) % Neutrophils # 8.7 H (1.3-7.7) k/uL Sodium 135 L 133 L (137-145) mmol/L BUN 21 H (9-20) mg/dL Creatinine 0.64 L (0.66-1.25) mg/dL Glucose 70 L 168 H (74-99) mg/dL Calcium 7.7 L 7.6 L (8.4-10.2) mg/dL Total Protein 4.3 L 4.3 L (6.3-8.2) g/dL Albumin 2.1 L 2.2 L (3.5-5.0) g/dL Assessment and Plan Plan: Acute lower gastrointestinal bleed, secondary to colonic mass.Postop day #7, status post exploratory laparotomy, lysis of adhesions, abdominal washout, right hemicolectomy, small bowel resection, and placement of a wound VAC. Patient is hemodynamically stable. The patient is on broad-spectrum antibiotic coverage with IV Zosyn and Flagyl. 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 TPN was started yesterday Postoperative ventricular tachycardia, resolved. History of colon cancer, S/P colon resection, 2004. History of paroxysmal atrial fibrillation/atrial flutter post-ablation and the patient is a preserved LV function, the patient has a permanent pacemaker in place History of asthma. History of CVA. History of dyslipidemia. History of hypertension. History of A. fib/flutter, History of cardiac ablation 2. The patient is demented on long-term anticoagulants with warfarin on outpatient basis Post surgical anemia, expected outcome of surgery and GI bleeding. Hemoglobin from yesterday was 8.7, awaiting hemoglobin from today Focal 1.2 cm area of erosion in the posterior superior to 10 vertebral body, consider possibility of metastases. Bone scan was done and there was no signi ficant abnormalities to suggest O2 blastic metastatic disease. Plan: Keep the patient nothing by mouth Continue TPN for nutritional support as the patient shows no immediate recovery in his ileus Monitor NG tube output Monitor bowel sounds and bowel movements and activities Continue lactated Ringer 75 cc/hr Monitor hemoglobin pending from today Increase mobility and ask the patient is up on a chair Keep the patient ICU for further monitoring.
[2023-04-30] MEDS: POTASSIUM CHLORIDE 10 MEQ in WATER FOR INJECTION 1 100ML.BAG IVPB SCH ×4 (09:56→19:05)
[2023-04-30 11:10] LABS: Anisocytosis Slight; HCT 28.6 % (39.0-53.0); HGB 9.1 gm/dL (13.0-17.5); Hypochromasia Marked; MCH 30.8 pg (25.0-35.0); MCHC 31.8 g/dL (31.0-37.0); MCV 96.8 fL (80.0-100.0); Macrocytosis Slight; Mean Platelet Volume 9.6; Platelet Count 289 k/uL (150-450); RBC 2.96 m/uL (4.30-5.90); RDW 16.9 % (11.5-15.5); WBC 14.5 k/uL (3.8-10.6)
[2023-04-30] MEDS: METOPROLOL TARTRATE 50 MG TAB PO SCH ×2 (12:31→21:19)
--- NOTE | 2023-04-30 15:35 | P.PN ---
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 Over the weekend, patient had ileus. Nasogastric tube was placed. Patient denies abdominal pain. He is having a small amount of flatus. NG tube output with 650 mL output to the night and 800 mL output today. Patient denies any bowel movements. Denies any nausea. Abdominal x-ray from yesterday interval reduction in the dilation of the small bowel relative to prior exam with contrast now seen in the left colon extending to the rectum. Ileus or partial obstruction remains in the differential diagnosis. PHYSICAL EXAM: VITAL SIGNS: Reviewed GENERAL: Well-developed in no acute distress. HEENT: No sclera icterus. Extraocular movements grossly intact. Moist buccal mucosa. Head is atraumatic, normocephalic. Hears conversational speech. No nasal drainage. NECK: Supple without lymphadenopathy. CHEST: Non-labored respirations and equal bilateral excursions. CARDIOVASCULAR: Palpable 2+ radial pulses. ABDOMEN: Soft. Nondistended. Nontender. Prevana wound VAC intact MUSCULOSKELETAL: No clubbing or cyanosis. NEUROLOGIC: No focal or lateralizing signs. Cranial nerves II through XII grossly intact. PSYCH: Appropriate affect. Alert and oriented to person, place and time. SKIN: Well perfused. Good skin turgor. ASSESSMENT: 1. Acute blood loss anemia 2. Large cecal mass, neoplasm, locally invasive 3. Acute gastrointestinal bleeding from cecal mass 4. Leukocytosis. 5. Ileus PLAN: -Continue NG tube for decompression -discontinue Prevana wound vac tomorrow -Continue TPN for nutrition support -Encourage patient to ambulate -Encourage patient to use incentive spirometer Physician Multimedia Programmer note has been reviewed by physician. Signing provider agrees with the documented findings, assessment, and plan of care. Objective - Vital Signs Vital signs: Vital Signs Temp 98.6 F 04/30/23 08:00 Pulse 86 04/30/23 08:00 Resp 18 04/30/23 08:00 BP 110/59 04/30/23 08:00 Pulse Ox 93 L 04/30/23 08:00 FiO2 Intake & Output 04/29/23 04/30/23 04/30/23 18:59 06:59 18:59 Intake Total 2449 218 0525 Output Total 963 616 7618 Balance 750 480 -1680 Weight 110.5 kg 113.6 kg Intake: IV 1325 800 800 Lactated Ringers 1,000 ml 1125 600 600 @ 75 mls/hr IV .[id number] R[facility] Rx#:[id number] Piperacillin-Tazobactam 3 100 100 100 .375 gm In Sodium Chloride 0.9% 100 ml @ 25 mls/hr IVPB Q8HR R[facility] Rx# :[id number] metroNIDAZOLE-NS PMX 500 100 100 100 mg In Saline 1 100ml.bag @ 100 mls/hr IVPB Q8HR R[facility] Rx#:[id number] Intake, IV Titration 100 Amount Potassium Chloride 10 meq 100 In Water For Injection 1 100ml.bag @ 100 mls/hr IVPB Q1H R[facility]GER Rx#: [id number] Oral 150 Output: Gastric Drainage 200 800 Urine 483 160 8893 Other: Voiding Method Indwelling Catheter Indwelling Catheter # Bowel Movements 1 - Labs CBC & Chem 7: 04/30/23 09:30 04/30/23 06:10 Labs: Abnormal Lab Results - Last 24 Hours (Table) 04/30/23 04/30/23 Range/Units 06:10 09:30 WBC 14.5 H (3.8-10.6) k/uL RBC 2.96 L (4.30-5.90) m/uL Hgb 9.1 L (13.0-17.5) gm/dL Hct 28.6 L (39.0-53.0) % RDW 16.9 H (11.5-15.5) % Sodium 133 L (137-145) mmol/L Creatinine 0.64 L (0.66-1.25) mg/dL Glucose 168 H (74-99) mg/dL Calcium 7.6 L (8.4-10.2) mg/dL Total Protein 4.3 L (6.3-8.2) g/dL Albumin 2.2 L (3.5-5.0) g/dL
--- NOTE | 2023-04-30 17:56 | P.PN ---
Subjective Progress Note Date: 04/30/23 Principal diagnosis: Anemia, GI bleed, diarrhea, cecal mass-Diagnosed with high-grade lymphoma Patient continues to be in the ICU. He is tolerating some clears. He reports he has an appetite. He did have a bowel movement, he denies any abdominal pain or incisional pain. He is concerned about how weak he is, His legs feel like "lead". Objective - Vital Signs Vital signs: Vital Signs Temp 98.6 F 04/30/23 08:00 Pulse 67 04/30/23 12:31 Resp 18 04/30/23 08:00 BP 113/64 04/30/23 12:31 Pulse Ox 93 L 04/30/23 08:00 FiO2 Intake & Output 04/29/23 04/30/23 04/30/23 18:59 06:59 18:59 Intake Total 4319 363 1259 Output Total 492 409 7654 Balance 750 480 -1555 Weight 110.5 kg 113.6 kg Intake: IV 4986 812 3389 Lactated Ringers 1,000 ml 7256 106 7782 @ 75 mls/hr IV .[id number] [facility] Rx#:[id number] Piperacillin-Tazobactam 3 100 100 200 .375 gm In Sodium Chloride 0.9% 100 ml @ 25 mls/hr IVPB Q8HR [facility] Rx# :[id number] metroNIDAZOLE-NS PMX 500 100 100 200 mg In Saline 1 100ml.bag @ 100 mls/hr IVPB Q8HR [facility] Rx#:[id number] Intake, IV Titration 200 Amount Potassium Chloride 10 meq 200 In Water For Injection 1 100ml.bag @ 100 mls/hr IVPB Q1H [facility] Rx#: [id number] Oral 150 Output: Gastric Drainage 200 800 Urine [phone] Other: Voiding Method Indwelling Catheter Indwelling Catheter Indwelling Catheter # Bowel Movements 1 - Constitutional General appearance: Present: cooperative, no acute distress, obese - EENT Eyes: Present: anicteric sclerae, EOMI ENT: Present: hearing grossly normal - Respiratory Details: Respirations even and unlabored at rest - Cardiovascular Rhythm: regular - Peripheral edema leg Peripheral Edema: bilateral: Trace - Gastrointestinal General gastrointestinal: Present: normal bowel sounds, soft - Neurologic Neurologic: Present: CNII-XII intact - Musculoskeletal Musculoskeletal: Present: generalized weakness - Psychiatric Psychiatric: Present: A&O x's 3, appropriate affect, intact judgment & insight - Labs CBC & Chem 7: 04/30/23 09:30 04/30/23 15:44 Labs: Abnormal Lab Results - Last 24 Hours (Table) 04/30/23 04/30/23 Range/Units 06:10 09:30 WBC 14.5 H (3.8-10.6) k/uL RBC 2.96 L (4.30-5.90) m/uL Hgb 9.1 L (13.0-17.5) gm/dL Hct 28.6 L (39.0-53.0) % RDW 16.9 H (11.5-15.5) % Sodium 133 L (137-145) mmol/L Creatinine 0.64 L (0.66-1.25) mg/dL Glucose 168 H (74-99) mg/dL Calcium 7.6 L (8.4-10.2) mg/dL Total Protein 4.3 L (6.3-8.2) g/dL Albumin 2.2 L (3.5-5.0) g/dL Assessment and Plan (1) Anemia Current Visit: Yes Status: Acute Priority: High Code(s): D64.9 - ANEMIA, UNSPECIFIED SNOMED Code(s): 678819629 (2) Gastrointestinal bleeding Current Visit: Yes Status: Acute Priority: High Code(s): K92.2 - GASTROINTESTINAL HEMORRHAGE, UNSPECIFIED SNOMED Code(s): 36037820 (3) Mass of cecum Current Visit: Yes Status: Acute Priority: High Code(s): K63.89 - OTHER SPECIFIED DISEASES OF INTESTINE SNOMED Code(s): 0666095582 (4) Lymphoma Current Visit: Yes Status: Acute Priority: High Code(s): C85.90 - NON- HODGKIN LYMPHOMA, UNSPECIFIED, UNSPECIFIED SITE SNOMED Code(s): 696248806 Plan: Iron deficient anemia -Hgb stable today at 9.1 -Most likely secondary to cecal mass, GI blood losses -Status post parenteral iron. Will likely need additional doses of iron in the future. Pending recovery of his current condition. Continue parenteral iron outpatient -Coumadin has been held. Pt was on for a-fib. Cardiology is following closely GI bleed, cecal mass resection -Biopsy neg -Reviewed the pathology with the patient. Right hemicolectomy, high grade B cell non-Hodgkin's lymphoma. 3 of 8 mesenteric nodes are involved by direct invasion. Weakly positive BCL-2, weakly positive BCL 6, being sent for MYC, weakly positive MUM1. KI-67 immunostains show a proliferative index of greater than 80% among the atypical lymphoid cells. Pending addendum for final differentiation of lymphoma. -Explained to patient that final treatment recommendations can be discussed once the additional testing is completed and a staging PET scan has been performed. -Reinforced with patient that no treatment would begin until he is completely recovered and rehabilitated. -Patient verbalized understanding the plan. We'll continue to educate the patient about his lymphoma diagnosis. He does understand that it is treatable, there are even oral options now. -Post op ileus. NG tube. Pt had BM today. Surgery following closely.
[2023-04-30] MEDS: 1: MVI, ADULT NO.4 WITH VIT K 10 ML, TRACE (CONC-1ML/DOSE) 1 ML in AMINO ACID 5%-D20W+LY IV SCH ×3 (18:55)
[2023-04-30] MEDS: ATORVASTATIN 10 MG TAB PO SCH (21:19)
[2023-04-30] MEDS: MONTELUKAST 10 MG TAB PO SCH (21:19)
[2023-05-01] MEDS: PIPERACILLIN-TAZOBACTAM 3.375 GM in SODIUM CHLORIDE 0.9% 100 ML IVPB SCH ×3 (00:56→16:54)
[2023-05-01] MEDS: metroNIDAZOLE-NS PMX 500 MG in SALINE 1 100ML.BAG IVPB SCH ×3 (00:58→16:53)
[2023-05-01 05:54] LABS: ALT 17 U/L (4-49); AST 22 U/L (17-59); African American GFR (CKD) >90 (>60 ml/min/1.73 sqM); Albumin 2.1 g/dL (3.5-5.0); Alkaline Phosphatase 38 U/L (38-126); Anion Gap 3 mmol/L; Blood Urea Nitrogen 14 mg/dL (9-20); Calcium 7.5 mg/dL (8.4-10.2); Carbon Dioxide 30 mmol/L (22-30); Chloride 97 mmol/L (98-107); Glucose 292 mg/dL (74-99); Non-African American GFR(CKD) >90 (>60 ml/min/1.73 sqM); Potassium 3.8 mmol/L (3.5-5.1); Sodium 130 mmol/L (137-145); Total Bilirubin 0.4 mg/dL (0.2-1.3); Total Protein 4.2 g/dL (6.3-8.2)
[2023-05-01] MEDS: SIMETHICONE 80 MG CHEWABLE PO SCH ×4 (06:30→21:50)
[2023-05-01] MEDS: 1: MVI, ADULT NO.4 WITH VIT K 10 ML, TRACE (CONC-1ML/DOSE) 1 ML in AMINO ACID 5%-D20W+LY IV SCH ×6 (06:30→17:27)
[2023-05-01] MEDS ORDERED: FUROSEMIDE 10 MG/ML 4 ML VIAL IV STA (09:11)
--- NOTE | 2023-05-01 09:12 | P.PN ---
Subjective Progress Note Date: 05/01/23 On 2022, the patient is postop day #6. He presented to us with GI bleed and the large cecal mass and bowel obstruction. The patient was taken to the operating room and the patient underwent exploratory laparotomy, abdominal washout, right hemicolectomy and small bowel resection. An external wound VAC is currently present. Postop, the patient developed an ileus and an NG tube was inserted on 04/27/2023. The NG tube is still active and output is still active. The patient's bowel sounds are very much hypoactive at this point in time. He states that he was able to pass flatus today. Surgical wound is dry clean and intact. Abdomen is less distended on today's evaluation and is resting comfortably in bed and he remains nothing by mouth at this point in time. Cardiac rhythm is paced. He is currently on oxygen at 2 L with a pulse ox of 96%. In terms of his lab work, the patient has a white cell count of 15 and a hemoglobin of 9.1 and a platelet count of 298. This blood work is from yesterday. Electrolytes all normal. Creatinine is at 0.6. As stated, the patient is nothing by mouth. He is on IV fluids in the form of lactated Ringer running at 75 mL an hour. No issues with pain. He remains on broad-spectrum antibiotic coverage with IV Zosyn. He was taking warfarin on outpatient basis and currently is not receiving any form of anticoagulants. He has history of paroxysmal A. fib and current rhythm is a. His echocardiogram that was done on 04/26/2023 showed a normal LV function, no significant valvular abnormalities in his right ventricular systolic pressures around 39. 04/30/2023, the patient is postop day #7. The patient feels that he is passing flatus. No active bowel movements yet. NG tube is in place. The patient is status post resection of a cecal mass, extraocular laparotomy and right hemicolectomy and small bowel resection. The patient continues to have some degree of abdominal distention. Surgical wound is dry clean and intact. The patient remains nothing by mouth and the patient was started on TPN yesterday for nutritional support. The patient remains on IV Zosyn. His cardiac rhythm is paced with some background/flutter.Blood work from today shows a sodium level of 133, potassium level of 3.8, chloride is 99 with a bicarb of 25 and the patient is a BUN of 18 with a creatinine of 0.6. Triglyceride level is at 136. Serum albumin is at 2.2 with a total protein of 4.3. The next fluid balance over the past 24 hours has been +1.2 L. He has developed some edema in his upper and lower extremities bilaterally. Marroquin catheter still in place. Remains on IV Zosyn. Remains on Flagyl. He was able to sit up on a chair yesterday. He is using the incentive spirometer. 05/01/2023, the patient is postop day #8. His have small bowel movements yesterday and he feels that he has to go another times a day. Angiopathy has dropped and currently is producing only 200 mL over the past 24 hours. Is taking clear liquid diet. He remains on TPN. The abdominal surgical site is dry clean and intact. Abdomen is mildly distended. He is hemodynamically stable. No issues with pain. As mentioned, the final pathology from the cecal mass do not to be consistent with B-cell non-Hodgkin's lymphoma. The patient remains on IV Zosyn and Flagyl. In terms of his blood work from today, the patient has a sodium level of 1:30, potassium level of 3.8, Dinorah is at 14 with a creatinine of 0.6. CBC still pending for now. He is using incentive spirometer. His calm and comfortable and is currently on room air oxygen. His underlying cardiac rhythm is still paced. Objective - Vital Signs Vital signs: Vital Signs Temp 98.4 F 05/01/23 04:00 Pulse 83 05/01/23 08:44 Resp 14 05/01/23 08:44 BP 126/65 05/01/23 08:44 Pulse Ox 94 L 05/01/23 08:44 FiO2 Intake & Output 04/30/23 05/01/23 05/01/23 18:59 06:59 18:59 Intake Total 5102 740 4635 Output Total 3505 1200 1000 Balance -1555 -325 150 Weight 114.7 kg Intake: IV 1601 956 0547 Amino Acid 5%-D20w+Lytes* 1150 E* 1,000 ml @ 95 mls/hr IV .[facility] Rx#: [id number] Lactated Ringers 1,000 ml 1200 675 @ 75 mls/hr IV .[id number] [facility] Rx#:[id number] Piperacillin-Tazobactam 3 200 100 .375 gm In Sodium Chloride 0.9% 100 ml @ 25 mls/hr IVPB Q8HR [facility] Rx# :[id number] metroNIDAZOLE-NS PMX 500 200 100 mg In Saline 1 100ml.bag @ 100 mls/hr IVPB Q8HR [facility] Rx#:[id number] Intake, IV Titration 200 Amount Potassium Chloride 10 meq 200 In Water For Injection 1 100ml.bag @ 100 mls/hr IVPB Q1H [facility] Rx#: [id number] Oral 150 Output: Gastric Drainage 800 200 Urine 2705 1000 1000 Other: Voiding Method Indwelling Catheter Indwelling Catheter # Bowel Movements 1 - Exam No acute distress, oriented 3. The patient is on 2 L by nasal cannula. Head exam was generally normal. There was no scleral icterus or corneal arcus. Mucous membranes were moist. HEENT examination is grossly unremarkable. Mucous membranes are moist. No oral lesions. NG tube in place. Neck supple. Full range of motion. No adenopathy thyromegaly or neck vein distention. Cardiovascular examination reveals regular rhythm rate. S1-S2 normal. No S3 or S4. No discernible murmur noted. Patient has a pacemaker in place and his current rhythm is atrial flutter with occasional pacing. Lungs reveal clear breath sounds. Breath sounds are equal bilaterally. No adventitious lung sounds including wheezes rhonchi or crackles. 2 L saturation is 97%. Abdomen soft, without bowel sounds. The abdomen is nontender at this point in time. Abdomen is less distended. Bowel sounds are absent. The surgical wound is dry clean and intact and there is a external wound VAC in place. Extremities are intact. No cyanosis clubbing or edema. Skin is without rash or lesion. Neurologic examination is brief but nonfocal. - Labs CBC & Chem 7: 04/30/23 09:30 05/01/23 05:09 Labs: Abnormal Lab Results - Last 24 Hours (Table) 04/30/23 05/01/23 Range/Units 09:30 05:09 WBC 14.5 H (3.8-10.6) k/uL RBC 2.96 L (4.30-5.90) m/uL Hgb 9.1 L (13.0-17.5) gm/dL Hct 28.6 L (39.0-53.0) % RDW 16.9 H (11.5-15.5) % Sodium 130 L (137-145) mmol/L Chloride 97 L (98-107) mmol/L Creatinine 0.62 L (0.66-1.25) mg/dL Glucose 292 H (74-99) mg/dL Calcium 7.5 L (8.4-10.2) mg/dL Total Protein 4.2 L (6.3-8.2) g/dL Albumin 2.1 L (3.5-5.0) g/dL Assessment and Plan Plan: Acute lower gastrointestinal bleed, secondary to colonic mass.Postop day #8, status post exploratory laparotomy, lysis of adhesions, abdominal washout, right hemicolectomy, small bowel resection, and placement of a wound VAC. Patient is hemodynamically stable. The patient is on broad-spectrum antibiotic coverage with IV Zosyn and Flagyl. 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 TPN was started and there is some improvement in the bowel movement activity and the patient started having some bowel movements over the past 24 hours. NG output has also dropped. Postoperative ventricular tachycardia, resolved. History of colon cancer, S/P colon resection, 2004. History of paroxysmal atrial fibrillation/atrial flutter post-ablation and the patient is a preserved LV function, the patient has a permanent pacemaker in place History of asthma. History of CVA. History of dyslipidemia. History of hypertension. History of A. fib/flutter, History of cardiac ablation 2. The patient is demented on long-term anticoagulants with warfarin on outpatient basis Post surgical anemia, expected outcome of surgery and GI bleeding. Hemoglobin from yesterday was 8.7, awaiting hemoglobin from today Focal 1.2 cm area of erosion in the posterior superior to 10 vertebral body, consider possibility of metastases. Bone scan was done and there was no significant abnormalities to suggest O2 blastic metastatic disease. Plan: Low. Liquid diet and consider removing the NG tube today Continue TPN for nutritional support Give a dose of Lasix 40 mg IV push as the patient has some signs of fluid over load and peripheral edema Monitor bowel sounds and bowel movements and activities Discontinue IV fluids Increase mobility and ask the patient is up on a chair Keep the patient ICU for further monitoring. Encourage is on the case regarding colonic non-Hodgkin's lymphoma.
[2023-05-01] MEDS: PANTOPRAZOLE 40 MG/10 ML VIAL IVP SCH (10:02)
[2023-05-01] MEDS: TAMSULOSIN 0.4 MG CAP.ER.24H PO SCH ×2 (10:02→21:29)
[2023-05-01] MEDS: CYANOCOBALAMIN 1,000 MCG/ML 1 ML VIAL IM SCH (10:02)
[2023-05-01] MEDS: METOPROLOL TARTRATE 50 MG TAB PO SCH ×2 (10:02→21:29)
[2023-05-01] MEDS: POTASSIUM CHLORIDE 10 MEQ in WATER FOR INJECTION 1 100ML.BAG IVPB SCH ×2 (10:05→12:28)
--- NOTE | 2023-05-01 14:42 | P.PN ---
Subjective Progress Note Date: 04/30/23 H&P Date: 04/18/23 Chief Complaint: Rectal bleeding This is a pleasant 83-year-old gentleman with past medical history of atrial fibrillation anticoagulated on Coumadin, cardiac ablations X 2 ,asthma, hypertension, hyperlipidemia, prostate disorder, colon cancer-bowel resection 2004, sick sinus syndrome with permanent pacemaker implantation, former nicotine dependence, last colonoscopy approximately [address] Astorga,which patient reports as negative presented to the ER with complaints of rectal bleeding. Approximately 2 weeks ago, evaluated by PCP, discovered UTI, placed on antibiotics of Cipro. Completed antibiotic therapy. Developed diarrhea- reports subsided approximately 4 days ago. Over the last 2 days, developed dizziness accompanied by rectal bleeding, bright red and black loose stool in mild right sided abdominal discomfort. Denies nausea or vomiting. Denies chest pain, palpitations or shortness of breath. Patient's hemoglobin normally around 14, on admission 10.9, currently down to 9.4. No further rectal bleeding. INR 2.3. Sodium 135, potassium 4.5, bicarb 26, BUN 24, creatinine 0.85, magnesium 2. Albumin 2.3, total protein 5.8. 04/22/2023 reports bloody stools yesterday. Denies abdominal pain. Completed colonoscopy prep. NPO, Coumadin remains on hold, scheduled for EGD,colonoscopy,biopsy today. Bone scan pending.Hemoglobin 8.7, platelets 201. Denies any chest pain, palpitations or shortness of breath. 04/30/23 NGT, passing flatus, no bowel movements. Maintained on TPN, IV fluid hydration. Albumin 2.2, total protein 4.3. Telemetry atrial flutter, anticoagulation remains on hold. Continues on Zosyn, Flagyl. Denies pain. Reports he had been up in the chair yesterday. Electrolytes, renal function stable. Objective - Vital Signs Vital signs: Vital Signs Temp 98.6 F 04/30/23 08:00 Pulse 86 04/30/23 08:00 Resp 18 04/30/23 08:00 BP 110/59 04/30/23 08:00 Pulse Ox 93 L 04/30/23 08:00 FiO2 Intake & Output 04/29/23 04/30/23 04/30/23 18:59 06:59 18:59 Intake Total 7066 767 5644 Output Total 899 130 9687 Balance 750 480 -1680 Weight 110.5 kg 113.6 kg Intake: IV 1325 800 800 Lactated Ringers 1,000 ml 1125 600 600 @ 75 mls/hr IV .[id number] [facility] Rx#:[id number] Piperacillin-Tazobactam 3 100 100 100 .375 gm In Sodium Chloride 0.9% 100 ml @ 25 mls/hr IVPB Q8HR [facility] Rx# :[id number] metroNIDAZOLE-NS PMX 500 100 100 100 mg In Saline 1 100ml.bag @ 100 mls/hr IVPB Q8HR [facility] Rx#:[id number] Intake, IV Titration 100 Amount Potassium Chloride 10 meq 100 In Water For Injection 1 100ml.bag @ 100 mls/hr IVPB Q1H [facility] Rx#: [id number] Oral 150 Output: Gastric Drainage 200 800 Urine [phone] Other: Voiding Method Indwelling Catheter Indwelling Catheter # Bowel Movements 1 - Exam PHYSICAL EXAM: VITAL SIGNS: [As above] GENERAL: Alert and oriented 3, Sitting up in bed, no acute distress HEENT: Normocephalic, Conjunctivae normal. eyes normal. NG tube present NECK: Supple, No JVD. CARDIOVASCULAR: S1, S2 regular. No murmur RESPIRATION: Unlabored, bilateral air entry .Breath sounds diminished in the bases. ABDOMEN: Soft, mildly distended, nontender, no bowel sounds auscultated, wearing binder LEGS: Minimal edema. no clubbing, no cyanosis. Positive DP pulses. NERVOUS SYSTEM: Cranial N 2-12 grossly normal. No focal deficits. Strength and sensation grossly intact. Skin: Warm and dry, no rash. - Labs CBC & Chem 7: 04/30/23 09:30 05/01/23 05:09 Labs: Abnormal Lab Results - Last 24 Hours (Table) 04/30/23 04/30/23 Range/Units 06:10 09:30 WBC 14.5 H (3.8-10.6) k/uL RBC 2.96 L (4.30-5.90) m/uL Hgb 9.1 L (13.0-17.5) gm/dL Hct 28.6 L (39.0-53.0) % RDW 16.9 H (11.5-15.5) % Sodium 133 L (137-145) mmol/L Creatinine 0.64 L (0.66-1.25) mg/dL Glucose 168 H (74-99) mg/dL Calcium 7.6 L (8.4-10.2) mg/dL Total Protein 4.3 L (6.3-8.2) g/dL Albumin 2.2 L (3.5-5.0) g/dL Assessment and Plan Assessment: Acute GI bleed with acute blood loss anemia, workup in progress. 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 status post exploratory laparotomy, lysis of adhesions, abdominal washout, right hemicolectomy, small bowel resection, and placement of a wound VAC. Non-Hodgkin's lymphoma and the final pathology results and the patient was found to have a high-grade B-cell lymphoma/non-Hodgkin's lymphoma Ileus, postop Acute blood loss Anemia, postop, expected outcome INR elevated on admission, status post 2 units of FFP. Chronic paroxysmal atrial fibrillation, atrial flutter anticoagulated on Coumadin- currently on hold. Recently completed antibiotic therapy for UTI prior to admission History of colon cancer status post bowel resection in 2004 History of sick sinus syndrome, recent dual chamber permanent pacemaker generator change Former nicotine dependence Plan: Continue on current medication regime ,monitoring and symptomatic treatment. Anticoagulation as per surgery and cardiology . Increase ambulation as tolerated/PT. Maintain close monitoring of hemoglobin, electrolytes, renal function with repeat labs ordered for a.m. aggressive pulmonary toileting with incentive spirometer reinforced. TPN for nutritional support. The impression and plan of care has been dictated as directed. : I performed a history and examination of this patient, discussed the same with the dictator. I agree with the dictator's note ,documented as a scribe. Any additional findings or plans will be noted.
--- NOTE | 2023-05-01 14:52 | P.PN ---
Subjective Progress Note Date: 05/01/23 H&P Date: 04/18/23 Chief Complaint: Rectal bleeding This is a pleasant 83-year-old gentleman with past medical history of atrial fibrillation anticoagulated on Coumadin, cardiac ablations X 2 ,asthma, hypertension, hyperlipidemia, prostate disorder, colon cancer-bowel resection 2004, sick sinus syndrome with permanent pacemaker implantation, former nicotine dependence, last colonoscopy approximately [address] Astorga,which patient reports as negative presented to the ER with complaints of rectal bleeding. Approximately 2 weeks ago, evaluated by PCP, discovered UTI, placed on antibiotics of Cipro. Completed antibiotic therapy. Developed diarrhea- reports subsided approximately 4 days ago. Over the last 2 days, developed dizziness accompanied by rectal bleeding, bright red and black loose stool in mild right sided abdominal discomfort. Denies nausea or vomiting. Denies chest pain, palpitations or shortness of breath. Patient's hemoglobin normally around 14, on admission 10.9, currently down to 9.4. No further rectal bleeding. INR 2.3. Sodium 135, potassium 4.5, bicarb 26, BUN 24, creatinine 0.85, magnesium 2. Albumin 2.3, total protein 5.8. 04/22/2023 reports bloody stools yesterday. Denies abdominal pain. Completed colonoscopy prep. NPO, Coumadin remains on hold, scheduled for EGD,colonoscopy,biopsy today. Bone scan pending.Hemoglobin 8.7, platelets 201. Denies any chest pain, palpitations or shortness of breath. 04/30/23 NGT, passing flatus, no bowel movements. Maintained on TPN, IV fluid hydration. Albumin 2.2, total protein 4.3. Telemetry atrial flutter, anticoagulation remains on hold. Continues on Zosyn, Flagyl. Denies pain. Reports he had been up in the chair yesterday. Electrolytes, renal function stable. 05/01/23 reports a small bowel movement yesterday. Maintained on TPN, tolerating clear liquid diet, with no nausea or vomiting. Continues on IV Zosyn and Flagyl. Telemetry paced. Complains of increased generalized weakness. Denies chest pain, palpitations. Objective - Vital Signs Vital signs: Vital Signs Temp 98.4 F 05/01/23 04:00 Pulse 83 05/01/23 08:44 Resp 14 05/01/23 08:44 BP 126/65 05/01/23 08:44 Pulse Ox 94 L 05/01/23 08:44 FiO2 Intake & Output 04/30/23 05/01/23 05/01/23 18:59 06:59 18:59 Intake Total 0104 495 7068 Output Total 3505 1200 1000 Balance -1555 -325 350 Weight 114.7 kg 114.7 kg Intake: IV 0196 373 7648 Amino Acid 5%-D20w+Lytes* 1150 E* 1,000 ml @ 95 mls/hr IV .BY DURATION R[facility]GER Rx#: [id number] Lactated Ringers 1,000 ml 1200 675 @ 75 mls/hr IV .[id number] [facility] Rx#:[id number] Piperacillin-Tazobactam 3 200 100 100 .375 gm In Sodium Chloride 0.9% 100 ml @ 25 mls/hr IVPB Q8HR [facility] Rx# :[id number] metroNIDAZOLE-NS PMX 500 200 100 100 mg In Saline 1 100ml.bag @ 100 mls/hr IVPB Q8HR [facility] Rx#:[id number] Intake, IV Titration 200 Amount Potassium Chloride 10 meq 200 In Water For Injection 1 100ml.bag @ 100 mls/hr IVPB Q1H [facility] Rx#: [id number] Oral 150 Output: Gastric Drainage 800 200 Urine 2705 1000 1000 Other: Voiding Method Indwelling Catheter Indwelling Catheter # Voids 1 # Bowel Movements 1 - Exam PHYSICAL EXAM: VITAL SIGNS: [As above] GENERAL: Alert and oriented 3, Sitting up in bed, no acute distress HEENT: Normocephalic, Conjunctivae normal. eyes normal. NG tube present NECK: Supple, No JVD. CARDIOVASCULAR: S1, S2 regular. No murmur RESPIRATION: Unlabored, bilateral air entry .Breath sounds diminished in the bases. ABDOMEN: Soft, less distended, nontender, hypoactive bowel sounds, wearing binder LEGS: Minimal edema. no clubbing, no cyanosis. Positive DP pulses. NERVOUS SYSTEM: Cranial N 2-12 grossly normal. No focal deficits. Strength and sensation grossly intact. Skin: Warm and dry, no rash. - Labs CBC & Chem 7: 04/30/23 09:30 05/01/23 05:09 Labs: Abnormal Lab Results - Last 24 Hours (Table) 05/01/23 Range/Units 05:09 Sodium 130 L (137-145) mmol/L Chloride 97 L (98-107) mmol/L Creatinine 0.62 L (0.66-1.25) mg/dL Glucose 292 H (74-99) mg/dL Calcium 7.5 L (8.4-10.2) mg/dL Total Protein 4.2 L (6.3-8.2) g/dL Albumin 2.1 L (3.5-5.0) g/dL Assessment and Plan Assessment: Acute GI bleed with acute blood loss anemia, workup in progress. 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 status post exploratory laparotomy, lysis of adhesions, abdominal washout, right hemicolectomy, small bowel resection, and placement of a wound VAC. 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 Iron deficient suspect secondary to cecal mass, GI blood losses. INR elevated on admission, status post 2 units of FFP. Chronic paroxysmal atrial fibrillation, atrial flutter anticoagulated on Coumadin- currently on hold. Recently completed antibiotic therapy for UTI prior to admission History of colon cancer status post bowel resection in 2004 History of sick sinus syndrome, recent dual chamber permanent pacemaker generator change Former nicotine dependence Plan: Continue on current medication regime ,monitoring and symptomatic treatment. TPN for nutritional support, diet advancement as per surgery. Parental iron.close monitoring of hemoglobin /Anticoagulation as per surgery and cardiology . PT. Aggressive pulmonary toileting with incentive spirometer reinforced. The impression and plan of care has been dictated as directed. : I performed a history and examination of this patient, discussed the same with the dictator. I agree with the dictator's note ,documented as a scribe. Any additional findings or plans will be noted.
--- NOTE | 2023-05-01 15:49 | P.PN ---
Subjective Progress Note Date: 05/01/23 Ventricular tachycardia The patient is an 83-year-old gentleman with a past medical history significant for permanent pacemaker and paroxysmal atrial fibrillation as well as hypertension and dyslipidemia and preserved LV systolic function on the last echocardiogram from October was admitted to the hospital with abdominal discomfort and he underwent surgery including lysis of adhesions and washout and a mass resection from the cecum. The patient was supposed to be transferred out of the ICU yesterday when he did have an episode of wide complex rhythm consistent of ventricular tachycardia. It was somewhat sustained. I started the patient on amiodarone IV. His magnesium was replaced. Since then he did not have any more episodes of ventricular tachycardia April [id number] He is asymptomatic and hemodynamically stable. I'm going to DC and no IV and start the patient on nothing by mouth orally. To be started on oral anticoagulation once is safe from the surgical standpoint overview. Beside that continue the current dose of beta jacob with atenolol which has increased yesterday. The patient eventually Transferred out of the intensive care unit. The examination is remarkable for regular rhythm with distant heart sounds and diminished breathing sounds bilaterally and bilateral lower extremity edema 04/27/2023 The patient was seen and evaluated this morning. Apparently he has been experiencing abdominal discomfort and abdominal distention. Computed tomography scan of the abdomen and pelvis was performed yesterday and showed ileus with evidence of possible pneumoperitoneum. Surgery is on the case. He went into ventricular tachycardia yesterday I did start the patient back on amiodarone IV. When he was seen this morning he seems to be an issue affiliations/atrial fl utter with overall controlled heart rate. Anticoagulation is on hold at this point. The examination is remarkable for extremely distended abdomen. 04/28/2023. The patient was seen and evaluated this morning. He underwent a workup for abdominal distention and that came in to be remarkable for ileus. An NG tube was placed and the abdominal distention as well as the patient's symptoms improved significantly. Hemodynamically he is in atrial fibrillation/flutter with overall controlled heart rate. He is not on any oral anticoagulation but we are going to check with the surgical team safety of starting him on small dose of oral anticoagulation. Beside that on examination he seems to be having upper and lower extremity edema and without being seen point. The patient 20 mg of Lasix IV. We'll continue following up with the patient. No more episodes of ventricular tachycardia. 04/29/2023 Patient was seen and examined this morning. Patient is getting NG tube feeds and is tolerating them well. He is hemodynamically stable. He has atrial flutter with controlled ventricular rate. His last echo from this admission showed an LVEF of 50-55%. 04/30/23 Patient is doing well. He is on clear liquid diet started taking it. His telemetry shows typical atrial flutter, Which is rate controlled. he has not had any further episodes of ventricular tachycardia and last 48 hours. He a ppears mildly volume overloaded today. We will give him 1 time dose of Lasix 40 mg IV 05/01/2023 His NG tube is out and is tolerating oral diet. He continues to be included atrial flutter. No further sustained or nonsustained V. tach. Denies any chest pain or shortness of breath. Responded well to IV Lasix yesterday. Assessment Atrial flutter, rate controlled 2:1 Ventricular tachycardia which has resolved Paroxysmal atrial fibrillation. The patient is in atrial fibrillation at this point Status post right hemicolectomy for cecal mass GI Bleed while on coumadin due to above Permanent pacemaker Hypertension Dyslipidemia Ileus Plan Discontinue atenolol and continue metoprolol 50 mg twice daily. He was not on anticoagulation at this time due to recent GI bleeding and surgery. Once cleared by surgery I would like to place him on systemic anticoagulation. Once he is stable and tolerating diet and if his hemoglobin remains stable tomorrow, I'll start him on oral anticoagulation after discussing with surgery. If he tolerates it well for next day, we will like to offer him cardioversion to resolve atrial flutter. He will be a good candidate for Watchman device placement as outpatient. Objective - Vital Signs Vital signs: Vital Signs Temp 98.4 F 05/01/23 04:00 Pulse 83 05/01/23 08:44 Resp 14 05/01/23 08:44 BP 126/65 05/01/23 08:44 Pulse Ox 94 L 05/01/23 08:44 FiO2 Intake & Output 04/30/23 05/01/23 05/01/23 18:59 06:59 18:59 Intake Total 3742 536 1579 Output Total 3505 1200 1000 Balance -1555 -325 350 Weight 114.7 kg 114.7 kg Intake: IV 6712 297 5444 Amino Acid 5%-D20w+Lytes* 1150 E* 1,000 ml @ 95 mls/hr IV .BY DURATION RODGER Rx#: [id number] Lactated Ringers 1,000 ml 1200 675 @ 75 mls/hr IV .[id number] [facility] Rx#:[id number] Piperacillin-Tazobactam 3 200 100 100 .375 gm In Sodium Chloride 0.9% 100 ml @ 25 mls/hr IVPB Q8HR ROD[facility] Rx# :[id number] metroNIDAZOLE-NS PMX 500 200 100 100 mg In Saline 1 100ml.bag @ 100 mls/hr IVPB Q8HR R[facility]GER Rx#:[id number] Intake, IV Titration 200 Amount Potassium Chloride 10 meq 200 In Water For Injection 1 100ml.bag @ 100 mls/hr IVPB Q1H [facility] Rx#: [id number] Oral 150 Output: Gastric Drainage 800 200 Urine 2705 1000 1000 Other: Voiding Method Indwelling Catheter Indwelling Catheter # Voids 1 # Bowel Movements 1 - Labs CBC & Chem 7: 04/30/23 09:30 05/01/23 05:09 Labs: Abnormal Lab Results - Last 24 Hours (Table) 05/01/23 Range/Units 05:09 Sodium 130 L (137-145) mmol/L Chloride 97 L (98-107) mmol/L Creatinine 0.62 L (0.66-1.25) mg/dL Glucose 292 H (74-99) mg/dL Calcium 7.5 L (8.4-10.2) mg/dL Total Protein 4.2 L (6.3-8.2) g/dL Albumin 2.1 L (3.5-5.0) g/dL
--- NOTE | 2023-05-01 16:15 | P.PN ---
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 Patient did have 2 bowel movements and flatus. Denies any abdominal pain NG tube with only 200 mL output through the night. Afebrile. Sodium is 1:30 potassium is 3.8 creatinine 0.62. CBC pending for today PHYSICAL EXAM: VITAL SIGNS: Reviewed GENERAL: Well-developed in no acute distress. HEENT: No sclera icterus. Extraocular movements grossly intact. Moist buccal mucosa. Head is atraumatic, normocephalic. Hears conversational speech. No nasal drainage. NECK: Supple without lymphadenopathy. CHEST: Non-labored respirations and equal bilateral excursions. CARDIOVASCULAR: Palpable 2+ radial pulses. ABDOMEN: Soft. Nondistended. Nontender. Prevana Wound VAC pulled down i ncision with some mild serous drainage and blood noted. Otherwise clean dry and intact MUSCULOSKELETAL: No clubbing or cyanosis. NEUROLOGIC: No focal or lateralizing signs. Cranial nerves II through XII grossly intact. PSYCH: Appropriate affect. Alert and oriented to person, place and time. SKIN: Well perfused. Good skin turgor. ASSESSMENT: 1. Acute blood loss anemia 2. Large cecal mass, neoplasm, locally invasive 3. Acute gastrointestinal bleeding from cecal mass 4. Leukocytosis. 5. Ileus PLAN: -Discontinue NG tube -Advance diet to full liquids -Incisional dressing changed to Optifoam silver -Continue TPN for nutrition support -Encourage patient to ambulate -Encourage patient to use incentive spirometer Physician [employer] Member note has been reviewed by physician. Signing provider agrees with the documented findings, assessment, and plan of care. Objective - Vital Signs Vital signs: Vital Signs Temp 97.3 F L 05/01/23 15:00 Pulse 86 05/01/23 15:00 Resp 14 05/01/23 15:00 BP 104/53 05/01/23 15:00 Pulse Ox 95 05/01/23 15:00 FiO2 Intake & Output 04/30/23 05/01/23 05/01/23 18:59 06:59 18:59 Intake Total 2307 880 2060 Output Total 3505 1200 1000 Balance -1555 -325 1405 Weight 114.7 kg 114.7 kg Intake: IV 9059 549 3154 Amino Acid 5%-D20w+Lytes* 2005 E* 1,000 ml @ 95 mls/hr IV .BY DURATION RODGER Rx#: [id number] Lactated Ringers 1,000 ml 1200 675 @ 75 mls/hr IV .[id number] R[facility] Rx#:[id number] Piperacillin-Tazobactam 3 200 100 200 .375 gm In Sodium Chloride 0.9% 100 ml @ 25 mls/hr IVPB Q8HR RODGER Rx# :[id number] metroNIDAZOLE-NS PMX 500 200 100 200 mg In Saline 1 100ml.bag @ 100 mls/hr IVPB Q8HR [facility] Rx#:[id number] Intake, IV Titration 200 Amount Potassium Chloride 10 meq 200 In Water For Injection 1 100ml.bag @ 100 mls/hr IVPB Q1H R[facility] Rx#: [id number] Oral 150 Output: Gastric Drainage 800 200 Urine 2705 1000 1000 Other: Voiding Method Indwelling Catheter Indwelling Catheter # Voids 4 # Bowel Movements 1 - Labs CBC & Chem 7: 04/30/23 09:30 05/01/23 05:09 Labs: Abnormal Lab Results - Last 24 Hours (Table) 05/01/23 Range/Units 05:09 Sodium 130 L (137-145) mmol/L Chloride 97 L (98-107) mmol/L Creatinine 0.62 L (0.66-1.25) mg/dL Glucose 292 H (74-99) mg/dL Calcium 7.5 L (8.4-10.2) mg/dL Total Protein 4.2 L (6.3-8.2) g/dL Albumin 2.1 L (3.5-5.0) g/dL
[2023-05-01 17:18] LABS: Anisocytosis Slight; Basophils % (A) 0 %; Eosinophils # (A) 0.3 k/uL (0-0.7); Eosinophils % (A) 2 %; HCT 29.7 % (39.0-53.0); HGB 9.7 gm/dL (13.0-17.5); Hypochromasia Moderate; Lymphocytes # (A) 0.8 k/uL (1.0-4.8); Lymphocytes % (A) 7 %; MCH 30.9 pg (25.0-35.0); MCHC 32.5 g/dL (31.0-37.0); MCV 95.1 fL (80.0-100.0); Mean Platelet Volume 8.6; Monocytes # (A) 0.8 k/uL (0-1.0); Monocytes % (A) 6 %; Neutrophils # (A) 10.4 k/uL (1.3-7.7); Neutrophils % (A) 84 %; Platelet Count 286 k/uL (150-450); RBC 3.12 m/uL (4.30-5.90); RDW 16.5 % (11.5-15.5); WBC 12.5 k/uL (3.8-10.6)
[2023-05-01] MEDS: ATORVASTATIN 10 MG TAB PO SCH (21:29)
[2023-05-01] MEDS: MONTELUKAST 10 MG TAB PO SCH (21:29)
[2023-05-02] MEDS: metroNIDAZOLE-NS PMX 500 MG in SALINE 1 100ML.BAG IVPB SCH ×4 (00:05→23:30)
[2023-05-02] MEDS: PIPERACILLIN-TAZOBACTAM 3.375 GM in SODIUM CHLORIDE 0.9% 100 ML IVPB SCH ×3 (00:06→17:00)
[2023-05-02] MEDS: 1: MVI, ADULT NO.4 WITH VIT K 10 ML, TRACE (CONC-1ML/DOSE) 1 ML in AMINO ACID 5%-D20W+LY IV SCH ×6 (04:12→16:15)
[2023-05-02 05:08] LABS: Anisocytosis Slight; Basophils % (A) 0 %; Eosinophils # (A) 0.4 k/uL (0-0.7); Eosinophils % (A) 3 %; HCT 27.9 % (39.0-53.0); Hypochromasia Marked; Lymphocytes # (A) 1.1 k/uL (1.0-4.8); Lymphocytes % (A) 9 %; MCH 30.6 pg (25.0-35.0); MCHC 32.1 g/dL (31.0-37.0); MCV 95.2 fL (80.0-100.0); Macrocytosis Slight; Mean Platelet Volume 8.2; Monocytes # (A) 0.8 k/uL (0-1.0); Monocytes % (A) 7 %; Neutrophils # (A) 9.4 k/uL (1.3-7.7); Neutrophils % (A) 80 %; Platelet Count 287 k/uL (150-450); RBC 2.93 m/uL (4.30-5.90); RDW 16.8 % (11.5-15.5); WBC 11.8 k/uL (3.8-10.6)
[2023-05-02 06:50] LABS: Ionized Calcium 4.7 mg/dL (4.5-5.3)
[2023-05-02] MEDS: SIMETHICONE 80 MG CHEWABLE PO SCH ×4 (06:50→20:42)
[2023-05-02] MEDS ORDERED: Potassium Replacement Protocol 1 EACH MISC MISCELLANE PRN (06:57)
[2023-05-02 07:00] LABS: ALT 17 U/L (4-49); AST 28 U/L (17-59); African American GFR (CKD) >90 (>60 ml/min/1.73 sqM); Albumin 2.1 g/dL (3.5-5.0); Alkaline Phosphatase 42 U/L (38-126); Anion Gap 4 mmol/L; Blood Urea Nitrogen 16 mg/dL (9-20); Calcium 7.8 mg/dL (8.4-10.2); Carbon Dioxide 29 mmol/L (22-30); Chloride 97 mmol/L (98-107); Glucose 277 mg/dL (74-99); Magnesium 1.9 mg/dL (1.6-2.3); Non-African American GFR(CKD) >90 (>60 ml/min/1.73 sqM); Potassium 3.9 mmol/L (3.5-5.1); Sodium 130 mmol/L (137-145); Total Bilirubin 0.4 mg/dL (0.2-1.3); Total Protein 4.2 g/dL (6.3-8.2)
[2023-05-02] MEDS ORDERED: POTASSIUM CHLORIDE ER 20 MEQ TAB.ER PO SCH (08:00)
[2023-05-02] MEDS: TAMSULOSIN 0.4 MG CAP.ER.24H PO SCH ×2 (08:16→20:42)
[2023-05-02] MEDS: PANTOPRAZOLE 40 MG/10 ML VIAL IVP SCH (08:16)
[2023-05-02] MEDS: METOPROLOL TARTRATE 50 MG TAB PO SCH ×2 (08:16→20:43)
[2023-05-02 08:31] LABS: Phosphorus 3.2 mg/dL (2.5-4.5)
--- NOTE | 2023-05-02 09:15 | P.PN ---
Subjective Progress Note Date: 05/02/23 On 2022, the patient is postop day #6. He presented to us with GI bleed and the large cecal mass and bowel obstruction. The patient was taken to the operating room and the patient underwent exploratory laparotomy, abdominal washout, right hemicolectomy and small bowel resection. An external wound VAC is currently present. Postop, the patient developed an ileus and an NG tube was inserted on 04/27/2023. The NG tube is still active and output is still active. The patient's bowel sounds are very much hypoactive at this point in time. He states that he was able to pass flatus today. Surgical wound is dry clean and intact. Abdomen is less distended on today's evaluation and is resting comfortably in bed and he remains nothing by mouth at this point in time. Cardiac rhythm is paced. He is currently on oxygen at 2 L with a pulse ox of 96%. In terms of his lab work, the patient has a white cell count of 15 and a hemoglobin of 9.1 and a platelet count of 298. This blood work is from yesterday. Electrolytes all normal. Creatinine is at 0.6. As stated, the patient is nothing by mouth. He is on IV fluids in the form of lactated Ringer running at 75 mL an hour. No issues with pain. He remains on broad-spectrum antibiotic coverage with IV Zosyn. He was taking warfarin on outpatient basis and currently is not receiving any form of anticoagulants. He has history of paroxysmal A. fib and current rhythm is a. His echocardiogram that was done on 04/26/2023 showed a normal LV function, no significant valvular abnormalities in his right ventricular systolic pressures around 39. 04/30/2023, the patient is postop day #7. The patient feels that he is passing flatus. No active bowel movements yet. NG tube is in place. The patient is status post resection of a cecal mass, extraocular laparotomy and right hemicolectomy and small bowel resection. The patient continues to have some degree of abdominal distention. Surgical wound is dry clean and intact. The patient remains nothing by mouth and the patient was started on TPN yesterday for nutritional support. The patient remains on IV Zosyn. His cardiac rhythm is paced with some background/flutter.Blood work from today shows a sodium level of 133, potassium level of 3.8, chloride is 99 with a bicarb of 25 and the patient is a BUN of 18 with a creatinine of 0.6. Triglyceride level is at 136. Serum albumin is at 2.2 with a total protein of 4.3. The next fluid balance over the past 24 hours has been +1.2 L. He has developed some edema in his upper and lower extremities bilaterally. Marroquin catheter still in place. Remains on IV Zosyn. Remains on Flagyl. He was able to sit up on a chair yesterday. He is using the incentive spirometer. 05/01/2023, the patient is postop day #8. His have small bowel movements yesterday and he feels that he has to go another times a day. Angiopathy has dropped and currently is producing only 200 mL over the past 24 hours. Is taking clear liquid diet. He remains on TPN. The abdominal surgical site is dry clean and intact. Abdomen is mildly distended. He is hemodynamically stable. No issues with pain. As mentioned, the final pathology from the cecal mass do not to be consistent with B-cell non-Hodgkin's lymphoma. The patient remains on IV Zosyn and Flagyl. In terms of his blood work from today, the patient has a sodium level of 1:30, potassium level of 3.8, Dinorah is at 14 with a creatinine of 0.6. CBC still pending for now. He is using incentive spirometer. His calm and comfortable and is currently on room air oxygen. His underlying cardiac rhythm is still paced. On today's evaluation of a 05/02 2023, the patient is postop day #9. NG tube was removed yesterday and the patient is having bowel movement activity. Currently is on a soft diet. Hemodynamically stable. He is afebrile. The surgical wound is stable. He remains on TPN. He has been diagnosed having a cecal non- Hodgkin's lymphoma. He remains on a IV Zosyn and Flagyl combination. White cell count stable at 11.8. Hemoglobin stable at 9.0. The sodium is stable at 130, BUN is at 60 with a creatinine of 0.6 and the potassium is at 3.4. The magnesium is at 1.9. Total protein is at 4.2. Cardiac rhythm is paced. There is some increased lower extremity edema for now. Using the senna spirometer. Awake and alert and communicating. Objective - Vital Signs Vital signs: Vital Signs Temp 97.8 F 05/02/23 02:00 Pulse 75 05/02/23 02:00 Resp 18 05/02/23 02:00 BP 128/68 05/02/23 02:00 Pulse Ox 94 L 05/02/23 02:00 FiO2 Intake & Output 05/01/23 05/02/23 05/02/23 18:59 06:59 18:59 Intake Total 3405 200 Output Total 1000 Balance 2405 200 Weight 114.7 kg 116.2 kg Intake: IV 2405 200 Amino Acid 5%-D20w+Lytes* 2005 E* 1,000 ml @ 95 mls/hr IV .BY DURATION [facility] Rx#: [id number] Piperacillin-Tazobactam 3 200 100 .375 gm In Sodium Chloride 0.9% 100 ml @ 25 mls/hr IVPB Q8HR [facility] Rx# :[id number] metroNIDAZOLE-NS PMX 500 200 100 mg In Saline 1 100ml.bag @ 100 mls/hr IVPB Q8HR [facility] Rx#:[id number] Intake, IV Titration 1000 Amount Amino Acid 5%-D20w+Lytes* 1000 E* 1,000 ml @ 95 mls/hr IV .BY DURATION [facility] Rx#: [id number] Output: Urine 1000 Other: Voiding Method Incontinent # Voids 4 2 # Bowel Movements 1 - Exam No acute distress, oriented 3. The patient is on 2 L by nasal cannula. The patient's NG tube was removed and the patient is alert and communicating. Head exam was generally normal. There was no scleral icterus or corneal arcus. Mucous membranes were moist. HEENT examination is grossly unremarkable. Mucous membranes are moist. No oral lesions. Neck supple. Full range of motion. No adenopathy thyromegaly or neck vein distention. Cardiovascular examination reveals regular rhythm rate. S1-S2 normal. No S3 or S4. No discernible murmur noted. Patient has a pacemaker in place and his current rhythm is atrial flutter with occasional pacing. Lungs reveal clear breath sounds. Breath sounds are equal bilaterally. No adventitious lung sounds including wheezes rhonchi or crackles. 2 L saturation is 97%. Abdomen soft, with bowel sounds. The abdomen is nontender at this point in time. Abdomen is less distended. Bowel sounds are present The surgical wound is dry clean and intact and there is a external wound VAC in place. Extremities are intact. No cyanosis clubbing or edema. Skin is without rash or lesion. Neurologic examination is brief but nonfocal. - Labs CBC & Chem 7: 05/02/23 04:25 05/02/23 04:25 Labs: Abnormal Lab Results - Last 24 Hours (Table) 05/01/23 05/02/23 05/02/23 Range/Units 16:35 04:25 04:25 WBC 12.5 H 11.8 H (3.8-10.6) k/uL RBC 3.12 L 2.93 L (4.30-5.90) m/uL Hgb 9.7 L 9.0 L (13.0-17.5) gm/dL Hct 29.7 L 27.9 L (39.0-53.0) % RDW 16.5 H 16.8 H (11.5-15.5) % Neutrophils # 10.4 H 9.4 H (1.3-7.7) k/uL Lymphocytes # 0.8 L (1.0-4.8) k/uL Sodium 130 L (137-145) mmol/L Chloride 97 L (98-107) mmol/L Creatinine 0.60 L (0.66-1.25) mg/dL Glucose 277 H (74-99) mg/dL Calcium 7.8 L (8.4-10.2) mg/dL Total Protein 4.2 L (6.3-8.2) g/dL Albumin 2.1 L (3.5-5.0) g/dL Assessment and Plan Plan: Acute lower gastrointestinal bleed, secondary to colonic mass.Postop day #8, status post exploratory laparotomy, lysis of adhesions, abdominal washout, right hemicolectomy, small bowel resection, and placement of a wound VAC. Patient is hemodynamically stable. The patient is on broad-spectrum antibiotic coverage with IV Zosyn and Flagyl. 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 TPN was started and there is some improvement in the bowel movement activity and the patient started having some bowel movements , NG tube was removed on 05/01/2023 and the patient is currently on soft diet. He remains on TPN. Postoperative ventricular tachycardia, resolved. History of colon cancer, S/P colon resection, 2004. History of paroxysmal atrial fibrillation/atrial flutter post-ablation and the patient is a preserved LV function, the patient has a permanent pacemaker in place History of asthma. History of CVA. History of dyslipidemia. History of hypertension. History of A. fib/flutter, History of cardiac ablation 2. The patient is demented on long-term anticoagulants with warfarin on outpatient basis Post surgical anemia, expected outcome of surgery and GI bleeding. Hemoglobin from yesterday was 8.7, awaiting hemoglobin from today Focal 1.2 cm area of erosion in the posterior superior to 10 vertebral body, consider possibility of metastases. Bone scan was done and there was no significant abnormalities to suggest O2 blastic metastatic disease. Plan: Advance diet as tolerated currently on soft diet NG tube was removed Continue TPN for nutritional support for another 24 hours and subsequently discontinue Given a dose of Lasix 40 mg IV push as the patient has some signs of fluid over load and peripheral edema, responded nicely and there is a third spacing edema Monitor bowel sounds and bowel movements and activities IV fluids to KVO Increase mobility and ask the patient is up on a chair Keep the patient ICU for further monitoring. Encourage is on the case regarding colonic non-Hodgkin's lymphoma. May transfer outside intensive care unit
--- NOTE | 2023-05-02 12:16 | P.PN ---
Subjective Progress Note Date: 05/02/23 H&P Date: 04/18/23 Chief Complaint: Rectal bleeding This is a pleasant 83-year-old gentleman with past medical history of atrial fibrillation anticoagulated on Coumadin, cardiac ablations X 2 ,asthma, hypertension, hyperlipidemia, prostate disorder, colon cancer-bowel resection 2004, sick sinus syndrome with permanent pacemaker implantation, former nicotine dependence, last colonoscopy approximately [address] Astorga,which patient reports as negative presented to the ER with complaints of rectal bleeding. Approximately 2 weeks ago, evaluated by PCP, discovered UTI, placed on antibiotics of Cipro. Completed antibiotic therapy. Developed diarrhea- reports subsided approximately 4 days ago. Over the last 2 days, developed dizziness accompanied by rectal bleeding, bright red and black loose stool in mild right sided abdominal discomfort. Denies nausea or vomiting. Denies chest pain, palpitations or shortness of breath. Patient's hemoglobin normally around 14, on admission 10.9, currently down to 9.4. No further rectal bleeding. INR 2.3. Sodium 135, potassium 4.5, bicarb 26, BUN 24, creatinine 0.85, magnesium 2. Albumin 2.3, total protein 5.8. 04/22/2023 reports bloody stools yesterday. Denies abdominal pain. Completed colonoscopy prep. NPO, Coumadin remains on hold, scheduled for EGD,colonoscopy,biopsy today. Bone scan pending.Hemoglobin 8.7, platelets 201. Denies any chest pain, palpitations or shortness of breath. 04/30/23 NGT, passing flatus, no bowel movements. Maintained on TPN, IV fluid hydration. Albumin 2.2, total protein 4.3. Telemetry atrial flutter, anticoagulation remains on hold. Continues on Zosyn, Flagyl. Denies pain. Reports he had been up in the chair yesterday. Electrolytes, renal function stable. 05/01/23 reports a small bowel movement yesterday. Maintained on TPN, tolerating clear liquid diet, with no nausea or vomiting. Continues on IV Zosyn and Flagyl. Telemetry paced. Complains of increased generalized weakness. Denies chest pain, palpitations. 05/02/2023 NG tube removed yesterday. Tolerating full liquid diet this morning with no nausea or vomiting. Continues on TPN. Denies abdominal pain. Positive flatus, positive bowel movement. Maintained on Flagyl and Zosyn. Afebrile, WBC trending down 11.8. Renal function stable, potassium 3.4, magnesium 1.9. Te lemetry A. fib flutter/paced. Up in chair yesterday with PT. Objective - Vital Signs Vital signs: Vital Signs Temp 97.8 F 05/02/23 02:00 Pulse 75 05/02/23 02:00 Resp 18 05/02/23 02:00 BP 128/68 05/02/23 02:00 Pulse Ox 94 L 05/02/23 02:00 FiO2 Intake & Output 05/01/23 05/02/23 05/02/23 18:59 06:59 18:59 Intake Total 3405 200 Output Total 1000 Balance 2405 200 Weight 114.7 kg 116.2 kg Intake: IV 2405 200 Amino Acid 5%-D20w+Lytes* 2005 E* 1,000 ml @ 95 mls/hr IV .BY DURATION [facility] Rx#: [id number] Piperacillin-Tazobactam 3 200 100 .375 gm In Sodium Chloride 0.9% 100 ml @ 25 mls/hr IVPB Q8HR [facility] Rx# :[id number] metroNIDAZOLE-NS PMX 500 200 100 mg In Saline 1 100ml.bag @ 100 mls/hr IVPB Q8HR [facility] Rx#:[id number] Intake, IV Titration 1000 Amount Amino Acid 5%-D20w+Lytes* 1000 E* 1,000 ml @ 95 mls/hr IV .BY DURATION [facility] Rx#: [id number] Output: Urine 1000 Other: Voiding Method Incontinent # Voids 4 2 # Bowel Movements 1 - Exam PHYSICAL EXAM: VITAL SIGNS: [As above] GENERAL: Alert and oriented 3, Sitting up in bed, no acute distress HEENT: Normocephalic, Conjunctivae normal. eyes normal. NECK: Supple, No JVD. CARDIOVASCULAR: S1, S2 regular. No murmur RESPIRATION: Unlabored, bilateral air entry .Breath sounds diminished in the bases. ABDOMEN: Soft, less distended, nontender,positive bowel sounds, wearing binder LEGS: Positive edema. no clubbing, no cyanosis. Positive DP pulses. NERVOUS SYSTEM: Cranial N 2-12 grossly normal. No focal deficits. Strength and sensation grossly intact. Skin: Warm and dry, no rash. - Labs CBC & Chem 7: 05/02/23 04:25 05/02/23 04:25 Labs: Abnormal Lab Results - Last 24 Hours (Table) 05/01/23 05/02/23 05/02/23 Range/Units 16:35 04:25 04:25 WBC 12.5 H 11.8 H (3.8-10.6) k/uL RBC 3.12 L 2.93 L (4.30-5.90) m/uL Hgb 9.7 L 9.0 L (13.0-17.5) gm/dL Hct 29.7 L 27.9 L (39.0-53.0) % RDW 16.5 H 16.8 H (11.5-15.5) % Neutrophils # 10.4 H 9.4 H (1.3-7.7) k/uL Lymphocytes # 0.8 L (1.0-4.8) k/uL Sodium 130 L (137-145) mmol/L Chloride 97 L (98-107) mmol/L Creatinine 0.60 L (0.66-1.25) mg/dL Glucose 277 H (74-99) mg/dL Calcium 7.8 L (8.4-10.2) mg/dL Total Protein 4.2 L (6.3-8.2) g/dL Albumin 2.1 L (3.5-5.0) g/dL Assessment and Plan Assessment: Acute GI bleed with acute blood loss anemia, workup in progress. CT reported 14.2 x 12.1 x 12.1 cm cecal mass, possible metastatic lesion to posterior s uperior T10. status post exploratory laparotomy, lysis of adhesions, abdominal washout, right hemicolectomy, small bowel resection, and placement of a wound VAC. 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 Patient Reports he had prior colon surgery approximately 10 years ago with with 6 inches of colon removed-further details being obtained from PCPs office. oncology following Ileus, postop Acute blood loss Anemia, postop, expected outcome. Iron deficient suspect secondary to cecal mass, GI blood losses. INR elevated on admission, status post 2 units of FFP. Chronic paroxysmal atrial fibrillation, atrial flutter anticoagulated on Coumadin- currently on hold. Recently completed antibiotic therapy for UTI prior to admission History of colon cancer status post bowel resection in 2004 History of sick sinus syndrome, recent dual chamber permanent pacemaker generator change Former nicotine dependence Plan: Continue on current medication regime ,monitoring and symptomatic treatment. Increase ambulation as tolerated/PT. Maintain aggressive pulmonary toileting with incentive spirometer enforced. Diet advancement as per surgery. Close monitoring of hemoglobin /anticoagulation as per surgery and cardiology. PT recommending subacute rehab at discharge. The impression and plan of care has been dictated as directed. : I performed a history and examination of this patient, discussed the same with the dictator. I agree with the dictator's note ,documented as a scribe. Any additional findings or plans will be noted.
--- NOTE | 2023-05-02 13:47 | P.PN ---
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 Patient remains in the ICU has been downgraded. His pathology results show high-grade B-cell non-Hodgkin lymphoma. Patient denies abdominal pain. He is tolerating a full liquid diet. He is having bowel movements. WBC 12.4 down to 11.8 Hgb 9.0 platelets 287 sodium is 1:30 potassium 3.9 creatinine 0.60 PHYSICAL EXAM: VITAL SIGNS: Reviewed GENERAL: Well-developed in no acute distress. HEENT: No sclera icterus. Extraocular movements grossly intact. Moist buccal mucosa. Head is atraumatic, normocephalic. Hears conversational speech. No nasal drainage. NECK: Supple without lymphadenopathy. CHEST: Non-labored respirations and equal bilateral excursions. CARDIOVASCULAR: Palpable 2+ radial pulses. ABDOMEN: Soft. Nondistended. Nontender. Incisional dressing clean dry and intact MUSCULOSKELETAL: No clubbing or cyanosis. NEUROLOGIC: No focal or lateralizing signs. Cranial nerves II through XII grossly intact. PSYCH: Appropriate affect. Alert and oriented to person, place and time. SKIN: Well perfused. Good skin turgor. ASSESSMENT: 1. Acute blood loss anemia 2. Large cecal mass, neoplasm, locally invasive 3. Acute gastrointestinal bleeding from cecal mass 4. Leukocytosis. 5. Ileus resolved 6. 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 Followed by oncology PLAN: -Continue full liquid diet -Continue TPN for nutrition support -Encourage patient to ambulate -Encourage patient to use incentive spirometer Physician Demographic Analyst note has been reviewed by physician. Signing provider agrees with the documented findings, assessment, and plan of care. Objective - Vital Signs Vital signs: Vital Signs Temp 98.6 F 05/02/23 08:00 Pulse 85 05/02/23 08:00 Resp 16 05/02/23 08:00 BP 120/77 05/02/23 08:00 Pulse Ox 98 05/02/23 08:00 FiO2 Intake & Output 05/01/23 05/02/23 05/02/23 18:59 06:59 18:59 Intake Total 3405 200 1885 Output Total 1000 400 Balance 2405 200 1485 Weight 114.7 kg 116.2 kg Intake: IV 2405 200 1435 Amino Acid 5%-D20w+Lytes* 2004 1235 E* 1,000 ml @ 95 mls/hr IV .BY DURATION [facility] Rx#: [id number] Piperacillin-Tazobactam 3 200 100 100 .375 gm In Sodium Chloride 0.9% 100 ml @ 25 mls/hr IVPB Q8HR [facility] Rx# :[id number] metroNIDAZOLE-NS PMX 500 200 100 100 mg In Saline 1 100ml.bag @ 100 mls/hr IVPB Q8HR [facility] Rx#:[id number] Intake, IV Titration 1000 Amount Amino Acid 5%-D20w+Lytes* 1000 E* 1,000 ml @ 95 mls/hr IV .BY DURATION [facility] Rx#: [id number] Oral 450 Output: Urine 1000 400 Other: Voiding Method Incontinent Incontinent External Catheter # Voids 4 2 1 # Bowel Movements 1 1 - Labs CBC & Chem 7: 05/02/23 04:25 05/02/23 04:25 Labs: Abnormal Lab Results - Last 24 Hours (Table) 05/01/23 05/02/23 05/02/23 Range/Units 16:35 04:25 04:25 WBC 12.5 H 11.8 H (3.8-10.6) k/uL RBC 3.12 L 2.93 L (4.30-5.90) m/uL Hgb 9.7 L 9.0 L (13.0-17.5) gm/dL Hct 29.7 L 27.9 L (39.0-53.0) % RDW 16.5 H 16.8 H (11.5-15.5) % Neutrophils # 10.4 H 9.4 H (1.3-7.7) k/uL Lymphocytes # 0.8 L (1.0-4.8) k/uL Sodium 130 L (137-145) mmol/L Chloride 97 L (98-107) mmol/L Creatinine 0.60 L (0.66-1.25) mg/dL Glucose 277 H (74-99) mg/dL Calcium 7.8 L (8.4-10.2) mg/dL Total Protein 4.2 L (6.3-8.2) g/dL Albumin 2.1 L (3.5-5.0) g/dL
--- NOTE | 2023-05-02 14:04 | P.PN ---
Subjective Progress Note Date: 05/02/23 Principal diagnosis: Anemia, GI bleed, diarrhea, cecal mass-Diagnosed with high-grade lymphoma In f/u pt in ICU still but he is doing well, no pain at all, incision is healing well, he tolerating oral intake, he has had BM. Objective - Vital Signs Vital signs: Vital Signs Temp 98.6 F 05/02/23 08:00 Pulse 85 05/02/23 08:00 Resp 16 05/02/23 08:00 BP 120/77 05/02/23 08:00 Pulse Ox 98 05/02/23 08:00 FiO2 Intake & Output 05/01/23 05/02/23 05/02/23 18:59 06:59 18:59 Intake Total 3405 200 1885 Output Total 1000 400 Balance 2405 200 1485 Weight 114.7 kg 116.2 kg Intake: IV 2405 200 1435 Amino Acid 5%-D20w+Lytes* 2005 1235 E* 1,000 ml @ 95 mls/hr IV .BY DURATION [facility] Rx#: [id number] Piperacillin-Tazobactam 3 200 100 100 .375 gm In Sodium Chloride 0.9% 100 ml @ 25 mls/hr IVPB Q8HR [facility] Rx# :[id number] metroNIDAZOLE-NS PMX 500 200 100 100 mg In Saline 1 100ml.bag @ 100 mls/hr IVPB Q8HR [facility] Rx#:[id number] Intake, IV Titration 1000 Amount Amino Acid 5%-D20w+Lytes* 1000 E* 1,000 ml @ 95 mls/hr IV .BY DURATION [facility] Rx#: [id number] Oral 450 Output: Urine 1000 400 Other: Voiding Method Incontinent Incontinent External Catheter # Voids 4 2 1 # Bowel Movements 1 1 - Constitutional General appearance: Present: cooperative, no acute distress, obese - EENT Eyes: Present: anicteric sclerae, EOMI ENT: Present: hearing grossly normal - Respiratory Respiratory: bilateral: CTA - Cardiovascular Rhythm: regular Heart sounds: normal: S1, S2 - Peripheral edema leg Peripheral Edema: bilateral: 1+ - Gastrointestinal Gastrointestinal Comment(s): midline incision dressing C/D/I, no surrounding redness, no pain with palpation of abd General gastrointestinal: Present: normal bowel sounds, soft - Integumentary Integumentary: Present: pale - Neurologic Neurologic: Present: CNII-XII intact - Musculoskeletal Musculoskeletal: Present: generalized weakness - Psychiatric Psychiatric: Present: A&O x's 3, appropriate affect, intact judgment & insight - Labs CBC & Chem 7: 05/02/23 04:25 05/02/23 04:25 Labs: Abnormal Lab Results - Last 24 Hours (Table) 05/01/23 05/02/23 05/02/23 Range/Units 16:35 04:25 04:25 WBC 12.5 H 11.8 H (3.8-10.6) k/uL RBC 3.12 L 2.93 L (4.30-5.90) m/uL Hgb 9.7 L 9.0 L (13.0-17.5) gm/dL Hct 29.7 L 27.9 L (39.0-53.0) % RDW 16.5 H 16.8 H (11.5-15.5) % Neutrophils # 10.4 H 9.4 H (1.3-7.7) k/uL Lymphocytes # 0.8 L (1.0-4.8) k/uL Sodium 130 L (137-145) mmol/L Chloride 97 L (98-107) mmol/L Creatinine 0.60 L (0.66-1.25) mg/dL Glucose 277 H (74-99) mg/dL Calcium 7.8 L (8.4-10.2) mg/dL Total Protein 4.2 L (6.3-8.2) g/dL Albumin 2.1 L (3.5-5.0) g/dL Assessment and Plan (1) Anemia Current Visit: Yes Status: Acute Priority: High Code(s): D64.9 - ANEMIA, UNSPECIFIED SNOMED Code(s): 569653781 (2) Gastrointestinal bleeding Current Visit: Yes Status: Acute Priority: High Code(s): K92.2 - GASTROINTESTINAL HEMORRHAGE, UNSPECIFIED SNOMED Code(s): 46960757 (3) Lymphoma Current Visit: Yes Status: Acute Priority: High Code(s): C85.90 - NON- HODGKIN LYMPHOMA, UNSPECIFIED, UNSPECIFIED SITE SNOMED Code(s): 641080094 Plan: Iron deficient anemia -Hgb stable today at 9.1 -Most likely secondary to cecal mass, GI blood losses -Status post parenteral iron. Will likely need additional doses of iron in the future. Pending recovery of his current condition. Continue parenteral iron outpatient -Coumadin has been held. Pt was on for a-fib. Cardiology is following closely GI bleed, cecal mass resection, lymphoma -Biopsy was neg -Right hemicolectomy, cecal mass path positive for high grade B cell non- Hodgkin's lymphoma. 3 of 8 mesenteric nodes are involved by direct invasion. Weakly positive BCL-2, weakly positive BCL 6, being sent for MYC, weakly positive MUM1. KI-67 immunostains show a proliferative index of greater than 80% among the atypical lymphoid cells. Pending addendum for final differentiation of lymphoma. -Pt didn't have any specific questions at this time about the diagnosis. -He understands that final treatment recommendations will be discussed once ad ditional testing is completed and a staging PET scan has been performed. We will sched the PET scan and let him know date and time. F/U with Dr. Efren Carbajal already sched -Reinforced with patient that no treatment would be considered until he is completely recovered and rehabilitated. -Patient verbalized understanding the plan. -Surgery following closely.
--- NOTE | 2023-05-02 14:13 | P.PN ---
Subjective Progress Note Date: 05/02/23 Ventricular tachycardia The patient is an 83-year-old gentleman with a past medical history significant for permanent pacemaker and paroxysmal atrial fibrillation as well as hypertension and dyslipidemia and preserved LV systolic function on the last echocardiogram from October was admitted to the hospital with abdominal discomfort and he underwent surgery including lysis of adhesions and washout and a mass resection from the cecum. The patient was supposed to be transferred out of the ICU yesterday when he did have an episode of wide complex rhythm consistent of ventricular tachycardia. It was somewhat sustained. I started the patient on amiodarone IV. His magnesium was replaced. Since then he did not have any more episodes of ventricular tachycardia April [id number] He is asymptomatic and hemodynamically stable. I'm going to DC and no IV and start the patient on nothing by mouth orally. To be started on oral anticoagulation once is safe from the surgical standpoint overview. Beside that continue the current dose of beta jacob with atenolol which has increased yesterday. The patient eventually Transferred out of the intensive care unit. The examination is remarkable for regular rhythm with distant heart sounds and diminished breathing sounds bilaterally and bilateral lower extremity edema 04/27/2023 The patient was seen and evaluated this morning. Apparently he has been experiencing abdominal discomfort and abdominal distention. Computed tomography scan of the abdomen and pelvis was performed yesterday and showed ileus with evidence of possible pneumoperitoneum. Surgery is on the case. He went into ventricular tachycardia yesterday I did start the patient back on amiodarone IV. When he was seen this morning he seems to be an issue affiliations/atrial fl utter with overall controlled heart rate. Anticoagulation is on hold at this point. The examination is remarkable for extremely distended abdomen. 04/28/2023. The patient was seen and evaluated this morning. He underwent a workup for abdominal distention and that came in to be remarkable for ileus. An NG tube was placed and the abdominal distention as well as the patient's symptoms improved significantly. Hemodynamically he is in atrial fibrillation/flutter with overall controlled heart rate. He is not on any oral anticoagulation but we are going to check with the surgical team safety of starting him on small dose of oral anticoagulation. Beside that on examination he seems to be having upper and lower extremity edema and without being seen point. The patient 20 mg of Lasix IV. We'll continue following up with the patient. No more episodes of ventricular tachycardia. 04/29/2023 Patient was seen and examined this morning. Patient is getting NG tube feeds and is tolerating them well. He is hemodynamically stable. He has atrial flutter with controlled ventricular rate. His last echo from this admission showed an LVEF of 50-55%. 04/30/23 Patient is doing well. He is on clear liquid diet started taking it. His telemetry shows typical atrial flutter, Which is rate controlled. he has not had any further episodes of ventricular tachycardia and last 48 hours. He a ppears mildly volume overloaded today. We will give him 1 time dose of Lasix 40 mg IV 05/01/2023 His NG tube is out and is tolerating oral diet. He continues to be included atrial flutter. No further sustained or nonsustained V. tach. Denies any chest pain or shortness of breath. Responded well to IV Lasix yesterday. 05/02/2023 Patient was seen and examined at bedside. He is tolerating by mouth diet and is passing gas. He has not demonstrated any further episodes of GI bleeding. His hemoglobin has been stable at 9.0. His MRI stable blood pressure 120/77, heart rate 85 bpm Physical examination Cardiology: Irregularly irregular pulse, no significant murmurs appreciated respiratory: Good air entry bilateral lung dodge, mild crackles audible Neurological: no focal neurological deficits Assessment Atrial flutter, rate controlled 2:1 Ventricular tachycardia which has resolved Paroxysmal atrial fibrillation. The patient is in atrial fibrillation at this point Status post right hemicolectomy for cecal mass GI Bleed while on coumadin due to above Permanent pacemaker Hypertension Dyslipidemia Ileus Plan Discontinued atenolol and continue metoprolol 50 mg twice daily. He was not on anticoagulation at this time due to recent GI bleeding and surgery. Once cleared by surgery I would like to place him on systemic anticoagulation. Once he is stable and tolerating diet and if his hemoglobin remains stable tomorrow, I'll start him on oral anticoagulation after discussing with surgery. If he tolerates it well for next day, we will like to offer him cardioversion to resolve atrial flutter. he is currently rate controlled atrial flutter with ventricularly paced rhythm. his hemoglobin has been stable over last 3-4 days He will be a good candidate for Watchman device placement as outpatient. Objective - Vital Signs Vital signs: Vital Signs Temp 98.6 F 05/02/23 08:00 Pulse 85 05/02/23 08:00 Resp 16 05/02/23 08:00 BP 120/77 05/02/23 08:00 Pulse Ox 98 05/02/23 08:00 FiO2 Intake & Output 05/01/23 05/02/23 05/02/23 18:59 06:59 18:59 Intake Total 3405 200 1885 Output Total 1000 400 Balance 2405 200 1485 Weight 114.7 kg 116.2 kg Intake: IV 2405 200 1435 Amino Acid 5%-D20w+Lytes* 2004 1235 E* 1,000 ml @ 95 mls/hr IV .BY DURATION [facility] Rx#: [id number] Piperacillin-Tazobactam 3 200 100 100 .375 gm In Sodium Chloride 0.9% 100 ml @ 25 mls/hr IVPB Q8HR [facility] Rx# :[id number] metroNIDAZOLE-NS PMX 500 200 100 100 mg In Saline 1 100ml.bag @ 100 mls/hr IVPB Q8HR [facility] Rx#:[id number] Intake, IV Titration 1000 Amount Amino Acid 5%-D20w+Lytes* 1000 E* 1,000 ml @ 95 mls/hr IV .BY DURATION [facility] Rx#: [id number] Oral 450 Output: Urine 1000 400 Other: Voiding Method Incontinent Incontinent External Catheter # Voids 4 2 1 # Bowel Movements 1 1 - Labs CBC & Chem 7: 05/02/23 04:25 05/02/23 04:25 Labs: Abnormal Lab Results - Last 24 Hours (Table) 05/01/23 05/02/23 05/02/23 Range/Units 16:35 04:25 04:25 WBC 12.5 H 11.8 H (3.8-10.6) k/uL RBC 3.12 L 2.93 L (4.30-5.90) m/uL Hgb 9.7 L 9.0 L (13.0-17.5) gm/dL Hct 29.7 L 27.9 L (39.0-53.0) % RDW 16.5 H 16.8 H (11.5-15.5) % Neutrophils # 10.4 H 9.4 H (1.3-7.7) k/uL Lymphocytes # 0.8 L (1.0-4.8) k/uL Sodium 130 L (137-145) mmol/L Chloride 97 L (98-107) mmol/L Creatinine 0.60 L (0.66-1.25) mg/dL Glucose 277 H (74-99) mg/dL Calcium 7.8 L (8.4-10.2) mg/dL Total Protein 4.2 L (6.3-8.2) g/dL Albumin 2.1 L (3.5-5.0) g/dL
[2023-05-02] MEDS: APIXABAN 5 MG TAB PO SCH (20:42)
[2023-05-02] MEDS: MONTELUKAST 10 MG TAB PO SCH (20:42)
[2023-05-02] MEDS: ATORVASTATIN 10 MG TAB PO SCH (20:43)
[2023-05-03] MEDS: PIPERACILLIN-TAZOBACTAM 3.375 GM in SODIUM CHLORIDE 0.9% 100 ML IVPB SCH ×3 (01:26→16:35)
[2023-05-03] MEDS: 1: MVI, ADULT NO.4 WITH VIT K 10 ML, TRACE (CONC-1ML/DOSE) 1 ML in AMINO ACID 5%-D20W+LY IV SCH ×9 (02:59→18:05)
[2023-05-03 08:04] LABS: ALT 18 U/L (4-49); AST 28 U/L (17-59); African American GFR (CKD) >90 (>60 ml/min/1.73 sqM); Albumin 2.1 g/dL (3.5-5.0); Alkaline Phosphatase 39 U/L (38-126); Anion Gap 3 mmol/L; Blood Urea Nitrogen 18 mg/dL (9-20); Calcium 7.7 mg/dL (8.4-10.2); Carbon Dioxide 29 mmol/L (22-30); Chloride 98 mmol/L (98-107); Globulin 2.1 g/dL; Glucose 280 mg/dL (74-99); Non-African American GFR(CKD) >90 (>60 ml/min/1.73 sqM); Phosphorus 3.3 mg/dL (2.5-4.5); Potassium 4.4 mmol/L (3.5-5.1); Sodium 130 mmol/L (137-145); Total Bilirubin 0.4 mg/dL (0.2-1.3); Total Protein 4.2 g/dL (6.3-8.2)
[2023-05-03] MEDS: metroNIDAZOLE-NS PMX 500 MG in SALINE 1 100ML.BAG IVPB SCH ×2 (09:03→16:35)
[2023-05-03] MEDS: PANTOPRAZOLE 40 MG/10 ML VIAL IVP SCH (09:05)
[2023-05-03] MEDS: SIMETHICONE 80 MG CHEWABLE PO SCH ×4 (09:05→20:26)
[2023-05-03] MEDS: APIXABAN 5 MG TAB PO SCH ×2 (09:05→20:26)
[2023-05-03] MEDS: METOPROLOL TARTRATE 50 MG TAB PO SCH ×2 (09:05→20:26)
[2023-05-03] MEDS: TAMSULOSIN 0.4 MG CAP.ER.24H PO SCH ×2 (09:05→20:26)
[2023-05-03] MEDS: FAT EMULSION 20% 250 ML in EMPTY BAG 1 BAG IV SCH (09:57)
--- NOTE | 2023-05-03 11:17 | P.PN ---
Subjective Patient is doing well. He is resting comfortably in bed He has atrial fibrillation and a permanent pacemaker He status post surgery On examination blood pressure 112/61 mmHg heart rates in the 70s afebrile Suggest Continue current medications and follow Dr. Velasquez as an outpatient in about 2-3 weeks Rate control of atrial fibrillation Continue anticoagulation for now Avoid electrical cardioversion in the early postoperative phase, risk of rec urrence of atrial fibrillation early on Objective - Vital Signs Vital signs: Vital Signs Temp 98.6 F 05/03/23 07:29 Pulse 76 05/03/23 07:29 Resp 16 05/03/23 07:29 BP 112/61 05/03/23 07:29 Pulse Ox 95 05/03/23 07:29 FiO2 21 05/03/23 06:49 Intake & Output 05/02/23 05/03/23 05/03/23 18:59 06:59 18:59 Intake Total 3295 1000 Output Total 900 Balance 2395 1000 Intake: IV 2395 Amino Acid 5%-D20w+Lytes* 1995 E* 1,000 ml @ 95 mls/hr IV .BY DURATION [facility] Rx#: [id number] Piperacillin-Tazobactam 3 200 .375 gm In Sodium Chloride 0.9% 100 ml @ 25 mls/hr IVPB Q8HR [facility] Rx# :[id number] metroNIDAZOLE-NS PMX 500 200 mg In Saline 1 100ml.bag @ 100 mls/hr IVPB Q8HR [facility] Rx#:[id number] Intake, IV Titration 1000 Amount Amino Acid 5%-D20w+Lytes* 1000 E* 1,000 ml @ 95 mls/hr IV .BY DURATION [facility] Rx#: [id number] Oral 900 Output: Urine 900 Other: Voiding Method Incontinent Incontinent Incontinent External Catheter External Catheter External Catheter # Voids 1 # Bowel Movements 1 - Labs CBC & Chem 7: 05/02/23 04:25 05/03/23 06:49 Labs: Abnormal Lab Results - Last 24 Hours (Table) 05/03/23 Range/Units 06:49 Sodium 130 L (137-145) mmol/L Creatinine 0.59 L (0.66-1.25) mg/dL Glucose 280 H (74-99) mg/dL Calcium 7.7 L (8.4-10.2) mg/dL Total Protein 4.2 L (6.3-8.2) g/dL Albumin 2.1 L (3.5-5.0) g/dL
[2023-05-03 14:30] VITALS: BMI 41.3
--- NOTE | 2023-05-03 14:46 | P.PN ---
Subjective Progress Note Date: 05/03/23 On 2022, the patient is postop day #6. He presented to us with GI bleed and the large cecal mass and bowel obstruction. The patient was taken to the operating room and the patient underwent exploratory laparotomy, abdominal washout, right hemicolectomy and small bowel resection. An external wound VAC is currently present. Postop, the patient developed an ileus and an NG tube was inserted on 04/27/2023. The NG tube is still active and output is still active. The patient's bowel sounds are very much hypoactive at this point in time. He states that he was able to pass flatus today. Surgical wound is dry clean and intact. Abdomen is less distended on today's evaluation and is resting comfortably in bed and he remains nothing by mouth at this point in time. Cardiac rhythm is paced. He is currently on oxygen at 2 L with a pulse ox of 96%. In terms of his lab work, the patient has a white cell count of 15 and a hemoglobin of 9.1 and a platelet count of 298. This blood work is from yesterday. Electrolytes all normal. Creatinine is at 0.6. As stated, the patient is nothing by mouth. He is on IV fluids in the form of lactated Ringer running at 75 mL an hour. No issues with pain. He remains on broad-spectrum antibiotic coverage with IV Zosyn. He was taking warfarin on outpatient basis and currently is not receiving any form of anticoagulants. He has history of paroxysmal A. fib and current rhythm is a. His echocardiogram that was done on 04/26/2023 showed a normal LV function, no significant valvular abnormalities in his right ventricular systolic pressures around 39. 04/30/2023, the patient is postop day #7. The patient feels that he is passing flatus. No active bowel movements yet. NG tube is in place. The patient is status post resection of a cecal mass, extraocular laparotomy and right hemicolectomy and small bowel resection. The patient continues to have some degree of abdominal distention. Surgical wound is dry clean and intact. The patient remains nothing by mouth and the patient was started on TPN yesterday for nutritional support. The patient remains on IV Zosyn. His cardiac rhythm is paced with some background/flutter.Blood work from today shows a sodium level of 133, potassium level of 3.8, chloride is 99 with a bicarb of 25 and the patient is a BUN of 18 with a creatinine of 0.6. Triglyceride level is at 136. Serum albumin is at 2.2 with a total protein of 4.3. The next fluid balance over the past 24 hours has been +1.2 L. He has developed some edema in his upper and lower extremities bilaterally. Marroquin catheter still in place. Remains on IV Zosyn. Remains on Flagyl. He was able to sit up on a chair yesterday. He is using the incentive spirometer. 05/01/2023, the patient is postop day #8. His have small bowel movements yesterday and he feels that he has to go another times a day. Angiopathy has dropped and currently is producing only 200 mL over the past 24 hours. Is taking clear liquid diet. He remains on TPN. The abdominal surgical site is dry clean and intact. Abdomen is mildly distended. He is hemodynamically stable. No issues with pain. As mentioned, the final pathology from the cecal mass do not to be consistent with B-cell non-Hodgkin's lymphoma. The patient remains on IV Zosyn and Flagyl. In terms of his blood work from today, the patient has a sodium level of 1:30, potassium level of 3.8, Dinorah is at 14 with a creatinine of 0.6. CBC still pending for now. He is using incentive spirometer. His calm and comfortable and is currently on room air oxygen. His underlying cardiac rhythm is still paced. On today's evaluation of a 05/02 2023, the patient is postop day #9. NG tube was removed yesterday and the patient is having bowel movement activity. Currently is on a soft diet. Hemodynamically stable. He is afebrile. The surgical wound is stable. He remains on TPN. He has been diagnosed having a cecal non- Hodgkin's lymphoma. He remains on a IV Zosyn and Flagyl combination. White cell count stable at 11.8. Hemoglobin stable at 9.0. The sodium is stable at 130, BUN is at 60 with a creatinine of 0.6 and the potassium is at 3.4. The magnesium is at 1.9. Total protein is at 4.2. Cardiac rhythm is paced. There is some increased lower extremity edema for now. Using the senna spirometer. Awake and alert and communicating. 05/03/2023, the patient is postop day #10. He was transferred to medical floor. He is tolerating his diet. He still on TPN and this is probably his last bag. He is having a regular bowel movement. He remains on the same antibiotic coverage. He is on Zosyn and Flagyl for now. BUN is 18 with a creatinine of 0.5 and a sodium level is at 1:30. He is using the senna spirometer. His pulse ox is 96% on room air oxygen. Surgical 1 site is dry clean and intact. He remains in atrial fibrillation. He has a permanent pacemaker in place. He is hemodynamically stable. He is back on anticoagulation patient is currently on Eliquis. Objective - Vital Signs Vital signs: Vital Signs Temp 98.3 F 05/03/23 13:06 Pulse 94 05/03/23 13:06 Resp 18 05/03/23 13:06 BP 123/69 05/03/23 13:06 Pulse Ox 96 05/03/23 13:06 FiO2 21 05/03/23 06:49 Intake & Output 05/02/23 05/03/23 05/03/23 18:59 06:59 18:59 Intake Total 4306 1000 Output Total 900 Balance 3406 1000 Weight 116.2 kg Intake: IV 2395 Amino Acid 5%-D20w+Lytes* 1994 E* 1,000 ml @ 95 mls/hr IV .BY DURATION [facility] Rx#: [id number] Piperacillin-Tazobactam 3 200 .375 gm In Sodium Chloride 0.9% 100 ml @ 25 mls/hr IVPB Q8HR [facility] Rx# :[id number] metroNIDAZOLE-NS PMX 500 200 mg In Saline 1 100ml.bag @ 100 mls/hr IVPB Q8HR [facility] Rx#:[id number] Intake, IV Titration 1011 1000 Amount Amino Acid 5%-D20w+Lytes* 1000 E* 1,000 ml @ 95 mls/hr IV .BY DURATION [facility] Rx#: [id number] Mvi, Adult No.4 with Vit 1011 K 10 ml Trace (Conc-1Ml/ Dose) 1 ml In Amino Acid 5%-D20w+Lytes*E* 1,000 ml @ 95 mls/hr IV .BY DURATION [facility] Rx#: [id number] Oral 900 Output: Urine 900 Other: Voiding Method Incontinent Incontinent Incontinent External Catheter External Catheter External Catheter # Voids 1 # Bowel Movements 1 - Exam No acute distress, oriented 3. The patient is on room air oxygen Head exam was generally normal. There was no scleral icterus or corneal arcus. Mucous membranes were moist. HEENT examination is grossly unremarkable. Mucous membranes are moist. No oral lesions. Neck supple. Full range of motion. No adenopathy thyromegaly or neck vein d istention. Cardiovascular examination reveals regular rhythm rate. S1-S2 normal. No S3 or S4. No discernible murmur noted. Patient has a pacemaker in place and his current rhythm is atrial flutter with occasional pacing. Lungs reveal clear breath sounds. Breath sounds are equal bilaterally. No adventitious lung sounds including wheezes rhonchi or crackles. Abdomen soft, with bowel sounds. The abdomen is nontender at this point in time. Abdomen is less distended. Bowel sounds are present The surgical wound is dry clean and intact and there is a external wound VAC in place. Extremities are intact. No cyanosis clubbing or edema. Skin is without rash or lesion. Neurologic examination is brief but nonfocal. - Labs CBC & Chem 7: 05/02/23 04:25 05/03/23 06:49 Labs: Abnormal Lab Results - Last 24 Hours (Table) 05/03/23 Range/Units 06:49 Sodium 130 L (137-145) mmol/L Creatinine 0.59 L (0.66-1.25) mg/dL Glucose 280 H (74-99) mg/dL Calcium 7.7 L (8.4-10.2) mg/dL Total Protein 4.2 L (6.3-8.2) g/dL Albumin 2.1 L (3.5-5.0) g/dL Assessment and Plan Plan: Acute lower gastrointestinal bleed, secondary to colonic mass.Postop day #8, status post exploratory laparotomy, lysis of adhesions, abdominal washout, right hemicolectomy, small bowel resection, and placement of a wound VAC. Patient is hemodynamically stable. The patient is on broad-spectrum antibiotic coverage with IV Zosyn and Flagyl. The patient is postop day number 10 injury with today. The patient is recovering nicely from his surgery. NG tube was removed after the patient recovered from his ileus. He remains on TPN for now. This should be gradually weaned off as the patient is tolerating diet. 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 TPN was started and there is some improvement in the bowel movement activity and the patient started having some bowel movements , NG tube was removed on 05/01/2023 and the patient is currently on soft diet. He remains on TPN. He is tolerating diet and the patient is also struggling Postoperative ventricular tachycardia, resolved. History of colon cancer, S/P colon resection, 2004. History of paroxysmal atrial fibrillation/atrial flutter post-ablation and the patient is a preserved LV function, the patient has a permanent pacemaker in place History of asthma. History of CVA. History of dyslipidemia. History of hypertension. History of A. fib/flutter, History of cardiac ablation 2. The patient is demented on long-term anticoagulants with warfarin on outpatient basis Post surgical anemia, expected outcome of surgery and GI bleeding. Hemoglobin from yesterday was 8.7, awaiting hemoglobin from today Focal 1.2 cm area of erosion in the posterior superior to 10 vertebral body, consider possibility of metastases. Bone scan was done and there was no significant abnormalities to suggest O2 blastic metastatic disease. Plan: Advance diet as tolerated currently on soft diet Patient is producing bowel movement TPN cannula gradually weaned and discontinued over the next 24 hours Patient is currently on room air oxygen Monitor bowel sounds and bowel movements and activities IV fluids to KVO Increase mobility and ask the patient is up on a chair Patient was transferred out of the intensive care unit yesterday Encourage is on the case regarding colonic non-Hodgkin's lymphoma. Labs are stable Antibiotic coverage is certainly combination of Zosyn and Flagyl He is on chronic anticoagulation regarding his A. fib
--- NOTE | 2023-05-03 15:38 | P.PN ---
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 Patient currently sitting up in chair he is a regular medical floor. He reports having bowel movements. Tolerating diet. Afebrile. 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 HEENT: No sclera icterus. Extraocular movements grossly intact. Moist buccal mucosa. Head is atraumatic, normocephalic. Hears conversational speech. No nasal drainage. NECK: Supple without lymphadenopathy. CHEST: Non-labored respirations and equal bilateral excursions. CARDIOVASCULAR: Palpable 2+ radial pulses. ABDOMEN: Soft. Nondistended. Nontender. Incisional dressing clean dry and intact MUSCULOSKELETAL: No clubbing or cyanosis. NEUROLOGIC: No focal or lateralizing signs. Cranial nerves II through XII grossly intact. PSYCH: Appropriate affect. Alert and oriented to person, place and time. SKIN: Well perfused. Good skin turgor. ASSESSMENT: 1. Acute blood loss anemia 2. Large cecal mass, neoplasm, locally invasive 3. Acute gastrointestinal bleeding from cecal mass 4. Leukocytosis. 5. Ileus resolved 6. 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 Followed by oncology PLAN: -Advance diet to low fiber -Wean off TPN -Patient is stable for discharge from surgical standpoint when medically cleared -Continue antibiotics -Encourage patient to ambulate -Encourage patient to use incentive spirometer Physician Lamination Builder note has been reviewed by physician. Signing provider agrees with the documented findings, assessment, and plan of care. Objective - Vital Signs Vital signs: Vital Signs Temp 98.3 F 05/03/23 13:06 Pulse 94 05/03/23 13:06 Resp 18 05/03/23 13:06 BP 123/69 05/03/23 13:06 Pulse Ox 96 05/03/23 13:06 FiO2 21 05/03/23 06:49 Intake & Output 05/02/23 05/03/23 05/03/23 18:59 06:59 18:59 Intake Total 3295 1000 Output Total 900 Balance 2395 1000 Intake: IV 2395 Amino Acid 5%-D20w+Lytes* 1994 E* 1,000 ml @ 95 mls/hr IV .BY DURATION [facility] Rx#: [id number] Piperacillin-Tazobactam 3 200 .375 gm In Sodium Chloride 0.9% 100 ml @ 25 mls/hr IVPB Q8HR [facility] Rx# :[id number] metroNIDAZOLE-NS PMX 500 200 mg In Saline 1 100ml.bag @ 100 mls/hr IVPB Q8HR [facility] Rx#:[id number] Intake, IV Titration 1000 Amount Amino Acid 5%-D20w+Lytes* 1000 E* 1,000 ml @ 95 mls/hr IV .BY DURATION [facility] Rx#: [id number] Oral 900 Output: Urine 900 Other: Voiding Method Incontinent Incontinent Incontinent External Catheter External Catheter External Catheter # Voids 1 # Bowel Movements 1 - Labs CBC & Chem 7: 05/02/23 04:25 05/03/23 06:49 Labs: Abnormal Lab Results - Last 24 Hours (Table) 05/03/23 Range/Units 06:49 Sodium 130 L (137-145) mmol/L Creatinine 0.59 L (0.66-1.25) mg/dL Glucose 280 H (74-99) mg/dL Calcium 7.7 L (8.4-10.2) mg/dL Total Protein 4.2 L (6.3-8.2) g/dL Albumin 2.1 L (3.5-5.0) g/dL
[2023-05-03] MEDS: MONTELUKAST 10 MG TAB PO SCH (20:26)
[2023-05-03] MEDS: ATORVASTATIN 10 MG TAB PO SCH (20:26)
[2023-05-04] MEDS: metroNIDAZOLE-NS PMX 500 MG in SALINE 1 100ML.BAG IVPB SCH ×4 (01:44→23:32)
[2023-05-04] MEDS: PIPERACILLIN-TAZOBACTAM 3.375 GM in SODIUM CHLORIDE 0.9% 100 ML IVPB SCH ×4 (01:45→23:32)
[2023-05-04] MEDS: 1: MVI, ADULT NO.4 WITH VIT K 10 ML, TRACE (CONC-1ML/DOSE) 1 ML in AMINO ACID 5%-D20W+LY IV SCH ×3 (04:37)
[2023-05-04 07:11] LABS: ALT 22 U/L (4-49); AST 42 U/L (17-59); African American GFR (CKD) >90 (>60 ml/min/1.73 sqM); Albumin 2.1 g/dL (3.5-5.0); Alkaline Phosphatase 43 U/L (38-126); Anion Gap 3 mmol/L; Blood Urea Nitrogen 17 mg/dL (9-20); Carbon Dioxide 27 mmol/L (22-30); Chloride 101 mmol/L (98-107); Globulin 2.2 g/dL; Glucose 182 mg/dL (74-99); Non-African American GFR(CKD) 86 (>60 ml/min/1.73 sqM); Potassium 4.7 mmol/L (3.5-5.1); Sodium 131 mmol/L (137-145); Total Bilirubin 0.3 mg/dL (0.2-1.3); Total Protein 4.3 g/dL (6.3-8.2)
[2023-05-04] MEDS: TAMSULOSIN 0.4 MG CAP.ER.24H PO SCH ×2 (07:42→20:28)
[2023-05-04] MEDS: SIMETHICONE 80 MG CHEWABLE PO SCH ×4 (07:42→20:27)
[2023-05-04] MEDS: APIXABAN 5 MG TAB PO SCH ×2 (07:42→20:27)
[2023-05-04] MEDS: METOPROLOL TARTRATE 50 MG TAB PO SCH ×2 (07:42→20:27)
--- NOTE | 2023-05-04 08:51 | P.PN ---
Subjective Progress Note Date: 05/03/23 Principal diagnosis: cecum mass Patient resting comfortably in bed, family at beside. Reports feeling well. Tolerating oral intake. Denies abdominal pain. Patient afebrile Objective - Vital Signs Vital signs: Vital Signs Temp 98.4 F 05/03/23 19:27 Pulse 103 H 05/03/23 19:27 Resp 18 05/03/23 19:27 BP 118/63 05/03/23 19:27 Pulse Ox 96 05/03/23 19:27 FiO2 21 05/03/23 06:49 Intake & Output 05/03/23 05/03/23 05/04/23 06:59 18:59 06:59 Intake Total 1000 Output Total 750 Balance 1000 -750 Weight 116.2 kg Intake: Intake, IV Titration 1000 Amount Amino Acid 5%-D20w+Lytes* 1000 E* 1,000 ml @ 95 mls/hr IV .BY DURATION RODGER Rx#: [id number] Output: Urine 750 Other: Voiding Method Incontinent Incontinent External Catheter External Catheter # Bowel Movements 1 - Constitutional General appearance: Present: no acute distress, obese - EENT Eyes: Present: anicteric sclerae, EOMI ENT: Present: hearing grossly normal - Respiratory Details: breathing is even and unlabored - Cardiovascular Details: skin warm and dry - Integumentary Integumentary: Absent: cyanotic, jaundiced - Neurologic Neurologic Comment(s): grossly intact - Musculoskeletal Musculoskeletal: Present: generalized weakness - Psychiatric Psychiatric: Present: A&O x's 3, appropriate affect, intact judgment & insight - Labs CBC & Chem 7: 05/02/23 04:25 05/04/23 06:05 Labs: Abnormal Lab Results - Last 24 Hours (Table) 05/03/23 Range/Units 06:49 Sodium 130 L (137-145) mmol/L Creatinine 0.59 L (0.66-1.25) mg/dL Glucose 280 H (74-99) mg/dL Calcium 7.7 L (8.4-10.2) mg/dL Total Protein 4.2 L (6.3-8.2) g/dL Albumin 2.1 L (3.5-5.0) g/dL Assessment and Plan (1) Mass of cecum Current Visit: Yes Status: Acute Priority: High Code(s): K63.89 - OTHER SPECIFIED DISEASES OF INTESTINE SNOMED Code(s): 7723256660 (2) Anemia Current Visit: Yes Status: Acute Priority: High Code(s): D64.9 - ANEMIA, UNSPECIFIED SNOMED Code(s): 755675950 (3) Gastrointestinal bleeding Current Visit: Yes Status: Acute Priority: High Code(s): K92.2 - G ASTROINTESTINAL HEMORRHAGE, UNSPECIFIED SNOMED Code(s): 09529876 Plan: Iron deficient anemia -Hgb stable, 9.0 -Most likely secondary to cecal mass, GI blood losses -Status post parenteral iron. Will likely need additional doses of iron in the future. Pending recovery of his current condition. 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 3 of 8 mesenteric nodes are involved by direct invasion. Weakly positive BCL-2, weakly positive BCL 6, being sent for MYC, weakly positive MUM1. KI-67 immunostains show a proliferative index of greater than 80% among the atypical lymphoid cells. Pending addendum for final differentiation of lymphoma. -He understands that final treatment recommendations will be discussed once additional testing is completed and a staging PET scan has been performed. We will sched the PET scan and let him know date and time. F/U with Dr. Efren Carbajal already scheduled, in discharge plan. -Reinforced with patient that no treatment would be considered until he is completely recovered and rehabilitated. Plan is for rehab upon discharge. -Patient verbalized understanding of plan of care. -Surgery following .
--- NOTE | 2023-05-04 10:47 | P.PN ---
Subjective Progress Note Date: 05/04/23 Principal diagnosis: Rectal bleeding Patient doing well today. Sitting up in a chair. Denies pain. He had a bowel movement yesterday. Passing flatus today. Tolerating diet. Objective - Vital Signs Vital signs: Vital Signs Temp 98.8 F 05/04/23 07:40 Pulse 87 05/04/23 07:40 Resp 19 05/04/23 07:40 BP 101/61 05/04/23 07:40 Pulse Ox 97 05/04/23 10:11 FiO2 21 05/04/23 10:11 Intake & Output 05/03/23 05/04/23 05/04/23 18:59 06:59 18:59 Output Total 750 400 750 Balance -750 -400 -750 Weight 116.2 kg Output: Urine 750 400 750 Other: Voiding Method Incontinent Incontinent External Catheter External Catheter # Bowel Movements 1 - Exam Abdomen: Soft, mild distention, nontender, dressing clean and dry - Labs CBC & Chem 7: 05/02/23 04:25 05/04/23 06:05 Labs: Abnormal Lab Results - Last 24 Hours (Table) 05/04/23 Range/Units 06:05 Sodium 131 L (137-145) mmol/L Glucose 182 H (74-99) mg/dL Calcium 8.0 L (8.4-10.2) mg/dL Total Protein 4.3 L (6.3-8.2) g/dL Albumin 2.1 L (3.5-5.0) g/dL Assessment and Plan (1) Gastrointestinal bleeding Narrative/Plan: Patient overall doing fairly well. Continue low fiber diet. Continue increasing activity. Possible discharge to rehab on Saturday. Current Visit: Yes Status: Acute Priority: High Code(s): K92.2 - GASTROINTESTINAL HEMORRHAGE, UNSPECIFIED SNOMED Code(s): 60533742
[2023-05-04] MEDS: PANTOPRAZOLE 40 MG/10 ML VIAL IVP SCH (11:14)
[2023-05-04] MEDS ORDERED: 1: MVI, ADULT NO.4 WITH VIT K 10 ML, TRACE (CONC-1ML/DOSE) 1 ML in AMINO ACID 5%-D20W+LY IV SCH ×3 (12:00)
--- NOTE | 2023-05-04 12:37 | P.PN ---
Subjective Progress Note Date: 05/04/23 Ventricular tachycardia The patient is an 83-year-old gentleman with a past medical history significant for permanent pacemaker and paroxysmal atrial fibrillation as well as hypertension and dyslipidemia and preserved LV systolic function on the last echocardiogram from October was admitted to the hospital with abdominal discomfort and he underwent surgery including lysis of adhesions and washout and a mass resection from the cecum. The patient was supposed to be transferred out of the ICU yesterday when he did have an episode of wide complex rhythm consistent of ventricular tachycardia. It was somewhat sustained. I started the patient on amiodarone IV. His magnesium was replaced. Since then he did not have any more episodes of ventricular tachycardia April [id number] He is asymptomatic and hemodynamically stable. I'm going to DC and no IV and start the patient on nothing by mouth orally. To be started on oral anticoagulation once is safe from the surgical standpoint overview. Beside that continue the current dose of beta jacob with atenolol which has increased yesterday. The patient eventually Transferred out of the intensive care unit. The examination is remarkable for regular rhythm with distant heart sounds and diminished breathing sounds bilaterally and bilateral lower extremity edema 04/27/2023 The patient was seen and evaluated this morning. Apparently he has been experiencing abdominal discomfort and abdominal distention. Computed tomography scan of the abdomen and pelvis was performed yesterday and showed ileus with evidence of possible pneumoperitoneum. Surgery is on the case. He went into ventricular tachycardia yesterday I did start the patient back on amiodarone IV. When he was seen this morning he seems to be an issue affiliations/atrial fl utter with overall controlled heart rate. Anticoagulation is on hold at this point. The examination is remarkable for extremely distended abdomen. 04/28/2023. The patient was seen and evaluated this morning. He underwent a workup for abdominal distention and that came in to be remarkable for ileus. An NG tube was placed and the abdominal distention as well as the patient's symptoms improved significantly. Hemodynamically he is in atrial fibrillation/flutter with overall controlled heart rate. He is not on any oral anticoagulation but we are going to check with the surgical team safety of starting him on small dose of oral anticoagulation. Beside that on examination he seems to be having upper and lower extremity edema and without being seen point. The patient 20 mg of Lasix IV. We'll continue following up with the patient. No more episodes of ventricular tachycardia. 04/29/2023 Patient was seen and examined this morning. Patient is getting NG tube feeds and is tolerating them well. He is hemodynamically stable. He has atrial flutter with controlled ventricular rate. His last echo from this admission showed an LVEF of 50-55%. Subjective: Patient is doing well and his hemodynamic stable. His atrial flutter is rate controlled. He is in paced rhythm. There were no organomegaly don't have any syncopal event. we will repeat his labs tomorrow to check his hemoglobin levels Assessment Atrial flutter, rate controlled 2:1 Ventricular tachycardia which has resolved Paroxysmal atrial fibrillation. The patient is in atrial fibrillation at this point Status post right hemicolectomy for cecal mass GI Bleed while on coumadin due to above Permanent pacemaker Hypertension Dyslipidemia Ileus Plan Discontinued atenolol and continue metoprolol 50 mg twice daily. Resumed his Eliquis after discussing with surgery team. He has not shown any signs of bleeding at this time. he is currently rate controlled atrial flutter with ventricularly paced rhythm. his hemoglobin has been stable over last 3-4 days He will be a good candidate for Watchman device placement as outpatient. Objective - Vital Signs Vital signs: Vital Signs Temp 98.8 F 05/04/23 07:40 Pulse 87 05/04/23 07:40 Resp 19 05/04/23 07:40 BP 101/61 05/04/23 07:40 Pulse Ox 97 05/04/23 10:11 FiO2 21 05/04/23 10:11 Intake & Output 05/03/23 05/04/23 05/04/23 18:59 06:59 18:59 Output Total 750 400 750 Balance -750 -400 -750 Weight 116.2 kg Output: Urine 750 400 750 Other: Voiding Method Incontinent Incontinent External Catheter External Catheter # Bowel Movements 1 1 - Labs CBC & Chem 7: 05/02/23 04:25 05/04/23 06:05 Labs: Abnormal Lab Results - Last 24 Hours (Table) 05/04/23 Range/Units 06:05 Sodium 131 L (137-145) mmol/L Glucose 182 H (74-99) mg/dL Calcium 8.0 L (8.4-10.2) mg/dL Total Protein 4.3 L (6.3-8.2) g/dL Albumin 2.1 L (3.5-5.0) g/dL
--- NOTE | 2023-05-04 14:28 | P.PN ---
Subjective Progress Note Date: 05/04/23 On 2022, the patient is postop day #6. He presented to us with GI bleed and the large cecal mass and bowel obstruction. The patient was taken to the operating room and the patient underwent exploratory laparotomy, abdominal washout, right hemicolectomy and small bowel resection. An external wound VAC is currently present. Postop, the patient developed an ileus and an NG tube was inserted on 04/27/2023. The NG tube is still active and output is still active. The patient's bowel sounds are very much hypoactive at this point in time. He states that he was able to pass flatus today. Surgical wound is dry clean and intact. Abdomen is less distended on today's evaluation and is resting comfortably in bed and he remains nothing by mouth at this point in time. Cardiac rhythm is paced. He is currently on oxygen at 2 L with a pulse ox of 96%. In terms of his lab work, the patient has a white cell count of 15 and a hemoglobin of 9.1 and a platelet count of 298. This blood work is from yesterday. Electrolytes all normal. Creatinine is at 0.6. As stated, the patient is nothing by mouth. He is on IV fluids in the form of lactated Ringer running at 75 mL an hour. No issues with pain. He remains on broad-spectrum antibiotic coverage with IV Zosyn. He was taking warfarin on outpatient basis and currently is not receiving any form of anticoagulants. He has history of paroxysmal A. fib and current rhythm is a. His echocardiogram that was done on 04/26/2023 showed a normal LV function, no significant valvular abnormalities in his right ventricular systolic pressures around 39. 04/30/2023, the patient is postop day #7. The patient feels that he is passing flatus. No active bowel movements yet. NG tube is in place. The patient is status post resection of a cecal mass, extraocular laparotomy and right hemicolectomy and small bowel resection. The patient continues to have some degree of abdominal distention. Surgical wound is dry clean and intact. The patient remains nothing by mouth and the patient was started on TPN yesterday for nutritional support. The patient remains on IV Zosyn. His cardiac rhythm is paced with some background/flutter.Blood work from today shows a sodium level of 133, potassium level of 3.8, chloride is 99 with a bicarb of 25 and the patient is a BUN of 18 with a creatinine of 0.6. Triglyceride level is at 136. Serum albumin is at 2.2 with a total protein of 4.3. The next fluid balance over the past 24 hours has been +1.2 L. He has developed some edema in his upper and lower extremities bilaterally. Marroquin catheter still in place. Remains on IV Zosyn. Remains on Flagyl. He was able to sit up on a chair yesterday. He is using the incentive spirometer. 05/01/2023, the patient is postop day #8. His have small bowel movements yesterday and he feels that he has to go another times a day. Angiopathy has dropped and currently is producing only 200 mL over the past 24 hours. Is taking clear liquid diet. He remains on TPN. The abdominal surgical site is dry clean and intact. Abdomen is mildly distended. He is hemodynamically stable. No issues with pain. As mentioned, the final pathology from the cecal mass do not to be consistent with B-cell non-Hodgkin's lymphoma. The patient remains on IV Zosyn and Flagyl. In terms of his blood work from today, the patient has a sodium level of 1:30, potassium level of 3.8, Dinorah is at 14 with a creatinine of 0.6. CBC still pending for now. He is using incentive spirometer. His calm and comfortable and is currently on room air oxygen. His underlying cardiac rhythm is still paced. On today's evaluation of a 05/02 2023, the patient is postop day #9. NG tube was removed yesterday and the patient is having bowel movement activity. Currently is on a soft diet. Hemodynamically stable. He is afebrile. The surgical wound is stable. He remains on TPN. He has been diagnosed having a cecal non- Hodgkin's lymphoma. He remains on a IV Zosyn and Flagyl combination. White cell count stable at 11.8. Hemoglobin stable at 9.0. The sodium is stable at 130, BUN is at 60 with a creatinine of 0.6 and the potassium is at 3.4. The magnesium is at 1.9. Total protein is at 4.2. Cardiac rhythm is paced. There is some increased lower extremity edema for now. Using the senna spirometer. Awake and alert and communicating. 05/03/2023, the patient is postop day #10. He was transferred to medical floor. He is tolerating his diet. He still on TPN and this is probably his last bag. He is having a regular bowel movement. He remains on the same antibiotic coverage. He is on Zosyn and Flagyl for now. BUN is 18 with a creatinine of 0.5 and a sodium level is at 1:30. He is using the senna spirometer. His pulse ox is 96% on room air oxygen. Surgical 1 site is dry clean and intact. He remains in atrial fibrillation. He has a permanent pacemaker in place. He is hemodynamically stable. He is back on anticoagulation patient is currently on Eliquis. On , postoperative day #11. Doing well. Room air oxygen. Tolerating diet. Passing flatus and having bowel movement. Sitting up on a chair. No new complaints otherwise for now. Patient is looking to go to rehabilitation. Sodium levels is 131, glucose 182, BUN is 17 with a creatinine of 0.7. Objective - Vital Signs Vital signs: Vital Signs Temp 98.8 F 05/04/23 07:40 Pulse 87 05/04/23 07:40 Resp 19 05/04/23 07:40 BP 101/61 05/04/23 07:40 Pulse Ox 97 05/04/23 10:11 FiO2 21 05/04/23 10:11 Intake & Output 05/03/23 05/04/23 05/04/23 18:59 06:59 18:59 Output Total 750 400 750 Balance -750 -400 -750 Weight 116.2 kg Output: Urine 750 400 750 Other: Voiding Method Incontinent Incontinent External Catheter External Catheter # Bowel Movements 1 1 - Exam No acute distress, oriented 3. The patient is on room air oxygen Head exam was generally normal. There was no scleral icterus or corneal arcus. Mucous membranes were moist. HEENT examination is grossly unremarkable. Mucous membranes are moist. No oral lesions. Neck supple. Full range of motion. No adenopathy thyromegaly or neck vein distention. Cardiovascular examination reveals regular rhythm rate. S1-S2 normal. No S3 or S4. No discernible murmur noted. Patient has a pacemaker in place and his current rhythm is atrial flutter with occasional pacing. Lungs reveal clear breath sounds. Breath sounds are equal bilaterally. No adventitious lung sounds including wheezes rhonchi or crackles. Abdomen soft, with bowel sounds. The abdomen is nontender at this point in time. Abdomen is less distended. Bowel sounds are present The surgical wound is dry clean and intact and there is a external wound VAC in place. Extremities are intact. No cyanosis clubbing or edema. Skin is without rash or lesion. Neurologic examination is brief but nonfocal. - Labs CBC & Chem 7: 05/02/23 04:25 05/04/23 06:05 Labs: Abnormal Lab Results - Last 24 Hours (Table) 05/04/23 Range/Units 06:05 Sodium 131 L (137-145) mmol/L Glucose 182 H (74-99) mg/dL Calcium 8.0 L (8.4-10.2) mg/dL Total Protein 4.3 L (6.3-8.2) g/dL Albumin 2.1 L (3.5-5.0) g/dL Assessment and Plan Plan: Acute lower gastrointestinal bleed, secondary to colonic mass.Postop day # 11, status post exploratory laparotomy, lysis of adhesions, abdominal washout, right hemicolectomy, small bowel resection, and placement of a wound VAC. Patient is hemodynamically stable. The patient is on broad-spectrum antibiotic coverage with IV Zosyn and Flagyl. The patient is recovering nicely from his surgery. NG tube was removed after the patient recovered from his ileus. He remains on TPN for now. This should be gradually weaned off as the patient is tolerating diet. 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 TPN was started and there is some improvement in the bowel movement activity and the patient started having some bowel movements , NG tube was removed on 05/01/2023 and the patient is currently on soft diet. He remains on TPN. He is tolerating diet and the patient is also struggling Postoperative ventricular tachycardia, resolved. History of colon cancer, S/P colon resection, 2004. History of paroxysmal atrial fibrillation/atrial flutter post-ablation and the patient is a preserved LV function, the patient has a permanent pacemaker in place History of asthma. History of CVA. History of dyslipidemia. History of hypertension. History of A. fib/flutter, History of cardiac ablation 2. The patient is d emented on long-term anticoagulants with warfarin on outpatient basis Post surgical anemia, expected outcome of surgery and GI bleeding. Hemoglobin from yesterday was 8.7, awaiting hemoglobin from today Focal 1.2 cm area of erosion in the posterior superior to 10 vertebral body, consider possibility of metastases. Bone scan was done and there was no significant abnormalities to suggest O2 blastic metastatic disease. Plan: Advance diet as tolerated currently stooling and passing flatness Patient is producing bowel movement TPN to be discontinued Patient is currently on room air oxygen Monitor bowel sounds and bowel movements and activities IV fluids to KVO Increase mobility and ask the patient is up on a chair Patient was transferred out of the intensive care unit yesterday Encourage is on the case regarding colonic non-Hodgkin's lymphoma. Labs are stable Antibiotic coverage is certainly combination of Zosyn and Flagyl He is on chronic anticoagulation regarding his A. fib
[2023-05-04] MEDS ORDERED: DEXTROSE 50% SYRINGE 50 ML IVP PRN ×2 (15:02)
--- NOTE | 2023-05-04 15:09 | P.PN ---
Subjective Progress Note Date: 05/04/23 This is a pleasant 83-year-old gentleman with past medical history of atrial fibrillation anticoagulated on Coumadin, cardiac ablations X 2 ,asthma, hypertension, hyperlipidemia, prostate disorder, colon cancer-bowel resection 2004, sick sinus syndrome with permanent pacemaker implantation, former nicotine dependence, last colonoscopy approximately [address] Astorga,which patient reports as negative presented to the ER with complaints of rectal bleeding. Approximately 2 weeks ago, evaluated by PCP, discovered UTI, placed on antibiotics of Cipro. Completed antibiotic therapy. Developed diarrhea- reports subsided approximately 4 days ago. Over the last 2 days, developed dizziness accompanied by rectal bleeding, bright red and black loose stool in mild right sided abdominal discomfort. Denies nausea or vomiting. Denies chest pain, palpitations or shortness of breath. Patient's hemoglobin normally around 14, on admission 10.9, currently down to 9.4. No further rectal bleeding. INR 2.3. Sodium 135, potassium 4.5, bicarb 26, BUN 24, creatinine 0.85, magnesium 2. Albumin 2.3, total protein 5.8. 04/22/2023 reports bloody stools yesterday. Denies abdominal pain. Completed c olonoscopy prep. NPO, Coumadin remains on hold, scheduled for EGD,colonoscopy,biopsy today. Bone scan pending.Hemoglobin 8.7, platelets 201. Denies any chest pain, palpitations or shortness of breath. 04/30/23 NGT, passing flatus, no bowel movements. Maintained on TPN, IV fluid hydration. Albumin 2.2, total protein 4.3. Telemetry atrial flutter, anticoagulation remains on hold. Continues on Zosyn, Flagyl. Denies pain. Reports he had been up in the chair yesterday. Electrolytes, renal function stable. 05/01/23 reports a small bowel movement yesterday. Maintained on TPN, tolerating clear liquid diet, with no nausea or vomiting. Continues on IV Zosyn and Flagyl. Telemetry paced. Complains of increased generalized weakness. Denies chest pain, palpitations. 05/02/2023 NG tube removed yesterday. Tolerating full liquid diet this morning with no nausea or vomiting. Continues on TPN. Denies abdominal pain. Positive flatus, positive bowel movement. Maintained on Flagyl and Zosyn. Afebrile, WBC trending down 11.8. Renal function stable, potassium 3.4, magnesium 1.9. Telemetry A. fib flutter/paced. Up in chair yesterday with PT. 05/03/2023 Patient is being followed by Dr. Ferreira was off for this Saturday and Saturday coverage. He is postoperative day #11 hemicolectomy for a cecal mass with diagnosis of non-Hodgkin's lymphoma. Patient is evaluated in the medical floor his diet has improved and he is advanced to low fiber. Patient is being weaned off of TPN. Patient is passing gas having bowel movements. He continues on IV Flagyl and IV Zosyn. Pain is discharged to subacute rehab patient is agreeable to go at this time. Once he has completed subacute rehab he will be evaluated further by oncology and will need to an outpatient PET scan. Labs today are showing a sodium level of 131. Hemodynamically he is stable. Review of Systems Constitutional: Denied any fatigue denied any fever. Cardio vascular: denied any chest pain, palpitations Gastrointestinal: denied any nausea, vomiting, diarrhea Pulmonary: Denied any shortness of breath cough Neurologic denied any new focal deficits All inpatient medications were reviewed and appropriate changes in these medications as dictated in the interval history and assessment and plan. PHYSICAL EXAMINATION: GENERAL: The patient is alert and oriented x3, not in any acute distress. Well developed, well nourished. on 2L nasal cannula HEENT: Pupils are round and equally reacting to light. EOMI. No scleral icterus. No conjunctival pallor. Normocephalic, atraumatic. No pharyngeal erythema. No thyromegaly. CARDIOVASCULAR: S1 and S2 present. No murmurs, rubs, or gallops. PULMONARY: Chest is clear to auscultation, no wheezing or crackles. ABDOMEN: Soft, nontender, nondistended, normoactive bowel sounds. No palpable organomegaly. Post surgical midline dressing intact MUSCULOSKELETAL: No joint swelling or deformity. EXTREMITIES: No cyanosis, clubbing, or pedal edema. NEUROLOGICAL: Gross neurological examination did not reveal any focal deficits. SKIN: No rashes. Assessment -Acute GI bleed with acute blood loss anemia, likely due to the cecal mass status post exploratory laparotomy, lysis of adhesions, abdominal washout, right hemicolectomy, small bowel resection, and placement of a wound VAC. 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 Patient Reports he had prior colon surgery approximately 10 years ago with with 6 inches of colon removed-further details being obtained from PCPs office. -Ileus, postop -Acute blood loss Anemia, postop, expected outcome. Iron deficient suspect secondary to cecal mass, GI blood losses. -INR elevated on admission, status post 2 units of FFP. -Chronic atrial fibrillation -Recently completed antibiotic therapy for UTI prior to admission -History of colon cancer status post bowel resection in 2004 -History of sick sinus syndrome, recent dual chamber permanent pacemaker generator change -Former nicotine dependence -GI prophylaxis -DVT prophylaxis resumed on eliquis postoperatively Full Code Plan: Patient continues a low fiber diet recommending to wean the TPN off. Patient encouraged use incentive spirometer 10 times an hour while awake he is on 2 L nasal cannula and this can be weaned. Recommend discharge to subacute rehab and patient is agreeable at this time which likely will discharge to happen on Saturday when case management returns. Otherwise recommend monitoring of his CBC and electrolytes. He continues on eliquis postoperatively. The impression and plan of care has been dictated by Ameena De Jesus Nurse Practitioner as directed. Dr. Darrick MD I have performed a history and physical examination and medical decision making of this patient, discussed the same with the dictator, and agree with the dictators assessment and plan as written, documented as a scribe. Based on total visit time, I have performed more than 50% of this visit. Objective - Vital Signs Vital signs: Vital Signs Temp 98.8 F 05/04/23 07:40 Pulse 87 05/04/23 07:40 Resp 19 05/04/23 07:40 BP 101/61 05/04/23 07:40 Pulse Ox 97 05/04/23 07:40 FiO2 21 05/03/23 06:49 Intake & Output 05/03/23 05/04/23 05/04/23 18:59 06:59 18:59 Output Total 750 400 Balance -750 -400 Weight 116.2 kg Output: Urine 750 400 Other: Voiding Method Incontinent Incontinent External Catheter External Catheter # Bowel Movements 1 - Labs CBC & Chem 7: 05/02/23 04:25 05/04/23 06:05 Labs: Abnormal Lab Results - Last 24 Hours (Table) 05/04/23 Range/Units 06:05 Sodium 131 L (137-145) mmol/L Glucose 182 H (74-99) mg/dL Calcium 8.0 L (8.4-10.2) mg/dL Total Protein 4.3 L (6.3-8.2) g/dL Albumin 2.1 L (3.5-5.0) g/dL Assessment and Plan Time with Patient: Less than 30
[2023-05-04 17:14] LABS: Glucose,Whole Blood 138 mg/dL (70-110)
[2023-05-04] MEDS: INSULIN ASPART (NovoLOG) 100 UNIT/ML VIAL SQ SCH ×2 (17:47→20:28)
[2023-05-04 20:14] LABS: Glucose,Whole Blood 149 mg/dL (70-110)
[2023-05-04] MEDS: ATORVASTATIN 10 MG TAB PO SCH (20:27)
[2023-05-04] MEDS: MONTELUKAST 10 MG TAB PO SCH (20:27)
[2023-05-05] MEDS: ACETAMINOPHEN TAB 325 MG TAB PO PRN ×2 (01:17→20:41)
[2023-05-05 06:35] LABS: Anisocytosis Slight; Basophils % (A) 0 %; Eosinophils # (A) 0.3 k/uL (0-0.7); Eosinophils % (A) 4 %; HCT 28.6 % (39.0-53.0); HGB 8.8 gm/dL (13.0-17.5); Hypochromasia Marked; Lymphocytes # (A) 1.2 k/uL (1.0-4.8); Lymphocytes % (A) 14 %; MCH 30.4 pg (25.0-35.0); MCHC 30.9 g/dL (31.0-37.0); MCV 98.6 fL (80.0-100.0); Macrocytosis Slight; Mean Platelet Volume 8.6; Monocytes # (A) 0.7 k/uL (0-1.0); Monocytes % (A) 8 %; Neutrophils # (A) 6.3 k/uL (1.3-7.7); Neutrophils % (A) 72 %; Platelet Count 321 k/uL (150-450); RDW 17.6 % (11.5-15.5); WBC 8.7 k/uL (3.8-10.6)
[2023-05-05 06:48] LABS: ALT 23 U/L (4-49); AST 43 U/L (17-59); African American GFR (CKD) >90 (>60 ml/min/1.73 sqM); Albumin 2.3 g/dL (3.5-5.0); Alkaline Phosphatase 44 U/L (38-126); Anion Gap 5 mmol/L; Blood Urea Nitrogen 21 mg/dL (9-20); Carbon Dioxide 26 mmol/L (22-30); Chloride 102 mmol/L (98-107); Globulin 2.3 g/dL; Glucose 106 mg/dL (74-99); Non-African American GFR(CKD) 80 (>60 ml/min/1.73 sqM); Potassium 4.5 mmol/L (3.5-5.1); Sodium 133 mmol/L (137-145); Total Bilirubin 0.5 mg/dL (0.2-1.3); Total Protein 4.6 g/dL (6.3-8.2)
[2023-05-05 07:04] LABS: Glucose,Whole Blood 122 mg/dL (70-110)
[2023-05-05] MEDS: TAMSULOSIN 0.4 MG CAP.ER.24H PO SCH ×2 (07:34→20:37)
[2023-05-05] MEDS: METOPROLOL TARTRATE 50 MG TAB PO SCH ×2 (07:34→20:37)
[2023-05-05] MEDS: metroNIDAZOLE-NS PMX 500 MG in SALINE 1 100ML.BAG IVPB SCH ×3 (07:34→23:56)
[2023-05-05] MEDS: APIXABAN 5 MG TAB PO SCH ×2 (07:34→20:37)
[2023-05-05] MEDS: SIMETHICONE 80 MG CHEWABLE PO SCH ×4 (07:35→20:37)
[2023-05-05] MEDS: INSULIN ASPART (NovoLOG) 100 UNIT/ML VIAL SQ SCH ×4 (08:42→21:31)
[2023-05-05] MEDS: PIPERACILLIN-TAZOBACTAM 3.375 GM in SODIUM CHLORIDE 0.9% 100 ML IVPB SCH ×3 (09:01→23:56)
[2023-05-05] MEDS: PANTOPRAZOLE 40 MG/10 ML VIAL IVP SCH (09:29)
--- NOTE | 2023-05-05 10:33 | P.PN ---
Subjective Progress Note Date: 05/05/23 Principal diagnosis: Rectal bleeding Patient doing well today. Tolerating diet. Bowel movement this morning. No nausea or vomiting. White blood cell count normal. Objective - Vital Signs Vital signs: Vital Signs Temp 98.4 F 05/05/23 07:05 Pulse 76 05/05/23 08:40 Resp 16 05/05/23 08:40 BP 122/67 05/05/23 07:05 Pulse Ox 95 05/05/23 08:51 FiO2 21 05/05/23 08:51 Intake & Output 05/04/23 05/05/23 05/05/23 18:59 06:59 18:59 Output Total 950 800 600 Balance -950 -800 -600 Output: Urine 750 800 400 Stool 200 200 Other: Voiding Method Incontinent Incontinent Incontinent External Catheter External Catheter External Catheter # Voids 2 # Bowel Movements 1 1 - Exam Abdomen: Soft, mild distention, nontender, dressing clean and dry - Labs CBC & Chem 7: 05/05/23 05:46 05/05/23 05:46 Labs: Abnormal Lab Results - Last 24 Hours (Table) 05/04/23 05/04/23 05/05/23 Range/Units 17:13 20:13 05:46 RBC (4.30-5.90) m/uL Hgb (13.0-17.5) gm/dL Hct (39.0-53.0) % MCHC (31.0-37.0) g/dL RDW (11.5-15.5) % Sodium (137-145) mmol/L BUN (9-20) mg/dL Glucose (74-99) mg/dL POC Glucose (mg/dL) 138 H 149 H (70-110) mg/dL Hemoglobin A1c 6.2 H (<=6.0) % Calcium (8.4-10.2) mg/dL Total Protein (6.3-8.2) g/dL Albumin (3.5-5.0) g/dL 05/05/23 05/05/23 05/05/23 Range/Units 05:46 05:46 07:03 RBC 2.90 L (4.30-5.90) m/uL Hgb 8.8 L (13.0-17.5) gm/dL Hct 28.6 L (39.0-53.0) % MCHC 30.9 L (31.0-37.0) g/dL RDW 17.6 H (11.5-15.5) % Sodium 133 L (137-145) mmol/L BUN 21 H (9-20) mg/dL Glucose 106 H (74-99) mg/dL POC Glucose (mg/dL) 122 H (70-110) mg/dL Hemoglobin A1c (<=6.0) % Calcium 8.0 L (8.4-10.2) mg/dL Total Protein 4.6 L (6.3-8.2) g/dL Albumin 2.3 L (3.5-5.0) g/dL Assessment and Plan (1) Gastrointestinal bleeding Narrative/Plan: Patient doing well at this time. Continue diet. Increase activity. Stable for discharge to rehab tomorrow. Current Visit: Yes Status: Acute Priority: High Code(s): K92.2 - GASTROINTESTINAL HEMORRHAGE, UNSPECIFIED SNOMED Code(s): 60593257
[2023-05-05 11:55] LABS: Glucose,Whole Blood 151 mg/dL (70-110)
--- NOTE | 2023-05-05 12:29 | P.PN ---
Subjective Progress Note Date: 05/05/23 On 2022, the patient is postop day #6. He presented to us with GI bleed and the large cecal mass and bowel obstruction. The patient was taken to the operating room and the patient underwent exploratory laparotomy, abdominal washout, right hemicolectomy and small bowel resection. An external wound VAC is currently present. Postop, the patient developed an ileus and an NG tube was inserted on 04/27/2023. The NG tube is still active and output is still active. The patient's bowel sounds are very much hypoactive at this point in time. He states that he was able to pass flatus today. Surgical wound is dry clean and intact. Abdomen is less distended on today's evaluation and is resting comfortably in bed and he remains nothing by mouth at this point in time. Cardiac rhythm is paced. He is currently on oxygen at 2 L with a pulse ox of 96%. In terms of his lab work, the patient has a white cell count of 15 and a hemoglobin of 9.1 and a platelet count of 298. This blood work is from yesterday. Electrolytes all normal. Creatinine is at 0.6. As stated, the patient is nothing by mouth. He is on IV fluids in the form of lactated Ringer running at 75 mL an hour. No issues with pain. He remains on broad-spectrum antibiotic coverage with IV Zosyn. He was taking warfarin on outpatient basis and currently is not receiving any form of anticoagulants. He has history of paroxysmal A. fib and current rhythm is a. His echocardiogram that was done on 04/26/2023 showed a normal LV function, no significant valvular abnormalities in his right ventricular systolic pressures around 39. 04/30/2023, the patient is postop day #7. The patient feels that he is passing flatus. No active bowel movements yet. NG tube is in place. The patient is status post resection of a cecal mass, extraocular laparotomy and right hemicolectomy and small bowel resection. The patient continues to have some degree of abdominal distention. Surgical wound is dry clean and intact. The patient remains nothing by mouth and the patient was started on TPN yesterday for nutritional support. The patient remains on IV Zosyn. His cardiac rhythm is paced with some background/flutter.Blood work from today shows a sodium level of 133, potassium level of 3.8, chloride is 99 with a bicarb of 25 and the patient is a BUN of 18 with a creatinine of 0.6. Triglyceride level is at 136. Serum albumin is at 2.2 with a total protein of 4.3. The next fluid balance over the past 24 hours has been +1.2 L. He has developed some edema in his upper and lower extremities bilaterally. Marroquin catheter still in place. Remains on IV Zosyn. Remains on Flagyl. He was able to sit up on a chair yesterday. He is using the incentive spirometer. 05/01/2023, the patient is postop day #8. His have small bowel movements yesterday and he feels that he has to go another times a day. Angiopathy has dropped and currently is producing only 200 mL over the past 24 hours. Is taking clear liquid diet. He remains on TPN. The abdominal surgical site is dry clean and intact. Abdomen is mildly distended. He is hemodynamically stable. No issues with pain. As mentioned, the final pathology from the cecal mass do not to be consistent with B-cell non-Hodgkin's lymphoma. The patient remains on IV Zosyn and Flagyl. In terms of his blood work from today, the patient has a sodium level of 1:30, potassium level of 3.8, Dinorah is at 14 with a creatinine of 0.6. CBC still pending for now. He is using incentive spirometer. His calm and comfortable and is currently on room air oxygen. His underlying cardiac rhythm is still paced. On today's evaluation of a 05/02 2023, the patient is postop day #9. NG tube was removed yesterday and the patient is having bowel movement activity. Currently is on a soft diet. Hemodynamically stable. He is afebrile. The surgical wound is stable. He remains on TPN. He has been diagnosed having a cecal non- Hodgkin's lymphoma. He remains on a IV Zosyn and Flagyl combination. White cell count stable at 11.8. Hemoglobin stable at 9.0. The sodium is stable at 130, BUN is at 60 with a creatinine of 0.6 and the potassium is at 3.4. The magnesium is at 1.9. Total protein is at 4.2. Cardiac rhythm is paced. There is some increased lower extremity edema for now. Using the senna spirometer. Awake and alert and communicating. 05/03/2023, the patient is postop day #10. He was transferred to medical floor. He is tolerating his diet. He still on TPN and this is probably his last bag. He is having a regular bowel movement. He remains on the same antibiotic coverage. He is on Zosyn and Flagyl for now. BUN is 18 with a creatinine of 0.5 and a sodium level is at 1:30. He is using the senna spirometer. His pulse ox is 96% on room air oxygen. Surgical 1 site is dry clean and intact. He remains in atrial fibrillation. He has a permanent pacemaker in place. He is hemodynamically stable. He is back on anticoagulation patient is currently on Eliquis. On , postoperative day #11. Doing well. Room air oxygen. Tolerating diet. Passing flatus and having bowel movement. Sitting up on a chair. No new complaints otherwise for now. Patient is looking to go to rehabilitation. Sodium levels is 131, glucose 182, BUN is 17 with a creatinine of 0.7. 05/05/2023, the patient is postop day #12. He is off TPN. Tolerating diet. H aving regular bowel movements. Surgical wound is clean. White cell count of 8.7 with a hemoglobin of 8.8. BUN is at 21 with a creatinine of 0.8. Objective - Vital Signs Vital signs: Vital Signs Temp 98.4 F 05/05/23 07:05 Pulse 76 05/05/23 08:40 Resp 16 05/05/23 08:40 BP 122/67 05/05/23 07:05 Pulse Ox 95 05/05/23 08:51 FiO2 21 05/05/23 08:51 Intake & Output 05/04/23 05/05/23 05/05/23 18:59 06:59 18:59 Output Total 950 800 600 Balance -950 -800 -600 Output: Urine 750 800 400 Stool 200 200 Other: Voiding Method Incontinent Incontinent Incontinent External Catheter External Catheter External Catheter # Voids 2 # Bowel Movements 1 1 - Exam No acute distress, oriented 3. The patient is on room air oxygen Head exam was generally normal. There was no scleral icterus or corneal arcus. Mucous membranes were moist. HEENT examination is grossly unremarkable. Mucous membranes are moist. No oral lesions. Neck supple. Full range of motion. No adenopathy thyromegaly or neck vein distention. Cardiovascular examination reveals regular rhythm rate. S1-S2 normal. No S3 or S4. No discernible murmur noted. Patient has a pacemaker in place and his current rhythm is atrial flutter with occasional pacing. Lungs reveal clear breath sounds. Breath sounds are equal bilaterally. No adventitious lung sounds including wheezes rhonchi or crackles. Abdomen soft, with bowel sounds. The abdomen is nontender at this point in time. Abdomen is less distended. Bowel sounds are present The surgical wound is dry clean and intact and there is a external wound VAC in place. Extremities are intact. No cyanosis clubbing or edema. Skin is without rash or lesion. Neurologic examination is brief but nonfocal. - Labs CBC & Chem 7: 05/05/23 05:46 05/05/23 05:46 Labs: Abnormal Lab Results - Last 24 Hours (Table) 05/04/23 05/04/23 05/05/23 Range/Units 17:13 20:13 05:46 RBC (4.30-5.90) m/uL Hgb (13.0-17.5) gm/dL Hct (39.0-53.0) % MCHC (31.0-37.0) g/dL RDW (11.5-15.5) % Sodium (137-145) mmol/L BUN (9-20) mg/dL Glucose (74-99) mg/dL POC Glucose (mg/dL) 138 H 149 H (70-110) mg/dL Hemoglobin A1c 6.2 H (<=6.0) % Calcium (8.4-10.2) mg/dL Total Protein (6.3-8.2) g/dL Albumin (3.5-5.0) g/dL 05/05/23 05/05/23 05/05/23 Range/Units 05:46 05:46 07:03 RBC 2.90 L (4.30-5.90) m/uL Hgb 8.8 L (13.0-17.5) gm/dL Hct 28.6 L (39.0-53.0) % MCHC 30.9 L (31.0-37.0) g/dL RDW 17.6 H (11.5-15.5) % Sodium 133 L (137-145) mmol/L BUN 21 H (9-20) mg/dL Glucose 106 H (74-99) mg/dL POC Glucose (mg/dL) 122 H (70-110) mg/dL Hemoglobin A1c (<=6.0) % Calcium 8.0 L (8.4-10.2) mg/dL Total Protein 4.6 L (6.3-8.2) g/dL Albumin 2.3 L (3.5-5.0) g/dL Assessment and Plan Plan: Acute lower gastrointestinal bleed, secondary to colonic mass.Postop day # 12, status post exploratory laparotomy, lysis of adhesions, abdominal washout, right hemicolectomy, small bowel resection, and placement of a wound VAC. Patient is hemodynamically stable. The patient is on broad-spectrum antibiotic coverage with IV Zosyn and Flagyl. The patient is recovering nicely from his surgery. NG tube was removed after the patient recovered from his ileus. He remains off TPN for now. This should be gradually weaned off as the patient is tolerating diet. 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 TPN was started and there is some improvement in the bowel movement activity and the patient started having some bowel movements , NG tube was removed on 05/01/2023 and the patient is currently on soft diet. He remains on TPN. He is tolerating diet and the patient is also struggling Postoperative ventricular tachycardia, resolved. History of colon cancer, S/P colon resection, 2004. History of paroxysmal atrial fibrillation/atrial flutter post-ablation and the patient is a preserved LV function, the patient has a permanent pacemaker in place History of asthma. History of CVA. History of dyslipidemia. History of hypertension. History of A. fib/flutter, History of cardiac ablation 2. The patient is demented on long-term anticoagulants with warfarin on outpatient basis Post surgical anemia, expected outcome of surgery and GI bleeding. Hemoglobin from yesterday was 8.7, awaiting hemoglobin from today Focal 1.2 cm area of erosion in the posterior superior to 10 vertebral body, consider possibility of metastases. Bone scan was done and there was no significant abnormalities to suggest O2 blastic metastatic disease. Plan: Off TPN Continue diet Patient is producing bowel movement Patient is currently on room air oxygen Monitor bowel sounds and bowel movements and activities IV fluids to KVO Increase mobility and ask the patient is up on a chair Patient was transferred out of the intensive care unit yesterday Encourage is on the case regarding colonic non-Hodgkin's lymphoma. Labs are stable Antibiotic coverage is certainly combination of Zosyn and Flagyl He is on chronic anticoagulation regarding his A. fib Rehab on Saturday
--- NOTE | 2023-05-05 14:44 | P.PN ---
Subjective Progress Note Date: 05/05/23 This is a pleasant 83-year-old gentleman with past medical history of atrial fibrillation anticoagulated on Coumadin, cardiac ablations X 2 ,asthma, hypertension, hyperlipidemia, prostate disorder, colon cancer-bowel resection 2004, sick sinus syndrome with permanent pacemaker implantation, former nicotine dependence, last colonoscopy approximately [address] Astorga,which patient reports as negative presented to the ER with complaints of rectal bleeding. Approximately 2 weeks ago, evaluated by PCP, discovered UTI, placed on antibiotics of Cipro. Completed antibiotic therapy. Developed diarrhea- reports subsided approximately 4 days ago. Over the last 2 days, developed dizziness accompanied by rectal bleeding, bright red and black loose stool in mild right sided abdominal discomfort. Denies nausea or vomiting. Denies chest pain, palpitations or shortness of breath. Patient's hemoglobin normally around 14, on admission 10.9, currently down to 9.4. No further rectal bleeding. INR 2.3. Sodium 135, potassium 4.5, bicarb 26, BUN 24, creatinine 0.85, magnesium 2. Albumin 2.3, total protein 5.8. 04/22/2023 reports bloody stools yesterday. Denies abdominal pain. Completed c olonoscopy prep. NPO, Coumadin remains on hold, scheduled for EGD,colonoscopy,biopsy today. Bone scan pending.Hemoglobin 8.7, platelets 201. Denies any chest pain, palpitations or shortness of breath. 04/30/23 NGT, passing flatus, no bowel movements. Maintained on TPN, IV fluid hydration. Albumin 2.2, total protein 4.3. Telemetry atrial flutter, anticoagulation remains on hold. Continues on Zosyn, Flagyl. Denies pain. Reports he had been up in the chair yesterday. Electrolytes, renal function stable. 05/01/23 reports a small bowel movement yesterday. Maintained on TPN, tolerating clear liquid diet, with no nausea or vomiting. Continues on IV Zosyn and Flagyl. Telemetry paced. Complains of increased generalized weakness. Denies chest pain, palpitations. 05/02/2023 NG tube removed yesterday. Tolerating full liquid diet this morning with no nausea or vomiting. Continues on TPN. Denies abdominal pain. Positive flatus, positive bowel movement. Maintained on Flagyl and Zosyn. Afebrile, WBC trending down 11.8. Renal function stable, potassium 3.4, magnesium 1.9. Telemetry A. fib flutter/paced. Up in chair yesterday with PT. 05/04/2023 Patient is being followed by Dr. Ferreira was off for this Saturday and Saturday coverage. He is postoperative day #11 hemicolectomy for a cecal mass with diagnosis of non-Hodgkin's lymphoma. Patient is evaluated in the medical floor his diet has improved and he is advanced to low fiber. Patient is being weaned off of TPN. Patient is passing gas having bowel movements. He continues on IV Flagyl and IV Zosyn. Pain is discharged to subacute rehab patient is agreeable to go at this time. Once he has completed subacute rehab he will be evaluated further by oncology and will need to an outpatient PET scan. Labs today are showing a sodium level of 131. Hemodynamically he is stable. 05/05/2023 Patient is postoperative day #12 hemicolectomy for cecal mass with diagnosis of non-Hodgkin's lymphoma. He has remained off of the TPN. He is tolerating low fiber diet. He is having bowel movements. His abdomen is soft and nontender he is passing gas. He continues on IV antibiotics. Patient is agreeable for discharge to subacute rehab. Labs today showing a white count of 8.7, hemoglobin 8.8, sodium 133, BUN 21, creatinine 0.85, blood sugar 151. Hemoglobin A1c was 6.2. Review of Systems Constitutional: Denied any fatigue denied any fever. Cardio vascular: denied any chest pain, palpitations Gastrointestinal: denied any nausea, vomiting, diarrhea Pulmonary: Denied any shortness of breath cough Neurologic denied any new focal deficits All inpatient medications were reviewed and appropriate changes in these med ications as dictated in the interval history and assessment and plan. PHYSICAL EXAMINATION: GENERAL: The patient is alert and oriented x3, not in any acute distress. Well developed, well nourished. on 2L nasal cannula HEENT: Pupils are round and equally reacting to light. EOMI. No scleral icterus. No conjunctival pallor. Normocephalic, atraumatic. No pharyngeal erythema. No thyromegaly. CARDIOVASCULAR: S1 and S2 present. No murmurs, rubs, or gallops. PULMONARY: Chest is clear to auscultation, no wheezing or crackles. ABDOMEN: Soft, nontender, nondistended, normoactive bowel sounds. No palpable organomegaly. Post surgical midline dressing intact MUSCULOSKELETAL: No joint swelling or deformity. EXTREMITIES: No cyanosis, clubbing, or pedal edema. NEUROLOGICAL: Gross neurological examination did not reveal any focal deficits. SKIN: No rashes. Assessment -Acute GI bleed with acute blood loss anemia, likely due to the cecal mass status post exploratory laparotomy, lysis of adhesions, abdominal washout, right hemicolectomy, small bowel resection, and placement of a wound VAC. 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 Patient Reports he had prior colon surgery approximately 10 years ago with with 6 inches of colon removed-further details being obtained from PCPs office. -Ileus, postop -Acute blood loss Anemia, postop, expected outcome. Iron deficient suspect secondary to cecal mass, GI blood losses. -INR elevated on admission, status post 2 units of FFP. -Chronic atrial fibrillation -Recently completed antibiotic therapy for UTI prior to admission -History of colon cancer status post bowel resection in 2004 -History of sick sinus syndrome, recent dual chamber permanent pacemaker generator change -Former nicotine dependence -GI prophylaxis -DVT prophylaxis resumed on eliquis postoperatively Full Code Plan: Patient continues a low fiber diet and tolerating reports fair appetite. TPN has been weaned. Patient encouraged use incentive spirometer 10 times an hour while awake he is on 2 L nasal cannula and this can be weaned. Recommend discharge to subacute rehab and patient is agreeable at this time which likely will discharge to happen on Saturday when case management returns. Otherwise recommend monitoring of his CBC and electrolytes. He continues on eliquis postoperatively. The impression and plan of care has been dictated by Ameena De Jesus Nurse Practitioner as directed. Dr. Darrick MD I have performed a history and physical examination and medical decision making of this patient, discussed the same with the dictator, and agree with the dictators assessment and plan as written, documented as a scribe. Based on total visit time, I have performed more than 50% of this visit. Objective - Vital Signs Vital signs: Vital Signs Temp 98.4 F 05/05/23 07:05 Pulse 76 05/05/23 07:05 Resp 16 08/27/23 07:05 BP 122/67 05/05/23 07:05 Pulse Ox 95 05/05/23 07:05 FiO2 21 05/04/23 10:11 Intake & Output 05/04/23 05/05/23 05/05/23 18:59 06:59 18:59 Output Total 950 800 Balance -950 -800 Output: Urine 750 800 Stool 200 Other: Voiding Method Incontinent Incontinent External Catheter External Catheter # Bowel Movements 1 - Labs CBC & Chem 7: 05/05/23 05:46 05/05/23 05:46 Labs: Abnormal Lab Results - Last 24 Hours (Table) 05/04/23 05/04/23 05/05/23 Range/Units 17:13 20:13 05:46 RBC 2.90 L (4.30-5.90) m/uL Hgb 8.8 L (13.0-17.5) gm/dL Hct 28.6 L (39.0-53.0) % MCHC 30.9 L (31.0-37.0) g/dL RDW 17.6 H (11.5-15.5) % Sodium (137-145) mmol/L BUN (9-20) mg/dL Glucose (74-99) mg/dL POC Glucose (mg/dL) 138 H 149 H (70-110) mg/dL Calcium (8.4-10.2) mg/dL Total Protein (6.3-8.2) g/dL Albumin (3.5-5.0) g/dL 05/05/23 05/05/23 Range/Units 05:46 07:03 RBC (4.30-5.90) m/uL Hgb (13.0-17.5) gm/dL Hct (39.0-53.0) % MCHC (31.0-37.0) g/dL RDW (11.5-15.5) % Sodium 133 L (137-145) mmol/L BUN 21 H (9-20) mg/dL Glucose 106 H (74-99) mg/dL POC Glucose (mg/dL) 122 H (70-110) mg/dL Calcium 8.0 L (8.4-10.2) mg/dL Total Protein 4.6 L (6.3-8.2) g/dL Albumin 2.3 L (3.5-5.0) g/dL Assessment and Plan Time with Patient: Less than 30
[2023-05-05 17:23] LABS: Glucose,Whole Blood 148 mg/dL (70-110)
--- NOTE | 2023-05-05 20:11 | P.PN ---
Subjective Progress Note Date: 05/05/23 Ventricular tachycardia The patient is an 83-year-old gentleman with a past medical history significant for permanent pacemaker and paroxysmal atrial fibrillation as well as hypertension and dyslipidemia and preserved LV systolic function on the last echocardiogram from October was admitted to the hospital with abdominal discomfort and he underwent surgery including lysis of adhesions and washout and a mass resection from the cecum. The patient was supposed to be transferred out of the ICU yesterday when he did have an episode of wide complex rhythm consistent of ventricular tachycardia. It was somewhat sustained. I started the patient on amiodarone IV. His magnesium was replaced. Since then he did not have any more episodes of ventricular tachycardia 05/05/2023 Patient is doing well from cardiac standpoint. He continues to be in atrial flutter with controlled rate. He is tolerating his Eliquis with no further bleeding episodes. His hemoglobin is 8.8 today Assessment Atrial flutter, rate controlled 2:1 Ventricular tachycardia which has resolved Paroxysmal atrial fibrillation. The patient is in atrial fibrillation at this point Status post right hemicolectomy for cecal mass GI Bleed while on coumadin due to above Permanent pacemaker Hypertension Dyslipidemia Ileus Plan Discontinued atenolol and continue metoprolol 50 mg twice daily. Resumed his Eliquis after discussing with surgery team. He has not shown any signs of bleeding at this time. he is currently rate controlled atrial flutter with ventricularly paced rhythm. his hemoglobin has been stable over last 3-4 days He will be a good candidate for Watchman device placement as outpatient. Objective - Vital Signs Vital signs: Vital Signs Temp 98.1 F 05/05/23 14:06 Pulse 88 05/05/23 14:06 Resp 18 05/05/23 14:06 BP 135/50 05/05/23 14:06 Pulse Ox 95 05/05/23 14:06 FiO2 21 05/05/23 08:51 Intake & Output 05/05/23 05/05/23 05/06/23 06:59 18:59 06:59 Output Total 800 600 Balance -800 -600 Output: Urine 800 400 Stool 200 Other: Voiding Method Incontinent Incontinent External Catheter External Catheter # Voids 1 # Bowel Movements 1 - Labs CBC & Chem 7: 05/05/23 05:46 05/05/23 05:46 Labs: Abnormal Lab Results - Last 24 Hours (Table) 0805/05/23 05/05/23 Range/Units 20:13 05:46 05:46 RBC 2.90 L (4.30-5.90) m/uL Hgb 8.8 L (13.0-17.5) gm/dL Hct 28.6 L (39.0-53.0) % MCHC 30.9 L (31.0-37.0) g/dL RDW 17.6 H (11.5-15.5) % Sodium (137-145) mmol/L BUN (9-20) mg/dL Glucose (74-99) mg/dL POC Glucose (mg/dL) 149 H (70-110) mg/dL Hemoglobin A1c 6.2 H (<=6.0) % Calcium (8.4-10.2) mg/dL Total Protein (6.3-8.2) g/dL Albumin (3.5-5.0) g/dL 05/05/23 05/05/23 05/05/23 Range/Units 05:46 07:03 11:54 RBC (4.30-5.90) m/uL Hgb (13.0-17.5) gm/dL Hct (39.0-53.0) % MCHC (31.0-37.0) g/dL RDW (11.5-15.5) % Sodium 133 L (137-145) mmol/L BUN 21 H (9-20) mg/dL Glucose 106 H (74-99) mg/dL POC Glucose (mg/dL) 122 H 151 H (70-110) mg/dL Hemoglobin A1c (<=6.0) % Calcium 8.0 L (8.4-10.2) mg/dL Total Protein 4.6 L (6.3-8.2) g/dL Albumin 2.3 L (3.5-5.0) g/dL 05/05/23 Range/Units 17:22 RBC (4.30-5.90) m/uL Hgb (13.0-17.5) gm/dL Hct (39.0-53.0) % MCHC (31.0-37.0) g/dL RDW (11.5-15.5) % Sodium (137-145) mmol/L BUN (9-20) mg/dL Glucose (74-99) mg/dL POC Glucose (mg/dL) 148 H (70-110) mg/dL Hemoglobin A1c (<=6.0) % Calcium (8.4-10.2) mg/dL Total Protein (6.3-8.2) g/dL Albumin (3.5-5.0) g/dL
[2023-05-05] MEDS: MONTELUKAST 10 MG TAB PO SCH (20:37)
[2023-05-05] MEDS: ATORVASTATIN 10 MG TAB PO SCH (20:37)
[2023-05-05 21:07] LABS: Glucose,Whole Blood 148 mg/dL (70-110)
[2023-05-06 07:05] LABS: Glucose,Whole Blood 147 mg/dL (70-110)
[2023-05-06 07:46] LABS: ALT 22 U/L (4-49); AST 35 U/L (17-59); African American GFR (CKD) 89 (>60 ml/min/1.73 sqM); Albumin 2.4 g/dL (3.5-5.0); Alkaline Phosphatase 52 U/L (38-126); Anion Gap 4 mmol/L; Blood Urea Nitrogen 21 mg/dL (9-20); Calcium 7.9 mg/dL (8.4-10.2); Carbon Dioxide 27 mmol/L (22-30); Chloride 103 mmol/L (98-107); Globulin 2.3 g/dL; Glucose 134 mg/dL (74-99); Non-African American GFR(CKD) 77 (>60 ml/min/1.73 sqM); Phosphorus 3.5 mg/dL (2.5-4.5); Potassium 4.4 mmol/L (3.5-5.1); Sodium 134 mmol/L (137-145); Total Bilirubin 0.4 mg/dL (0.2-1.3); Total Protein 4.7 g/dL (6.3-8.2)
[2023-05-06] MEDS: INSULIN ASPART (NovoLOG) 100 UNIT/ML VIAL SQ SCH ×4 (09:35→20:45)
[2023-05-06] MEDS: APIXABAN 5 MG TAB PO SCH ×2 (09:44→20:45)
[2023-05-06] MEDS: METOPROLOL TARTRATE 50 MG TAB PO SCH ×2 (09:44→20:45)
[2023-05-06] MEDS: SIMETHICONE 80 MG CHEWABLE PO SCH ×4 (09:44→20:45)
[2023-05-06] MEDS: metroNIDAZOLE-NS PMX 500 MG in SALINE 1 100ML.BAG IVPB SCH ×3 (09:44→23:44)
[2023-05-06] MEDS: TAMSULOSIN 0.4 MG CAP.ER.24H PO SCH ×2 (09:44→20:45)
[2023-05-06] MEDS: PANTOPRAZOLE 40 MG/10 ML VIAL IVP SCH (09:45)
[2023-05-06] MEDS: PIPERACILLIN-TAZOBACTAM 3.375 GM in SODIUM CHLORIDE 0.9% 100 ML IVPB SCH ×3 (09:45→23:44)
--- NOTE | 2023-05-06 10:35 | P.PN ---
Subjective HISTORY OF PRESENT ILLNESS: Patient examined this morning at the bedside. Patient denies chest pain or pressure. He denies shortness of breath. He is tolerating oral intake. Vital signs are stable. Telemetry reveals atrial fibrillation with controlled ventricular rate. PHYSICAL EXAM: VITAL SIGNS: Reviewed. GENERAL: Well-developed in no acute distress. NECK: Supple. No JVD or thyromegaly LUNGS: Respirations even and unlabored. Lungs essentially clear to auscultation bilaterally. HEART: Irregular rate and rhythm. S1 and S2 heard. EXTREMITIES: Normal range of motion. No clubbing or cyanosis. Peripheral pulses intact. No lower extremity edema ASSESSMENT: Status post right hemicolectomy secondary to cecal mass GI bleed while on Coumadin, secondary to above Paroxysmal atrial fibrillation with controlled ventricular rate Ventricular tachycardia, resolved History of permanent pacemaker implantation Hypertension Hyperlipidemia Ileus PLAN: Patient has been resumed on his anticoagulation. Continue to monitor hemoglobin Continue additional cardiac medications Consider watchman device if patient has recurrent issues with bleeding No further inpatient recommendations from a cardiac standpoint We will sign off. Please reconsult if needed. Nurse practitioner note has been reviewed by physician. Signing provider agrees with the documented findings, assessment, and plan of care. Objective - Vital Signs Vital signs: Vital Signs Temp 98 F 05/06/23 08:00 Pulse 82 05/06/23 08:00 Resp 18 05/06/23 08:00 BP 99/55 05/06/23 08:00 Pulse Ox 99 05/06/23 08:00 FiO2 21 05/05/23 08:51 Intake & Output 05/05/23 05/06/23 05/06/23 18:59 06:59 18:59 Intake Total 240 Output Total 600 Balance -600 240 Intake: Oral 240 Output: Urine 400 Stool 200 Other: Voiding Method Incontinent Incontinent External Catheter # Voids 1 1 # Bowel Movements 1 - Labs CBC & Chem 7: 05/05/23 05:46 05/06/23 06:25 Labs: Abnormal Lab Results - Last 24 Hours (Table) 05/05/23 05/05/23 05/05/23 Range/Units 11:54 17:22 20:52 Sodium (137-145) mmol/L BUN (9-20) mg/dL Glucose (74-99) mg/dL POC Glucose (mg/dL) 151 H 148 H 148 H (70-110) mg/dL Calcium (8.4-10.2) mg/dL Total Protein (6.3-8.2) g/dL Albumin (3.5-5.0) g/dL 05/06/23 05/06/23 Range/Units 06:25 07:04 Sodium 134 L (137-145) mmol/L BUN 21 H (9-20) mg/dL Glucose 134 H (74-99) mg/dL POC Glucose (mg/dL) 147 H (70-110) mg/dL Calcium 7.9 L (8.4-10.2) mg/dL Total Protein 4.7 L (6.3-8.2) g/dL Albumin 2.4 L (3.5-5.0) g/dL
--- NOTE | 2023-05-06 11:36 | P.PN ---
Subjective Progress Note Date: 05/06/23 Principal diagnosis: Anemia, GI bleed, diarrhea, cecal mass-Diagnosed with high-grade lymphoma Pt seen on Med Surg floor today and he is doing really well. He ambulated to the door with walker, he is eating solid food, he has had several BMs. Denies incision discomfort, abd pain, cramping or distension. He is using IS as prescribed. Objective - Vital Signs Vital signs: Vital Signs Temp 98 F 05/06/23 08:00 Pulse 82 05/06/23 08:00 Resp 18 05/06/23 08:00 BP 99/55 05/06/23 08:00 Pulse Ox 99 05/06/23 08:00 FiO2 21 05/05/23 08:51 Intake & Output 05/05/23 05/06/23 05/06/23 18:59 06:59 18:59 Intake Total 240 Output Total 600 Balance -600 240 Intake: Oral 240 Output: Urine 400 Stool 200 Other: Voiding Method Incontinent Incontinent Incontinent External Catheter # Voids 1 1 # Bowel Movements 1 - Constitutional General appearance: Present: cooperative, no acute distress, obese - EENT Eyes: Present: anicteric sclerae, EOMI ENT: Present: hearing grossly normal - Respiratory Respiratory: bilateral: CTA - Cardiovascular Rhythm: regular Heart sounds: normal: S1, S2 Abnormal Heart Sounds: Present: systolic murmur. Absent: diastolic murmur, rub, S3 Gallop, S4 Gallop, click, other - Peripheral edema foot Peripheral Edema: bilateral: 1+ - Gastrointestinal Gastrointestinal Comment(s): Midline incision dressing is C/D/I General gastrointestinal: Present: distended, normal bowel sounds, soft - Neurologic Neurologic: Present: CNII-XII intact - Musculoskeletal Musculoskeletal: Present: generalized weakness - Psychiatric Psychiatric: Present: A&O x's 3, appropriate affect, intact judgment & insight - Labs CBC & Chem 7: 05/05/23 05:46 05/06/23 06:25 Labs: Abnormal Lab Results - Last 24 Hours (Table) 05/05/23 05/05/23 05/05/23 Range/Units 11:54 17:22 20:52 Sodium (137-145) mmol/L BUN (9-20) mg/dL Glucose (74-99) mg/dL POC Glucose (mg/dL) 151 H 148 H 148 H (70-110) mg/dL Calcium (8.4-10.2) mg/dL Total Protein (6.3-8.2) g/dL Albumin (3.5-5.0) g/dL 05/06/23 05/06/23 Range/Units 06:25 07:04 Sodium 134 L (137-145) mmol/L BUN 21 H (9-20) mg/dL Glucose 134 H (74-99) mg/dL POC Glucose (mg/dL) 147 H (70-110) mg/dL Calcium 7.9 L (8.4-10.2) mg/dL Total Protein 4.7 L (6.3-8.2) g/dL Albumin 2.4 L (3.5-5.0) g/dL Assessment and Plan (1) Anemia Current Visit: Yes Status: Acute Priority: High Code(s): D64.9 - ANEMIA, UNSPECIFIED SNOMED Code(s): 264051807 (2) Gastrointestinal bleeding Current Visit: Yes Status: Acute Priority: High Code(s): K92.2 - GASTROINTESTINAL HEMORRHAGE, UNSPECIFIED SNOMED Code(s): 23219238 (3) Lymphoma Current Visit: Yes Status: Acute Priority: High Code(s): C85.90 - NON- HODGKIN LYMPHOMA, UNSPECIFIED, UNSPECIFIED SITE SNOMED Code(s): 149742813 Plan: Iron deficient anemia -Hgb stable after 4 units on admit, he has not needed a transfusion in 12 days -Most likely secondary to cecal mass, GI blood losses -He has received parenteral iron. Will likely need additional doses of iron in the future. Pending recovery of his current condition. Continue parenteral iron outpatient -Pt was on coumadin for a-fib. Cardiology following closely and has changed to eliquis. No evidence of bleeding since starting 4 days ago GI bleed, cecal mass resection, lymphoma -Initial biopsy was neg -Right hemicolectomy, cecal mass path positive for high grade B cell non- Hodgkin's lymphoma. 3 of 8 mesenteric nodes are involved by direct invasion. Weakly positive BCL-2, weakly positive BCL 6, being sent for MYC, weakly positiv e MUM1. KI-67 immunostains show a proliferative index of greater than 80% among the atypical lymphoid cells. Pending addendum for final differentiation of lymphoma. -Pt understands that final treatment recommendations will be discussed once additional testing is completed-still pending as of 05/06-and a staging PET scan has been performed, pending scheduling. F/U with Dr. Efren Carbajal already sched -Reinforced with patient that no treatment would be considered until he is completely recovered and rehabilitated. He agrees -Patient verbalized understanding the plan. -Surgery following closely.
[2023-05-06 11:59] LABS: Glucose,Whole Blood 208 mg/dL (70-110)
--- NOTE | 2023-05-06 12:24 | P.PN ---
Subjective Progress Note Date: 05/06/23 The patient is seen today 05/06/2023 in follow-up on the regular medical floor. Postoperative day #13. He is currently awake and alert in no acute distress. Sitting up in bed having breakfast. He is tolerating a full diet. He is having regular bowel movements. He is maintaining good O2 saturations in the upper 90s on room air. He's been afebrile. Hemodynamically stable. He is status post 4 units of packed red blood cells and 2 units of fresh frozen plasma this admission. Current hemoglobin 8.8. Platelets 321. Sodium 134. Potassium 4.4. Bicarb 27. BUN 21. Creatinine 0.91. Glucose 134. He is currently on Zosyn and Flagyl. Objective - Vital Signs Vital signs: Vital Signs Temp 98 F 05/06/23 08:00 Pulse 82 05/06/23 08:00 Resp 18 05/06/23 08:00 BP 99/55 05/06/23 08:00 Pulse Ox 99 05/06/23 08:00 FiO2 21 05/05/23 08:51 Intake & Output 05/05/23 05/06/23 05/06/23 18:59 06:59 18:59 Intake Total 240 Output Total 600 Balance -600 240 Intake: Oral 240 Output: Urine 400 Stool 200 Other: Voiding Method Incontinent Incontinent Incontinent External Catheter # Voids 1 1 # Bowel Movements 1 - Exam GENERAL EXAM: Alert, active, 83-year-old male, on room air, comfortable in no apparent distress. HEAD: Normocephalic. EYES: Normal reaction of pupils, equal size. NOSE: Clear with pink turbinates. THROAT: No erythema or exudates. NECK: No masses, no JVD. CHEST: No chest wall deformity. LUNGS: Equal air entry with no crackles, wheeze, rhonchi or dullness. CVS: S1 and S2 normal with no audible murmur, regular rhythm. ABDOMEN: Dressing dry and intact. No hepatosplenomegaly, normal bowel sounds, no guarding or rigidity. SPINE: No scoliosis or deformity SKIN: No rashes CENTRAL NERVOUS SYSTEM: No focal deficits, tone is normal in all 4 extremities. EXTREMITIES: There is no peripheral edema. No clubbing, no cyanosis. Peripheral pulses are intact. - Labs CBC & Chem 7: 05/05/23 05:46 05/06/23 06:25 Labs: Abnormal Lab Results - Last 24 Hours (Table) 05/05/23 05/05/23 05/06/23 Range/Units 17:22 20:52 06:25 Sodium 134 L (137-145) mmol/L BUN 21 H (9-20) mg/dL Glucose 134 H (74-99) mg/dL POC Glucose (mg/dL) 148 H 148 H (70-110) mg/dL Calcium 7.9 L (8.4-10.2) mg/dL Total Protein 4.7 L (6.3-8.2) g/dL Albumin 2.4 L (3.5-5.0) g/dL 05/06/23 05/06/23 Range/Units 07:04 11:58 Sodium (137-145) mmol/L BUN (9-20) mg/dL Glucose (74-99) mg/dL POC Glucose (mg/dL) 147 H 208 H (70-110) mg/dL Calcium (8.4-10.2) mg/dL Total Protein (6.3-8.2) g/dL Albumin (3.5-5.0) g/dL Assessment and Plan Assessment: Acute lower gastrointestinal bleed, secondary to colonic mass.Postop day # 13, status post exploratory laparotomy, lysis of adhesions, abdominal washout, right hemicolectomy, small bowel resection, and placement of a wound VAC. Patient is hemodynamically stable. The patient is on broad-spectrum antibiotic coverage with IV Zosyn and Flagyl. NG tube was removed after the patient recovered from his ileus. He is tolerating a low fiber diet. 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 TPN was started and there is some improvement in the bowel movement activity and the patient started having some bowel movements , NG tube was removed on 05/01/2023 and the patient is currently on soft diet. He remains on TPN. He is tolerating diet and the patient is also struggling Postoperative ventricular tachycardia, resolved. History of colon cancer, S/P colon resection, 2004. History of paroxysmal atrial fibrillation/atrial flutter post-ablation and the patient is a preserved LV function, the patient has a permanent pacemaker in place History of asthma. History of CVA. History of dyslipidemia. History of hypertension. History of A. fib/flutter, History of cardiac ablation 2. The patient is demented on long-term anticoagulants with warfarin on outpatient basis Post surgical anemia, expected outcome of surgery and GI bleeding. Hemoglobin from yesterday was 8.7, awaiting hemoglobin from today Focal 1.2 cm area of erosion in the posterior superior to 10 vertebral body, consider possibility of metastases. Bone scan was done and there was no significant abnormalities to suggest osteo blastic metastatic disease. Plan: The patient was seen and evaluated Medications and labs reviewed Stable and on room air Tolerating a low fiber diet Working with physical therapy Home versus subacute rehabilitation at discharge I have personally seen and examined the patient, performed the documentation and the assessment and plan as written. Number of minutes spent on the visit: 10.
--- NOTE | 2023-05-06 13:58 | P.PN ---
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 Patient denies any abdominal pain. He does report having some loose bowel movements. He is having flatus. Denies any nausea or vomiting. Afebrile. Head is atraumatic, normocephalic. Hears conversational speech. No nasal drainage. NECK: Supple without lymphadenopathy. CHEST: Non-labored respirations and equal bilateral excursions. CARDIOVASCULAR: Palpable 2+ radial pulses. ABDOMEN: Soft. Nondistended. Nontender. Incisional dressing clean dry and intact MUSCULOSKELETAL: No clubbing or cyanosis. NEUROLOGIC: No focal or lateralizing signs. Cranial nerves II through XII g rossly intact. PSYCH: Appropriate affect. Alert and oriented to person, place and time. SKIN: Well perfused. Good skin turgor. ASSESSMENT: 1. Acute blood loss anemia 2. Large cecal mass, neoplasm, locally invasive 3. Acute gastrointestinal bleeding from cecal mass 4. Leukocytosis. 5. Ileus resolved 6. 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 Followed by oncology PLAN: -Change diet high-fiber -Patient is stable for discharge from surgical standpoint when medically cleared -Patient awaiting ECF placement -Continue antibiotics -Encourage patient to ambulate -Encourage patient to use incentive spirometer Physician Rn Endoscopy note has been reviewed by physician. Signing provider agrees with the documented findings, assessment, and plan of care. Objective - Vital Signs Vital signs: Vital Signs Temp 98.1 F 05/06/23 12:51 Pulse 66 05/06/23 12:51 Resp 18 05/06/23 12:51 BP 107/55 05/06/23 12:51 Pulse Ox 98 05/06/23 12:51 FiO2 21 05/05/23 08:51 Intake & Output 05/05/23 05/06/23 05/06/23 18:59 06:59 18:59 Intake Total 240 Output Total 600 Balance -600 240 Intake: Oral 240 Output: Urine 400 Stool 200 Other: Voiding Method Incontinent Incontinent Incontinent External Catheter # Voids 1 1 # Bowel Movements 1 - Labs CBC & Chem 7: 05/05/23 05:46 05/06/23 06:25 Labs: Abnormal Lab Results - Last 24 Hours (Table) 05/05/23 05/05/23 05/06/23 Range/Units 17:22 20:52 06:25 Sodium 134 L (137-145) mmol/L BUN 21 H (9-20) mg/dL Glucose 134 H (74-99) mg/dL POC Glucose (mg/dL) 148 H 148 H (70-110) mg/dL Calcium 7.9 L (8.4-10.2) mg/dL Total Protein 4.7 L (6.3-8.2) g/dL Albumin 2.4 L (3.5-5.0) g/dL 05/06/23 05/06/23 Range/Units 07:04 11:58 Sodium (137-145) mmol/L BUN (9-20) mg/dL Glucose (74-99) mg/dL POC Glucose (mg/dL) 147 H 208 H (70-110) mg/dL Calcium (8.4-10.2) mg/dL Total Protein (6.3-8.2) g/dL Albumin (3.5-5.0) g/dL
[2023-05-06 17:18] LABS: Glucose,Whole Blood 138 mg/dL (70-110)
[2023-05-06 20:06] LABS: Glucose,Whole Blood 218 mg/dL (70-110)
[2023-05-06] MEDS: MONTELUKAST 10 MG TAB PO SCH (20:45)
[2023-05-06] MEDS: ATORVASTATIN 10 MG TAB PO SCH (20:45)
[2023-05-06] MEDS: ACETAMINOPHEN TAB 325 MG TAB PO PRN (20:45)
[2023-05-07 06:31] LABS: Anisocytosis Slight; HCT 30.2 % (39.0-53.0); HGB 9.2 gm/dL (13.0-17.5); Hypochromasia Marked; MCH 30.5 pg (25.0-35.0); MCHC 30.6 g/dL (31.0-37.0); MCV 99.8 fL (80.0-100.0); Macrocytosis Moderate; Mean Platelet Volume 8.6; Platelet Count 327 k/uL (150-450); RBC 3.02 m/uL (4.30-5.90); RDW 18.5 % (11.5-15.5); WBC 6.7 k/uL (3.8-10.6)
[2023-05-07 08:05] LABS: Glucose,Whole Blood 154 mg/dL (70-110)
[2023-05-07] MEDS: metroNIDAZOLE-NS PMX 500 MG in SALINE 1 100ML.BAG IVPB SCH (08:48)
[2023-05-07] MEDS: INSULIN ASPART (NovoLOG) 100 UNIT/ML VIAL SQ SCH ×2 (08:48→12:53)
[2023-05-07] MEDS: TAMSULOSIN 0.4 MG CAP.ER.24H PO SCH (08:48)
[2023-05-07] MEDS: APIXABAN 5 MG TAB PO SCH (08:48)
[2023-05-07] MEDS: METOPROLOL TARTRATE 50 MG TAB PO SCH (08:48)
[2023-05-07] MEDS: SIMETHICONE 80 MG CHEWABLE PO SCH (08:48)
[2023-05-07] MEDS: PANTOPRAZOLE 40 MG/10 ML VIAL IVP SCH (08:49)
[2023-05-07] MEDS: PIPERACILLIN-TAZOBACTAM 3.375 GM in SODIUM CHLORIDE 0.9% 100 ML IVPB SCH (08:49)
--- NOTE | 2023-05-07 10:29 | P.DS ---
Providers Date of admission: 04/22/23 13:11 Attending physician: Jean Carlos Ferreira Consults: 04/17/23 15:16 Consult Physician Urgent Consulting Provider: Cindy Carlisle Consult Reason/Comments: GI bleed Do you want consulting provider notified?: Yes 04/18/23 13:14 Consult Physician Routine Consulting Provider: Chandana Orlando Consult Reason/Comments: cecum mass Do you want consulting provider notified?: Yes 04/18/23 14:49 Consult Physician Routine Consulting Provider: Willi Art Consult Reason/Comments: cardiac risk assessment Do you want consulting provider notified?: Yes 04/22/23 12:26 Consult Physician Routine Consulting Provider: Spenser Pickard Consult Reason/Comments: GI Bleed, ICU management Do you want consulting provider notified?: Already Contacted Primary care physician: Jean Carlos Ferreira Hospital Course: Final Diagnoses: Acute GI bleed with acute blood loss anemia, workup in progress. 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 status post exploratory laparotomy, lysis of adhesions, abdominal washout, right hemicolectomy, small bowel resection, status post wound VAC. Non-Hodgkin's lymphoma , final pathology reporting a high-grade B-cell lymphoma/non-Hodgkin's lymphoma. Oncology following. Further follow-up with oncology outpatient as advised. History of colon cancer status post bowel resection in 2004 Ileus, postop, resolved Acute blood loss Anemia, postop, expected outcome, stabilized. Iron deficient suspect secondary to cecal mass, GI blood losses. INR elevated on admission, status post 2 units of FFP. Postoperative ventricular tachycardia, resolved Chronic paroxysmal atrial fibrillation, atrial flutter anticoagulated on Coumadin-converted to Eliquis as per cardiology. Recently completed antibiotic therapy for UTI prior to admission History of sick sinus syndrome, recent dual chamber permanent pacemaker generator change Former nicotine dependence Diabetes mellitus, hemoglobin A1c 6.2, outpatient diabetic teaching. Hospital course:This is a pleasant 83-year-old gentleman with past medical history of atrial fibrillation anticoagulated on Coumadin, cardiac ablations X 2 ,asthma, hypertension, hyperlipidemia, prostate disorder, colon cancer-bowel resection 2004, sick sinus syndrome with permanent pacemaker implantation, former nicotine dependence, last colonoscopy approximately [address] Astorga,which patient reports as negative presented to the ER with complaints of rectal bleeding. Approximately 2 weeks ago, evaluated by PCP, discovered UTI, placed on antibiotics of Cipro. Completed antibiotic therapy. Developed diarrhea-reports subsided approximately 4 days ago. Over the last 2 days, developed dizziness accompanied by rectal bleeding, bright red and black loose stool in mild right sided abdominal discomfort. Denies nausea or vomiting. Denies chest pain, palpitations or shortness of breath. Patient's hemoglobin normally around 14, on admission 10.9, currently down to 9.4. No further rectal bleeding. INR 2.3. Sodium 135, potassium 4.5, bicarb 26, BUN 24, creatinine 0.85, magnesium 2. Albumin 2.3, total protein 5.8. 04/22/2023 reports bloody stools yesterday. Denies abdominal pain. Completed colonoscopy prep. NPO, Coumadin remains on hold, scheduled for EGD,colonoscopy,biopsy today. Bone scan pending.Hemoglobin 8.7, platelets 201. Denies any chest pain, palpitations or shortness of breath. 04/30/23 NGT, passing flatus, no bowel movements. Maintained on TPN, IV fluid hydration. Albumin 2.2, total protein 4.3. Telemetry atrial flutter, anticoagulation remains on hold. Continues on Zosyn, Flagyl. Denies pain. Reports he had been up in the chair yesterday. Electrolytes, renal function stable. 05/01/23 reports a small bowel movement yesterday. Maintained on TPN, tolerating clear liquid diet, with no nausea or vomiting. Continues on IV Zosyn and Flagyl. Telemetry paced. Complains of increased generalized weakness. Denies chest pain, palpitations. 05/02/2023 NG tube removed yesterday. Tolerating full liquid diet this morning with no nausea or vomiting. Continues on TPN. Denies abdominal pain. Positive flatus, positive bowel movement. Maintained on Flagyl and Zosyn. Afebrile, WBC trending down 11.8. Renal function stable, potassium 3.4, magnesium 1.9. Telemetry A. fib flutter/paced. Up in chair yesterday with PT. TPN weaned off .Tolerating low fiber, high protein diet, passing gas, positive bowel movements. Abdomen soft, nontender. Denies abdominal pain Maintained on IV Flagyl and IV Zosyn as per general surgery. Sodium 134, BUN 21, creatinine 0.9 yesterday. Denies chest pain, palpitations or shortness of breath. Maintaining O2 sats in the high 90s on room air. Evaluated and treated by car diology :anticoagulated with Eliquis. Per cardiology patient is a good candidate for watchman device placement as outpatient. Currently hemoglobin 9.2, platelets 327. Hemoglobin A1c 6.2. Blood sugars controlled. Patient's diagnosis discussed as per oncology," -Pt understands that final treatment recommendations will be discussed once additional testing is completed-still pending as of 05/06- and a staging PET scan has been performed, pending scheduling. F/U with Dr. Efren clifford sched.-Reinforced with patient that no treatment would be considered until he is completely recovered and rehabilitated. He agrees -Patient verbalized understanding the plan. " Alert and oriented 3 , QUESTIONS and concerns addressed.Discharge planning in progress today for subacute rehab. 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 (Echo 04/26/23 reported normal LV function, prn Lasix discontinued at this time) The impression and plan of care has been dictated as directed. : I performed a history and examination of this patient, discussed the same with the dictator. I agree with the dictator's note ,documented as a scribe. Any additional findings or plans will be noted. Patient Condition at Discharge: Stable Plan - Discharge Summary Discharge Rx Participant: No New Discharge Prescriptions: New Apixaban [Eliquis] 5 mg PO BID tab Metoprolol Tartrate [Lopressor] 50 mg PO BID tab Pantoprazole Sodium [Protonix] 40 mg PO DAILY #30 tab guaiFENesin-DM 100-10MG/5ML [Robitussin DM] 10 ml PO Q6HR PRN ml PRN Reason: Cough INSULIN LISPRO (HumaLOG) [humaLOG] 0 unit SQ ACHS #10 ml Atorvastatin [Lipitor] 10 mg PO HS tab Simethicone Chew [Mylicon Chew] 80 mg PO ACHS tab Acetaminophen Tab [Tylenol] 650 mg PO Q6HR PRN tab PRN Reason: Fever And/ Or Pain Cyanocobalamin [Vitamin B-12 Injection] 1,000 mcg IM WEEKLY each Continue Montelukast [Singulair] 10 mg PO HS Tamsulosin HCl [Flomax] 0.4 mg PO BID Triamcinolone Acetonide [Nasacort] 1 spray EA NOSTRIL DAILY PRN PRN Reason: allergies Discontinued Simvastatin [Zocor] 20 mg PO HS Furosemide [Lasix] 20 mg PO DAILY PRN PRN Reason: Edema Enalapril [Vasotec] 5 mg PO BID Warfarin [Coumadin] 5 mg PO HS atenoloL [Tenormin] 25 mg PO BID Discharge Medication List Montelukast [Singulair] 10 mg PO HS 06/21/18 [History] Tamsulosin HCl [Flomax] 0.4 mg PO BID 06/21/18 [History] Triamcinolone Acetonide [Nasacort] 1 spray EA NOSTRIL DAILY PRN 12/10/22 [History] Acetaminophen Tab [Tylenol] 650 mg PO Q6HR PRN tab 05/07/23 [Rx] Apixaban [Eliquis] 5 mg PO BID tab 05/07/23 [Rx] Atorvastatin [Lipitor] 10 mg PO HS tab 05/07/23 [Rx] Cyanocobalamin [Vitamin B-12 Injection] 1,000 mcg IM WEEKLY each 05/07/23 [Rx] INSULIN LISPRO (HumaLOG) [humaLOG] 0 unit SQ ACHS #10 ml 05/07/23 [Rx] Metoprolol Tartrate [Lopressor] 50 mg PO BID tab 05/07/23 [Rx] Pantoprazole Sodium [Protonix] 40 mg PO DAILY #30 tab 05/07/23 [Rx] Simethicone Chew [Mylicon Chew] 80 mg PO ACHS tab 05/07/23 [Rx] guaiFENesin-DM 100-10MG/5ML [Robitussin DM] 10 ml PO Q6HR PRN ml 05/07/23 [Rx] Follow up Appointment(s)/Referral(s): Stanford Archibald MD [STAFF PHYSICIAN] - 2 Weeks Katy Carbajal MD [STAFF PHYSICIAN] - 06/13/23 8:15 am Jean Carlos Ferreira DO [Primary Care Provider] - 1 Week (After DC from subacute rehab) Cindy Carlisle MD [STAFF PHYSICIAN] - 05/21/23 [facility], [NON-STAFF] - 1 Week [facility] [NON-[facility]] - 1 Week ([facility] will call you to arrange a visit) Activity/Diet/Wound Care/Special Instructions: Sujata *antibiotics as per general surgery* cbc,bmp in 3 days High Protein,low fiber diet, consistent carb ( A1c 6.2) Increase ambulation as tolerated, maintain aggressive pulmonary toileting with incentive spirometer every hour 10, while awake. Discharge Disposition: TRANSFER TO SNF/ECF
--- NOTE | 2023-05-07 11:36 | P.PN ---
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 Patient denies any abdominal pain. Denies any nausea vomiting. He is having bowel movements. He is scheduled for ECF placement today. Afebrile. WBC 6.7 hgb 9.2 Head is atraumatic, normocephalic. Hears conversational speech. No nasal drainage. NECK: Supple without lymphadenopathy. CHEST: Non-labored respirations and equal bilateral excursions. CARDIOVASCULAR: Palpable 2+ radial pulses. ABDOMEN: Soft. Nondistended. Nontender. Incisional dressing clean dry and intact MUSCULOSKELETAL: No clubbing or cyanosis. NEUROLOGIC: No focal or lateralizing signs. Cranial nerves II through XII grossly intact. PSYCH: Appropriate affect. Alert and oriented to person, place and time. SKIN: Well perfused. Good skin turgor. ASSESSMENT: 1. Acute blood loss anemia 2. Large cecal mass, neoplasm, locally invasive 3. Acute gastrointestinal bleeding from cecal mass 4. Leukocytosis. 5. Ileus resolved 6. 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 Followed by oncology PLAN: -Continue diet high-fiber -Patient is stable for discharge from surgical standpoint when medically cleared -No antibiotics needed at discharge -Encourage patient to ambulate -Encourage patient to use incentive spirometer -Recommend follow-up with oncology outpatient Physician Strawhat Inspector And Packer note has been reviewed by physician. Signing provider agrees with the documented findings, assessment, and plan of care. Objective - Vital Signs Vital signs: Vital Signs Temp 99.0 F 05/07/23 08:29 Pulse 97 05/07/23 08:29 Resp 16 05/07/23 08:29 BP 139/76 05/07/23 08:29 Pulse Ox 98 05/07/23 08:29 FiO2 21 05/07/23 07:50 Intake & Output 05/06/23 05/07/23 05/07/23 18:59 06:59 18:59 Intake Total 680 Balance 680 Weight 116.2 kg Intake: IV 200 Piperacillin-Tazobactam 3 100 .375 gm In Sodium Chloride 0.9% 100 ml @ 25 mls/hr IVPB Q8HR [facility] Rx# :[id number] metroNIDAZOLE-NS PMX 500 100 mg In Saline 1 100ml.bag @ 100 mls/hr IVPB Q8HR [facility] Rx#:[id number] Oral 480 Other: Voiding Method Incontinent Urinal Urinal Incontinent Incontinent # Voids 1 2 # Bowel Movements 1 1 - Labs CBC & Chem 7: 05/07/23 05:55 05/06/23 06:25 Labs: Abnormal Lab Results - Last 24 Hours (Table) 05/06/23 05/06/23 05/06/23 Range/Units 11:58 17:16 20:05 RBC (4.30-5.90) m/uL Hgb (13.0-17.5) gm/dL Hct (39.0-53.0) % MCHC (31.0-37.0) g/dL RDW (11.5-15.5) % POC Glucose (mg/dL) 208 H 138 H 218 H (70-110) mg/dL 05/07/23 05/07/23 Range/Units 05:55 08:03 RBC 3.02 L (4.30-5.90) m/uL Hgb 9.2 L (13.0-17.5) gm/dL Hct 30.2 L (39.0-53.0) % MCHC 30.6 L (31.0-37.0) g/dL RDW 18.5 H (11.5-15.5) % POC Glucose (mg/dL) 154 H (70-110) mg/dL
--- NOTE | 2023-05-07 12:03 | P.PN ---
Subjective Progress Note Date: 05/07/23 The patient is seen today 05/06/2023 in follow-up on the regular medical floor. Postoperative day #13. He is currently awake and alert in no acute distress. Sitting up in bed having breakfast. He is tolerating a full diet. He is having regular bowel movements. He is maintaining good O2 saturations in the upper 90s on room air. He's been afebrile. Hemodynamically stable. He is status post 4 units of packed red blood cells and 2 units of fresh frozen plasma this admission. Current hemoglobin 8.8. Platelets 321. Sodium 134. Potassium 4.4. Bicarb 27. BUN 21. Creatinine 0.91. Glucose 134. He is currently on Zosyn and Flagyl. The patient is seen today 05/07/2023 in follow-up on the regular medical floor. Postoperative day #14. He sitting up in bed. He is awake and alert in no acute distress. He continues to tolerate a low fiber diet. He is maintaining good O2 saturations in the upper 90s on room air. He's been afebrile. Hemodynamically stable. White count 6.7. Hemoglobin 9.2. Platelets 327. Blood glucose 154. He is anticoagulated with Eliquis. Remains on Flagyl. Plan is for sub acute rehab post discharge. Objective - Vital Signs Vital signs: Vital Signs Temp 99.0 F 05/07/23 08:29 Pulse 97 05/07/23 08:29 Resp 16 05/07/23 08:29 BP 139/76 05/07/23 08:29 Pulse Ox 98 05/07/23 08:29 FiO2 21 05/07/23 07:50 Intake & Output 05/06/23 05/07/23 05/07/23 18:59 06:59 18:59 Intake Total 680 Balance 680 Weight 116.2 kg Intake: IV 200 Piperacillin-Tazobactam 3 100 .375 gm In Sodium Chloride 0.9% 100 ml @ 25 mls/hr IVPB Q8HR [facility] Rx# :[id number] metroNIDAZOLE-NS PMX 500 100 mg In Saline 1 100ml.bag @ 100 mls/hr IVPB Q8HR [facility] Rx#:[id number] Oral 480 Other: Voiding Method Incontinent Urinal Urinal Incontinent Incontinent # Voids 1 2 # Bowel Movements 1 1 - Exam GENERAL EXAM: Alert, pleasant 83-year-old male, sitting up in bed, on room air, comfortable in no apparent distress. HEAD: Normocephalic. EYES: Normal reaction of pupils, equal size. NOSE: Clear with pink turbinates. THROAT: No erythema or exudates. NECK: No masses, no JVD. CHEST: No chest wall deformity. LUNGS: Equal air entry with no crackles, wheeze, rhonchi or dullness. CVS: S1 and S2 normal with no audible murmur, regular rhythm. ABDOMEN: Dressing dry and intact. No hepatosplenomegaly, normal bowel sounds, no guarding or rigidity. SPINE: No scoliosis or deformity SKIN: No rashes CENTRAL NERVOUS SYSTEM: No focal deficits, tone is normal in all 4 extremities. EXTREMITIES: There is no peripheral edema. No clubbing, no cyanosis. Periph eral pulses are intact. - Labs CBC & Chem 7: 05/07/23 05:55 05/06/23 06:25 Labs: Abnormal Lab Results - Last 24 Hours (Table) 05/06/23 05/06/23 05/06/23 Range/Units 11:58 17:16 20:05 RBC (4.30-5.90) m/uL Hgb (13.0-17.5) gm/dL Hct (39.0-53.0) % MCHC (31.0-37.0) g/dL RDW (11.5-15.5) % POC Glucose (mg/dL) 208 H 138 H 218 H (70-110) mg/dL 05/07/23 05/07/23 Range/Units 05:55 08:03 RBC 3.02 L (4.30-5.90) m/uL Hgb 9.2 L (13.0-17.5) gm/dL Hct 30.2 L (39.0-53.0) % MCHC 30.6 L (31.0-37.0) g/dL RDW 18.5 H (11.5-15.5) % POC Glucose (mg/dL) 154 H (70-110) mg/dL Assessment and Plan Assessment: Acute lower gastrointestinal bleed, secondary to colonic mass.Postop day # 14, status post exploratory laparotomy, lysis of adhesions, abdominal washout, right hemicolectomy, small bowel resection, and placement of a wound VAC. Patient is hemodynamically stable. The patient is on Flagyl. Completed Zosyn. NG tube was removed after the patient recovered from his ileus. He is tolerating a low fiber diet. 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 TPN was started and there is some improvement in the bowel movement activity and the patient started having some bowel movements, NG tube was removed on 05/01/2023. He is tolerating a low fiber diet Postoperative ventricular tachycardia, resolved. History of colon cancer, S/P colon resection, 2004. History of paroxysmal atrial fibrillation/atrial flutter post-ablation and the patient is a preserved LV function, the patient has a permanent pacemaker in place History of asthma. History of CVA. History of dyslipidemia. History of hypertension. History of A. fib/flutter, History of cardiac ablation 2. The patient is demented on long-term anticoagulants with warfarin on outpatient basis Post surgical anemia, expected outcome of surgery and GI bleeding. Hemoglobin from yesterday was 8.7, awaiting hemoglobin from today Focal 1.2 cm area of erosion in the posterior superior to 10 vertebral body, consider possibility of metastases. Bone scan was done and there was no significant abnormalities to suggest osteo blastic metastatic disease. Plan: The patient was seen and evaluated Medications and labs reviewed Stable and on room air Tolerating a low fiber diet Plan is for discharge to [facility] for subacute rehabilitation I have personally seen and examined the patient, performed the documentation and the assessment and plan as written. Number of minutes spent on the visit: 10.
[2023-05-07 12:31] LABS: Glucose,Whole Blood 139 mg/dL (70-110)
[2023-05-07 13:15] VITALS: RESP 18; TEMP 97.8
[2023-05-07 13:23] VITALS: BP 127/63; PULSE 86
--- NOTE | 2023-05-08 17:22 | CDI ---
Documentation Clarification Form Date: 05/08/2023 05:04:49 PM From: Nanci King Phone: Admit Date: 04/22/2023 01:11:00 PM Patient Name: Chaitanya Suarez Visit Number: [id number] Discharge Date: 05/07/2023 01:05:00 PM ATTENTION: The Clinical Documentation Specialists (CDI) and [facility] Coding Staff appreciate your assistance in clarifying documentation. Please respond to the clarification below the line at the bottom and electronically sign. The CDI & [facility] Coding staff will review the response and follow-up if needed. Please note: Queries are made part of the Legal Health Record. If you have any questions, please contact the author of this message via ITS. Dr. Jean Carlos Ferreira Coagulopathy is documented Progress Note 04/19 and patient is noted to take Coumadin 5 mg PO HS. Please clarify if there is a relationship between the diagnosis and alf anticoagulant use. History/Risk Factors: 83yo M, acuteGIB w ABLA, metastaticlesionto posterior superior T10, Non-Hodgkin's high-gradeB cell lymphoma, Hx colon cancer, Ileus, postop,iron deficient, Postop VT, PAF/flutter, SSS w PPM, Hx smoker, DMII Clinical Indicators: acuteGIB a ABLA Treatment: IV iron added daily 3 doses for iron deficiency. Continue to hold Coumadin. INRreversalper medicine service. Continue to monitor hemoglobin. Continue to monitor for any signs or symptoms ofbleeding Coumadin. Convertedto Eliquis as per cardiology. Please clarify the relationship, if any, which is clinically appropriate for this patient: [X] Coagulopathy is due to alf use Coumadin [ ] Coagulopathy is not due to salvage determiner use Coumadin [ ] Other explanation of clinical findings (please specify) [ ] Unable to determine (no explanation for clinical findings) (Template Last Revised: November 2020) MTDD
== END 2023-05-07 13:05 | DRG 821 ==
LOC: EC 12:14 → 6NMEDSUR 15:21 → 3SCARD 16:55 → 2SICU 04-22 12:16 → OBSVTOIN 04-22 13:11 → 5NMEDONC 05-02 18:38
PROVIDERS: ADMIT Family Medicine; ATTEND Family Medicine
PROC: 30233K1 Transfusion of Nonautologous Frozen Plasma into Peripheral Vein, Percutaneous Approach (ICD-10-PCS; 2023-04-19)
PROC: 30233N1 Transfusion of Nonautologous Red Blood Cells into Peripheral Vein, Percutaneous Approach (ICD-10-PCS; 2023-04-19)
PROC: 0DJ08ZZ Inspection of Upper Intestinal Tract, Via Natural or Artificial Opening Endoscopic (ICD-10-PCS; 2023-04-22)
PROC: 0DBH8ZX Excision of Cecum, Via Natural or Artificial Opening Endoscopic, Diagnostic (ICD-10-PCS; 2023-04-22)
PROC: 0DT80ZZ Resection of Small Intestine, Open Approach (ICD-10-PCS; principal; 2023-04-23)
PROC: 0DN80ZZ Release Small Intestine, Open Approach (ICD-10-PCS; 2023-04-23)
PROC: 0DNV0ZZ Release Mesentery, Open Approach (ICD-10-PCS; 2023-04-23)
PROC: 0D9670Z Drainage of Stomach with Drainage Device, Via Natural or Artificial Opening (ICD-10-PCS; 2023-04-27)
PROC: 3E0G76Z Introduction of Nutritional Substance into Upper GI, Via Natural or Artificial Opening (ICD-10-PCS; 2023-04-29)
PROC: 02HV33Z Insertion of Infusion Device into Superior Vena Cava, Percutaneous Approach (ICD-10-PCS; 2023-04-29)
PROC: 3E0436Z Introduction of Nutritional Substance into Central Vein, Percutaneous Approach (ICD-10-PCS; 2023-04-29)
DX: C85.13 Unspecified B-cell lymphoma, intra-abdominal lymph nodes (principal); C79.51 Secondary malignant neoplasm of bone; K56.52 Intestinal adhesions [bands] with complete obstruction; I48.20 Chronic atrial fibrillation, unspecified; I48.3 Typical atrial flutter; I47.29 Other ventricular tachycardia; K56.7 Ileus, unspecified; D68.32 Hemorrhagic disorder due to extrinsic circulating anticoagulants; I49.5 Sick sinus syndrome; E66.01 Morbid (severe) obesity due to excess calories; E11.9 Type 2 diabetes mellitus without complications; D62 Acute posthemorrhagic anemia; K22.10 Ulcer of esophagus without bleeding; K57.12 Diverticulitis of small intestine without perforation or abscess without bleeding; K92.1 Melena; I95.9 Hypotension, unspecified; I10 Essential (primary) hypertension; J45.909 Unspecified asthma, uncomplicated; Z68.38 Body mass index [BMI] 38.0-38.9, adult; D50.9 Iron deficiency anemia, unspecified; E78.5 Hyperlipidemia, unspecified; K44.9 Diaphragmatic hernia without obstruction or gangrene; R60.0 Localized edema; E87.70 Fluid overload, unspecified; T45.515A Adverse effect of anticoagulants, initial encounter; K21.9 Gastro-esophageal reflux disease without esophagitis; K30 Functional dyspepsia; D72.829 Elevated white blood cell count, unspecified; K22.89 Other specified disease of esophagus; K64.8 Other hemorrhoids; Z79.01 Long term (current) use of anticoagulants; Z85.038 Personal history of other malignant neoplasm of large intestine; Z87.891 Personal history of nicotine dependence; Z95.0 Presence of cardiac pacemaker; Z79.899 Other long term (current) drug therapy; Z88.5 Allergy status to narcotic agent; Z86.73 Personal history of transient ischemic attack (TIA), and cerebral infarction without residual deficits
CPT/HCPCS: 36415; 36573; 43235; 45381; 71045; 71046; 71260; 74018; 74019; 74177; 78306; 80048; 80053; 81001; 82330; 82378; 82525; 82607; 82728; 82746; 83036; 83540; 83550; 83735; 83921; 84100; 84132; 84478; 84484; 85025; 85027; 85610; 85730; 86301; 86850; 86900; 86901; 86920; 88305; 88309; 88341; 88342; 93306; 94760; 96360; 96361; 99285

== ENCOUNTER 2023-06-27 11:43 | Day surgery (SDC) | payer MEDICARE ==
[~2023-06-27 11:43] MED LIST: ACETAMINOPHEN TAB 500 MG TAB PO PRN; HEPARIN SODIUM,PORCINE/PF 5,000 UNIT/0.5 ML SYRINGE SQ PRN; HYDROmorphone 0.5 MG/0.5 ML SYRINGE IVP PRN; LACTATED RINGERS 1,000 ML IV SCH; LIDOCAINE 1% (10MG/ML) FOR IV START INTRADERMA PRN; MIDAZOLAM 2 MG/2 ML VIAL IV PRN; Pre Op ABX Message 1 EACH MISC MISCELLANE ONE
[2023-06-27] MEDS ORDERED: ONDANSETRON 4 MG/2 ML VIAL ONE (12:28)
[2023-06-27] MEDS ORDERED: DEXAMETHASONE SOD PHOSPHATE 4 MG/ML 1 ML VIAL IVP ONE (13:14)
[2023-06-27 13:21] VITALS: TEMP 98
--- NOTE | 2023-06-27 13:28 | P.GSHP ---
History of Present Illness H&P Date: 06/27/23 Chief Complaint: Lymphoma 83-year-old male with history of lymphoma diagnosed on recent bowel resection. Starting chemotherapy next week. Here today for Port-A-Cath placement. He has not had one previously. Past Medical History Past Medical History: Atrial Fibrillation, Asthma, Hyperlipidemia, Hypertension, Prostate Disorder Additional Past Medical History / Comment(s): colon cancer History of Any Multi-Drug Resistant Organisms: None Reported Past Surgical History: Cholecystectomy, Hernia Repair, Pacemaker Additional Past Surgical History / Comment(s): 8" of colon removed 2004, sinus operation, cardiac ablation x 2 Past Anesthesia/Blood Transfusion Reactions: No Reported Reaction Type of Cardiac Device: Permanent Pacemaker Device Placement Date:: Unknown Smoking Status: Former smoker Medications and Allergies Home Medications Medication Instructions Recorded Confirmed Type Montelukast [Singulair] 10 mg PO HS 06/21/18 06/27/23 History Tamsulosin HCl [Flomax] 0.4 mg PO BID 06/21/18 06/27/23 History Apixaban [Eliquis] 5 mg PO BID tab 05/07/23 06/27/23 Rx Atorvastatin [Lipitor] 10 mg PO HS tab 05/07/23 06/27/23 Rx Metoprolol Tartrate [Lopressor] 50 mg PO BID tab 05/07/23 06/27/23 Rx Furosemide [Lasix] 40 mg PO DAILY PRN 06/24/23 06/27/23 History Potassium Chloride [K-Tab ER] 20 meq PO DAILY 06/24/23 06/27/23 History Allergies Allergy/AdvReac Type Severity Reaction Status Date / Time morphine AdvReac Nausea & Verified 06/27/23 12:23 Vomiting Surgical - Exam Vital Signs Temp Pulse BP Pulse Ox 98 F 91 152/88 94 L 06/27/23 13:10 06/27/23 13:10 06/27/23 13:10 06/27/23 13:10 Physical exam: General: Well-developed, well-nourished HEENT: Normocephalic, sclerae nonicteric Abdomen: Nontender, nondistended Extremities: No edema Neuro: Alert and oriented Assessment and Plan (1) Lymphoma Narrative/Plan: Will proceed with Port-A-Cath placement at this time. Risks of bleeding, infection, DVT, pneumothorax, catheter malfunction, anesthesia related complications were discussed. The patient understands and wishes to proceed. Current Visit: No Status: Acute Priority: High Code(s): C85.90 - NON- HODGKIN LYMPHOMA, UNSPECIFIED, UNSPECIFIED SITE SNOMED Code(s): 350813056
[2023-06-27] MEDS ORDERED: LIDOCAINE 1% INJ 10MG/ML (20 ML MDV) SQ ONE ×2 (13:45→14:16)
[2023-06-27] MEDS ORDERED: fentaNYL (PF) 50 MCG/ML 2 ML AMP ONE (13:46)
[2023-06-27] MEDS ORDERED: LIDOCAINE 1% INJ 10MG/ML (20 ML MDV) ONE (13:46)
[2023-06-27] MEDS ORDERED: SUCCINYLCHOLINE CHLORIDE 200 MG/10 ML VIAL IV ONE (13:46)
[2023-06-27] MEDS ORDERED: PROPOFOL 10 MG/ML 20 ML VIAL IV ONE (13:46)
[2023-06-27] MEDS ORDERED: NALOXONE 0.4 MG/ML 1 ML VIAL IV PRN (14:43)
--- NOTE | 2023-06-27 14:46 | P.OP ---
Date of Procedure: 06/27/23 Procedure(s) Performed: PREOPERATIVE DIAGNOSIS: Lipoma POSTOPERATIVE DIAGNOSIS: Same PROCEDURE: Port-A-Cath placement with fluoroscopic and ultrasound guidance SURGEON: Janeth EBL: 10 mL ANESTHESIA: General COMPLICATIONS: None OPERATIVE PROCEDURE: Patient was brought and placed on the operative table in the supine position. The patient was placed under general anesthesia at that time. The chest and neck were prepped and draped in usual sterile fashion. The ultrasound probe was used to identify the location of the right internal jugular vein. The skin was localized with lidocaine. The Seldinger needle was advanced into the IJ under ultrasound guidance. The wire was advanced through the needle under fluoroscopic guidance into the superior vena cava. A port pocket was created in the right infraclavicular location. The catheter was tunneled from the wire entrance site to the port pocket. The port was then connected to the catheter. The dilator introducer was threaded over the guidewire. The guidewire and dilator were then removed. The catheter was advanced through the introducer and introducer was then removed. The tip was seen to be in the right atrial junction via fluoroscopy. A picture of the radiograph showing the tip of the catheter was taken. Port was flushed with both saline and a Hep-Lock solution. There was good flow both in and out of the port. The port was sutured in underlying tissues using 3-0 silk sutures. The subcutaneous tissues were reapproximated using 3-0 Vicryl sutures and the skin at both locations using 4-0 Monocryl sutures. Skin glue and sterile dressings then applied. DISPOSITION: Stable to recovery room
--- NOTE | 2023-06-27 15:02 | XR ---
EXAMINATION TYPE: XR chest 1V confirm line [facility] DATE OF EXAM: 06/27/2023 HISTORY: Shortness of breath. COMPARISON: 04/29/2023 TECHNIQUE: Single view of the chest is submitted. FINDINGS: Demonstrated are scattered senescent parenchymal change. Right IJ central venous line with distal tip overlying the SVC. No evidence of pneumothorax. Basilar linear atelectasis noted. The heart is stable. Hilar and mediastinal structures are within normal limits. Degenerative changes are seen of the dorsal spine. IMPRESSION: 1. Right IJ central venous line with distal tip overlying the SVC. No evidence of pneumothorax.
--- NOTE | 2023-06-27 15:11 | FL ---
Intraoperative/procedural fluoroscopic services were provided. Total fluoroscopy time is 8.8 seconds with a total of 1 submitted images to PACS. Please see the operative/procedural note for further deta ils. DAP: [id number] mGym2
[2023-06-27 15:50] VITALS: PULSE 61
[2023-06-27 16:07] VITALS: BP 119/70; RESP 18
== END 2023-06-27 16:25 | disposition home or self-care (01) ==
LOC: OR 11:43
PROVIDERS: ATTEND Surgery
DX: D17.9 Benign lipomatous neoplasm, unspecified (principal); J45.909 Unspecified asthma, uncomplicated; I48.91 Unspecified atrial fibrillation; I10 Essential (primary) hypertension; E78.5 Hyperlipidemia, unspecified; Z79.01 Long term (current) use of anticoagulants; Z85.038 Personal history of other malignant neoplasm of large intestine; Z85.72 Personal history of non-Hodgkin lymphomas; Z87.891 Personal history of nicotine dependence; Z88.5 Allergy status to narcotic agent; Z95.0 Presence of cardiac pacemaker; Z79.899 Other long term (current) drug therapy
CPT/HCPCS: 36561; J0330; J1100; J0690; J2405; J2001; J3010; J1642; J2704; J1644

== ENCOUNTER 2023-07-25 20:19 | Emergency (ER) | payer MEDICARE ==
--- NOTE | 2023-07-25 21:00 | ED ---
General Adult HPI - General Chief complaint: Urogenital Stated complaint: Catheter Issues Time Seen by Provider: 07/25/23 20:40 Source: patient, RN notes reviewed Mode of arrival: wheelchair Limitations: no limitations - History of Present Illness Initial comments: 83-year-old male presents emergency Department with chief complaint of Sotelo catheter issues. He reports that this is placed 2 to 3 days ago for urinary retention. He also reports that he has a urinary tract infection and is on antibiotics. He is unsure of the name of antibiotics. The last 5 days of antibiotics left. He states that the catheter was flushed this morning and was flowing well until around 4 PM. Denies fever, chills, nausea, vomiting. Denies follow-up with urology. - Related Data Home Medications Medication Instructions Recorded Confirmed Montelukast [Singulair] 10 mg PO HS 06/21/18 06/27/23 Tamsulosin HCl [Flomax] 0.4 mg PO BID 06/21/18 06/27/23 Furosemide [Lasix] 40 mg PO DAILY PRN 06/24/23 06/27/23 Potassium Chloride [K-Tab ER] 20 meq PO DAILY 06/24/23 06/27/23 Previous Rx's Medication Instructions Recorded Apixaban [Eliquis] 5 mg PO BID tab 05/07/23 Atorvastatin [Lipitor] 10 mg PO HS tab 05/07/23 Metoprolol Tartrate [Lopressor] 50 mg PO BID tab 05/07/23 Allergies Allergy/AdvReac Type Severity Reaction Status Date / Time morphine AdvReac Nausea & Verified 07/25/23 20:35 Vomiting Review of Systems ROS Statement: Those systems with pertinent positive or pertinent negative responses have been documented in the HPI. ROS Other: All systems not noted in ROS Statement are negative. Past Medical History Past Medical History: Atrial Fibrillation, Asthma, Hyperlipidemia, Hypertension, Prostate Disorder Additional Past Medical History / Comment(s): colon cancer History of Any Multi-Drug Resistant Organisms: None Reported Past Surgical History: Cholecystectomy, Hernia Repair, Pacemaker Additional Past Surgical History / Comment(s): 8" of colon removed 2004, sinus operation, cardiac ablation x 2 Past Anesthesia/Blood Transfusion Reactions: No Reported Reaction Type of Cardiac Device: Permanent Pacemaker Device Placement Date:: Unknown Past Psychological History: No Psychological Hx Reported Smoking Status: Former smoker Past Alcohol Use History: None Reported Past Drug Use History: None Reported General Exam Limitations: no limitations General appearance: alert, in no apparent distress Head exam: Present: atraumatic, normocephalic, normal inspection Eye exam: Present: normal appearance, PERRL, EOMI. Absent: scleral icterus, conjunctival injection, periorbital swelling ENT exam: Present: normal exam, mucous membranes moist Neck exam: Present: normal inspection. Absent: tenderness, meningismus, lymphadenopathy Respiratory exam: Present: normal lung sounds bilaterally. Absent: respiratory distress, wheezes, rales, rhonchi, stridor Cardiovascular Exam: Present: regular rate, normal rhythm, normal heart sounds. Absent: systolic murmur, diastolic murmur, rubs, gallop, clicks GI/Abdominal exam: Present: soft, normal bowel sounds. Absent: distended, tenderness, guarding, rebound, rigid Back exam: Present: normal inspection. Absent: CVA tenderness (R), CVA tenderness (L) Neurological exam: Present: alert, oriented X3 Psychiatric exam: Present: normal affect, normal mood Skin exam: Present: warm, dry, intact, normal color. Absent: rash Course Vital Signs 07/25/23 07/25/23 20:32 22:19 Temperature 98.3 F 97.8 F Pulse Rate 93 87 Respiratory 18 17 Rate Blood Pressure 124/62 122/68 O2 Sat by Pulse 97 98 Oximetry Medical Decision Making - Medical Decision Making Was pt. sent in by a medical professional or institution (SHAHLA Hall, SEWING TECHNIQUES DEMONSTRATOR, urgent care, hospital, or intermediate...) When possible be specific @ -No Did you speak to anyone other than the patient for history (EMS, parent, family, police, friend...)? What history was obtained from this source @ -No Did you review nursing and triage notes (agree or disagree)? Why? @ -I reviewed and agree with nursing and triage notes Were old charts reviewed (outside hosp., previous admission, EMS record, old EKG, old radiological studies, urgent care reports/EKG's, intermediate records)? Report findings @ -No old charts were reviewed Differential Diagnosis (chest pain, altered mental status, abdominal pain women, abdominal pain men, vaginal bleeding, weakness, fever, dyspnea, syncope, headache, dizziness, GI bleed, back pain, seizure, CVA, palpatations, mental health, musculoskeletal)? @ -Urinary retention, UTI, this list is not all inclusive EKG interpreted by me (3pts min.). @ -none X-rays interpreted by me (1pt min.). @ -None done CT interpreted by me (1pt min.). @ -None done U/S interpreted by me (1pt. min.). @ -None done What testing was considered but not performed or refused? (CT, X-rays, U/S, labs)? Why? @ -None What meds were considered but not given or refused? Why? @ -None Did you discuss the management of the patient with other professionals (professionals i.e. DrEdei, PA, SEWING TECHNIQUES DEMONSTRATOR, lab, RT, psych nurse, rn social services, group home counselor, teacher, loan officer, mattress spring encaser)? Give summary @ -No Was smoking cessation discussed for >3mins.? @ -No Was critical care preformed (if so, how long)? @ -No Were there social determinants of health that impacted care today? How? (Homelessness, low income, unemployed, alcoholism, drug addiction, transportation, low edu. Level, literacy, decrease access to med. care, fpc, rehab)? @ -No Was there de-escalation of care discussed even if they declined (Discuss DNR or withdrawal of care, Hospice)? DNR status @ -No What co-morbidities impacted this encounter? (DM, HTN, Smoking, COPD, CAD, Cancer, CVA, ARF, Chemo, Hep., AIDS, mental health diagnosis, sleep apnea, morbid obesity)? @ -None Was patient admitted / discharged? Hospital course, mention meds given and route, prescriptions, significant lab abnormalities, going to OR and other pertinent info. @ -Discharged, Patient presented to the emergency department for urinary catheter issues. He is currently on treatment for UTI. He has home nurses daily who are managing the sotelo catheter. He states that it had stopped flowing this afternoon. Catheter was replaced by nursing staff and obtaining good output. Advised to continue on treatment for UTI. Patient discharged in stable condition. Case discussed with Dr. Parikh Undiagnosed new problem with uncertain prognosis? @ -No Drug Therapy requiring intensive monitoring for toxicity (Heparin, Nitro, Insulin, Cardizem)? @ -No Were any procedures done? @ -No Diagnosis/symptom? @ -sotelo catheter problem Acute, or Chronic, or Acute on Chronic? @ -Acute Uncomplicated (without systemic symptoms) or Complicated (systemic symptoms)? @ -uncomplicated Side effects of treatment? @ -No Exacerbation, Progression, or Severe Exacerbation? @ -No Poses a threat to life or bodily function? How? (Chest pain, [place], [place], pneumonia, PE, COPD, DKA, ARF, appy, cholecystitis, CVA, Diverticulitis, Homicidal, Suicidal, threat to staff... and all critical care pts) @ -No Disposition Clinical Impression: Sotelo catheter problem Disposition: HOME SELF-CARE Condition: Stable Instructions (If sedation given, give patient instructions): Sotelo Catheter Placement and Care (ED) Additional Instructions: Please follow up with your primary care provider and urology. Return to the emergency department for new or worsening symptoms. Is patient prescribed a controlled substance at d/c from ED?: No Referrals: Jean Carlos Ferreira DO [Primary Care Provider] - 1-2 days Real Card MD [STAFF PHYSICIAN] - 1-2 days
[2023-07-25 22:38] VITALS: BP 122/68; PULSE 87; RESP 17; TEMP 97.8
== END 2023-07-25 22:19 | disposition home or self-care (01) ==
LOC: EC 20:19
DX: T83.091A Other mechanical complication of indwelling urethral catheter, initial encounter (principal); I10 Essential (primary) hypertension; J45.909 Unspecified asthma, uncomplicated; Z79.899 Other long term (current) drug therapy; Z88.5 Allergy status to narcotic agent; Z90.49 Acquired absence of other specified parts of digestive tract; Z87.891 Personal history of nicotine dependence
CPT/HCPCS: 51702; 99283

== ENCOUNTER 2023-07-26 10:26 | Emergency (ER) | payer MEDICARE ==
[2023-07-26 10:55] VITALS: TEMP 98.3
--- NOTE | 2023-07-26 10:57 | ED ---
Male Urogenital HPI - General Source: patient Mode of arrival: ambulatory Limitations: no limitations <Carol Ann Templeton - Last Filed: 07/26/23 20:14> <Colin Pelletier - Last Filed: 07/26/23 22:54> - General Chief complaint: Urogenital Stated complaint: sob Time Seen by Provider: 07/26/23 10:53 - History of Present Illness Initial comments: Patient is an 83-year-old male presenting to the ER via EMS with a chief co mplaint of hematuria. Patient was seen here yesterday with a clogged catheter. Catheter was replaced and patient was discharged. Patient returns today with hematuria. He states he has had intermittent hematuria for the past 10 years after a bladder surgery. Patient states he is trying to get in to see Dr. Card but has been unable to due to availability. Patient states he has been on an antibiotic for a UTI recently. Patient denies any pain, shortness of breath, fevers, or chills. (Carol Ann Templeton) - Related Data Home Medications Medication Instructions Recorded Confirmed Montelukast [Singulair] 10 mg PO HS 06/21/18 07/26/23 Tamsulosin HCl [Flomax] 0.4 mg PO BID 06/21/18 07/26/23 Potassium Chloride [K-Tab ER] 20 meq PO DAILY 06/24/23 07/26/23 Ciprofloxacin HCl [Cipro] 500 mg PO BID 07/26/23 07/26/23 Furosemide [Lasix] 40 mg PO DAILY PRN 07/26/23 07/26/23 Lidocaine-Prilocaine Cream [Emla 1 applic TOPICAL DIRECTED PRN 07/26/23 07/26/23 Cream 2.5%/2.5%] Nystatin 100,000Unit/gm Cream 1 applic TOPICAL BID PRN 07/26/23 07/26/23 [Mycostatin Cream] Ondansetron [Zofran] 4 - 8 mg PO Q6H PRN 07/26/23 07/26/23 Scopolamine [Scopolamine 1 MG/72 1 patch TRANSDERM Q72H PRN 07/26/23 07/26/23 HR patch] Previous Rx's Medication Instructions Recorded Apixaban [Eliquis] 5 mg PO BID tab 05/07/23 Atorvastatin [Lipitor] 10 mg PO HS tab 05/07/23 Metoprolol Tartrate [Lopressor] 50 mg PO BID tab 05/07/23 Allergies Allergy/AdvReac Type Severity Reaction Status Date / Time morphine AdvReac Nausea & Verified 07/26/23 13:34 Vomiting Review of Systems ROS Other: All systems not noted in ROS Statement are negative. <Carol Ann Templeton - Last Filed: 07/26/23 20:14> ROS Other: All systems not noted in ROS Statement are negative. <Colin Pelletier - Last Filed: 07/26/23 22:54> ROS Statement: Those systems with pertinent positive or pertinent negative responses have been documented in the HPI. Past Medical History Past Medical History: Atrial Fibrillation, Asthma, Hyperlipidemia, Hypertension, Prostate Disorder Additional Past Medical History / Comment(s): colon cancer History of Any Multi-Drug Resistant Organisms: None Reported Past Surgical History: Cholecystectomy, Hernia Repair, Pacemaker Additional Past Surgical History / Comment(s): 8" of colon removed 2004, sinus operation, cardiac ablation x 2 Past Anesthesia/Blood Transfusion Reactions: No Reported Reaction Type of Cardiac Device: Permanent Pacemaker Device Placement Date:: Unknown Past Psychological History: No Psychological Hx Reported Smoking Status: Former smoker Past Alcohol Use History: None Reported Past Drug Use History: None Reported <Carol Ann Templeton - Last Filed: 07/26/23 20:14> General Exam Limitations: no limitations <Carol Ann Templeton - Last Filed: 07/26/23 20:14> - General Exam Comments Initial Comments: Visual Physical Exam Vital signs reviewed General: Well-appearing, nontoxic, no acute distress. Head: Normocephalic, atraumatic Eyes: PERRLA, EOMI ENT: Airway patent Chest: Nonlabored breathing Skin: No visual rash, normal skin tone Neuro: Alert and oriented 3 Musculoskeletal: No gross abnormalities (Carol Ann Templeton) Course Vital Signs 07/26/23 07/26/23 07/26/23 10:30 17:36 20:05 Temperature 98.3 F Pulse Rate 76 85 113 H Respiratory 20 16 16 Rate Blood Pressure 113/66 118/51 115/81 O2 Sat by Pulse 99 96 99 Oximetry Medical Decision Making - Lab Data Result diagrams: 07/26/23 12:46 07/26/23 12:46 <Carol Ann Templeton - Last Filed: 07/26/23 20:14> - Lab Data Result diagrams: 07/26/23 12:46 07/26/23 12:46 <Colin Pelletier - Last Filed: 07/26/23 22:54> - Medical Decision Making I performed the quick note portion of the exam. Electronically signed by Carol Ann Tepmleton PA-C Was pt. sent in by a medical professional or institution (SHAHLA Hall, CONCRETE STONE FABRICATOR, urgent care, hospital, or penitentiary...) When possible be specific @ -[No] Did you speak to anyone other than the patient for history (EMS, parent, family, police, friend...)? What history was obtained from this source @ -[Family] Did you review nursing and triage notes (agree or disagree)? Why? @ -[I reviewed and agree with nursing and triage notes] Were old charts reviewed (outside hosp., previous admission, EMS record, old EKG, old radiological studies, urgent care reports/EKG's, penitentiary records)? Report findings @ -[No old charts were reviewed] Differential Diagnosis (chest pain, altered mental status, abdominal pain women, abdominal pain men, vaginal bleeding, weakness, fever, dyspnea, syncope, headach e, dizziness, GI bleed, back pain, seizure, CVA, palpatations, mental health, musculoskeletal)? @ -[Differential Abdominal Pain Men: Appendicitis, cholecystitis, diverticulosis, ischemic bowel, pancreatitis, hepatitis, UTI, gastroenteritis, AAA, incarcerated hernia, bowel obstruction, constipation, inflammatory bowel, hepatitis, peptic ulcer disease, splenic infarction, perforated viscus, testicular torsion, this is not meant to be an all-inclusive list EKG interpreted by me (3pts min.). @ -[None] X-rays interpreted by me (1pt min.). @ -[None done] CT interpreted by me (1pt min.). @ -[None done] U/S interpreted by me (1pt. min.). @ -[Ultrasound of kidneys and bladder show simple cyst on the right kidney and nodules of the left kidney. There is a thickened appearance of the urinary bladder.] What testing was considered but not performed or refused? (CT, X-rays, U/S, labs)? Why? @ -[None] What meds were considered but not given or refused? Why? @ -[None] Did you discuss the management of the patient with other professionals (professionals i.e. , PA, CONCRETE STONE FABRICATOR, lab, RT, psych nurse, director social welfare, hand tile maker, teacher, [place] police officer, correctional counselor/case manager)? Give summary @ -[No] Was smoking cessation discussed for >3mins.? @ -[No] Was critical care preformed (if so, how long)? @ -[No] Were there social determinants of health that impacted care today? How? (Homelessness, low income, unemployed, alcoholism, drug addiction, transportation, low edu. Level, literacy, decrease access to med. care, alf, rehab)? @ -[No] Was there de-escalation of care discussed even if they declined (Discuss DNR or withdrawal of care, Hospice)? DNR status @ -[No] What co-morbidities impacted this encounter? (DM, HTN, Smoking, COPD, CAD, Cancer, CVA, ARF, Chemo, Hep., AIDS, mental health diagnosis, sleep apnea, morbid obesity)? @ -[None] Was patient admitted / discharged? Hospital course, mention meds given and route , prescriptions, significant lab abnormalities, going to OR and other pertinent info. @ -[On examination patient had no complaints. Labs obtained in the ER were significant for hemoglobin of 12.4. In the ER patient's catheter was removed and replaced. Upon reevaluation there was little output of the new catheter. Patient received an ultrasound of kidneys and bladder showed simple cyst on the right kidney and nodules of the left kidney. There is a thickened appearance of the urinary bladder. Patient's catheter will be replaced again concerning enough clot or malplacement. This case and signed out to Dr. Pelletier pending disposition.] Undiagnosed new problem with uncertain prognosis? @ -[No] Drug Therapy requiring intensive monitoring for toxicity (Heparin, Nitro, Insulin, Cardizem)? @ -[No] Were any procedures done? @ -[No] Diagnosis/symptom? @ -[default] Acute, or Chronic, or Acute on Chronic? @ -[default] Uncomplicated (without systemic symptoms) or Complicated (systemic symptoms)? @ -[default] Side effects of treatment? @ -[No] Exacerbation, Progression, or Severe Exacerbation? @ -[No] Poses a threat to life or bodily function? How? (Chest pain, [place], [place], pneumonia, PE, COPD, DKA, ARF, appy, cholecystitis, CVA, Diverticulitis, Homicidal, Suicidal, threat to staff... and all critical care pts) @ -[No] (Carol Ann Templeton) Patient signed out to me pending reevaluation following Marroquin catheter replacement. As with acute on chronic hematuria. Follows up with urology.. Was having issues with bleeding in the catheter and presents for further evaluation. Ultrasound was repeated by myself and was pending which revealed no obvious findings. Labs unremarkable. Hematuria present. Catheter is now adequately draining. She discharged home for follow-up with urology. Strict return precautions discussed. Diagnosis/symptom? @ -Hematuria, Marroquin catheter Acute, or Chronic, or Acute on Chronic? @ -Acute on chronic Uncomplicated (without systemic symptoms) or Complicated (systemic symptoms)? @ -Uncomplicated Side effects of treatment? @ -none Exacerbation, Progression, or Severe Exacerbation] @ -no Poses a threat to life or bodily function? @ -no (Colin Pelletier) - Lab Data Lab Results 07/26/23 07/26/23 07/26/23 Range/Units 12:46 12:46 12:46 WBC 10.4 (3.8-10.6) k/uL RBC 4.09 L (4.30-5.90) m/uL Hgb 12.4 L (13.0-17.5) gm/dL Hct 37.4 L (39.0-53.0) % MCV 91.5 (80.0-100.0) fL MCH 30.2 (25.0-35.0) pg MCHC 33.0 (31.0-37.0) g/dL RDW 16.1 H (11.5-15.5) % Plt Count 204 (150-450) k/uL MPV 8.0 Anisocytosis Slight Sodium 139 (137-145) mmol/L Potassium 3.8 (3.5-5.1) mmol/L Chloride 105 (98-107) mmol/L Carbon Dioxide 26 (22-30) mmol/L Anion Gap 8 mmol/L BUN 25 H (9-20) mg/dL Creatinine 0.76 (0.66-1.25) mg/dL Est GFR (CKD-EPI)AfAm >90 (>60 ml/min/1.73 sqM) Est GFR (CKD-EPI)NonAf 83 (>60 ml/min/1.73 sqM) Glucose 111 H (74-99) mg/dL Calcium 8.9 (8.4-10.2) mg/dL Total Bilirubin 0.5 (0.2-1.3) mg/dL AST 29 (17-59) U/L ALT 24 (4-49) U/L Alkaline Phosphatase 82 (38-126) U/L Total Protein 6.3 (6.3-8.2) g/dL Albumin 3.5 (3.5-5.0) g/dL Urine Color Red Urine Appearance Bloody (Clear) Urine RBC >182 H (0-5) /hpf Urine WBC >182 H (0-5) /hpf Blood Type Blood Type Recheck Bld Type Recheck Status Antibody Screen Spec Expiration Date 07/26/23 Range/Units 14:00 WBC (3.8-10.6) k/uL RBC (4.30-5.90) m/uL Hgb (13.0-17.5) gm/dL Hct (39.0-53.0) % MCV (80.0-100.0) fL MCH (25.0-35.0) pg MCHC (31.0-37.0) g/dL RDW (11.5-15.5) % Plt Count (150-450) k/uL MPV Anisocytosis Sodium (137-145) mmol/L Potassium (3.5-5.1) mmol/L Chloride (98-107) mmol/L Carbon Dioxide (22-30) mmol/L Anion Gap mmol/L BUN (9-20) mg/dL Creatinine (0.66-1.25) mg/dL Est GFR (CKD-EPI)AfAm (>60 ml/min/1.73 sqM) Est GFR (CKD-EPI)NonAf (>60 ml/min/1.73 sqM) Glucose (74-99) mg/dL Calcium (8.4-10.2) mg/dL Total Bilirubin (0.2-1.3) mg/dL AST (17-59) U/L ALT (4-49) U/L Alkaline Phosphatase (38-126) U/L Total Protein (6.3-8.2) g/dL Albumin (3.5-5.0) g/dL Urine Color Urine Appearance (Clear) Urine RBC (0-5) /hpf Urine WBC (0-5) /hpf Blood Type AB Positive Blood Type Recheck AB Pos Bld Type Recheck Status No Antibody Screen NEGATIVE Spec Expiration Date 07/29/2023 - 2299 Disposition <Carol Ann Templeton - Last Filed: 07/26/23 20:14> Is patient prescribed a controlled substance at d/c from ED?: No Time of Disposition: 21:25 <Colin Pelletier - Last Filed: 07/26/23 22:54> Clinical Impression: Hematuria, Complication of Marroquin catheter Disposition: HOME SELF-CARE Condition: Fair Instructions (If sedation given, give patient instructions): Hematuria (ED) Referrals: Jean Carlos Ferreira DO [Primary Care Provider] - 1-2 days Real Card MD [STAFF PHYSICIAN] - As Soon As Possible (Office is closed, please contact for appointment.)
[2023-07-26 13:22] LABS: RBC,Urine >182 /hpf (0-5); WBC,Urine >182 /hpf (0-5)
[2023-07-26 13:49] LABS: Color,Urine Red
[2023-07-26 13:50] LABS: Appearance,Urine Bloody (Clear)
[2023-07-26 14:11] LABS: Anisocytosis Slight; HCT 37.4 % (39.0-53.0); HGB 12.4 gm/dL (13.0-17.5); MCH 30.2 pg (25.0-35.0); MCV 91.5 fL (80.0-100.0); Platelet Count 204 k/uL (150-450); RBC 4.09 m/uL (4.30-5.90); RDW 16.1 % (11.5-15.5); WBC 10.4 k/uL (3.8-10.6)
[2023-07-26 14:40] LABS: ALT 24 U/L (4-49); AST 29 U/L (17-59); African American GFR (CKD) >90 (>60 ml/min/1.73 sqM); Albumin 3.5 g/dL (3.5-5.0); Alkaline Phosphatase 82 U/L (38-126); Anion Gap 8 mmol/L; Blood Urea Nitrogen 25 mg/dL (9-20); Calcium 8.9 mg/dL (8.4-10.2); Carbon Dioxide 26 mmol/L (22-30); Chloride 105 mmol/L (98-107); Glucose 111 mg/dL (74-99); Non-African American GFR(CKD) 83 (>60 ml/min/1.73 sqM); Potassium 3.8 mmol/L (3.5-5.1); Sodium 139 mmol/L (137-145); Total Bilirubin 0.5 mg/dL (0.2-1.3); Total Protein 6.3 g/dL (6.3-8.2)
[2023-07-26 17:43] VITALS: RESP 16
--- NOTE | 2023-07-26 20:11 | US ---
EXAMINATION TYPE: US kidneys/renal and bladder DATE OF EXAM: 07/26/2023 COMPARISON: CT 2022, US 2017 CLINICAL INDICATION: Male, 83 years old with history of Hematuria; EXAM MEASUREMENTS: Right Kidney: 11.8 x 6.7 x 5.4 cm Left Kidney: 11.4 x 4.9 x 4.4 cm Right Kidney: 10.8 x 8.1 x 8.3cm simple cyst inferior pole Left Kidney: There are multiple hypoechoic but not completely anechoic nodular densities which appear to show some increased through transmission. The largest measuring 2.2 x 2.5cm in the inferior pole. Bladder: Wall appears somewhat thickened but incompletely distended. No discrete intraluminal defect is seen. No evidence of hydronephrosis or shadowing renal calculi. IMPRESSION: 1. No evidence of shadowing renal calculi or hydronephrosis. 2. Large simple cyst inferior pole right kidney. 3. Several hypoechoic nodules of the left kidney, favored to be slightly complex/hemorrhagic cysts, with occult neoplasm not completely excluded especially in light of the history. If symptoms persist, CT urogram may be considered as an outpatient. 4. Somewhat thickened appearance of the urinary bladder wall, could be due to incomplete distention or cystitis.
[2023-07-26 23:16] VITALS: BP 137/88; PULSE 90
== END 2023-07-26 22:54 | disposition home or self-care (01) ==
LOC: EC 10:26
DX: T83.091A Other mechanical complication of indwelling urethral catheter, initial encounter (principal); N28.1 Cyst of kidney, acquired; N28.89 Other specified disorders of kidney and ureter; N32.89 Other specified disorders of bladder; I10 Essential (primary) hypertension; J45.909 Unspecified asthma, uncomplicated; E78.5 Hyperlipidemia, unspecified; Z79.899 Other long term (current) drug therapy; Z88.5 Allergy status to narcotic agent; Z90.49 Acquired absence of other specified parts of digestive tract; Z87.891 Personal history of nicotine dependence
CPT/HCPCS: 36415; 51702; 76770; 80053; 81001; 85027; 86850; 86900; 86901; 87086; 99285

== ENCOUNTER → 2023-08-15 | Outpatient (CLI) | payer MEDICARE ==
[2023-08-15 14:22] LABS: African American GFR (CKD) >90 (>60 ml/min/1.73 sqM); Blood Urea Nitrogen 20 mg/dL (9-20); Non-African American GFR(CKD) 88 (>60 ml/min/1.73 sqM)
--- NOTE | 2023-08-16 11:05 | CT ---
EXAMINATION TYPE: CT urogram wo/w con DATE OF EXAM: 08/15/2023 COMPARISON: 04/26/2023 HISTORY: blood in urine, cyst on rt kidney, lymphoma CT DLP: 4416.3 mGycm CONTRAST: Performed and with IV Contrast, patient injected with 80 mL of Isovue 370. CT Urography was performed with unenhanced followed by enhanced images of the kidneys, ureters and ur inary bladder. Delayed images were obtained. 3d reconstruction was performed at a separate work sta tion. FINDINGS: KIDNEYS/BLADDER: No hydronephrosis. No nephrolithiasis. No distinct solid renal mass. Stable renal cystic changes. Urinary bladder grossly unremarkable. TURP defect urinary bladder. LUNG BASES-: No visible nodule. No infiltrate. LIVER/GB: No calcified gallstones. Multiple nonspecific scattered hepatic lesions. Metastatic disea se is not excluded. Biliary tree is of normal caliber. PANCREAS: No inflammation. No distinct mass. SPLEEN: No splenic enlargement. No lesion seen. ADRENALS: No nodule. No thickening. BOWEL: Normal appendix. Normal bowel caliber. No inflammation. Postsurgical anastomotic sutures not ed right hemicolon, distal small bowel as well as the sigmoid colon. No evidence for leak or abscess. GENITAL ORGANS: Prostate gland enlargement noted. LYMPH NODES: No greater than 1cm abdominal or pelvic lymph nodes are appreciated. AORTA: No significant abnormality. OSSEOUS STRUCTURES: No significant abnormality is seen. OTHER: No significant additional abnormality is seen. IMPRESSION: 1. Multiple nonspecific scattered hepatic lesions. Metastatic disease is not excluded. 2. Renal cystic changes without solid mass noted. 3. No evidence for adenopathy.
== END | disposition home or self-care (01) ==
LOC: RADCTMAIN 13:23
PROVIDERS: ATTEND Internal Medicine
DX: C83.30 Diffuse large B-cell lymphoma, unspecified site (principal); N28.1 Cyst of kidney, acquired; K76.89 Other specified diseases of liver; Z71.3 Dietary counseling and surveillance
CPT/HCPCS: 82565; 84520; 74178; 74400; Q9967